=== PATIENT | male | born 1945 | race Caucasian/White ===

== ENCOUNTER 2016-08-14 09:55 | Outpatient (RCR) | payer MEDICAID, MEDICARE ==
[2016-07-25 09:38] LABS: BASOPHILS % (AUTO) 1 % (0-10); EOSINOPHILS # (AUTO) 0.3 10^3/uL (0.0-0.3); EOSINOPHILS % (AUTO) 4 % (0-10); LYMPHOCYTES # (AUTO) 1.8 X 10^3 (1.0-4.0); LYMPHOCYTES % (AUTO) 22 % (12-44); MEAN CORPUSCULAR HEMOGLOBIN 28 PG (25-34); MEAN CORPUSCULAR HGB CONC 32 G/DL (32-36); MEAN CORPUSCULAR VOLUME 88 FL (80-99); MEAN PLATELET VOLUME 9.9 FL (7.4-10.4); MONOCYTES % (AUTO) 13 % (0-12); NEUTROPHILS # (AUTO) 4.8 X 10^3 (1.8-7.8); NEUTROPHILS % (AUTO) 60 % (42-75); PLATELET COUNT 346 10^3/uL (130-400); RED BLOOD COUNT 4.15 10^6/uL (4.35-5.85); RED CELL DISTRIBUTION WIDTH 14.8 % (10.0-14.5)
[2016-07-25 10:13] LABS: ALBUMIN 3.8 G/DL (3.2-4.5); BILIRUBIN,TOTAL 0.3 MG/DL (0.1-1.0); CALCIUM 8.9 MG/DL (8.5-10.1); CREATININE SERUM 1.24 MG/DL (0.60-1.30); POTASSIUM 4.7 MMOL/L (3.6-5.0); TOTAL PROTEIN 6.8 G/DL (6.4-8.2)
[2016-07-25 12:24] LABS: %SAT TOTAL IRON BINDING CAPIC 6 % (15-50); TIBC 389 ug/dL (280-380)
[2016-07-26 07:53] LABS: UIBC 366 ug/dL (55-450)
[2016-07-26 08:02] LABS: FERRITIN 25 ng/mL (25-300)
[~2016-08-14 09:55] MED LIST: AC325T PO; AGM875T PO; ALBU8.5H2 IH; ALDACTONE25 MG PO; AMIO200T PO; AMIO200T2 PO; AMIO200T50 PO; APIX5TAB PO; APIX5TAB2 PO; ASP325T PO; ASP81CT PO; ASP81TEC PO; ASPI-624 PO; ASPI-906 PO; CARV3.122 PO; CEFU500T PO; CEFU500T5 PO; CIPR-225 PO; CLOP75TA PO; DIVA500T PO; DOCU-143 PO; DXCC100C PO; EZET10TA5 PO; FERR-57 PO; FERRIC CARBOXYMALTOSE (CANCER) 750 MG in NS (IVPB) CANCER CENTER 250 ML IV SCH; FLUO20CA42 PO; FLUT1DIS26 IH; FLUT1DIS26 INH; FURO20TA4 PO; FURO40TA4 PO; HYDR-3812 PO; IBUP-30 PO; ISOS10TA8 PO; ISOS30TA3 PO; LEVO500T69 PO; LISI2.5T56 PO; LISI2.5T85 PO; LISI5TAB PO; LOSA25TA15 PO; LOSA25TA21 PO; LOSA25TA5 PO; LSRT50T PO; METO-333 PO; METO25TA2 PO; METO25TA6 PO; METR500T PO; NAPR220T76 PO; NF-VAL40T PO; NITR0.4T PO; NITR0.4T39 SL; OMEP-10 PO; ONDA-42 SL; PANT40TA PO; PENI500T PO; PNT40TEC PO; PRD20T PO; Prednisone PO; RNT150T PO; ROSU20TA14 PO; ROSU40TA PO; RT-ALBUINH IH; SPIR25TA3 PO; SPRN25T PO; SULF1TAB35 PO; SUMA25TA4 PO; TAMS0.4C2 PO; TIOT18CA IH; TIOT18CA2 IH; TMSL.4C PO; TRAM-42 PO; TRIA16.5 NS; UMEC1BLS IH
== END 2016-10-23 | disposition home or self-care (01) ==
LOC: ONC 09:55
PROVIDERS: ATTEND Internal Medicine Hematology & Oncology
DX: D50.9 Iron deficiency anemia, unspecified (principal); I25.10 Atherosclerotic heart disease of native coronary artery without angina pectoris; I50.9 Heart failure, unspecified; E78.5 Hyperlipidemia, unspecified; J44.9 Chronic obstructive pulmonary disease, unspecified; F17.200 Nicotine dependence, unspecified, uncomplicated; Z95.810 Presence of automatic (implantable) cardiac defibrillator
CPT/HCPCS: 36415; 80053; 82728; 83540; 85025; 96365; 99213

== ENCOUNTER 2016-12-18 14:13 | Outpatient (RCR) | payer MEDICARE, MEDICAID ==
[~2016-12-18 14:13] MED LIST changes: -FERRIC CARBOXYMALTOSE (CANCER) 750 MG in NS (IVPB) CANCER CENTER 250 ML IV SCH
[2016-12-18 14:35] LABS: BASOPHILS # (AUTO) 0.1 10^3/uL (0.0-0.1); BASOPHILS % (AUTO) 1 % (0-10); EOSINOPHILS # (AUTO) 0.3 10^3/uL (0.0-0.3); EOSINOPHILS % (AUTO) 4 % (0-10); LYMPHOCYTES # (AUTO) 1.7 X 10^3 (1.0-4.0); LYMPHOCYTES % (AUTO) 26 % (12-44); MEAN CORPUSCULAR HEMOGLOBIN 31 PG (25-34); MEAN CORPUSCULAR HGB CONC 34 G/DL (32-36); MEAN CORPUSCULAR VOLUME 91 FL (80-99); MEAN PLATELET VOLUME 9.9 FL (7.4-10.4); MONOCYTES # (AUTO) 0.8 X 10^3 (0.0-1.0); MONOCYTES % (AUTO) 11 % (0-12); NEUTROPHILS # (AUTO) 3.9 X 10^3 (1.8-7.8); NEUTROPHILS % (AUTO) 58 % (42-75); PLATELET COUNT 267 10^3/uL (130-400); RED BLOOD COUNT 4.74 10^6/uL (4.35-5.85); RED CELL DISTRIBUTION WIDTH 14.9 % (10.0-14.5); WHITE BLOOD COUNT 6.6 10^3/uL (4.3-11.0)
[2016-12-18 15:28] LABS: ALBUMIN 3.6 G/DL (3.2-4.5); BILIRUBIN,TOTAL 0.5 MG/DL (0.1-1.0); CALCIUM 8.7 MG/DL (8.5-10.1); CREATININE SERUM 1.26 MG/DL (0.60-1.30); POTASSIUM 4.1 MMOL/L (3.6-5.0); TOTAL PROTEIN 6.7 G/DL (6.4-8.2)
[2017-02-12] MEDS ORDERED: TRAM-42 PO (22:30)
== END 2017-03-18 | disposition home or self-care (01) ==
LOC: ONC 14:13
PROVIDERS: ATTEND Internal Medicine Hematology & Oncology
DX: D50.9 Iron deficiency anemia, unspecified (principal); I25.10 Atherosclerotic heart disease of native coronary artery without angina pectoris; I50.9 Heart failure, unspecified; E78.5 Hyperlipidemia, unspecified; J44.9 Chronic obstructive pulmonary disease, unspecified; F17.200 Nicotine dependence, unspecified, uncomplicated; Z95.810 Presence of automatic (implantable) cardiac defibrillator
CPT/HCPCS: 36415; 80053; 82728; 83540; 85025; 99213

== ENCOUNTER 2017-02-12 20:47 | Emergency (ER) | payer MEDICARE ==
[~2017-02-12] VITALS: Ht 172.7 cm; Wt 92.4 kg
--- NOTE | 2017-02-12 21:52 | Diagnostic Imaging Report ---
PROCEDURE: CT head and CT cervical spine without contrast. TECHNIQUE: Multiple contiguous axial images were obtained through the brain and cervical spine without the use of intravenous contrast. Sagittal and coronal reformations through the cervical spine were then performed. INDICATION: Fell earlier today, complaining of pain on the right side of the head and neck COMPARISON STUDY: CT of the head from 10/11/15. FINDINGS: Noncontrast CT scanning of the head demonstrates stable mild atrophy. No mass effect, midline shift, hemorrhage or extra-axial fluid collections are identified. Bone windows demonstrate no evidence of a fracture. No fluid is seen in the mastoid air cells or paranasal sinuses. Cervical spine: Noncontrast CT scan of the cervical spine demonstrates no fracture or subluxation. There is some calcification of the carotid arteries. C6-7 level demonstrates disc space narrowing with osteophytic ridging. Moderate central and bilateral foraminal stenosis is present. The lung apices are clear. IMPRESSION: 1. There is mild atrophy with no acute intracranial findings. 2. There is central and bilateral foraminal stenosis at C6/7 without acute findings to the cervical spine. Dictated by: Dictated on workstation # [id number]
--- NOTE | 2017-02-12 21:56 | Diagnostic Imaging Report ---
Indication: Fell earlier today, has pain on the right side. Findings: An AP view of the pelvis demonstrates no fracture, dislocation or diastases. Degenerative changes are present at L4-5 and L5-S1. Impression: There are no acute findings. Dictated by: Dictated on workstation # [id number]
--- NOTE | 2017-02-12 21:57 | Diagnostic Imaging Report ---
INDICATION: Fell earlier today, right-sided chest pain FINDINGS: Frontal view of the chest demonstrates stable cardiomegaly with cardiac pacemaker and coronary artery bypass graft changes. Stable scarring is present in the lingula. The lungs are clear. IMPRESSION: Stable chest. Dictated by: Dictated on workstation # [id number]
--- NOTE | 2017-02-12 21:57 | Diagnostic Imaging Report ---
Indication: Fell today, has right-sided shoulder pain. Findings: Three views of the right shoulder demonstrate no fracture or dislocation. Calcification is seen at the insertion of the rotator cuff consistent with calcific tendinitis. Small osteophytes are seen off of the acromioclavicular joint. Impression: There are no acute findings. Dictated by: Dictated on workstation # [id number]
--- NOTE | 2017-02-12 22:01 | Diagnostic Imaging Report ---
PROCEDURE: CT chest without contrast. TECHNIQUE: Multiple contiguous axial images were obtained through the chest without the use of intravenous contrast. INDICATION: Fell earlier today, complaining of right-sided pain FINDINGS: Mild interstitial lung disease is present. No pleural or pericardial effusion is present. Heart size is enlarged with coronary artery bypass graft changes and cardiac pacemaker. Small gallstone is present without inflammation. There are some mildly enlarged mediastinal lymph nodes. Anterior mediastinal lymph node measures 13 mm. A pretracheal lymph node measures up to 15 mm in short axis dimension. Some subcarinal and small hilar lymph nodes are present. Consider 3-4 month followup to document stability of these. Bone windows demonstrate some degenerative changes of the right shoulder. No fractures are identified. IMPRESSION: 1. There are some mildly enlarged mediastinal lymph nodes; recommend a three-month followup to document stability of these. 2. Cardiomegaly and postoperative changes. 3. No fractures are identified. Dictated by: Dictated on workstation # [id number]
--- NOTE | 2017-02-12 22:03 | ED Fall/Injury ---
General Chief Complaint: Trauma-Non Activation Stated Complaint: FALL, SHOULDER/RIB/BACK PAIN Nursing Triage Note: patient reports falling this morning at 0630, patient reports hitting his head but denies LOC, c/o R shoulder pain and difficulty moving it. c/o R side/rib pain Source: patient History of Present Illness Time seen by provider: 21:07 Initial Comments PT STATES HE FELL THIS MORNING AROUND 0630, LANDING ON RIGHT SIDE--NOT WITNESSED PT STATES HE DID HIT HIS HEAD ON THE GROUND, BUT NO LOSS OF CONSCIOUSNESS-- GROUND WAS SOFT AND MUDDY C/O PAIN TO RIGHT SHOULDER--IS MAIN COMPLAINT ALSO C/O RIGHT ANTERIOR AND POSTERIOR RIB PAIN C/O SLIGHT PAIN TO RIGHT LATERAL NECK NO PARESTHESIAS OR MOTOR DEFICITS NO SHORTNESS OF BREATH NO HIP OR LEG PAIN NO DIZZINESS NO VISION CHANGES NO NAUSEA/VOMITING PT IS ON ELIQUIS FOR CORONARY ARTERY DISEASE PT HAS BEEN HAVING PROBLEMS WITH BALANCE AND STUMBLING FOR THE LAST MONTH, HAS ALSO BEEN HAVING HEADACHES FOR THE LAST MONTH PT HAS ACTUALLY HAD BALANCE PROBLEMS OFF AND ON SINCE HE HAD A STROKE 2 YEARS AGO WAS SEEN BY DR VARELA AT [facility] A WEEK OR TWO AGO FOR THIS AND WAS STARTED ON OXYGEN AT BEDTIME AND GIVEN RX FOR IMITREX--HEADACHES HAVE SIGNIFICANTLY IMPROVED, BUT IS STILL STUMBLING PT STATES NO TESTS WERE DONE, PER PT AND Allergies and Home Medications Allergies Coded Allergies: Penicillins (Unverified Allergy, Unknown, 05/29/16) Home Medications Albuterol Sulfate 8.5 Gm Hfa.aer.ad, 2 PUFF IH QID PRN for SHORTNESS OF BREATH, (Reported) Amiodarone HCl 200 Mg Tablet, 200 MG PO BID, (Reported) Apixaban 5 Mg Tablet, 5 MG PO BID for 30 Days Prescribed by: ANDREW ANGULO on 05/30/16 1230 Aspirin 81 Mg Tab.chew, 81 MG PO DAILY, (Reported) Fluoxetine HCl 20 Mg Capsule, 20 MG PO DAILY, #30 Ref 1 Prescribed by: RHEA FERRO on 05/30/16 1155 Furosemide 40 Mg Tablet, 40 MG PO DAILY, (Reported) Isosorbide Mononitrate 30 Mg Tab.er.24h, 30 MG PO DAILY, (Reported) Losartan Potassium 25 Mg Tablet, 12.5 MG PO DAILY, (Reported) TAKES 1/2 OF A (25 MG) TABLET Metoprolol Tartrate 25 Mg Tablet, 12.5 MG PO BID, (Reported) TAKES 1/2 OF A (25 MG) TABLET Nitroglycerin 0.4 Mg Tab.subl, 0.4 MG PO UD PRN for CHEST PAIN, (Reported) 1 TAB UNDER TONGUE EVERY 5 MIN UP TO 3 DOSES Pantoprazole Sodium 40 Mg Tablet.dr, 40 MG PO DAILY, (Reported) Rosuvastatin Calcium 40 Mg Tablet, 40 MG PO HS, (Reported) Spironolactone 25 Mg Tablet, 25 MG PO DAILY, (Reported) Sumatriptan Succinate 25 Mg Tablet, 25 MG PO UD PRN for MIGRAINE, (Reported) Tamsulosin HCl 0.4 Mg Cap.er.24h, 0.4 MG PO 1730, (Reported) Tramadol HCl 50 Mg Tablet, 50 MG PO Q4H, #20 Prescribed by: SACHIN PHILIPPE on 02/12/17 2230 Umeclidinium Brm/Vilanterol Tr 1 Each Blst.w.dev, 1 PUFF IH DAILY, (Reported) Constitutional: no symptoms reported Eyes: No Symptoms Reported Ears, Nose, Mouth, Throat: no symptoms reported Respiratory: no symptoms reported Cardiovascular: no symptoms reported Gastrointestinal: no symptoms reported Genitourinary: no symptoms reported Musculoskeletal: see HPI Skin: no symptoms reported Psychiatric/Neurological: See HPI, Denies Headache, Denies Numbness, Denies Paresthesia, Denies Seizure, Denies Tingling, Denies Tremors, Denies Weakness Past Unbpgio-Lcpygc-Kvhagb Hx Patient Social History Alcohol Use: Denies Use Recreational Drug Use: No Smoking Status: Former Smoker Type Used: Cigarettes Recent Foreign Travel: No Contact w/Someone Who Travel: No Recent Infectious Disease Expo: No Recent Hopitalizations: No Immunizations Up To Date Tetanus Booster (TDap): More than 5yrs PED Vaccines UTD: No Date of Pneumonia Vaccine: Oct 18, 2013 Date of Influenza Vaccine: Jun 19, 2015 Seasonal Allergies Seasonal Allergies: Yes Surgeries HX Surgeries: Yes (STENTS X 3) Surgeries: Cardiac, CABG, Coronary Stent, Defibrillator Respiratory Hx Respiratory Disorders: Yes (MEDIASTINAL LYMPHADENOPATHY--BEING MONITORED BY PCP AND DR. TAPIA) Respiratory Disorders: Asthma, COPD Cardiovascular Hx Cardiac Disorders: Yes (NV X2; SYNCOPE PRIOR TO DEFIBRILLATOR PLACEMENT; CHF ) Cardiac Disorders: Atrial Fibrillation, Coronary Artery Disease, Heart Attack, High Cholesterol, Hypertension, Syncope Neurological Hx Neurological Disorders: Yes (LEFT SIDE WEAKNESS, BALANCE PROBLEMS/ FALLS) Neurological Disorders: Stroke Reproductive System Hx Reproductive Disorders: No Sexually Transmitted Disease: No HIV/AIDS: No Genitourinary Hx Genitourinary Disorders: Yes (URINARY RETENTION) Genitourinary Disorders: Benign Prostatic Hyperpl Gastrointestinal Hx Gastrointestinal Disorders: Yes (GASTRITIS) Gastrointestinal Disorders: Gastroesophageal Reflux, Diverticulosis, Esophagitis, Hiatal Hernia Musculoskeletal Hx Musculoskeletal Disorders: Yes Musculoskeletal Disorders: Fractures Endocrine Hx Endocrine Disorders: No HEENT HX ENT Disorders: No Loss of Vision: Denies Hearing Impairment: Denies Cancer Hx Cancer: No Psychosocial Hx Psychiatric Problems: No Integumentary HX Skin/Integumentary Disorder: No Blood Transfusions Hx Blood Disorders: Yes (NOT CURRENT BUT HX OF ANEMIA OF UNKNOWN CAUSE) Adverse Reaction to a Blood Tr: No Family Medical History Family Medial History: Fam hx-osteoporosis 03 MOTHER Family history: Hypertension 03 MOTHER, Onset:50's - 60 09 SISTER, Onset:40's - 50 Thyroid disease 03 MOTHER No Family History of: Cancer Chest pain Dementia Family history: Diabetes mellitus Stroke Physical Exam Vital Signs Vital Sign - Last 12Hours 02/12/17 21:02 Temp 98.2 Pulse 46 Resp 18 B/P (MAP) 117/63 Pulse Ox 94 Capillary Refill : Less Than 3 Seconds General Appearance: WD/WN, no apparent distress HEENT: PERRL/EOMI, normal ENT inspection, TMs normal, pharynx normal Neck: non-tender, full range of motion, supple, normal inspection Cardiovascular: normal peripheral pulses, regular rate, rhythm, no edema, no JVD, no murmur Respiratory: normal breath sounds, no respiratory distress, no accessory muscle use, other (TENDERNESS TO RIGHT LOWER CHEST WALL. NO CREPITANCE OR SUB Q AIR) Gastrointestinal: normal bowel sounds, non tender, soft, no organomegaly Back: no vertebral tenderness, other (TENDERNESS TO RIGHT TRAPEZIUS AREA ) Extremities: no pedal edema, no calf tenderness, normal capillary refill, other (TENDERNESS TO RIGHT SHOULDER AND LIMITED ROM OF RIGHT SHOULDER/ARM DUE TO PAIN . NO DEFORMTITY. MOTOR/ SENSORY/ VASCULAR INTACT) Neurologic/Psychiatric: operations director II-XII nml as tested, no motor/sensory deficits, alert, normal mood/affect, oriented x 3 Skin: normal color, warm/dry, other (NO EXTERNAL EVIDENCE OF TRAUMA ANYWHERE) [place] Coma Score Best Eye Response: (4) Open Spontaneously Best Verbal Response: (5) Oriented Best Motor Response: (6) Obeys Commands [place] Total: 15 Splinting and Joint Reduction : Arm Sling: [place] Progress/Results/Core Measures Results/Orders My Orders Orders - SACHIN PHILIPPE DO Ct Chest Wo (02/12/17 21:14) Ct Head/Cervical Spine Wo (02/12/17 21:14) Ct Thoracic/Lumbar Spine Wo (02/12/17 21:14) Chest 1 View, Ap/Pa Only (02/12/17 21:14) Shoulder, Right, 3 Views (02/12/17 21:14) Pelvis (02/12/17 21:14) Sling (02/12/17 22:24) Rx-Tramadol Hcl (Rx-Ultram) (02/12/17 22:24) Vital Signs/I&O Vital Sign - Last 12Hours 02/12/17 02/12/17 21:02 22:36 Temp 98.2 98.2 Pulse 46 46 Resp 18 18 B/P (MAP) 117/63 Pulse Ox 94 94 Blood Pressure Mean: 81 Diagnostic Imaging Comments CXR--NO ACUTE PROCESS XRAYS RIGHT SHOULDER--NO ACUTE PROCESS XRAY PELVIS--NO ACUTE PROCESS ALL PER RADIOLOGIST REPORTS @ 2200 CT HEAD AND CERVICAL SPINE--NO ACUTE PROCESS, DEGENERATIVE CHANGES--PER RADIOLOGIST REPORT @ 2200 CT CHEST--NO ACUTE PROCESS, MILDLY ENLARGED MEDIASTINAL NODES--PER RADIOLOGIST REPORT @ 2207 CT THORACIC AND LUMBAR SPINE--NO ACUTE PROCESS, DEGENERATIVE CHANGES--PER RADIOLOGIST REPORT @ 2215 Reviewed: Reviewed by Me Departure Impression Impression: Primary Impression: Status post fall Additional Impressions: Contusion of right shoulder Minor head injury without loss of consciousness Contusion of right chest wall CHRONIC BALANCE PROBLEMS Disposition: 01 HOME, SELF-CARE Condition: Stable Departure-Patient Inst. Referrals: TANYA DENG DO (PCP) Primary Care Physician JENNIFER VARELA (Family) Primary Care Physician Patient Instructions: Bruised Rib (DC), How to Use a Shoulder Sling, Minor Head Injury (DC), Preventing Falls in the Older Adult, Shoulder Sprain (DC) Add. Discharge Instructions: WEAR SLING NEEDED FOR COMFORT ALTERNATE ICE AND HEAT TO SORE AREAS AT 20 MINUTE INTERVALS ACTIVITY TOLERATED FOLLOW UP WITH YOUR DR IN 1 WEEK SCHEDULED All discharge instructions reviewed with patient and/or family. Voiced understanding. Scripts Tramadol HCl (Ultram) 50 Mg Tablet 50 MG PO Q4H, #20 TAB Prov: SACHIN PHILIPPE DO 02/12/17 SACHIN PHILIPPE DO February 12, 2017 22:03
--- NOTE | 2017-02-12 22:13 | Diagnostic Imaging Report ---
INDICATION: Fell earlier today, right-sided pain TECHNIQUE: Noncontrast CT scanning of the thoracic and lumbar spine was obtained. Thoracic spine: The exam demonstrates degenerative changes of the cervical spine which will be dictated separately. The thoracic spine demonstrates no fracture, subluxation or stenosis. No visible rib fractures are seen. The lumbar spine demonstrates no fracture or subluxation. Degenerative changes are present. Arteriosclerosis is also present. The L2-3 level demonstrates some facet arthropathy and mild disc bulge. Mild central stenosis present. The L4-5 level demonstrates facet arthropathy with mild disc bulge and ligamentum flavum hypertrophy. Moderate central stenosis present. The L4-5 level demonstrates vacuum disc, disc bulge and facet arthropathy. Moderate to severe central stenosis present. The L5-S1 level demonstrates facet arthropathy. No significant stenosis present. IMPRESSION: There are degenerative changes with no acute findings. Dictated by: Dictated on workstation # [id number]
[2017-02-12] MEDS ORDERED: RX-TRAMADOL 50 MG (ULTRAM) TAB PPK#4 PO STA (22:24)
[2017-02-12] MEDS ORDERED: TRAM-42 PO (22:30)
[2017-02-12 22:36] VITALS: BP 117/63
== END 2017-02-12 22:36 | disposition home or self-care (01) ==
LOC: EDUNIT# 20:47 → ER 20:49
DX: S40.011A Contusion of right shoulder, initial encounter (principal); S20.211A Contusion of right front wall of thorax, initial encounter; M47.816 Spondylosis without myelopathy or radiculopathy, lumbar region; M48.02 Spinal stenosis, cervical region; I25.10 Atherosclerotic heart disease of native coronary artery without angina pectoris; Z79.01 Long term (current) use of anticoagulants; Z87.891 Personal history of nicotine dependence; Z79.899 Other long term (current) drug therapy; Z95.810 Presence of automatic (implantable) cardiac defibrillator; Z95.5 Presence of coronary angioplasty implant and graft; Z95.1 Presence of aortocoronary bypass graft; Z86.73 Personal history of transient ischemic attack (TIA), and cerebral infarction without residual deficits; W01.0XXA Fall on same level from slipping, tripping and stumbling without subsequent striking against object, initial encounter; Y92.009 Unspecified place in unspecified non-institutional (private) residence as the place of occurrence of the external cause; Y99.8 Other external cause status
CPT/HCPCS: 70450; 71010; 71250; 72125; 72128; 72131; 72170; 73030; 99285

== ENCOUNTER 2017-03-22 09:33 | Outpatient (RCR) | payer MEDICAID, MEDICARE ==
[2017-03-22 09:46] LABS: BASOPHILS # (AUTO) 0.1 10^3/uL (0.0-0.1); BASOPHILS % (AUTO) 1 % (0-10); EOSINOPHILS # (AUTO) 0.3 10^3/uL (0.0-0.3); EOSINOPHILS % (AUTO) 4 % (0-10); LYMPHOCYTES # (AUTO) 1.4 X 10^3 (1.0-4.0); LYMPHOCYTES % (AUTO) 17 % (12-44); MEAN CORPUSCULAR HEMOGLOBIN 31 PG (25-34); MEAN CORPUSCULAR HGB CONC 33 G/DL (32-36); MEAN CORPUSCULAR VOLUME 94 FL (80-99); MEAN PLATELET VOLUME 9.9 FL (7.4-10.4); MONOCYTES # (AUTO) 0.8 X 10^3 (0.0-1.0); MONOCYTES % (AUTO) 10 % (0-12); NEUTROPHILS # (AUTO) 5.5 X 10^3 (1.8-7.8); NEUTROPHILS % (AUTO) 68 % (42-75); PLATELET COUNT 317 10^3/uL (130-400); RED BLOOD COUNT 4.54 10^6/uL (4.35-5.85); RED CELL DISTRIBUTION WIDTH 15.2 % (10.0-14.5); WHITE BLOOD COUNT 8.1 10^3/uL (4.3-11.0)
[2017-03-22 10:21] LABS: ALBUMIN 3.7 GM/DL (3.2-4.5); BILIRUBIN,TOTAL 0.5 MG/DL (0.1-1.0); CALCIUM 9.5 MG/DL (8.5-10.1); CREATININE SERUM 1.43 MG/DL (0.60-1.30); POTASSIUM 4.4 MMOL/L (3.6-5.0); TOTAL PROTEIN 7.5 GM/DL (6.4-8.2)
[2017-05-04] MEDS ORDERED: CEPH500C PO (13:33)
[2017-05-04] MEDS ORDERED: PHEN-639 PO (13:33)
[2017-05-04] MEDS ORDERED: ONDA8TAB13 PO (13:33)
[2017-05-04] MEDS ORDERED: HYDR-3812 PO (13:33)
[2017-05-10] MEDS ORDERED: APIX5TAB PO (11:30)
[2017-05-10] MEDS ORDERED: SUMA50TA2 PO (11:30)
[2017-05-10] MEDS ORDERED: ASPI-983 PO (11:30)
[2017-05-10] MEDS ORDERED: POLY255P PO (11:33)
[2017-05-11] MEDS ORDERED: FURO40TA4 PO (08:46)
[2017-05-11] MEDS ORDERED: POTA10TA PO (08:46)
== END 2017-06-16 | disposition home or self-care (01) ==
LOC: ONC 09:33
PROVIDERS: ATTEND Internal Medicine Hematology & Oncology
DX: Z95.810 Presence of automatic (implantable) cardiac defibrillator; J44.9 Chronic obstructive pulmonary disease, unspecified; D50.9 Iron deficiency anemia, unspecified; I25.10 Atherosclerotic heart disease of native coronary artery without angina pectoris; E78.5 Hyperlipidemia, unspecified; F17.200 Nicotine dependence, unspecified, uncomplicated; I50.9 Heart failure, unspecified
CPT/HCPCS: 36415; 80053; 82728; 83540; 85025; 99213

== ENCOUNTER 2017-05-04 09:59 | Emergency (ER) | payer MEDICARE, MEDICAID ==
[~2017-05-04] VITALS: Ht 172.7 cm; Wt 90.7 kg
[2017-05-04] MEDS ORDERED: NS IV 1000 ML 1,000 ML IV ONE (12:02)
[2017-05-04] MEDS ORDERED: morphine INJ 10 MG/ML 1ML (SYR OR VIAL) IVP STA (12:02)
--- NOTE | 2017-05-04 12:08 | ED GU-Male ---
General Chief Complaint: Back Problems Stated Complaint: BACK PAIN Nursing Triage Note: ADM TO ED C/O LOW BACK PAIN WITH RADIATION TO FRONT. PAIN HAS BEEN GOING ON FOR 2 WEEKS WAS SEEN AT [facility] ON SUNDAY XRAY DID AT THAT TIME. DID XRAY TOLD HIM THAT HE WAS CONSTIPATION STARTED ON [place] CON'T TO HAVE PAIN, Source: patient, spouse Exam Limitations: no limitations History of Present Illness Time seen by provider: 11:45 Initial Comments 71-year-old male patient presents to the emergency department complaints of right low back pain radiating around the right flank beginning approximately 2 weeks ago. Patient states he was seen Sunday at [facility] with a UA and x-ray obtained. States he x-ray showed constipation and UA showed blood in his urine. Reports being diagnosed with constipation and started on MiraLAX without improvement in symptoms. Does complain of feeling like he has a low- grade fever at nighttime, but has not taken his temperature. Denies any dysuria , frequency, hematuria. Does state when he takes his Lasix the right low back pain does get worse after approximately 1-2 hours. Denies history of kidney stones. Denies bowel or bladder incontinence. Timing/Duration: other (2 weeks onset) Severity/Quality: aching, stabbing (intermittently has stabbing pains in the right low back and right flank) Location: other (right low back) Radiation: right flank Activities at Onset: none Prior Genitourinary Problems: none Modifying Factors: Worsens With Palpation, Worsens With Other (worse with taking Lasix) Allergies and Home Medications Allergies Coded Allergies: Penicillins (Unverified Allergy, Unknown, 05/29/16) Home Medications Albuterol Sulfate 8.5 Gm Hfa.aer.ad, 2 PUFF IH QID PRN for SHORTNESS OF BREATH, (Reported) Amiodarone HCl 200 Mg Tablet, 200 MG PO BID, (Reported) Apixaban 5 Mg Tablet, 5 MG PO BID for 30 Days Prescribed by: ANDREW ANGULO on 05/30/16 1230 Aspirin 81 Mg Tab.chew, 81 MG PO DAILY, (Reported) Cephalexin 500 Mg Capsule, 500 MG PO TID, #9 Ref 0 Prescribed by: RENEE CERVANTES on 05/04/17 1333 Fluoxetine HCl 20 Mg Capsule, 20 MG PO DAILY, #30 Ref 1 Prescribed by: RHEA FERRO on 05/30/16 1155 Furosemide 40 Mg Tablet, 40 MG PO DAILY, (Reported) Hydrocodone/Acetaminophen 1 Each Tablet, 1 EACH PO Q4H PRN for PAIN, #20 Ref 0 Prescribed by: RENEE CERVANTES on 05/04/17 1333 Isosorbide Mononitrate 30 Mg Tab.er.24h, 30 MG PO DAILY, (Reported) Losartan Potassium 25 Mg Tablet, 12.5 MG PO DAILY, (Reported) TAKES 1/2 OF A (25 MG) TABLET Metoprolol Tartrate 25 Mg Tablet, 12.5 MG PO BID, (Reported) TAKES 1/2 OF A (25 MG) TABLET Nitroglycerin 0.4 Mg Tab.subl, 0.4 MG PO UD PRN for CHEST PAIN, (Reported) 1 TAB UNDER TONGUE EVERY 5 MIN UP TO 3 DOSES Ondansetron 8 Mg Tab.rapdis, 8 MG PO Q6H PRN for NAUSEA/VOMITING-1ST LINE, #10 Ref 0 Prescribed by: RENEE CERVANTES on 05/04/17 1333 Pantoprazole Sodium 40 Mg Tablet.dr, 40 MG PO DAILY, (Reported) Phenazopyridine HCl 100 Mg Tablet, 100 MG PO Q8H PRN for pain, #14 Ref 0 Prescribed by: RENEE CERVANTES on 05/04/17 1333 Rosuvastatin Calcium 40 Mg Tablet, 40 MG PO HS, (Reported) Spironolactone 25 Mg Tablet, 25 MG PO DAILY, (Reported) Sumatriptan Succinate 25 Mg Tablet, 25 MG PO UD PRN for MIGRAINE, (Reported) Tamsulosin HCl 0.4 Mg Cap.er.24h, 0.4 MG PO 1730, (Reported) Tramadol HCl 50 Mg Tablet, 50 MG PO Q4H, #20 Prescribed by: SACHIN PHILIPPE on 02/12/17 2230 Umeclidinium Brm/Vilanterol Tr 1 Each Blst.w.dev, 1 PUFF IH DAILY, (Reported) Constitutional: chills, No diaphoresis, No dizziness, fever (reports low-grade fevers at nighttime over the last several days. Denies taking temperature.), malaise Respiratory: No cough, No dyspnea on exertion, No orthopnea, No short of breath Cardiovascular: No chest pain, No palpitations, No syncope Gastrointestinal: see HPI, No abdominal pain, No constipation, No diarrhea, No melena, nausea, No vomiting Genitourinary: see HPI, denies burning, denies discharge, denies dysuria, denies frequency, flank pain (right flank pain), hematuria (was told he had blood in his urine on [place] [facility] Musculoskeletal: see HPI, back pain, No joint pain Skin: no symptoms reported Psychiatric/Neurological: Denies Numbness, Denies Paresthesia, Denies Tingling , Denies Weakness All Other Systemes Reviewed Negative Unless Noted: Yes (Negative excepted noted.) Past Qcmuznl-Nnrddh-Tshqdt Hx Patient Social History Alcohol Use: Denies Use Recreational Drug Use: No Smoking Status: Current Everyday Smoker Type Used: Cigarettes Recent Foreign Travel: No Contact w/Someone Who Travel: No Recent Infectious Disease Expo: No Recent Hopitalizations: No Immunizations Up To Date Tetanus Booster (TDap): More than 5yrs PED Vaccines UTD: No Date of Pneumonia Vaccine: Oct 18, 2013 Date of Influenza Vaccine: Jun 19, 2015 Seasonal Allergies Seasonal Allergies: Yes Surgeries HX Surgeries: Yes (STENTS X 3) Surgeries: Cardiac, CABG, Coronary Stent, Defibrillator Respiratory Hx Respiratory Disorders: Yes (MEDIASTINAL LYMPHADENOPATHY--BEING MONITORED BY PCP AND DR. TAPIA) Respiratory Disorders: Asthma, COPD Cardiovascular Hx Cardiac Disorders: Yes (MA X2; SYNCOPE PRIOR TO DEFIBRILLATOR PLACEMENT; CHF ) Cardiac Disorders: Atrial Fibrillation, Coronary Artery Disease, Heart Attack, High Cholesterol, Hypertension, Syncope Neurological Hx Neurological Disorders: Yes (LEFT SIDE WEAKNESS, BALANCE PROBLEMS/ FALLS) Neurological Disorders: Stroke Reproductive System Hx Reproductive Disorders: No Sexually Transmitted Disease: No HIV/AIDS: No Genitourinary Hx Genitourinary Disorders: Yes (URINARY RETENTION, chronic kidney disease) Genitourinary Disorders: Benign Prostatic Hyperpl Gastrointestinal Hx Gastrointestinal Disorders: Yes (GASTRITIS) Gastrointestinal Disorders: Gastroesophageal Reflux, Diverticulosis, Esophagitis, Hiatal Hernia Musculoskeletal Hx Musculoskeletal Disorders: Yes Musculoskeletal Disorders: Fractures Endocrine Hx Endocrine Disorders: No HEENT HX ENT Disorders: No Loss of Vision: Denies Hearing Impairment: Denies Cancer Hx Cancer: No Psychosocial Hx Psychiatric Problems: No Integumentary HX Skin/Integumentary Disorder: No Blood Transfusions Hx Blood Disorders: Yes (NOT CURRENT BUT HX OF ANEMIA OF UNKNOWN CAUSE) Adverse Reaction to a Blood Tr: No Reviewed Nursing Assessment Reviewed/Agree w Nursing PMH: Yes Family Medical History Significant Family History: No Pertinent Family Hx Family Medial History: Fam hx-osteoporosis 03 MOTHER Family history: Hypertension 03 MOTHER, Onset:50's - 60 09 SISTER, Onset:40's - 50 Thyroid disease 03 MOTHER No Family History of: Cancer Chest pain Dementia Family history: Diabetes mellitus Stroke Physical Exam Vital Signs Vital Sign - Last 12Hours 05/04/17 10:15 Temp 97.2 Pulse 47 Resp 18 B/P (MAP) 129/72 Pulse Ox 95 Capillary Refill : Less Than 3 Seconds General Appearance: WD/WN, no apparent distress Cardiovascular: normal peripheral pulses, regular rate, rhythm, no murmur Respiratory: lungs clear, normal breath sounds, no respiratory distress Gastrointestinal: normal bowel sounds, soft, no organomegaly, No distended, guarding (right flank guarding), No rebound, tenderness (mild suprapubic and right lower quadrant tenderness. Right flank moderate to severe tenderness with palpation.) Back: normal inspection, no vertebral tenderness, CVA tenderness (R), No CVA tenderness (L) Extremities: normal capillary refill, pedal edema Neurologic/Psychiatric: no motor/sensory deficits, alert, normal mood/affect, oriented x 3 Skin: normal color, warm/dry Progress/Results/Core Measures Results/Orders Lab Results Laboratory Tests Test 05/04/17 12:09 05/04/17 12:11 Range/Units White Blood Count 7.8 4.3-11.0 10^3/uL Red Blood Count 4.73 4.35-5.85 10^6/uL Hemoglobin 14.6 13.3-17.7 G/DL Hematocrit 44 40-54 % Mean Corpuscular Volume 93 80-99 FL Mean Corpuscular Hemoglobin 31 25-34 PG Mean Corpuscular Hemoglobin Concent 33 32-36 G/DL Red Cell Distribution Width 14.6 H 10.0-14.5 % Platelet Count 283 130-400 10^3/uL Mean Platelet Volume 10.2 7.4-10.4 FL Neutrophils (%) (Auto) 65 42-75 % Lymphocytes (%) (Auto) 20 12-44 % Monocytes (%) (Auto) 11 0-12 % Eosinophils (%) (Auto) 3 0-10 % Basophils (%) (Auto) 1 0-10 % Neutrophils # (Auto) 5.1 1.8-7.8 X 10^3 Lymphocytes # (Auto) 1.6 1.0-4.0 X 10^3 Monocytes # (Auto) 0.8 0.0-1.0 X 10^3 Eosinophils # (Auto) 0.3 0.0-0.3 10^3/uL Basophils # (Auto) 0.0 0.0-0.1 10^3/uL Sodium Level 141 135-145 MMOL/L Potassium Level 4.5 3.6-5.0 MMOL/L Chloride Level 112 H 98-107 MMOL/L Carbon Dioxide Level 17 L 21-32 MMOL/L Anion Gap 12 5-14 MMOL/L Blood Urea Nitrogen 23 H 7-18 MG/DL Creatinine 1.15 0.60-1.30 MG/DL Estimat Glomerular Filtration Rate > 60 BUN/Creatinine Ratio 20 Glucose Level 98 70-105 MG/DL Calcium Level 9.3 8.5-10.1 MG/DL Total Bilirubin 0.7 0.1-1.0 MG/DL Aspartate Amino Transf (AST/SGOT) 34 5-34 U/L Alanine Aminotransferase (ALT/SGPT) 30 0-55 U/L Alkaline Phosphatase 77 40-136 U/L Total Protein 7.9 6.4-8.2 GM/DL Albumin 3.9 3.2-4.5 GM/DL Urine Color YELLOW Urine Clarity CLEAR Urine pH 5 5-9 Urine Specific [place] 1.020 1.016-1.022 Urine Protein NEGATIVE NEGATIVE Urine Glucose (UA) NEGATIVE NEGATIVE Urine Ketones NEGATIVE NEGATIVE Urine Nitrite NEGATIVE NEGATIVE Urine Bilirubin NEGATIVE NEGATIVE Urine Urobilinogen NORMAL NORMAL MG/DL Urine Leukocyte Esterase 1+ H NEGATIVE Urine RBC (Auto) 1+ H NEGATIVE Urine RBC NONE /HPF Urine WBC 0-2 /HPF Urine Squamous Epithelial Cells RARE /HPF Urine Crystals NONE /LPF Urine Bacteria TRACE /HPF Urine Casts NONE /LPF Urine Mucus SMALL H /LPF Urine Culture Indicated NO My Orders Orders - RENEE CERVANTES Cbc With Automated Diff (05/04/17 12:02) Comprehensive Metabolic Panel (05/04/17 12:02) Ua Culture If Indicated (05/04/17 12:02) Saline Lock/Iv-Start (05/04/17 12:02) Ct Abd/Pelvis Wo(Kidney Stone) (05/04/17 12:02) Morphine Injection (Morphine Injection (05/04/17 12:02) Ondansetron Injection (Zofran Injectio (05/04/17 12:15) Ns Iv 1000 Ml (Sodium Chloride 0.9%) (05/04/17 12:02) Hydrocodone/Apap 7.5/325 Tab (Lortab 7. (05/04/17 13:59) Medications Given in ED Current Medications Medications Dose Ordered Sig/Henry Route Start Time Stop Time Status Last Admin Dose Admin Ondansetron HCl 4 mg ONCE ONCE IVP 05/04/17 12:15 05/04/17 12:16 DC 05/04/17 12:16 4 MG Sodium Chloride 1,000 ml @ 0 mls/hr Q0M ONCE IV 05/04/17 12:02 05/04/17 12:04 DC 05/04/17 12:15 1,000 MLS/HR Vital Signs/I&O Vital Sign - Last 12Hours 05/04/17 05/04/17 10:15 14:09 Temp 97.2 Pulse 47 51 Resp 18 18 B/P (MAP) 129/72 Pulse Ox 95 98 Intake and Output 05/05/17 00:00 Intake Total 1000 ml Balance 1000 ml Blood Pressure Mean: 91 Diagnostic Imaging Diagonstic Imaging: CT Plain Films/CT/US/NM/MRI: abdomen, pelvis Comments FINDINGS: The lung bases are clear. There is cholelithiasis without cholecystitis. The liver, spleen, pancreas, adrenal glands, and kidneys are unremarkable. There is no obstructive or nonobstructive renal calculi. Both ureters have a normal appearance. There is moderate prostate enlargement. The visualized urinary bladder is unremarkable. There is no inflammatory process. The course and caliber of the large and small bowel are grossly normal. IMPRESSION: 1. Cholelithiasis without cholecystitis. 2. Normal kidneys, ureter, and bladder. 3. Moderate prostate enlargement. Dictated on workstation # [id number] Reviewed: Reviewed by Me (radiology report reviewed by me) Departure Communication Progress Notes Laboratory and diagnostic findings discussed with the patient. Patient reports pain improved with the IV medication, but states pain is now starting to come back. Plan for discharge to home with follow-up as an outpatient with [facility] and the general surgeon of his choice. ED visit uneventful. Patient ambulated from the emergency department without difficulty. Impression Impression: Primary Impression: Renal colic on right side Additional Impression: Cholelithiasis Qualified Codes: K80.20 - Calculus of gallbladder without cholecystitis without obstruction Disposition: 01 HOME, SELF-CARE Condition: Improved Departure-Patient Inst. Decision time for Depature: 13:29 Referrals: TANYA DENG DO (PCP) Primary Care Physician JENNIFER VARELA (Family) Primary Care Physician ROSAURA KLEIN BRETT D DO Patient Instructions: Gallstones (DC), Renal Colic (DC) Add. Discharge Instructions: All discharge instructions reviewed with patient and/or family. Voiced understanding. Medications as directed. Drink plenty of fluids. Continue usual home medications. Strict low-fat diet. Follow-up with Dr. Snyder or the general surgeon of your choice for discussion of possible gallbladder removal. Follow-up with her family practitioner for recheck. Return to the emergency department for worsened symptoms or any other concerns. Scripts Cephalexin (Cephalexin) 500 Mg Capsule 500 MG PO TID, #9 CAP 0 Refills Prov: RENEE CERVANTES 05/04/17 Hydrocodone/Acetaminophen (Hydrocodon -Acetaminophen 5-325) 1 Each Tablet 1 EACH PO Q4H Y for PAIN, #20 TAB 0 Refills Prov: RENEE CERVANTES 05/04/17 Ondansetron (Ondansetron Odt) 8 Mg Tab.rapdis 8 MG PO Q6H Y for NAUSEA/VOMITING-1ST LINE, #10 TAB 0 Refills Prov: RENEE CERVANTES 05/04/17 Phenazopyridine HCl (Pyridium) 100 Mg Tablet 100 MG PO Q8H Y for pain, #14 TAB 0 Refills Prov: RENEE CERVANTES 05/04/17 RENEE CERVANTES May 04, 2017 12:08
[2017-05-04] MEDS ORDERED: ONDANSETRON 4 MG/2 ML (SDV) Z0FRAN IVP ONE (12:15)
[2017-05-04 12:21] LABS: BASOPHILS % (AUTO) 1 % (0-10); EOSINOPHILS # (AUTO) 0.3 10^3/uL (0.0-0.3); EOSINOPHILS % (AUTO) 3 % (0-10); LYMPHOCYTES # (AUTO) 1.6 X 10^3 (1.0-4.0); LYMPHOCYTES % (AUTO) 20 % (12-44); MEAN CORPUSCULAR HEMOGLOBIN 31 PG (25-34); MEAN CORPUSCULAR HGB CONC 33 G/DL (32-36); MEAN CORPUSCULAR VOLUME 93 FL (80-99); MEAN PLATELET VOLUME 10.2 FL (7.4-10.4); MONOCYTES # (AUTO) 0.8 X 10^3 (0.0-1.0); MONOCYTES % (AUTO) 11 % (0-12); NEUTROPHILS # (AUTO) 5.1 X 10^3 (1.8-7.8); NEUTROPHILS % (AUTO) 65 % (42-75); PLATELET COUNT 283 10^3/uL (130-400); RED BLOOD COUNT 4.73 10^6/uL (4.35-5.85); RED CELL DISTRIBUTION WIDTH 14.6 % (10.0-14.5); WHITE BLOOD COUNT 7.8 10^3/uL (4.3-11.0)
[2017-05-04 12:42] LABS: ALANINE AMINOTRANSFERASE 30 U/L (0-55); ALBUMIN 3.9 GM/DL (3.2-4.5); ANION GAP 12 MMOL/L (5-14); ASPARTATE AMINO TRANSFERASE 34 U/L (5-34); BILIRUBIN,TOTAL 0.7 MG/DL (0.1-1.0); BLOOD UREA NITROGEN 23 MG/DL (7-18); BUN/CREATININE RATIO 20; CALCIUM 9.3 MG/DL (8.5-10.1); CARBON DIOXIDE 17 MMOL/L (21-32); CHLORIDE 112 MMOL/L (98-107); CREATININE SERUM 1.15 MG/DL (0.60-1.30); GFR ESTIMATED > 60; GLUCOSE 98 MG/DL (70-105); POTASSIUM 4.5 MMOL/L (3.6-5.0); SODIUM 141 MMOL/L (135-145); TOTAL PROTEIN 7.9 GM/DL (6.4-8.2)
[2017-05-04 12:53] LABS: BILIRUBIN,URINE NEGATIVE (NEGATIVE); KETONES,URINE NEGATIVE (NEGATIVE); LEUKOCYTE ESTERASE ,URINE 1+ (NEGATIVE); NITRITE,URINE NEGATIVE (NEGATIVE); PH,URINE 5 (5-9); PROTEIN,URINE NEGATIVE (NEGATIVE); SQUAMOUS EPITHELIAL CELL,UR RARE /HPF; UROBILINOGEN,URINE NORMAL (NORMAL); WBC,URINE 0-2 /HPF
--- NOTE | 2017-05-04 13:24 | Diagnostic Imaging Report ---
PROCEDURE: CT urinary tract, rule out kidney stone. TECHNIQUE: Multiple contiguous axial images were obtained through the abdomen and pelvis without the use of intravenous contrast. INDICATION: Right flank pain, hematuria. COMPARISON: None. FINDINGS: The lung bases are clear. There is cholelithiasis without cholecystitis. The liver, spleen, pancreas, adrenal glands, and kidneys are unremarkable. There is no obstructive or nonobstructive renal calculi. Both ureters have a normal appearance. There is moderate prostate enlargement. The visualized urinary bladder is unremarkable. There is no inflammatory process. The course and caliber of the large and small bowel are grossly normal. IMPRESSION: 1. Cholelithiasis without cholecystitis. 2. Normal kidneys, ureter, and bladder. 3. Moderate prostate enlargement. Dictated by: Dictated on workstation # [id number]
[2017-05-04] MEDS ORDERED: PHEN-639 PO (13:33)
[2017-05-04] MEDS ORDERED: HYDR-3812 PO (13:33)
[2017-05-04] MEDS ORDERED: CEPH500C PO (13:33)
[2017-05-04] MEDS ORDERED: ONDA8TAB13 PO (13:33)
[2017-05-04] MEDS ORDERED: HYDROcodone/APAP 7.5 MG/325 MG (LORTAB, LORCET PLUS) TABLET PO STA (13:59)
[2017-05-04 14:09] VITALS: BP 134/80
== END 2017-05-04 14:08 | disposition home or self-care (01) ==
LOC: EDUNIT# 09:59 → ER 10:01
DX: N23 Unspecified renal colic (principal); K80.20 Calculus of gallbladder without cholecystitis without obstruction; J44.9 Chronic obstructive pulmonary disease, unspecified; I25.2 Old myocardial infarction; I48.91 Unspecified atrial fibrillation; I25.10 Atherosclerotic heart disease of native coronary artery without angina pectoris; E78.00 Pure hypercholesterolemia, unspecified; I12.9 Hypertensive chronic kidney disease with stage 1 through stage 4 chronic kidney disease, or unspecified chronic kidney disease; N18.9 Chronic kidney disease, unspecified; K21.9 Gastro-esophageal reflux disease without esophagitis; F17.210 Nicotine dependence, cigarettes, uncomplicated; Z87.19 Personal history of other diseases of the digestive system; Z87.448 Personal history of other diseases of urinary system; Z86.73 Personal history of transient ischemic attack (TIA), and cerebral infarction without residual deficits; Z95.5 Presence of coronary angioplasty implant and graft; Z95.1 Presence of aortocoronary bypass graft; Z95.810 Presence of automatic (implantable) cardiac defibrillator; Z79.01 Long term (current) use of anticoagulants; Z79.82 Long term (current) use of aspirin
CPT/HCPCS: 36415; 74176; 80053; 81000; 85025; 96361; 96374; 96375

== ENCOUNTER 2017-05-10 06:10 | Observation (INO) | payer MEDICARE ==
[~2017-05-10] VITALS: Ht 172.7 cm; Wt 90.0 kg
[2017-05-10] VITALS (13 sets, daily range): BP systolic 106–126; BP diastolic 53–83
[~2017-05-10 06:10] MED LIST changes: +CEPH500C PO; +ONDA8TAB13 PO; +PHEN-639 PO
[2017-05-10 06:59] LABS: BASOPHILS % (AUTO) 0 % (0-10); EOSINOPHILS # (AUTO) 0.3 10^3/uL (0.0-0.3); EOSINOPHILS % (AUTO) 3 % (0-10); LYMPHOCYTES # (AUTO) 1.6 X 10^3 (1.0-4.0); LYMPHOCYTES % (AUTO) 17 % (12-44); MEAN CORPUSCULAR HEMOGLOBIN 31 PG (25-34); MEAN CORPUSCULAR HGB CONC 33 G/DL (32-36); MEAN CORPUSCULAR VOLUME 94 FL (80-99); MEAN PLATELET VOLUME 10.5 FL (7.4-10.4); MONOCYTES # (AUTO) 1.1 X 10^3 (0.0-1.0); MONOCYTES % (AUTO) 12 % (0-12); NEUTROPHILS # (AUTO) 6.6 X 10^3 (1.8-7.8); NEUTROPHILS % (AUTO) 69 % (42-75); PLATELET COUNT 314 10^3/uL (130-400); RED BLOOD COUNT 4.43 10^6/uL (4.35-5.85); RED CELL DISTRIBUTION WIDTH 14.6 % (10.0-14.5); WHITE BLOOD COUNT 9.6 10^3/uL (4.3-11.0)
[2017-05-10] MEDS ORDERED: RX-NITROGLYCERIN 0.4 MG TAB BTL 25'S SL PRN (07:00)
[2017-05-10] MEDS ORDERED: ASPIRIN 81 MG CHEW (CHILDREN'S ASA) PO ONE (07:00)
[2017-05-10 07:11] LABS: ALANINE AMINOTRANSFERASE 24 U/L (0-55); ALBUMIN 3.8 GM/DL (3.2-4.5); ANION GAP 11 MMOL/L (5-14); ASPARTATE AMINO TRANSFERASE 26 U/L (5-34); BILIRUBIN,TOTAL 0.7 MG/DL (0.1-1.0); BLOOD UREA NITROGEN 18 MG/DL (7-18); BUN/CREATININE RATIO 14; CALCIUM 9.2 MG/DL (8.5-10.1); CARBON DIOXIDE 21 MMOL/L (21-32); CHLORIDE 109 MMOL/L (98-107); CREATININE SERUM 1.27 MG/DL (0.60-1.30); GFR ESTIMATED 56; GLUCOSE 108 MG/DL (70-105); POTASSIUM 3.9 MMOL/L (3.6-5.0); SODIUM 141 MMOL/L (135-145); TOTAL PROTEIN 7.5 GM/DL (6.4-8.2)
[2017-05-10 07:15] LABS: PROTHROMBIN TIME PATIENT 13.7 SEC (12.2-14.7)
[2017-05-10 07:17] LABS: MYOGLOBIN SERUM 45.5 NG/ML (10.0-92.0)
--- NOTE | 2017-05-10 07:22 | Diagnostic Imaging Report ---
INDICATION: Chest pressure. COMPARISON: 02/12/2017. FINDINGS: Stable marked cardiomegaly with pectoral transvenous pacemaker/ICD in place. There is central vascular indistinctness and interstitial opacities which have progressed. No pleural effusion. No pneumothorax. Stable sternotomy changes. IMPRESSION: 1. Since examination of 02/12/2017, there has been progression of interstitial pulmonary edema. No pleural effusions. Dictated by: Dictated on workstation # [id number]
--- NOTE | 2017-05-10 07:28 | ED Cardiac General ---
History of Present Illness General Chief Complaint: Chest Pain Stated Complaint: CHEST PRESSURE Nursing Triage Note: PT TO ED 5 W/ C/O CHEST PRESSURE ET POUNDING HEART RATE, ONSET 0400 THIS AM. PT STATES ALSO HAD AN EPISODE OF FEELING A "VIBRATION" TO HIS DEFIBRILLATOR X2 THIS AM. STATES HIS PREVIOUS PACEMAKER DEFIBRILLATOR DID THE SAME THING 3 YRS AGO BEFORE IT QUIT ET HAD TO BE REPLACED. ALSO REPORTS SOME NAUSEA ET SOB, DENIES BREAKING OUT IN A SWEAT OR VOMITING Source: patient, family Exam Limitations: no limitations History of Present Illness Time seen by provider: 06:45 Initial Comments This 71-year-old white male presents with a vibratory sensation in his chest associated with anterior chest pressure and associated nausea and shortness of breath that awoke him at 4 o'clock this morning approximately 3 hours prior to presentation to the emergency department. In addition to the aforementioned symptoms the patient also had symptoms of rapid palpitations which spontaneously resolved. The patient has a defibrillator that was placed for A. fib with RVR years ago. The patient had a defibrillator failure approximately a year ago and the device was replaced. His failure was signaled by similar symptoms of vibratory episodes in his chest. The patient is currently under the care of his fur glazer, Dr. Wilson. The patient states that his chest pressure is diminished but still present in the emergency room. The patient is s/p bypass surgery for CAD. NTG SL INSTRUCTION LIBRARIAN: No ASA po INSTRUCTION LIBRARIAN: No Allergies and Home Medications Allergies Coded Allergies: Penicillins (Unverified Allergy, Unknown, 05/29/16) Home Medications Albuterol Sulfate 8.5 Gm Hfa.aer.ad, 2 PUFF IH QID PRN for SHORTNESS OF BREATH, (Reported) Amiodarone HCl 200 Mg Tablet, 200 MG PO BID, (Reported) Apixaban 5 Mg Tablet, 5 MG PO BID for 30 Days Prescribed by: ANDREW ANGULO on 05/30/16 1230 Aspirin 81 Mg Tab.chew, 81 MG PO DAILY, (Reported) Cephalexin 500 Mg Capsule, 500 MG PO TID, #9 Ref 0 Prescribed by: RENEE CERVANTES on 05/04/17 1333 Fluoxetine HCl 20 Mg Capsule, 20 MG PO DAILY, #30 Ref 1 Prescribed by: RHEA FERRO on 05/30/16 1155 Furosemide 40 Mg Tablet, 40 MG PO DAILY, (Reported) Hydrocodone/Acetaminophen 1 Each Tablet, 1 EACH PO Q4H PRN for PAIN, #20 Ref 0 Prescribed by: RENEE CERVANTES on 05/04/17 1333 Isosorbide Mononitrate 30 Mg Tab.er.24h, 30 MG PO DAILY, (Reported) Losartan Potassium 25 Mg Tablet, 12.5 MG PO DAILY, (Reported) TAKES 1/2 OF A (25 MG) TABLET Metoprolol Tartrate 25 Mg Tablet, 12.5 MG PO BID, (Reported) TAKES 1/2 OF A (25 MG) TABLET Nitroglycerin 0.4 Mg Tab.subl, 0.4 MG PO UD PRN for CHEST PAIN, (Reported) 1 TAB UNDER TONGUE EVERY 5 MIN UP TO 3 DOSES Ondansetron 8 Mg Tab.rapdis, 8 MG PO Q6H PRN for NAUSEA/VOMITING-1ST LINE, #10 Ref 0 Prescribed by: RENEE CERVANTES on 05/04/17 1333 Pantoprazole Sodium 40 Mg Tablet.dr, 40 MG PO DAILY, (Reported) Phenazopyridine HCl 100 Mg Tablet, 100 MG PO Q8H PRN for pain, #14 Ref 0 Prescribed by: RENEE CERVANTES on 05/04/17 1333 Rosuvastatin Calcium 40 Mg Tablet, 40 MG PO HS, (Reported) Spironolactone 25 Mg Tablet, 25 MG PO DAILY, (Reported) Sumatriptan Succinate 25 Mg Tablet, 25 MG PO UD PRN for MIGRAINE, (Reported) Tamsulosin HCl 0.4 Mg Cap.er.24h, 0.4 MG PO 1730, (Reported) Tramadol HCl 50 Mg Tablet, 50 MG PO Q4H, #20 Prescribed by: SACHIN PHILIPPE on 02/12/170 Umeclidinium Brm/Vilanterol Tr 1 Each Blst.w.dev, 1 PUFF IH DAILY, (Reported) Review of Systems Constitutional: No chills, No fever EENTM: No Blurred Vision Respiratory: Denies Cough, Shortness of Air Cardiovascular: See HPI, Chest Pain, Irregular Heart Rate, Palpitations, Denies Syncope Gastrointestinal: Denies Abdomen Distended, Denies Abdominal Pain, Nausea Genitourinary: No Symptoms Reported Musculoskeletal: No back pain Skin: No rash Psychiatric/Neurological: No Symptoms Reported Endocrine: Denies Excessive Sweating Hematologic/Lymphatic: No Symptoms Reported Past Jsoifdf-Vguydq-Lqdhwp Hx Patient Social History Alcohol Use: Denies Use Recreational Drug Use: No Smoking Status: Current Everyday Smoker Type Used: Cigarettes Recent Foreign Travel: No Contact w/Someone Who Travel: No Recent Infectious Disease Expo: No Recent Hopitalizations: No Physical Abuse: No Sexual Abuse: No Mistreated: No Fear: No Immunizations Up To Date Tetanus Booster (TDap): More than 5yrs PED Vaccines UTD: No Date of Pneumonia Vaccine: Oct 18, 2013 Date of Influenza Vaccine: Jun 19, 2015 Seasonal Allergies Seasonal Allergies: Yes Surgeries History of Surgeries: Yes (STENTS X 3) Surgeries: Cardiac, CABG, Coronary Stent, Defibrillator Respiratory History of Respiratory Disorde: Yes (MEDIASTINAL LYMPHADENOPATHY--BEING MONITORED BY PCP AND DR. TAPIA) Respiratory Disorders: Asthma, COPD Currently Using CPAP: No Currently Using BIPAP: No Cardiovascular History of Cardiac Disorders: Yes (PA X2; SYNCOPE PRIOR TO DEFIBRILLATOR PLACEMENT; CHF) Cardiac Disorders: Atrial Fibrillation, Coronary Artery Disease, Heart Attack, High Cholesterol, Hypertension, Syncope Neurological History of Neurological Disord: Yes (LEFT SIDE WEAKNESS, BALANCE PROBLEMS/ FALLS) Neurological Disorders: Stroke Reproductive System Hx Reproductive Disorders: No Sexually Transmitted Disease: No HIV/AIDS: No Genitourinary Genitourinary Disorders: Benign Prostatic Hyperpl Gastrointestinal History of Gastrointestinal Di: Yes (GASTRITIS) Gastrointestinal Disorders: Gastroesophageal Reflux, Diverticulosis, Esophagitis, Hiatal Hernia Musculoskeletal History of Musculoskeletal Dis: Yes Musculoskeletal Disorders: Fractures Endocrine History of Endocrine Disorders: No HEENT Loss of Vision: Denies Hearing Impairment: Denies Cancer History of Cancer: No Psychosocial History of Psychiatric Problem: No Suicide Risk Score: 0 Integumentary History of Skin or Integumenta: No Blood Transfusions History of Blood Disorders: Yes (NOT CURRENT BUT HX OF ANEMIA OF UNKNOWN CAUSE) Adverse Reaction to a Blood Tr: No Reviewed Nursing Assessment Reviewed/Agree w Nursing PMH: Yes Family Medical History Significant Family History: No Pertinent Family Hx Family Medial History: Fam hx-osteoporosis 03 MOTHER Family history: Hypertension 03 MOTHER, Onset:50's - 60 09 SISTER, Onset:40's - 50 Thyroid disease 03 MOTHER No Family History of: Cancer Chest pain Dementia Family history: Diabetes mellitus Stroke Physical Exam Vital Signs Vital Sign - Last 12Hours 05/10/17 06:15 Temp 98.4 Pulse 49 Resp 16 B/P (MAP) 116/59 O2 Delivery Room Air Capillary Refill : Less Than 3 Seconds General Appearance: No Apparent Distress HEENT: PERRL/EOMI, Normal ENT Inspection Neck: Normal Inspection Respiratory: Decreased Breath Sounds Cardiovascular: Bradycardia Gastrointestinal: Normal Bowel Sounds Extremity: Normal Capillary Refill, Normal Inspection, Normal Range of Motion Neurologic/Psychiatric: Alert, Oriented x3, No Motor/Sensory Deficits, Normal Mood/Affect Skin: Normal Color, Warm/Dry Progress/Results/Core Measures Results/Orders Lab Results Laboratory Tests Test 05/10/17 06:19 Range/Units White Blood Count 9.6 4.3-11.0 10^3/uL Red Blood Count 4.43 4.35-5.85 10^6/uL Hemoglobin 13.5 13.3-17.7 G/DL Hematocrit 42 40-54 % Mean Corpuscular Volume 94 80-99 FL Mean Corpuscular Hemoglobin 31 25-34 PG Mean Corpuscular Hemoglobin Concent 33 32-36 G/DL Red Cell Distribution Width 14.6 H 10.0-14.5 % Platelet Count 314 130-400 10^3/uL Mean Platelet Volume 10.5 H 7.4-10.4 FL Neutrophils (%) (Auto) 69 42-75 % Lymphocytes (%) (Auto) 17 12-44 % Monocytes (%) (Auto) 12 0-12 % Eosinophils (%) (Auto) 3 0-10 % Basophils (%) (Auto) 0 0-10 % Neutrophils # (Auto) 6.6 1.8-7.8 X 10^3 Lymphocytes # (Auto) 1.6 1.0-4.0 X 10^3 Monocytes # (Auto) 1.1 H 0.0-1.0 X 10^3 Eosinophils # (Auto) 0.3 0.0-0.3 10^3/uL Basophils # (Auto) 0.0 0.0-0.1 10^3/uL Prothrombin Time 13.7 12.2-14.7 SEC INR Comment 1.0 0.8-1.4 Activated Partial Thromboplast Time 31 24-35 SEC Sodium Level 141 135-145 MMOL/L Potassium Level 3.9 3.6-5.0 MMOL/L Chloride Level 109 H 98-107 MMOL/L Carbon Dioxide Level 21 21-32 MMOL/L Anion Gap 11 5-14 MMOL/L Blood Urea Nitrogen 18 7-18 MG/DL Creatinine 1.27 0.60-1.30 MG/DL Estimat Glomerular Filtration Rate 56 BUN/Creatinine Ratio 14 Glucose Level 108 H 70-105 MG/DL Calcium Level 9.2 8.5-10.1 MG/DL Magnesium Level 2.0 1.8-2.4 MG/DL Total Bilirubin 0.7 0.1-1.0 MG/DL Aspartate Amino Transf (AST/SGOT) 26 5-34 U/L Alanine Aminotransferase (ALT/SGPT) 24 0-55 U/L Alkaline Phosphatase 66 40-136 U/L Myoglobin 45.5 10.0-92.0 NG/ML Troponin I < 0.30 <0.30 NG/ML Total Protein 7.5 6.4-8.2 GM/DL Albumin 3.8 3.2-4.5 GM/DL My Orders Orders - SRIDEVI, SANDRA Gregory MD Cbc With Automated Diff (05/10/17 06:47) Magnesium (05/10/17 06:47) Chest 1 View, Ap/Pa Only (05/10/17 06:47) Ekg Tracing (05/10/17 06:47) Cardiac Profile 1 (05/10/17 06:47) Comprehensive Metabolic Panel (05/10/17 06:47) Myoglobin Serum (05/10/17 06:47) Protime With Inr (05/10/17 06:47) Partial Thromboplastin Time (05/10/17 06:47) O2 (05/10/17 06:47) Monitor-Rhythm Ecg Trace Only (05/10/17 06:47) Lipid Panel (05/11/17 06:00) Aspirin Chewable Tablet (Baby Aspirin Ch (05/10/17 07:00) Rx-Nitroglycerin Sl Tabs (Rx-Nitrostat S (05/10/17 07:00) Saline Lock/Iv-Start (05/10/17 06:47) Medications Given in ED Current Medications Medications Dose Ordered Sig/Henry Route Start Time Stop Time Status Last Admin Dose Admin Aspirin 324 mg ONCE ONCE PO 05/10/17 07:00 05/10/17 07:01 DC 05/10/17 06:58 324 MG Nitroglycerin 0.4 mg PRN PRN SL 05/10/17 07:00 05/10/17 06:58 0.4 MG Vital Signs/I&O Vital Sign - Last 12Hours 05/10/17 05/10/17 06:15 06:15 Temp 98.4 Pulse 49 Resp 16 B/P (MAP) 116/59 O2 Delivery Room Air Room Air Blood Pressure Mean: 78 Progress Note : Time: 08:34 Progress Note The patient's EKG demonstrated a sinus bradycardia with a rate of 50. No acute current of the injury was noted. The patient's interval chest x-ray demonstrated increased interstitial edema. Patient was given sub-lingual nitroglycerin and aspirin with relief of his pressure type chest pain. The patient's first troponin was normal. Telephone consultation was undertaken with Dr. Gamez who was kind enough to admit the patient for defibrillator interrogation and further evaluation of the patient's chest pain and increasing interstitial edema. Departure Communication Time/Spoke to Admitting Phy: 08:[address] Wilson. Impression Impression: Primary Impression: Chest pain Disposition: ADMITTED INPATIENT Condition: Improved Admissions Decision to Admit Reason: Admit from ER (General) Decision to Admit/Date: May 10, 2017 Time/Decision to Admit Time: 08:40 Departure-Patient Inst. Referrals: TANYA DENG DO (PCP) Primary Care Physician JENNIFER VARELA (Family) Primary Care Physician SANDRA LAUREANO MD May 10, 2017 07:28
--- NOTE | 2017-05-10 09:06 | Cardiology History & Physical ---
HPI-Cardiology Cardiology H&P Date of Admission 05-10-17 Primary Care Physician Ashley Guzman DO Attending Physician Cayla Wilson MD, MA FACP [facility] Consulting Physician JOAO Mr. Pichardo is a 71 year old male who has been admitted to ICU 4 from the ED. He reports he has been feeling well and staying active at home. He reports at approx 3:00 this morning he was woken from sleep because his AICD was vibrating. He reports at the time he felt his heart was racing, he had mild chest pressure with associated dizziness. He reports this persisted for several minutes and then the vibrating stopped and the palpitations stopped. However, the chest pressure persisted. He denies any AICD discharges. He reports then while in the ED his device vibrated again, but at this time he did not have any palpitations. He reports he received a nitro while in the ED and the chest pressure resolved. He is currently pain free. He denies any dyspnea. He denies any LE edema. He does report last week had kidney stones which he was able to pass. No c/o fever or chills. No n/v/d. Review of Systems-Cardiology Review of Systems Constitutional: As described under HPI, No As described under HPI, No chills, No fever, No lightheadedness Eyes: No blindness, No blurred vision, No contact lenses, No drainage, No decreased acuity, No foreign body sensation, No pain, No vision change Ears/Nose/Throat: No chronic hearing loss, No ear discharge, No ear pain, No nasal drainage, No ulcerations Respiratory: As described under HPI Cardiovascular: As described under HPI Gastrointestinal: No abdomen distended, No abdominal pain, No blood streaked bowels, No constipation, No diarrhea, No nausea, No vomiting, No stool coloration changes Genitourinary: No burning, No dysuria, No discharge, No frequency, No flank pain, No hematuria, No urgency Skin: No rash, No skin related problems, No ulcerations Psychiatric/Neurological: No anxiety, No depression, No seizure, No focal weakness, No syncope Hematologic: No bleeding abnormalities FUM-Iefnwt-Fcghjf Hx Patient Social History Alcohol Use: Denies Use Recreational Drug Use: No Smoking Status: Current Everyday Smoker Type Used: Cigarettes Recent Foreign Travel: No Recent Infectious Disease Expo: No Hospitalization with Isolation: Denies Immunizations Up To Date Tetanus Booster (TDap): More than 5yrs Date of Pneumonia Vaccine: Oct 18, 2013 Date of Influenza Vaccine: Jun 19, 2015 Past Medical History PMH As described under Assessment. Family Medical History Family Medical History: He reports his sister had HTN and his mother. Family History: 03 MOTHER Family history: Hypertension, Onset:50's - 60 Fam hx-osteoporosis Thyroid disease 09 SISTER Family history: Hypertension, Onset:40's - 50 Allergies and Home Medications Allergies Coded Allergies: Penicillins (Unverified Allergy, Unknown, 05/29/16) Home Medications Albuterol Sulfate 8.5 Gm Hfa.aer.ad, 2 PUFF IH QID PRN for SHORTNESS OF BREATH, (Reported) Amiodarone HCl 200 Mg Tablet, 200 MG PO BID, (Reported) Apixaban 5 Mg Tablet, 5 MG PO DAILY, (Reported) Aspirin 81 Mg Tablet.dr, 81 MG PO DAILY, (Reported) Furosemide 40 Mg Tablet, 40 MG PO MoWeFr, (Reported) LAST FILLED #30 02-15-17 Isosorbide Mononitrate 30 Mg Tab.er.24h, 30 MG PO DAILY, (Reported) Losartan Potassium 25 Mg Tablet, 12.5 MG PO DAILY, (Reported) TAKES 1/2 OF A (25 MG) TABLET Metoprolol Tartrate 25 Mg Tablet, 12.5 MG PO BID, (Reported) TAKES 1/2 OF A (25 MG) TABLET Nitroglycerin 0.4 Mg Tab.subl, 0.4 MG PO UD PRN for CHEST PAIN, (Reported) 1 TAB UNDER TONGUE EVERY 5 MIN UP TO 3 DOSES Pantoprazole Sodium 40 Mg Tablet.dr, 40 MG PO DAILY, (Reported) Polyethylene Glycol 3350 255 Gm Powder, 17 GM PO DAILY PRN for CONSTIPATION-2ND LINE, (Reported) Rosuvastatin Calcium 40 Mg Tablet, 20 MG PO HS, (Reported) TAKES 1/2 (40MG) TABLET Spironolactone 25 Mg Tablet, 25 MG PO MoWeFr, (Reported) LAST FILLED #60 12-12-16 Sumatriptan Succinate 50 Mg Tablet, 50 MG PO DAILY PRN for MIGRAINE, (Reported) Tamsulosin HCl 0.4 Mg Cap.er.24h, 0.4 MG PO 1730, (Reported) Physical Exam-Cardiology Physical Exam Vital Signs/I&O Vital Sign - Last 12Hours 05/10/17 05/10/17 05/10/17 05/10/17 06:15 06:15 09:11 09:35 Temp 98.4 98.4 Pulse 49 47 49 Resp 16 16 20 B/P (MAP) 116/59 126/72 Pulse Ox 96 97 O2 Delivery Room Air Room Air Room Air Room Air 05/10/17 11:00 Temp 97.7 Pulse 46 Resp 20 B/P (MAP) 124/62 Pulse Ox 95 O2 Delivery Room Air Capillary Refill : Less Than 3 Seconds Constitutional: appears stated age, No apparent distress, well-developed, well- nourished HEENT: PERRL, No discharge, hearing is well preserved, oral hygience is good, No ulceration, No xanthelasmas are seen Neck: No carotid bruit, carotid pulses are 2 + bilaterally Respiratory: No accessory muscle use, No respiratory distress, lungs clear to auscultation Cardiovascular: regular rate-rhythm, No JVD, S1 and S2 Gastrointestinal: No tender, soft, audible bowel sounds, No spleenomegaly Rectal: deferred Extremities: No clubbing, No cyanosis, No significant edema Neurologic/Psychiatric: alert, oriented x 3, power is 5/5 both on sides Skin: No rash, No ulcerations Data Review Labs Laboratory Tests 05/10/17 06:19: White Blood Count 9.6, Red Blood Count 4.43, Hemoglobin 13.5, Hematocrit 42, Mean Corpuscular Volume 94, Mean Corpuscular Hemoglobin 31, Mean Corpuscular Hemoglobin Concent 33, Red Cell Distribution Width 14.6H, Platelet Count 314, Mean Platelet Volume 10.5H, Neutrophils (%) (Auto) 69, Lymphocytes (%) (Auto) 17 , Monocytes (%) (Auto) 12, Eosinophils (%) (Auto) 3, Basophils (%) (Auto) 0, Neutrophils # (Auto) 6.6, Lymphocytes # (Auto) 1.6, Monocytes # (Auto) 1.1H, Eosinophils # (Auto) 0.3, Basophils # (Auto) 0.0, Prothrombin Time 13.7, INR Comment 1.0, Activated Partial Thromboplast Time 31, Sodium Level 141, Potassium Level 3.9, Chloride Level 109H, Carbon Dioxide Level 21, Anion Gap 11 , Blood Urea Nitrogen 18, Creatinine 1.27, Estimat Glomerular Filtration Rate 56 , BUN/Creatinine Ratio 14, Glucose Level 108H, Calcium Level 9.2, Magnesium Level 2.0, Total Bilirubin 0.7, Aspartate Amino Transf (AST/SGOT) 26, Alanine Aminotransferase (ALT/SGPT) 24, Alkaline Phosphatase 66, Myoglobin 45.5, Troponin I < 0.30, Total Protein 7.5, Albumin 3.8 Radiology NAME: RODRIGUE PICHARDO [facility] REC#: [id number] PT STATUS: REG ER : 1945 PHYSICIAN: SANDRA LAUREANO MD ADMIT DATE: 05/10/17/ER Draft Date of Exam:05/10/17 CHEST 1 VIEW, AP/PA ONLY INDICATION: Chest pressure. COMPARISON: 02/12/2017. FINDINGS: Stable marked cardiomegaly with pectoral transvenous pacemaker/ICD in place. There is central vascular indistinctness and interstitial opacities which have progressed. No pleural effusion. No pneumothorax. Stable sternotomy changes. IMPRESSION: 1. Since examination of 02/12/2017, there has been progression of interstitial pulmonary edema. No pleural effusions. Dictated on workstation # [id number] Dict: 05/10/17 0708 Trans: 05/10/17 0722 [id number] Interpreted by: SERGEY OLIVIER MD Electronically signed by: ECG Impression ECG Initial ECG Rhythm: Normal Sinus A/P-Cardiology Assessment/Admission Diagnosis Palpitations of undetermined etiology (he reports he felt his heart rate was in the 60-70 range this am, which is unusual for him because he normally runs in the 40s) Chest discomfort of undetermined etiology, nonspecific, no evidence of ACS so far ICD "vibration" sensation of undetermined etiology Chronic systolic CHF - diuretics Supplemental O2 at hs d/t noc de-sat Pulm CT angio of 05/30/16 did not show any evidence of PE Coronary artery disease with a history of coronary artery bypass surgery. MPI of 10-19-15 showed evidence of apical and inferolateral myocardial infarction with no gideon-infarct ischemia. Inferolateral and apical akinesis and global hypokinesis. marked cardiomegaly. LVEF of 24%. CAD. Per cardiac cath of 05-29-[address] Paz: Severe multivessel disease including total occlusion at the mid LAD with patent MAJOR to the LAD and vein graft to the diagonal artery, moderate disease in the right coronary artery, patent vein graft to the posterolateral branch right ventricular branch. The circumflex artery is large artery with patent stent in the mid to distal portion. The first obtuse marginal branch is occluded with occluded vein graft to the OM, not amenable to intervention. Normal left ventricular end diastolic pressure. L hemiparesis due to R-sided CVA in February 2015, followed by Dr Almeida at [facility] Ischemic cardiomyopathy Echocardiogram of 05-31-16 showed significant cardiomegaly, including the LV and LA, LVEF of approx 25-30%, anteroapical akinesis to dyskinesis, mild aortic, tricuspid and aortic regurg, AoV sclerosis without stenosis, PASP is estimated to be 30mmHg. Hospitalization on 10/17/13 with severe anemia (Hgb 5.3) requiring multiple blood transfusions. Source of anemia unknown. Endoscopy by Dr Snyder on 10/30/13 showed esophagitis, hiatal hernia and diverticulosis Apixaban to reduce the risk of stroke from atrial fibrillation Paroxysmal atrial fibrillation, history of hospitalization 2013 for atrial fibrillation, resulted in adjustment of his ICD. Multiple hospitalization for pneumonia, COPD exacerbation, shortness of breath. History of ICD implantation for primary prevention, generator replaced in January 2016, functioning normally on interrogation of February 2017 Hyperlipidemia, being treated with rosuvastatin Mediastinal lymphadenopathy being followed by primary care and by Dr Tinoco Chronic tobacco use, continuing COPD due chronic tobacco use Intolerance to BENJI inhibitors on account of cough. He is able to take low dose angiotensin receptor blockers CKD stage 2-3 Discussion and Recomendations Palpitations with associated chest pressure and "vibrating" sensation of AICD this morning of undetermined etiology. [facility] device to be interrogated today. No evidence of ACS thus far. Continue to monitor serial cardiac analyzers. Continue tele. Continue home medications including Amiodarone, BB, ARB, statin, ASA, Eliquis, diuretics and long-acting nitrates. Further recommendations will be based on his hospital course. This H&P is being scribed by Wendi Nieves APRN on behalf of Dr. Wilson after discussion regarding plan of care. Clinical Quality Measures AMI/AHF: ASA po Prior to arrival: No Physician Assessment Physician Assessment No cp or palp or shortness of breath at this time Lungs: good bilat air entry Cor: reg Ext: no c/c/e A&R * As documented in our note above that I updated (italics) and as noted below * I spoke with the device rep and have requested device interrogation that I will then review * Admitted for observation for ACS and/or significant arrhythmia * I had a detailed conversation with him and his fam and answered their questions MARGIE NIEVES May 10, 2017 09:06 CAYLA WILSON MD [facility] May 10, 2017 12:07
[2017-05-10] MEDS ORDERED: CATHETER FLUSH 10 ML SYR IV PRN (09:45)
[2017-05-10] MEDS ORDERED: NITROGLYCERIN SUBLINGUAL 0.4 MG TAB (NITROSTAT) SL PRN ×2 (09:45→13:15)
[2017-05-10] MEDS ORDERED: SUMA50TA2 PO (11:30)
[2017-05-10] MEDS ORDERED: APIX5TAB PO (11:30)
[2017-05-10] MEDS ORDERED: ASPI-983 PO (11:30)
[2017-05-10] MEDS ORDERED: POLY255P PO (11:33)
[2017-05-10] MEDS ORDERED: LOSARTAN 25 MG (COZAAR) TAB PO SCH (13:15)
[2017-05-10] MEDS ORDERED: SUMAtriptan 50 MG (IMITREX) TAB PO PRN (13:15)
[2017-05-10] MEDS ORDERED: APIXABAN 5 MG (ELIQUIS) TABLET PO SCH (13:15)
[2017-05-10] MEDS ORDERED: ISOSORBIDE MONONITRATE 30 MG (IMDUR) TAB PO SCH (13:15)
[2017-05-10] MEDS: AMIODARONE 200 MG (CORDARONE) TAB PO SCH ×2 (14:29→20:51)
[2017-05-10] MEDS: PANTOPRAZOLE 40 MG (PROTONIX) TAB PO SCH (14:29)
[2017-05-10] MEDS: CATHETER FLUSH 10 ML SYR IV SCH ×2 (14:30→20:52)
[2017-05-10] MEDS ORDERED: RT-ALBUTEROL SULF 2.5 MG/3 ML PRE-MIX VIAL IH PRN (14:30)
[2017-05-10] MEDS ORDERED: ALFUZOSIN HCL 10 MG TAB (UROXATRAL) PO SCH (18:00)
[2017-05-10] MEDS ORDERED: ROSUVASTATIN 20 MG (CRESTOR) TABLET PO SCH (21:00)
[2017-05-10] MEDS ORDERED: meTOprolol TARTRATE 25 MG (LOPRESSOR) TABLET PO SCH (21:00)
[2017-05-11 00:43] VITALS: BP 92/54
[2017-05-11 04:52] VITALS: BP 109/59
[2017-05-11 04:53] LABS: CHOLESTEROL 147 MG/DL (< 200); DIRECT LDL 106 MG/DL (1-129); TRIGLYCERIDES 89 MG/DL (<150); VLDL CHOLESTEROL 18 MG/DL (5-40)
[2017-05-11] MEDS: PANTOPRAZOLE 40 MG (PROTONIX) TAB PO SCH (06:35)
[2017-05-11] MEDS: CATHETER FLUSH 10 ML SYR IV SCH (06:35)
[2017-05-11] MEDS ORDERED: SPIRONOLACTONE 25 MG (ALDACTONE) TAB PO SCH (07:00)
[2017-05-11] MEDS ORDERED: FUROSEMIDE 40 MG (LASIX) TAB PO SCH (07:00)
[2017-05-11 07:35] VITALS: BP 117/67
[2017-05-11] MEDS ORDERED: FUROSEMIDE 40 MG/4 ML INJ (LASIX) IVP NR (08:15)
[2017-05-11 08:22] LABS: BASOPHILS % (AUTO) 0 % (0-10); EOSINOPHILS # (AUTO) 0.3 10^3/uL (0.0-0.3); EOSINOPHILS % (AUTO) 4 % (0-10); LYMPHOCYTES # (AUTO) 1.4 X 10^3 (1.0-4.0); LYMPHOCYTES % (AUTO) 18 % (12-44); MEAN CORPUSCULAR HEMOGLOBIN 31 PG (25-34); MEAN CORPUSCULAR HGB CONC 33 G/DL (32-36); MEAN CORPUSCULAR VOLUME 94 FL (80-99); MONOCYTES # (AUTO) 0.9 X 10^3 (0.0-1.0); MONOCYTES % (AUTO) 12 % (0-12); NEUTROPHILS # (AUTO) 5.2 X 10^3 (1.8-7.8); NEUTROPHILS % (AUTO) 67 % (42-75); PLATELET COUNT 288 10^3/uL (130-400); RED BLOOD COUNT 4.16 10^6/uL (4.35-5.85); RED CELL DISTRIBUTION WIDTH 14.5 % (10.0-14.5); WHITE BLOOD COUNT 7.8 10^3/uL (4.3-11.0)
[2017-05-11 08:35] LABS: ANION GAP 9 MMOL/L (5-14); BLOOD UREA NITROGEN 17 MG/DL (7-18); BUN/CREATININE RATIO 15; CALCIUM 8.7 MG/DL (8.5-10.1); CARBON DIOXIDE 21 MMOL/L (21-32); CHLORIDE 109 MMOL/L (98-107); CREATININE SERUM 1.12 MG/DL (0.60-1.30); GFR ESTIMATED > 60; GLUCOSE 109 MG/DL (70-105); MAGNESIUM 1.9 MG/DL (1.8-2.4); POTASSIUM 4.1 MMOL/L (3.6-5.0); SODIUM 139 MMOL/L (135-145)
--- NOTE | 2017-05-11 08:40 | Progress Note-Cardiology ---
Cardiology SOAP Progress Note Subjective: No cp or palp or vibratory sensation since admission A little more short of breath this am, but states now back to usual Objective: I&O/Vital Signs Vital Sign - Last 12Hours 05/10/17 05/10/17 05/11/17 05/11/17 20:41 20:44 00:00 00:43 Temp 98.1 98.1 Pulse 50 53 Resp 16 18 B/P (MAP) 106/53 92/54 Pulse Ox 95 95 94 O2 Delivery Room Air Room Air Room Air Room Air 05/11/17 05/11/17 05/11/17 05/11/17 01:00 04:00 04:52 06:22 Temp 98.3 Pulse 51 49 Resp 16 B/P (MAP) 109/59 Pulse Ox 97 O2 Delivery Room Air Room Air Room Air Weight (Pounds): 198 Weight (Ounces): 8.0 Weight (Calculated Kilograms): 90.868976 Constitutional: appears stated age, No apparent distress, well-developed, well- nourished Respiratory: No accessory muscle use, No respiratory distress, lungs clear to auscultation Cardiovascular: regular rate-rhythm, No JVD, S1 and S2 Gastrointestional: No tender, soft, audible bowel sounds, No spleenomegaly Extremities: No clubbing, No cyanosis, No significant edema Neurologic/Psychiatric: alert, oriented x 3, power is 5/5 both on sides Skin: No rash, No ulcerations Results/Procedures: Labs Laboratory Tests 05/10/17 12:28: Troponin I < 0.30 05/11/17 04:08: Triglycerides Level 89, Cholesterol Level 147, LDL Cholesterol Direct 106, VLDL Cholesterol 18, HDL Cholesterol 38L Laboratory Tests 05/10/17 06:19 A/P: Assessment: Palpitations of undetermined etiology (he reports he felt his heart rate was in the 60-70 range on the morning of presentation, which is unusual for him because he normally runs in the 40s) Chest discomfort of undetermined etiology, nonspecific, no evidence of ACS so far ICD "vibration" sensation of undetermined etiology Device interrogation of 05/10/17: functioning normally, lead impedance normal and lead impedance trend unchanged, battery longevity more than 8 yrs, no arrhythmia, cap thresh normal, HV lead impedance normal, an episode of magnet response (pt does state he has an old cell phone that he sometimes hold close to the device; he was cautioned against doing that today) Chronic systolic CHF - diuretics Supplemental O2 at d/t noc de-sat Pul CT angio of 05/30/16 did not show any evidence of PE Coronary artery disease with a history of coronary artery bypass surgery. MPI of 10-19-15 showed evidence of apical and inferolateral myocardial infarction with no gideon-infarct ischemia. Inferolateral and apical akinesis and global hypokinesis. marked cardiomegaly. LVEF of 24%. CAD. Per cardiac cath of 05-29-[address] Paz: Severe multivessel disease including total occlusion at the mid LAD with patent MAJOR to the LAD and vein graft to the diagonal artery, moderate disease in the right coronary artery, patent vein graft to the posterolateral branch right ventricular branch. The circumflex artery is large artery with patent stent in the mid to distal portion. The first obtuse marginal branch is occluded with occluded vein graft to the OM, not amenable to intervention. Normal left ventricular end diastolic pressure. 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 Hospitalization on 10/17/13 with severe anemia (Hgb 5.3) requiring multiple blood transfusions. Source of anemia unknown. Endoscopy by Dr Snyder on 10/30/13 showed esophagitis, hiatal hernia and diverticulosis Apixaban to reduce the risk of stroke from atrial fibrillation Paroxysmal atrial fibrillation, history of hospitalization 2013 for atrial fibrillation, resulted in adjustment of his ICD. Multiple hospitalization for pneumonia, COPD exacerbation, shortness of breath. History of ICD implantation for primary prevention, generator replaced in January 2016, functioning normally on interrogation of February 2017 Hyperlipidemia, being treated with rosuvastatin Mediastinal lymphadenopathy being followed by primary care and by Dr Tinoco Chronic tobacco use, continuing COPD due chronic tobacco use Intolerance to BENJI inhibitors on account of cough. He is able to take low dose angiotensin receptor blockers CKD stage 2-3 Plan: Device interrogated and results summarized above I had a long discussion with him. Cautioned him against hold his old cell phone on top of the device Have advised close outpatient f/u Given some evidence of mild exacerbation of chronic sys CHF, we are increasing diuretics and have advised close outpatient f/u Clinical Quality Measures AMI/AHF: ASA po Prior to arrival: KELTON Perales MD FACP FAC CCDS May 11, 2017 08:40
[2017-05-11] MEDS ORDERED: POTA10TA PO (08:46)
[2017-05-11] MEDS ORDERED: FURO40TA4 PO (08:46)
--- NOTE | 2017-05-11 08:47 | Discharge Inst-Cardiology ---
Discharge Inst-Cardiac Discharge Medications New Medications: Furosemide (Furosemide) 40 Mg Tablet 40 MG PO DAILY for 30 Days, #30 TAB 5 Refills Potassium Chloride (K-Tab ER) 10 Meq Tablet.er 10 MEQ PO DAILY for 30 Days, #30 TAB 5 Refills Continued Medications: Albuterol Sulfate (Proair Hfa) 8.5 Gm Hfa.aer.ad 2 PUFF IH QID PRN for SHORTNESS OF BREATH, INHALER Amiodarone HCl (Amiodarone HCl) 200 Mg Tablet 200 MG PO BID, TAB Apixaban (Eliquis) 5 Mg Tablet 5 MG PO DAILY, TAB Aspirin (Aspirin EC) 81 Mg Tablet.dr 81 MG PO DAILY, TAB Isosorbide Mononitrate (Isosorbide Mononitrate ER) 30 Mg Tab.er.24h 30 MG PO DAILY, TAB Losartan Potassium (Losartan Potassium) 25 Mg Tablet 12.5 MG PO DAILY, TAB TAKES 1/2 OF A (25 MG) TABLET Metoprolol Tartrate (Metoprolol Tartrate) 25 Mg Tablet 12.5 MG PO BID, TAB TAKES 1/2 OF A (25 MG) TABLET Nitroglycerin (Nitrostat) 0.4 Mg Tab.subl 0.4 MG PO UD PRN for CHEST PAIN, TAB 1 TAB UNDER TONGUE EVERY 5 MIN UP TO 3 DOSES Pantoprazole Sodium (Pantoprazole Sodium) 40 Mg Tablet.dr 40 MG PO DAILY, TAB Polyethylene Glycol 3350 (Polyethylene Glycol 3350) 255 Gm Powder 17 GM PO DAILY PRN for CONSTIPATION-2ND LINE, EA Rosuvastatin Calcium (Crestor) 40 Mg Tablet 20 MG PO HS, TAB TAKES 1/2 (40MG) TABLET Spironolactone (Spironolactone) 25 Mg Tablet 25 MG PO MoWeFr, TAB LAST FILLED #60 12-12-16 Sumatriptan Succinate (Sumatriptan Succinate) 50 Mg Tablet 50 MG PO DAILY PRN for MIGRAINE, TAB Tamsulosin HCl (Tamsulosin HCl) 0.4 Mg Cap.er.24h 0.4 MG PO 1730, CAP Discontinued Medications: Furosemide (Furosemide) 40 Mg Tablet 40 MG PO MoWeFr, TAB LAST FILLED #30 02-15-17 Patient Instructions Patient Instructions: F/u with Dr Wilson next week KELTON WILSON MD [facility] CCD May 11, 2017 08:47
--- NOTE | 2017-05-11 08:49 | Cardiology Discharge Summary ---
Diagnosis/Chief Complaint Date of Admission May 10, 2017 at 08:47 Date of Discharge 05/11/17 Final/Discharge Diagnosis Palpitations of undetermined etiology (he reports he felt his heart rate was in the 60-70 range on the morning of presentation, which is unusual for him because he normally runs in the 40s) Chest discomfort of undetermined etiology, nonspecific, no evidence of ACS so far ICD "vibration" sensation of undetermined etiology Device interrogation of 05/10/17: functioning normally, lead impedance normal and lead impedance trend unchanged, battery longevity more than 8 yrs, no arrhythmia, cap thresh normal, HV lead impedance normal, an episode of magnet response (pt does state he has an old cell phone that he sometimes hold close to the device; he was cautioned against doing that today) Chronic systolic CHF - diuretics Supplemental O2 at d/t noc de-sat Pul CT angio of 05/30/16 did not show any evidence of PE Coronary artery disease with a history of coronary artery bypass surgery. MPI of 10-19-15 showed evidence of apical and inferolateral myocardial infarction with no gideon-infarct ischemia. Inferolateral and apical akinesis and global hypokinesis. marked cardiomegaly. LVEF of 24%. CAD. Per cardiac cath of 05-29-[address] Paz: Severe multivessel disease including total occlusion at the mid LAD with patent MAJOR to the LAD and vein graft to the diagonal artery, moderate disease in the right coronary artery, patent vein graft to the posterolateral branch right ventricular branch. The circumflex artery is large artery with patent stent in the mid to distal portion. The first obtuse marginal branch is occluded with occluded vein graft to the OM, not amenable to intervention. Normal left ventricular end diastolic pressure. 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 Hospitalization on 10/17/13 with severe anemia (Hgb 5.3) requiring multiple blood transfusions. Source of anemia unknown. Endoscopy by Dr Snyder on 10/30/13 showed esophagitis, hiatal hernia and diverticulosis Apixaban to reduce the risk of stroke from atrial fibrillation Paroxysmal atrial fibrillation, history of hospitalization 2013 for atrial fibrillation, resulted in adjustment of his ICD. Multiple hospitalization for pneumonia, COPD exacerbation, shortness of breath. History of ICD implantation for primary prevention, generator replaced in January 2016, functioning normally on interrogation of February 2017 Hyperlipidemia, being treated with rosuvastatin Mediastinal lymphadenopathy being followed by primary care and by Dr Tinoco Chronic tobacco use, continuing COPD due chronic tobacco use Intolerance to BENJI inhibitors on account of cough. He is able to take low dose angiotensin receptor blockers CKD stage 2-3 Chief Complaint/HPI Chief Complaint/HPI Mr. Dias is a 71 year old male who has been admitted to ICU 4 from the ED. He reports he has been feeling well and staying active at home. He reports at approx 3:00 this morning he was woken from sleep because his AICD was vibrating. He reports at the time he felt his heart was racing, he had mild chest pressure with associated dizziness. He reports this persisted for several minutes and then the vibrating stopped and the palpitations stopped. However, the chest pressure persisted. He denies any AICD discharges. He reports then while in the ED his device vibrated again, but at this time he did not have any palpitations. He reports he received a nitro while in the ED and the chest pressure resolved. He is currently pain free. He denies any dyspnea. He denies any LE edema. He does report last week had kidney stones which he was able to pass. No c/o fever or chills. No n/v/d. Please see the note of 05/11/17 for hosp course and for measures undertaken I had a detailed discussion with him regarding our findings, plan, risk modification, and close outpatient f/u Discharge Summary Procedures None. Hospital Course Pending Labs Laboratory Tests 05/11/17 04:08: White Blood Count 7.8, Red Blood Count 4.16, Hemoglobin 13.0, Hematocrit 39, Mean Corpuscular Volume 94, Mean Corpuscular Hemoglobin 31, Mean Corpuscular Hemoglobin Concent 33, Red Cell Distribution Width 14.5, Platelet Count 288, Mean Platelet Volume 11.0, Neutrophils (%) (Auto) 67, Lymphocytes (%) (Auto) 18 , Monocytes (%) (Auto) 12, Eosinophils (%) (Auto) 4, Basophils (%) (Auto) 0, Neutrophils # (Auto) 5.2, Lymphocytes # (Auto) 1.4, Monocytes # (Auto) 0.9, Eosinophils # (Auto) 0.3, Basophils # (Auto) 0.0, Sodium Level 139, Potassium Level 4.1, Chloride Level 109, Carbon Dioxide Level 21, Anion Gap 9, Blood Urea Nitrogen 17, Creatinine 1.12, Estimat Glomerular Filtration Rate > 60, BUN/ Creatinine Ratio 15, Glucose Level 109, Calcium Level 8.7, Magnesium Level 1.9, Triglycerides Level 89, Cholesterol Level 147, LDL Cholesterol Direct 106, VLDL Cholesterol 18, HDL Cholesterol 38 Discussion & Recommendations Home Medications Reviewed patient Home Medication Reconciliation Form Discharge Home Medications: Reviewed and agree with Discharge Medication list on patient's Discharge Instruction sheet Clinical Quality Measures AMI/AHF: ASA po Prior to arrival: No DVT/VTE Risk/Contraindication: Risk Factor Score Per Nursin RFS Level Per Nursing on Admit: 4+=Very High KELTON ANDERSON MD FACP FAC CCDS May 11, 2017 08:49
[2017-05-11] MEDS ORDERED: ASPIRIN E.C. 81 MG (ECOTRIN) TAB PO SCH (09:00)
[2017-05-11] MEDS ORDERED: ASPIRIN 325 MG (5 GR) TABLET PO SCH (09:00)
[2017-05-11 09:20] VITALS: BP 117/67
== END 2017-05-11 08:43 | disposition home or self-care (01) ==
LOC: EDUNIT# 06:10 → ER 06:12 → UNDOADMOB 08:47 → ICU 08:47 → UNDODISOB 05-11 09:30
PROVIDERS: ADMIT Internal Medicine Cardiovascular Disease; ATTEND Internal Medicine Cardiovascular Disease
DX: R07.9 Chest pain, unspecified (principal); R00.2 Palpitations; I13.0 Hypertensive heart and chronic kidney disease with heart failure and stage 1 through stage 4 chronic kidney disease, or unspecified chronic kidney disease; N18.3 Chronic kidney disease, stage 3 (moderate); I50.22 Chronic systolic (congestive) heart failure; J44.9 Chronic obstructive pulmonary disease, unspecified; I48.2 Chronic atrial fibrillation; I25.5 Ischemic cardiomyopathy; I25.10 Atherosclerotic heart disease of native coronary artery without angina pectoris; I25.2 Old myocardial infarction; I69.952 Hemiplegia and hemiparesis following unspecified cerebrovascular disease affecting left dominant side; F17.210 Nicotine dependence, cigarettes, uncomplicated; Z79.82 Long term (current) use of aspirin; Z79.899 Other long term (current) drug therapy; Z95.1 Presence of aortocoronary bypass graft; Z95.810 Presence of automatic (implantable) cardiac defibrillator; Z95.5 Presence of coronary angioplasty implant and graft; Z87.442 Personal history of urinary calculi
CPT/HCPCS: 36415; 71010; 80048; 80053; 80061; 83735; 83874; 84484; 85025; 85610; 85730; 93005; 93041; 99211

== ENCOUNTER 2017-06-08 08:28 | Emergency (ER) | payer MEDICARE ==
[~2017-06-08] VITALS: Ht 175.3 cm; Wt 90.7 kg
[~2017-06-08 08:28] MED LIST changes: +ASPI-983 PO; +POLY255P PO; +POTA10TA PO; +SUMA50TA2 PO
[2017-06-08] MEDS ORDERED: fentaNYL INJECTION 100 MCG/2 ML AMP ONE (08:43)
[2017-06-08] MEDS ORDERED: ONDANSETRON 4 MG/2 ML (SDV) Z0FRAN ONE (08:43)
--- NOTE | 2017-06-08 08:53 | ED Neurological Problem ---
General Chief Complaint: Neuro-Stroke Like Symptoms Stated Complaint: FALL Source: patient, family Exam Limitations: no limitations History of Present Illness Time seen by provider: 08:49 Initial Comments This 71-year-old male presents with an episode that occurred acutely this morning after he had gotten out of bed, prepared coffee, and was sitting at his desk. The patient apparently had a fall without injury from his chair and an associated loss of consciousness. The patient who was shortly thereafter visualized by his had no seizure activity. The patient did not have a significant postictal state. The patient had a severe global headache upon awakening with associated nausea and vomiting. The patient noted following the syncopal episode that both of his upper extremities were shaking. On further history taking the patient has had shaking of his right arm for the last several weeks. There has been no associated fever, chill, photophobia, stiff neck, productive cough, chest pain or palpitations, emesis of bright red blood, associated diarrhea or black or tarry stools, dysuria, flank pain, or hematuria. 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 The patient has been taking L Aquinas. The patient is under the care of Dr. Wilson. The patient relates that he has chronic atrial fibrillation. The patient has a implanted defibrillator. Further history taking from the patient and family reveal that he is noted drooling from the left side of his mouth and weakness of his left upper and lower extremity. He has been dragging his left foot for the last several days. Allergies and Home Medications Allergies Coded Allergies: Penicillins (Unverified Allergy, Unknown, 05/29/16) Home Medications Albuterol Sulfate 8.5 Gm Hfa.aer.ad, 2 PUFF IH QID PRN for SHORTNESS OF BREATH, (Reported) Amiodarone HCl 200 Mg Tablet, 200 MG PO BID, (Reported) Apixaban 5 Mg Tablet, 5 MG PO DAILY, (Reported) Aspirin 81 Mg Tablet.dr, 81 MG PO DAILY, (Reported) Furosemide 40 Mg Tablet, 40 MG PO DAILY for 30 Days, #30 Ref 5 Prescribed by: KELTON WILSON on 05/11/17 0846 Isosorbide Mononitrate 30 Mg Tab.er.24h, 30 MG PO DAILY, (Reported) Losartan Potassium 25 Mg Tablet, 12.5 MG PO DAILY, (Reported) TAKES 1/2 OF A (25 MG) TABLET Metoprolol Tartrate 25 Mg Tablet, 12.5 MG PO BID, (Reported) TAKES 1/2 OF A (25 MG) TABLET Nitroglycerin 0.4 Mg Tab.subl, 0.4 MG PO UD PRN for CHEST PAIN, (Reported) 1 TAB UNDER TONGUE EVERY 5 MIN UP TO 3 DOSES Pantoprazole Sodium 40 Mg Tablet.dr, 40 MG PO DAILY, (Reported) Polyethylene Glycol 3350 255 Gm Powder, 17 GM PO DAILY PRN for CONSTIPATION-2ND LINE, (Reported) Potassium Chloride 10 Meq Tablet.er, 10 MEQ PO DAILY for 30 Days, #30 Ref 5 Prescribed by: KELTON WILSON on 05/11/17 0846 Rosuvastatin Calcium 40 Mg Tablet, 20 MG PO HS, (Reported) TAKES 1/2 (40MG) TABLET Spironolactone 25 Mg Tablet, 25 MG PO MoWeFr, (Reported) LAST FILLED #60 12-12-16 Sumatriptan Succinate 50 Mg Tablet, 50 MG PO DAILY PRN for MIGRAINE, (Reported) Tamsulosin HCl 0.4 Mg Cap.er.24h, 0.4 MG PO 1730, (Reported) Constitutional: No chills, No diaphoresis, No fever Eyes: Denies Blindness, Denies Blurred Vision, Denies Photophobia, Denies Vision Changes Ears, Nose, Mouth, Throat: denies ear pain, denies epistaxis Respiratory: No cough Cardiovascular: No chest pain, No palpitations Gastrointestinal: nausea Genitourinary: No decreased output, No dysuria Musculoskeletal: No back pain, No joint swelling Skin: No rash Psychiatric/Neurological: Denies Anxiety, Denies Depressed, Headache, Weakness (of his left arm and leg.) Endocrine: No Symptoms Reported Past Tfzrbgy-Kljepl-Cwvshk Hx Patient Social History Type Used: Cigarettes Recent Foreign Travel: No Contact w/Someone Who Travel: No Recent Hopitalizations: No Immunizations Up To Date Tetanus Booster (TDap): More than 5yrs PED Vaccines UTD: No Date of Pneumonia Vaccine: Nov 03, 2015 Date of Influenza Vaccine: Jun 19, 2015 Seasonal Allergies Seasonal Allergies: Yes Surgeries History of Surgeries: Yes (STENTS X 3) Surgeries: Cardiac, CABG, Coronary Stent, Defibrillator Respiratory History of Respiratory Disorde: Yes (MEDIASTINAL LYMPHADENOPATHY--BEING MONITORED BY PCP & DR. TAPIA, HOME O2 HS) Respiratory Disorders: Asthma, Sleep Apnea, COPD, Emphysema Currently Using CPAP: No Currently Using BIPAP: No Cardiovascular History of Cardiac Disorders: Yes (CT X2; SYNCOPE PRIOR TO DEFIBRILLATOR PLACEMENT; CHF) Cardiac Disorders: Atrial Fibrillation, Coronary Artery Disease, Heart Attack, High Cholesterol, Hypertension, Syncope Neurological History of Neurological Disord: Yes (LEFT SIDE WEAKNESS, BALANCE PROBLEMS/ FALLS) Neurological Disorders: Stroke Reproductive System Hx Reproductive Disorders: No Sexually Transmitted Disease: No HIV/AIDS: No Genitourinary History of Genitourinary Disor: Yes Genitourinary Disorders: Kidney Stones Gastrointestinal History of Gastrointestinal Di: Yes (GASTRITIS) Gastrointestinal Disorders: Gastroesophageal Reflux, Diverticulosis, Esophagitis, Hiatal Hernia Musculoskeletal History of Musculoskeletal Dis: Yes Musculoskeletal Disorders: Fractures Endocrine History of Endocrine Disorders: No HEENT History of HEENT Disorders: No Loss of Vision: Denies Hearing Impairment: Denies Cancer History of Cancer: No Psychosocial History of Psychiatric Problem: No Integumentary History of Skin or Integumenta: No Blood Transfusions History of Blood Disorders: Yes (NOT CURRENT BUT HX OF ANEMIA OF UNKNOWN CAUSE) Adverse Reaction to a Blood Tr: No Reviewed Nursing Assessment Reviewed/Agree w Nursing PMH: Yes Family Medical History Significant Family History: No Pertinent Family Hx Family Medial History: Fam hx-osteoporosis 03 MOTHER Family history: Hypertension 03 MOTHER, Onset:50's - 60 09 SISTER, Onset:40's - 50 Thyroid disease 03 MOTHER No Family History of: Cancer Chest pain Dementia Family history: Diabetes mellitus Stroke Physical Exam Vital Signs Vital Sign - Last 12Hours 06/08/17 06/08/17 08:29 09:45 Temp 97.3 Pulse 49 Resp 20 B/P (MAP) 126/69 Pulse Ox 95 O2 Delivery Room Air O2 Flow Rate 2.00 Capillary Refill : General Appearance: WD/WN, no apparent distress HEENT: PERRL/EOMI, normal ENT inspection Neck: full range of motion, supple Respiratory: normal breath sounds, no respiratory distress Cardiovascular: bradycardia Gastrointestinal: normal bowel sounds, non tender, soft Neurologic/Psychiatric: other (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 There was a slight drift of the patient's left upper extremity. The remainder of the patient's NIHSS exam was unremarkable. The patient score was 8 in the emergency department.) Crainal Nerves: normal hearing, normal speech, PERRL Motor/Sensory: pronator drift (L) Skin: normal color Stroke Stroke Thrombolytic Exclusion Age 18 or Over: Yes History of CVA: Yes Progress/Results/Core Measures Results/Orders Lab Results Laboratory Tests Test 06/08/17 08:38 06/08/17 09:49 Range/Units White Blood Count 9.6 4.3-11.0 10^3/uL Red Blood Count 4.73 4.35-5.85 10^6/uL Hemoglobin 14.2 13.3-17.7 G/DL Hematocrit 43 40-54 % Mean Corpuscular Volume 90 80-99 FL Mean Corpuscular Hemoglobin 30 25-34 PG Mean Corpuscular Hemoglobin Concent 33 32-36 G/DL Red Cell Distribution Width 14.5 10.0-14.5 % Platelet Count 351 130-400 10^3/uL Mean Platelet Volume 9.8 7.4-10.4 FL Neutrophils (%) (Auto) 70 42-75 % Lymphocytes (%) (Auto) 15 12-44 % Monocytes (%) (Auto) 11 0-12 % Eosinophils (%) (Auto) 3 0-10 % Basophils (%) (Auto) 0 0-10 % Neutrophils # (Auto) 6.7 1.8-7.8 X 10^3 Lymphocytes # (Auto) 1.5 1.0-4.0 X 10^3 Monocytes # (Auto) 1.1 H 0.0-1.0 X 10^3 Eosinophils # (Auto) 0.3 0.0-0.3 10^3/uL Basophils # (Auto) 0.0 0.0-0.1 10^3/uL Prothrombin Time 14.0 12.2-14.7 SEC INR Comment 1.1 0.8-1.4 Activated Partial Thromboplast Time 29 24-35 SEC D-Dimer 0.50 H 0.00-0.49 UG/ML Sodium Level 140 135-145 MMOL/L Potassium Level 4.3 3.6-5.0 MMOL/L Chloride Level 109 H 98-107 MMOL/L Carbon Dioxide Level 22 21-32 MMOL/L Anion Gap 9 5-14 MMOL/L Blood Urea Nitrogen 28 H 7-18 MG/DL Creatinine 1.32 H 0.60-1.30 MG/DL Estimat Glomerular Filtration Rate 54 BUN/Creatinine Ratio 21 Glucose Level 114 H 70-105 MG/DL Calcium Level 9.0 8.5-10.1 MG/DL Total Bilirubin 0.5 0.1-1.0 MG/DL Aspartate Amino Transf (AST/SGOT) 33 5-34 U/L Alanine Aminotransferase (ALT/SGPT) 41 0-55 U/L Alkaline Phosphatase 75 40-136 U/L Troponin I < 0.30 <0.30 NG/ML Total Protein 7.9 6.4-8.2 GM/DL Albumin 3.7 3.2-4.5 GM/DL Urine Color YELLOW Urine Clarity CLEAR Urine pH 6 5-9 Urine Specific [place] 1.025 H 1.016-1.022 Urine Protein 1+ H NEGATIVE Urine Glucose (UA) NEGATIVE NEGATIVE Urine Ketones NEGATIVE NEGATIVE Urine Nitrite NEGATIVE NEGATIVE Urine Bilirubin NEGATIVE NEGATIVE Urine Urobilinogen NORMAL NORMAL MG/DL Urine Leukocyte Esterase 1+ H NEGATIVE Urine RBC (Auto) 3+ H NEGATIVE Urine RBC 10-25 H /HPF Urine WBC 2-5 /HPF Urine Crystals NONE /LPF Urine Bacteria TRACE /HPF Urine Casts NONE /LPF Urine Mucus LARGE H /LPF Urine Culture Indicated YES My Orders Orders - SANDRA LAUREANO MD Ekg Tracing (06/08/17 08:36) Ct Head Wo-R/O Stroke (06/08/17 08:45) Cbc With Automated Diff (06/08/17 08:38) Protime With Inr (06/08/17 08:38) Partial Thromboplastin Time (06/08/17 08:38) Comprehensive Metabolic Panel (06/08/17 08:38) Fibrin Degradation Products (06/08/17 08:38) Troponin I (06/08/17 08:38) Ua Culture If Indicated (06/08/17 08:38) Chest 1 View, Ap/Pa Only (06/08/17 08:38) Nothing By Mouth (06/08/17 Lunch) Accucheck Stat ONCE (06/08/17 08:38) Saline Lock/Iv-Start (06/08/17 08:38) Vital Signs - Stroke Q15M (06/08/17 08:38) O2 (06/08/17 08:38) Intake & Output 06,14,22 (06/08/17 08:38) Monitor-Rhythm Ecg Trace Only (06/08/17 08:38) Dysphagia Screening Tool (06/08/17 08:38) Post Thrombolytic Adminstratio (06/08/17 08:38) Fentanyl Injection (Sublimaze Injection (06/08/17 09:00) Ondansetron Injection (Zofran Injectio (06/08/17 09:00) Fentanyl Injection (Sublimaze Injection (06/08/17 08:43) Ondansetron Injection (Zofran Injectio (06/08/17 08:43) Hydromorphone Injection (Dilaudid Inject (06/08/17 09:38) Ct Angio Head/Neck (06/08/17 ) Iohexol Injection (Omnipaque 350 Mg/Ml 1 (06/08/17 10:00) Ns (Ivpb) (Sodium Chloride 0.9% Ivpb Bag (06/08/17 10:00) Urine Culture (06/08/17 09:49) Medications Given in ED Current Medications Medications Dose Ordered Sig/Henry Route Start Time Stop Time Status Last Admin Dose Admin Fentanyl Citrate 50 mcg ONCE ONCE IVP 06/08/17 09:00 06/08/17 09:01 DC 06/08/17 08:54 50 MCG Hydromorphone HCl 2 mg STK-MED ONCE .ROUTE 06/08/17 09:38 06/08/17 09:46 DC 06/08/17 09:45 1 MG Iohexol 80 ml ONCE ONCE IV 06/08/17 10:00 06/08/17 10:01 DC 06/08/17 10:01 80 ML Ondansetron HCl 4 mg ONCE ONCE IVP 06/08/17 09:00 06/08/17 09:01 DC 06/08/17 08:53 4 MG Sodium Chloride 100 ml ONCE ONCE IV 06/08/17 10:00 06/08/17 10:01 DC 06/08/17 10:01 80 ML Vital Signs/I&O Vital Sign - Last 12Hours 06/08/17 06/08/17 08:29 09:45 Temp 97.3 Pulse 49 Resp 20 B/P (MAP) 126/69 Pulse Ox 95 95 O2 Delivery Room Air Nasal Cannula O2 Flow Rate 2.00 Progress Note : Time: 09:30 Progress Note I consulted with the [facility] neurologist Dr. Garcia at 930 a.m. Because the patient is on Eliquis he is not a candidate for TPA. At her request I ordered a CTA of the head and neck with and without contrast as the patient might be a candidate for embolectomy. 11:[address] of head failed to demonstrate evidence of significant arterial occlusion. The patient's symptoms were treated with IV narcotics and ondansetron. After further consultation with neurology it was decided patient would benefit from a transfer for further evaluation to . Arrangements were made and the patient was accepted by Dr. Garcia at . Departure Communication (Admissions) Time/Spoke to Consulting Phy: 11:33 Communication/Consulting Dr. Garcia, neurologist at . Impression Impression: Primary Impression: Stroke-like symptoms Disposition: XF [facility]-TRM HOSP Condition: Improved Transfer Time Spoke to Accepting Phy: 11:34 Transfer Time: 11:35 Transfer Facility: neurology Method of Transfer: EMS Departure-Patient Inst. Referrals: TANYA DENG DO (PCP) Primary Care Physician JENNIFER VARELA (Family) Primary Care Physician SANDRA LAUREANO MD Jun 08, 2017 08:53
[2017-06-08 08:54] LABS: BASOPHILS % (AUTO) 0 % (0-10); EOSINOPHILS # (AUTO) 0.3 10^3/uL (0.0-0.3); EOSINOPHILS % (AUTO) 3 % (0-10); LYMPHOCYTES # (AUTO) 1.5 X 10^3 (1.0-4.0); LYMPHOCYTES % (AUTO) 15 % (12-44); MEAN CORPUSCULAR HEMOGLOBIN 30 PG (25-34); MEAN CORPUSCULAR HGB CONC 33 G/DL (32-36); MEAN CORPUSCULAR VOLUME 90 FL (80-99); MEAN PLATELET VOLUME 9.8 FL (7.4-10.4); MONOCYTES # (AUTO) 1.1 X 10^3 (0.0-1.0); MONOCYTES % (AUTO) 11 % (0-12); NEUTROPHILS # (AUTO) 6.7 X 10^3 (1.8-7.8); NEUTROPHILS % (AUTO) 70 % (42-75); PLATELET COUNT 351 10^3/uL (130-400); RED BLOOD COUNT 4.73 10^6/uL (4.35-5.85); RED CELL DISTRIBUTION WIDTH 14.5 % (10.0-14.5); WHITE BLOOD COUNT 9.6 10^3/uL (4.3-11.0)
[2017-06-08 08:57] LABS: INR 1.1 (0.8-1.4)
--- NOTE | 2017-06-08 08:58 | Diagnostic Imaging Report ---
INDICATION: Severe head pain, history of stroke. Exam compared with previous dated 02/12/2017 FINDINGS: There is no intracranial hemorrhage. Some mild cortical atrophy predominantly in a bifrontal and parasagittal distribution unchanged. There is no hydrocephalus. Basilar cisterns are patent. There were no findings suggestive of the CT evidence for focal or generalized cerebral edema. No evidence for elevation to the intracranial pressures. The basilar cisterns patent. The sulci non-effaced. The calvarium unremarkable. Mastoid air cells and middle ear cavities appeared unremarkable. Paranasal sinuses clear. IMPRESSION: Some mild anterior supratentorial atrophy chronic, no edema, hemorrhage, sinusitis or acute pathology. Dictated by: Dictated on workstation # [id number]
[2017-06-08] MEDS ORDERED: ONDANSETRON 4 MG/2 ML (SDV) Z0FRAN IVP ONE (09:00)
[2017-06-08] MEDS ORDERED: fentaNYL INJECTION 100 MCG/2 ML AMP IVP ONE (09:00)
[2017-06-08 09:06] LABS: ALANINE AMINOTRANSFERASE 41 U/L (0-55); ALBUMIN 3.7 GM/DL (3.2-4.5); ANION GAP 9 MMOL/L (5-14); ASPARTATE AMINO TRANSFERASE 33 U/L (5-34); BILIRUBIN,TOTAL 0.5 MG/DL (0.1-1.0); BLOOD UREA NITROGEN 28 MG/DL (7-18); BUN/CREATININE RATIO 21; CARBON DIOXIDE 22 MMOL/L (21-32); CHLORIDE 109 MMOL/L (98-107); CREATININE SERUM 1.32 MG/DL (0.60-1.30); GFR ESTIMATED 54; GLUCOSE 114 MG/DL (70-105); POTASSIUM 4.3 MMOL/L (3.6-5.0); SODIUM 140 MMOL/L (135-145); TOTAL PROTEIN 7.9 GM/DL (6.4-8.2)
[2017-06-08 09:12] LABS: TROPONIN I < 0.30 NG/ML (<0.30)
[2017-06-08] MEDS: HYDROmorphone (DILAUDID) 2 MG/ML VIAL ONE ×2 (09:45→09:50)
--- NOTE | 2017-06-08 09:51 | Diagnostic Imaging Report ---
Portable upright radiograph of the chest. INDICATION: Syncopal episode. FINDINGS: There is moderate to severe cardiomegaly with pulmonary vascular congestion. There is question of a small left effusion. No pneumothorax. The mediastinum and rafiq appear unremarkable. Postoperative changes and pacemaker with single lead is seen. IMPRESSION: Cardiomegaly with pulmonary vascular congestion. Dictated by: Dictated on workstation # [id number]
[2017-06-08 09:55] LABS: BILIRUBIN,URINE NEGATIVE (NEGATIVE); KETONES,URINE NEGATIVE (NEGATIVE); LEUKOCYTE ESTERASE ,URINE 1+ (NEGATIVE); NITRITE,URINE NEGATIVE (NEGATIVE); PH,URINE 6 (5-9); PROTEIN,URINE 1+ (NEGATIVE); UROBILINOGEN,URINE NORMAL (NORMAL)
[2017-06-08] MEDS ORDERED: IOHEXOL 350 MG/ML 100 ML (OMNIPAQUE 350) VIAL IV ONE (10:00)
[2017-06-08] MEDS ORDERED: NS 100 ML (IVPB) BAG IV ONE (10:00)
--- NOTE | 2017-06-08 11:00 | Diagnostic Imaging Report ---
PROCEDURE: CT angiography of the head and CT angiography of the neck with and without contrast. TECHNIQUE: Contiguous noncontrast images were obtained from the skull base through the vertex. After intravenous contrast administration, helical CT angiography of the neck was performed. Source data was reformatted into multiple MIP projections. Delayed post contrast acquisition was also obtained. INDICATION: Head pain. Exam compared with CT angio head performed 03/04/2015. The delayed postcontrast enhanced head CT revealed no abnormal or suspicious parenchymal or meningeal enhancement. There is enhancement of the major dural venous sinuses. The osseous structures, mastoids, orbits and paranasal sinuses unremarkable. CT angio neck: The cervical vertebral arteries are patent, symmetric and codominant. There is predominantly calcified plaque at the bulb of the right carotid and into the bifurcation with involvement of the proximal right ICA. This results in less than 50% stenosis. More substantial dense thick plaque at the left carotid bulb and bifurcation extends into the proximal left ICA where there is soft and hard plaque resulting in a roughly 70% stenosis. The mid to distal third of the left cervical internal carotid was unremarkable. CT angio head: There is irregular soft plaque at the carotid siphons bilaterally with some minimal eccentric calcified plaque at their cavernous segments. No focal hemodynamically significant intracranial carotid stenosis is found. These findings not convincingly changed from prior CT angiography. 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 The right widely patent and dominant. The paired intracerebral arteries appeared unremarkable. The bilateral middle cerebral arteries and their primary cortical branches unremarkable. The intrathecal vertebrals and the basilar widely patent. The bilateral posterior cerebral arteries and their primary segments widely patent. There was no intracranial large vessel occlusion. No aneurysm, vascular malformation, intraluminal thrombus or hemodynamically significant stenosis. IMPRESSION: Left greater than right carotid bifurcation and proximal ICA plaque. Mixed soft and hard plaque at the proximal left ICA near the lumen by at least 70%. On the right 50% or less stenosis. Codominant cervical vertebrals. Intracranial ICA plaque mixed soft and hard without hemodynamically significant stenosis or occlusion. No evidence for large vessel occlusion, aneurysm, intraluminal thrombus or vascular malformation. Dictated by: Dictated on workstation # [id number]
[2017-06-08 13:00] VITALS: BP 125/79
== END 2017-06-08 13:00 | disposition short-term general hospital (02) ==
LOC: EDUNIT# 08:28 → ER 08:30
DX: R29.818 Other symptoms and signs involving the nervous system (principal); I48.2 Chronic atrial fibrillation; J43.9 Emphysema, unspecified; G47.30 Sleep apnea, unspecified; I25.10 Atherosclerotic heart disease of native coronary artery without angina pectoris; I25.2 Old myocardial infarction; E78.00 Pure hypercholesterolemia, unspecified; I11.0 Hypertensive heart disease with heart failure; I50.9 Heart failure, unspecified; K21.9 Gastro-esophageal reflux disease without esophagitis; Z86.73 Personal history of transient ischemic attack (TIA), and cerebral infarction without residual deficits; Z87.442 Personal history of urinary calculi; Z87.19 Personal history of other diseases of the digestive system; Z95.810 Presence of automatic (implantable) cardiac defibrillator; Z79.82 Long term (current) use of aspirin; Z79.01 Long term (current) use of anticoagulants; Z95.1 Presence of aortocoronary bypass graft; Z95.5 Presence of coronary angioplasty implant and graft
CPT/HCPCS: 36415; 70450; 70496; 70498; 71010; 80053; 81000; 82962; 84484; 85025; 85379; 85610; 85730; 87077; 87088; 87186; 93041; 96374; 96375

== ENCOUNTER 2017-06-13 11:24 | Emergency (ER) | payer MEDICARE ==
[~2017-06-13] VITALS: Ht 175.3 cm; Wt 90.9 kg
--- NOTE | 2017-06-13 12:39 | ED Neurological Problem ---
General Chief Complaint: Neurological Problems Stated Complaint: LT LEG WEAK/LOW BP/NOLAND Nursing Triage Note: PT REPORTS HE WAS SEEN AND TX IN THIS ED ON Sunday06/08/17 AND TRANSFERRED TO [facility]. HE IS REPORTING TODAY L LEG WEAKNESS, NOLAND, BLURRED VISION. HE DENIES N/V, SOA, CP, OR DIAPHORESIS. HE STATES HE TOOK HIS BP AT HOME AND IT READ 74/61. HE STATES HE TRIED TO CALL , BUT WAS UNABLE TO REACH ANYONE. Nursing Sepsis Screen: No Definite Risk Source: patient Exam Limitations: no limitations History of Present Illness Time seen by provider: 12:33 Initial Comments The patient is a 71-year-old white male who presents with a chief complaint of left-sided weakness particularly the left lower extremity. He reports that he was here last week on Sunday. He underwent a workup through the stroke protocol. He was then transferred to [facility] and underwent further evaluation. That episode had been triggered by a severe headache and apparently thought that his symptomatology was related to a migraine headache. He has a past history of migraine headaches. Also states that he had a previous CVA with subsequent left-sided weakness. He reported that while at the headache abated and he thought that his symptoms improved completely. His states that although he was much better they did not improve completely. He had been scheduled for outpatient physical therapy here which was to begin next week. He states that previously he had been taking Imitrex for migraines. apparently thought this was a bad choice and stopped that. He reports that he began to have a headache again yesterday although not so severe as the prior headache. He has noted increase in the dysfunction both on the left arm specifically the left leg. He was able to walk in. Timing/Duration: 1 week Allergies and Home Medications Allergies Coded Allergies: Penicillins (Unverified Allergy, Unknown, 05/29/16) Home Medications Albuterol Sulfate 8.5 Gm Hfa.aer.ad, 2 PUFF IH QID PRN for SHORTNESS OF BREATH, (Reported) Amiodarone HCl 200 Mg Tablet, 200 MG PO BID, (Reported) Apixaban 5 Mg Tablet, 5 MG PO DAILY, (Reported) Aspirin 81 Mg Tablet.dr, 81 MG PO DAILY, (Reported) Furosemide 40 Mg Tablet, 40 MG PO DAILY for 30 Days, #30 Ref 5 Prescribed by: KELTON ANDERSON on 05/11/17 0846 Isosorbide Mononitrate 30 Mg Tab.er.24h, 30 MG PO DAILY, (Reported) Losartan Potassium 25 Mg Tablet, 12.5 MG PO DAILY, (Reported) TAKES 1/2 OF A (25 MG) TABLET Metoprolol Tartrate 25 Mg Tablet, 12.5 MG PO BID, (Reported) TAKES 1/2 OF A (25 MG) TABLET Nitroglycerin 0.4 Mg Tab.subl, 0.4 MG PO UD PRN for CHEST PAIN, (Reported) 1 TAB UNDER TONGUE EVERY 5 MIN UP TO 3 DOSES Pantoprazole Sodium 40 Mg Tablet.dr, 40 MG PO DAILY, (Reported) Polyethylene Glycol 3350 255 Gm Powder, 17 GM PO DAILY PRN for CONSTIPATION-2ND LINE, (Reported) Potassium Chloride 10 Meq Tablet.er, 10 MEQ PO DAILY for 30 Days, #30 Ref 5 Prescribed by: KELTON ANDERSON on 05/11/1746 Rosuvastatin Calcium 40 Mg Tablet, 20 MG PO HS, (Reported) TAKES 1/2 (40MG) TABLET Spironolactone 25 Mg Tablet, 25 MG PO MoWeFr, (Reported) LAST FILLED #60 12-12-16 Sumatriptan Succinate 50 Mg Tablet, 50 MG PO DAILY PRN for MIGRAINE, (Reported) Tamsulosin HCl 0.4 Mg Cap.er.24h, 0.4 MG PO 1730, (Reported) Constitutional: see HPI Eyes: No Symptoms Reported Ears, Nose, Mouth, Throat: no symptoms reported Respiratory: no symptoms reported Cardiovascular: no symptoms reported Genitourinary: no symptoms reported Musculoskeletal: muscle weakness (left-sided) Skin: no symptoms reported Psychiatric/Neurological: Other (weakness left upper and lower extremity.) Endocrine: No Symptoms Reported Hematologic/Lymphatic: No Symptoms Reported Past Btkfylp-Ospjeh-Crmwgc Hx Patient Social History Alcohol Use: Denies Use Recreational Drug Use: No Smoking Status: Current Everyday Smoker Type Used: Cigarettes 2nd Hand Smoke Exposure: Yes Recent Foreign Travel: No Contact w/Someone Who Travel: No Recent Infectious Disease Expo: No Recent Hopitalizations: Yes Physical Abuse: No Sexual Abuse: No Immunizations Up To Date Tetanus Booster (TDap): More than 5yrs PED Vaccines UTD: No Date of Pneumonia Vaccine: Nov 03, 2015 Date of Influenza Vaccine: Jun 19, 2015 Seasonal Allergies Seasonal Allergies: Yes Surgeries History of Surgeries: Yes (STENTS X 3) Surgeries: Cardiac, CABG, Coronary Stent, Defibrillator Respiratory History of Respiratory Disorde: Yes (MEDIASTINAL LYMPHADENOPATHY--BEING MONITORED BY PCP & DR. 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; SYNCOPE PRIOR TO DEFIBRILLATOR PLACEMENT; CHF) Cardiac Disorders: Atrial Fibrillation, Coronary Artery Disease, Heart Attack, High Cholesterol, Hypertension, Syncope Neurological History of Neurological Disord: Yes (LEFT SIDE WEAKNESS, BALANCE PROBLEMS/ FALLS) Neurological Disorders: Stroke Reproductive System Hx Reproductive Disorders: No Sexually Transmitted Disease: No HIV/AIDS: No Genitourinary History of Genitourinary Disor: Yes Genitourinary Disorders: Kidney Stones Gastrointestinal History of Gastrointestinal Di: Yes (GASTRITIS) Gastrointestinal Disorders: Gastroesophageal Reflux, Diverticulosis, Esophagitis, Hiatal Hernia Musculoskeletal History of Musculoskeletal Dis: Yes Musculoskeletal Disorders: Fractures Endocrine History of Endocrine Disorders: No HEENT History of HEENT Disorders: No Loss of Vision: Denies Hearing Impairment: Denies Cancer History of Cancer: No Psychosocial History of Psychiatric Problem: No Suicide Risk Score: 0 Integumentary History of Skin or Integumenta: No Blood Transfusions History of Blood Disorders: Yes (NOT CURRENT BUT HX OF ANEMIA OF UNKNOWN CAUSE) Adverse Reaction to a Blood Tr: No Family Medical History Significant Family History: No Pertinent Family Hx Family Medial History: Fam hx-osteoporosis 03 MOTHER Family history: Hypertension 03 MOTHER, Onset:50's - 60 09 SISTER, Onset:40's - 50 Thyroid disease 03 MOTHER No Family History of: Cancer Chest pain Dementia Family history: Diabetes mellitus Stroke Physical Exam Vital Signs Vital Sign - Last 12Hours 06/13/17 11:38 Temp 97.3 Pulse 47 Resp 16 B/P (MAP) 125/69 Pulse Ox 97 O2 Delivery Room Air Capillary Refill : Less Than 3 Seconds General Appearance: mild distress, other (the patient was observed to walk in to his room independently) HEENT: normal ENT inspection Neck: full range of motion Respiratory: chest non-tender Cardiovascular: normal peripheral pulses, no edema, no gallop, no JVD, no murmur, irregularly irregular Gastrointestinal: normal bowel sounds, non tender, soft, no organomegaly, no pulsatile mass Skin: normal color, warm/dry Comments Speech and cranial nerves II through XII are grossly normal. They were equal bilaterally. Finger to thumb rapid alternating movements were equal bilaterally. [employer] is 2+ on the right and 1+ on the left. Biceps was 2+ on the right and 1+ on the left. Quadriceps were 2+ on the right and 1+ on the left. He was not able to dorsiflex the foot against light resistance on the left. The right appeared normal. Stroke Stroke Thrombolytic Exclusion Age 18 or Over: Yes History of CVA: Yes Progress/Results/Core Measures Results/Orders Lab Results Laboratory Tests Test 06/13/17 12:59 Range/Units White Blood Count 7.2 4.3-11.0 10^3/uL Red Blood Count 4.79 4.35-5.85 10^6/uL Hemoglobin 14.1 13.3-17.7 G/DL Hematocrit 43 40-54 % Mean Corpuscular Volume 90 80-99 FL Mean Corpuscular Hemoglobin 29 25-34 PG Mean Corpuscular Hemoglobin Concent 33 32-36 G/DL Red Cell Distribution Width 14.6 H 10.0-14.5 % Platelet Count 329 130-400 10^3/uL Mean Platelet Volume 10.0 7.4-10.4 FL Neutrophils (%) (Auto) 63 42-75 % Lymphocytes (%) (Auto) 21 12-44 % Monocytes (%) (Auto) 11 0-12 % Eosinophils (%) (Auto) 4 0-10 % Basophils (%) (Auto) 1 0-10 % Neutrophils # (Auto) 4.5 1.8-7.8 X 10^3 Lymphocytes # (Auto) 1.5 1.0-4.0 X 10^3 Monocytes # (Auto) 0.8 0.0-1.0 X 10^3 Eosinophils # (Auto) 0.3 0.0-0.3 10^3/uL Basophils # (Auto) 0.0 0.0-0.1 10^3/uL Sodium Level 139 135-145 MMOL/L Potassium Level 4.2 3.6-5.0 MMOL/L Chloride Level 110 H 98-107 MMOL/L Carbon Dioxide Level 20 L 21-32 MMOL/L Anion Gap 9 5-14 MMOL/L Blood Urea Nitrogen 33 H 7-18 MG/DL Creatinine 1.33 H 0.60-1.30 MG/DL Estimat Glomerular Filtration Rate 53 BUN/Creatinine Ratio 25 Glucose Level 108 H 70-105 MG/DL Calcium Level 8.8 8.5-10.1 MG/DL Total Bilirubin 0.4 0.1-1.0 MG/DL Aspartate Amino Transf (AST/SGOT) 37 H 5-34 U/L Alanine Aminotransferase (ALT/SGPT) 43 0-55 U/L Alkaline Phosphatase 83 40-136 U/L Total Protein 7.7 6.4-8.2 GM/DL Albumin 3.7 3.2-4.5 GM/DL My Orders Orders - PETE SANTAMARIA MD Cbc With Automated Diff (06/13/17 12:42) Comprehensive Metabolic Panel (06/13/17 12:42) Metoprolol Tartrate (Ir) Tab (Lopressor (06/13/17 13:00) Vital Signs/I&O Vital Sign - Last 12Hours 06/13/17 11:38 Temp 97.3 Pulse 47 Resp 16 B/P (MAP) 125/69 Pulse Ox 97 O2 Delivery Room Air Blood Pressure Mean: 87 Departure Communication (Admissions) Progress Notes 1349 the headache is virtually gone. 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 His quadriceps is apparently stronger on the left as well. Accordingly he will be discharged. Impression Impression: Primary Impression: migraine headache with neurologic symptoms Disposition: 01 HOME, SELF-CARE Condition: Improved Departure-Patient Inst. Decision time for Depature: 13:48 Referrals: VILMA BELLO MD (PCP) Primary Care Physician JENNIFER VARELA (Family) Primary Care Physician Patient Instructions: Migraine Headache (DC) Add. Discharge Instructions: All discharge instructions reviewed with patient and/or family. Voiced understanding. See your provider soon. You should discuss possible medications for prophylaxis of migraine headaches. PETE SANTAMARIA MD Jun 13, 2017 12:39
[2017-06-13] MEDS ORDERED: meTOprolol TARTRATE 25 MG (LOPRESSOR) TABLET PO ONE (13:00)
[2017-06-13 13:09] LABS: BASOPHILS % (AUTO) 1 % (0-10); EOSINOPHILS # (AUTO) 0.3 10^3/uL (0.0-0.3); EOSINOPHILS % (AUTO) 4 % (0-10); LYMPHOCYTES # (AUTO) 1.5 X 10^3 (1.0-4.0); LYMPHOCYTES % (AUTO) 21 % (12-44); MEAN CORPUSCULAR HEMOGLOBIN 29 PG (25-34); MEAN CORPUSCULAR HGB CONC 33 G/DL (32-36); MEAN CORPUSCULAR VOLUME 90 FL (80-99); MONOCYTES # (AUTO) 0.8 X 10^3 (0.0-1.0); MONOCYTES % (AUTO) 11 % (0-12); NEUTROPHILS # (AUTO) 4.5 X 10^3 (1.8-7.8); NEUTROPHILS % (AUTO) 63 % (42-75); PLATELET COUNT 329 10^3/uL (130-400); RED BLOOD COUNT 4.79 10^6/uL (4.35-5.85); RED CELL DISTRIBUTION WIDTH 14.6 % (10.0-14.5); WHITE BLOOD COUNT 7.2 10^3/uL (4.3-11.0)
[2017-06-13 13:27] LABS: ALBUMIN 3.7 GM/DL (3.2-4.5); BILIRUBIN,TOTAL 0.4 MG/DL (0.1-1.0); CALCIUM 8.8 MG/DL (8.5-10.1); CREATININE SERUM 1.33 MG/DL (0.60-1.30); POTASSIUM 4.2 MMOL/L (3.6-5.0); TOTAL PROTEIN 7.7 GM/DL (6.4-8.2)
[2017-06-13 13:55] VITALS: BP 124/72
== END 2017-06-13 13:55 | disposition home or self-care (01) ==
LOC: EDUNIT# 11:24 → ER 11:27
DX: G43.801 Other migraine, not intractable, with status migrainosus (principal); J43.9 Emphysema, unspecified; G47.30 Sleep apnea, unspecified; I48.91 Unspecified atrial fibrillation; I25.10 Atherosclerotic heart disease of native coronary artery without angina pectoris; I25.2 Old myocardial infarction; E78.00 Pure hypercholesterolemia, unspecified; I10 Essential (primary) hypertension; K21.9 Gastro-esophageal reflux disease without esophagitis; F17.210 Nicotine dependence, cigarettes, uncomplicated; Z95.1 Presence of aortocoronary bypass graft; Z87.19 Personal history of other diseases of the digestive system; Z95.5 Presence of coronary angioplasty implant and graft; Z95.810 Presence of automatic (implantable) cardiac defibrillator; Z86.73 Personal history of transient ischemic attack (TIA), and cerebral infarction without residual deficits; Z79.82 Long term (current) use of aspirin; Z79.01 Long term (current) use of anticoagulants
CPT/HCPCS: 36415; 80053; 85025; 99283

== ENCOUNTER → 2017-08-30 | Outpatient (CLI) | payer MEDICARE ==
--- NOTE | 2017-08-30 10:42 | Diagnostic Imaging Report ---
PROCEDURE: US abdomen complete. TECHNIQUE: Multiple real-time grayscale images were obtained over the abdomen in various projections. INDICATION: Right upper quadrant pain. FINDINGS: The pancreas is largely obscured. The liver is fairly homogeneous with no focal lesion. Hepatopetal flow in the portal vein is seen. There is a 6-mm hyperechoic lesion without shadowing noted along the anterior wall of the gallbladder near the neck suggestive of a polyp. The CBD is obscured with no intrahepatic biliary dilatation identified. Sonographic Lassiter sign is reportedly negative. No fluid collection in the abdomen is seen. The spleen is 9.5 cm in length. The right kidney is 10.2 cm, and and the left kidney is 11.2 cm in length. No hydronephrosis or focal lesion seen in either kidney. The abdominal aorta and IVC are largely obscured by bowel gas. IMPRESSION: A 6-mm hyperechoic lesion near the neck of the gallbladder is likely related to a polyp. No stones or evidence of cholecystitis. Dictated by: Dictated on workstation # [id number]
== END ==
LOC: RAD 07:36
PROVIDERS: ATTEND Internal Medicine Hematology & Oncology
DX: K82.8 Other specified diseases of gallbladder (principal)
CPT/HCPCS: 76700

== ENCOUNTER 2017-09-26 08:40 | Outpatient (RCR) | payer MEDICARE ==
[2017-08-23 10:08] LABS: BASOPHILS % (AUTO) 1 % (0-10); EOSINOPHILS # (AUTO) 0.3 10^3/uL (0.0-0.3); EOSINOPHILS % (AUTO) 4 % (0-10); HEMATOCRIT 43 % (40-54); HEMOGLOBIN 14.3 G/DL (13.3-17.7); LYMPHOCYTES # (AUTO) 1.5 X 10^3 (1.0-4.0); LYMPHOCYTES % (AUTO) 21 % (12-44); MEAN CORPUSCULAR HEMOGLOBIN 30 PG (25-34); MEAN CORPUSCULAR HGB CONC 33 G/DL (32-36); MEAN CORPUSCULAR VOLUME 90 FL (80-99); MEAN PLATELET VOLUME 9.8 FL (7.4-10.4); MONOCYTES # (AUTO) 0.9 X 10^3 (0.0-1.0); MONOCYTES % (AUTO) 12 % (0-12); NEUTROPHILS # (AUTO) 4.4 X 10^3 (1.8-7.8); NEUTROPHILS % (AUTO) 62 % (42-75); PLATELET COUNT 305 10^3/uL (130-400); RED BLOOD COUNT 4.76 10^6/uL (4.35-5.85); WHITE BLOOD COUNT 7.1 10^3/uL (4.3-11.0)
[2017-08-23 10:26] LABS: ALANINE AMINOTRANSFERASE 35 U/L (0-55); ALBUMIN 3.7 GM/DL (3.2-4.5); ALKALINE PHOSPHATASE 74 U/L (40-136); BILIRUBIN,TOTAL 0.5 MG/DL (0.1-1.0); BUN/CREATININE RATIO 22; CALCIUM 9.1 MG/DL (8.5-10.1); CARBON DIOXIDE 23 MMOL/L (21-32); CHLORIDE 109 MMOL/L (98-107); CREATININE SERUM 1.15 MG/DL (0.60-1.30); GFR ESTIMATED > 60; GLUCOSE 102 MG/DL (70-105); POTASSIUM 4.2 MMOL/L (3.6-5.0); SODIUM 138 MMOL/L (135-145); TOTAL PROTEIN 7.5 GM/DL (6.4-8.2)
[~2017-09-26 08:40] MED LIST changes: +ACHD5005 PO; -HYDR-3812 PO
[2017-09-26 09:21] LABS: ABSOLUTE RETIC # 72 10e9/L (24-90); BASOPHILS % (AUTO) 0 % (0-10); EOSINOPHILS # (AUTO) 0.2 10^3/uL (0.0-0.3); EOSINOPHILS % (AUTO) 3 % (0-10); HEMATOCRIT 41 % (40-54); HEMOGLOBIN 13.6 G/DL (13.3-17.7); LYMPHOCYTES # (AUTO) 1.3 X 10^3 (1.0-4.0); LYMPHOCYTES % (AUTO) 17 % (12-44); MEAN CORPUSCULAR HEMOGLOBIN 30 PG (25-34); MEAN CORPUSCULAR HGB CONC 33 G/DL (32-36); MEAN CORPUSCULAR VOLUME 90 FL (80-99); MEAN PLATELET VOLUME 10.3 FL (7.4-10.4); MONOCYTES # (AUTO) 0.9 X 10^3 (0.0-1.0); MONOCYTES % (AUTO) 12 % (0-12); NEUTROPHILS # (AUTO) 5.2 X 10^3 (1.8-7.8); NEUTROPHILS % (AUTO) 67 % (42-75); PLATELET COUNT 277 10^3/uL (130-400); RED BLOOD COUNT 4.51 10^6/uL (4.35-5.85); RED CELL DISTRIBUTION WIDTH 15.1 % (10.0-14.5); RETICULOCYTE % 1.59 % (0.50-2.40); WHITE BLOOD COUNT 7.7 10^3/uL (4.3-11.0)
[2017-09-26 09:42] LABS: ALBUMIN 3.5 GM/DL (3.2-4.5); BILIRUBIN,TOTAL 0.4 MG/DL (0.1-1.0); CALCIUM 8.8 MG/DL (8.5-10.1); CREATININE SERUM 1.32 MG/DL (0.60-1.30); POTASSIUM 4.5 MMOL/L (3.6-5.0); TOTAL PROTEIN 6.9 GM/DL (6.4-8.2)
[2017-09-26 09:45] LABS: BAND NEUTROPHILS 1 %; EOSINOPHILS % (MANUAL) 1 %; LYMPHOCYTES % (MANUAL) 25 %; MONOCYTES % (MANUAL) 5 %; NEUTROPHILS % (MANUAL) 67 %
[2017-09-26 09:46] LABS: ANISOCYTOSIS SLIGHT; BASOPHILS % (MANUAL) 1 %
== END 2017-11-21 | disposition home or self-care (01) ==
LOC: ONC 08:40
PROVIDERS: ATTEND Internal Medicine Hematology & Oncology
DX: D50.9 Iron deficiency anemia, unspecified (principal); I25.10 Atherosclerotic heart disease of native coronary artery without angina pectoris; I50.9 Heart failure, unspecified; J44.9 Chronic obstructive pulmonary disease, unspecified; E78.5 Hyperlipidemia, unspecified; F17.200 Nicotine dependence, unspecified, uncomplicated; Z95.810 Presence of automatic (implantable) cardiac defibrillator
CPT/HCPCS: 36415; 80053; 82728; 83540; 85007; 85025; 85027; 85045; 99213

== ENCOUNTER → 2018-01-16 | Outpatient (CLI) | payer MEDICARE ==
[~2018-01-16] MED LIST changes: +BENZ-13 PO; +DILT300C57 PO; +DILT300T9 PO; +PANT40TA3 PO; +ROSU40TA21 PO
[2018-01-16 09:17] LABS: BUN/CREATININE RATIO 16; CALCIUM 9.1 MG/DL (8.5-10.1); CARBON DIOXIDE 21 MMOL/L (21-32); CHLORIDE 108 MMOL/L (98-107); CREATININE SERUM 1.18 MG/DL (0.60-1.30); GFR ESTIMATED > 60; GLUCOSE 162 MG/DL (70-105); POTASSIUM 4.3 MMOL/L (3.6-5.0); SODIUM 137 MMOL/L (135-145)
== END ==
LOC: LAB 08:47
PROVIDERS: ATTEND Nurse Practitioner Family
DX: I48.91 Unspecified atrial fibrillation (principal)
CPT/HCPCS: 36415; 80048

== ENCOUNTER 2018-01-29 08:57 | Day surgery (SDC) | payer MEDICARE, OTHER ==
[~2018-01-29] VITALS: Ht 172.7 cm; Wt 95.3 kg
[2018-01-29] VITALS (9 sets, daily range): BP systolic 104–136; BP diastolic 77–92
[~2018-01-29 08:57] MED LIST changes: -BENZ-13 PO; -DILT300T9 PO; -ROSU40TA21 PO
[2018-01-29] MEDS ORDERED: NS IV 1000 ML 3,000 ML ONE (09:14)
[2018-01-29] MEDS ORDERED: NS IV 1000 ML 1,000 ML IV SCH (09:45)
[2018-01-29] MEDS ORDERED: LIDOCAINE 1% INJ 20 ML 20 ML VIAL ONE (09:50)
[2018-01-29] MEDS ORDERED: HEParin 1000 UNIT/ML (10ML VIAL) FOR BOLUS ONE (09:50)
[2018-01-29 10:02] LABS: HEMOGLOBIN 15.1 G/DL (13.3-17.7); RED BLOOD COUNT 5.03 10^6/uL (4.35-5.85); RED CELL DISTRIBUTION WIDTH 15.3 % (10.0-14.5); WHITE BLOOD COUNT 9.2 10^3/uL (4.3-11.0)
[2018-01-29] MEDS ORDERED: DILT300T9 PO (10:03)
[2018-01-29] MEDS ORDERED: FURO40TA4 PO (10:04)
[2018-01-29] MEDS ORDERED: TAMS0.4C2 PO (10:06)
[2018-01-29] MEDS ORDERED: ROSU40TA21 PO (10:07)
[2018-01-29 10:27] LABS: ALBUMIN 4.3 GM/DL (3.2-4.5); BILIRUBIN,TOTAL 0.5 MG/DL (0.1-1.0); CALCIUM 9.6 MG/DL (8.5-10.1); CREATININE SERUM 1.33 MG/DL (0.60-1.30); POTASSIUM 4.6 MMOL/L (3.6-5.0)
[2018-01-29] MEDS ORDERED: diphenhydrAMINE 50 MG/ML INJ (BENADRYL) ONE (10:27)
[2018-01-29] MEDS ORDERED: MIDAZOLAM 5 MG/5 ML (VERSED) VIAL ONE (10:27)
[2018-01-29] MEDS ORDERED: fentaNYL INJECTION 100 MCG/2 ML AMP ONE (10:27)
[2018-01-29 10:51] LABS: INR 1.1 (0.8-1.4); PROTHROMBIN TIME PATIENT 13.9 SEC (12.2-14.7)
--- NOTE | 2018-01-29 11:46 | Cardiac Procedure Note-CS/ASA ---
Pre-Procedure Note Pre-Op Procedure Note H&P Reviewed The H&P was reviewed, patient examined and no changes noted. Date H&P Reviewed: January 29, 2018 Time H&P Reviewed: 11:45 Conscious Sedation Pre-Proced Time Reviewed: 11:46 ASA Class: 3 Airway Mallampati Classification: ([place] appropriate class) I. II. III, IV Lungs Heart ASA score ASA 1: a normal healthy patient ASA 2: a patient with a mild systemic disease (mid diabetes, controlled hypertension, obesity ASA 3: a patient with a severe systemic disease that limits activity (angina , COPD, prior Myocardial infarction) ASA 4: a patient with an incapacitating disease that is a constant threat to life (CHF, renal failure) ASA 5: a moribund patient not expected to survive 24 hrs. (ruptured aneurysm) ASA 6: a declared brain patient whose organs are being harvested. For emergent operations, add the letter E after the classification Grade 3 Sedation Plan: Analgesia, Amnesia, Plan communicated to team members, Discussed options with patient/fam, Discussed risks with patient/fam Note The patient is an appropriate candidate to undergo the planned procedure, sedation, and anesthesia. The patient immediately re-assessed prior to indication. KELTON ANDERSON MD FACP FAC CCDS January 29, 2018 11:46
--- NOTE | 2018-01-29 12:30 | Discharge Inst-Post CATH ---
Discharge Inst-CATH Post Cardiac Cath D/C Inst Follow Up/Plan F/u with Dr Wilson in 2 weeks CARDIAC CATH DISCHARGE INSTRUCTIONS *Hold Metformin for 48 hours post heart cath. ACTIVITY * Go Home directly and rest. * Limit activity of the leg (or wrist if it was used) for 7 days including aerobics, swimming, jogging, bicycling, etc. * Restrict stair-climbing for 7 days if possible, if not, climb up with your non -cath leg, then bring together on the same step. * Avoid lifting, pushing, pulling or excessive movement of the affected extremity for 7 days. * Customary sexual activity may be resumed after 2 days-use caution not to use a position that strains or causes pain to the affected extremity. * No driving for 24 hours. * NO SMOKING. * Avoid straining for bowel movements for 7 days. * Gentle walking on level ground is allowed. * Returning to work will depend on the type of procedure and the results. Your doctor will discuss this with you. CALL YOUR DOCTOR FOR ANY OF THE FOLLOWING: *If bleeding from the puncture site occurs- Apply gentle pressure to site with clean cloth and call your doctor or EMS. * If a knot or lump forms under the skin, increases in size, or causes pain. * If bruising appears to be worsening or moving further down your leg instead of disappearing. * Temperature above 101 F. CARE OF YOUR GROIN INCISION; * Bruising or purple discoloration of the skin near the puncture site is common. * You may shower only, no bathtub bathing for 5 days. Be careful to avoid slipping as your leg may feel stiff. * If a closure device was used on your femoral artery, please see the attached guide regarding care of the device and your leg. * REMOVE the dressing from your groin the next day after your procedure in the shower. CARE OF YOUR WRIST INCISION; * Bruising or purple discoloration of the skin near the puncture site is common. * You may shower. * DO NOT submerge wrist. * Remove dressing in 24 hours. KELTON WILSON MD FACP FAC CCDS January 29, 2018 12:30
--- NOTE | 2018-01-29 12:32 | Discharge Inst-Cardiology ---
Discharge Inst-Cardiac Discharge Medications Continued Medications: Apixaban (Eliquis) 5 Mg Tablet 5 MG PO BID, TAB Aspirin (Aspirin EC) 81 Mg Tablet.dr 81 MG PO DAILY, TAB Diltiazem HCl (Diltiazem ER) 300 Mg Tab.er.24h 300 MG PO DAILY, TAB Furosemide (Furosemide) 40 Mg Tablet 40 MG PO DAILY, TAB Isosorbide Mononitrate (Isosorbide Mononitrate ER) 30 Mg Tab.er.24h 30 MG PO DAILY, TAB Losartan Potassium (Losartan Potassium) 25 Mg Tablet 12.5 MG PO DAILY, TAB TAKES 1/2 OF A (25 MG) TABLET Nitroglycerin (Nitrostat) 0.4 Mg Tab.subl 0.4 MG PO UD PRN for CHEST PAIN, TAB 1 TAB UNDER TONGUE EVERY 5 MIN UP TO 3 DOSES Pantoprazole Sodium (Pantoprazole Sodium) 40 Mg Tablet.dr 40 MG PO DAILY, TAB Rosuvastatin Calcium (Rosuvastatin Calcium) 40 Mg Tablet 40 MG PO DAILY, TAB Spironolactone (Spironolactone) 25 Mg Tablet 25 MG PO BID, TAB Tamsulosin HCl (Tamsulosin HCl) 0.4 Mg Cap.er.24h 0.4 MG PO DAILY, KELTON ABBOTT MD FACP FAC CCDS January 29, 2018 12:32
--- NOTE | 2018-01-29 15:25 | CARDIAC CATHETERIZATION ---
DATE OF SERVICE: 01/29/2018 CARDIAC CATHETERIZATION REPORT The patient is a 72-year-old gentleman with known coronary artery disease and coronary artery bypass surgery and percutaneous coronary interventions. He has been experiencing progressive exertional shortness of breath and generalized marked fatigue and weakness. Cardiac catheterization was carried out today after having obtained an informed consent. PROCEDURE: He was brought to the cardiac catheterization laboratory in a fasting state. Vigorous perioperative hydration was carried out throughout the procedure, starting several hours before the procedure and continuing afterwards. This was to reduce the risk of contrast nephropathy. The right groin was prepared and draped in the usual sterile fashion. A 1% lidocaine was used for local anesthesia. Modified Seldinger technique was used to advance a 6-[place] sheath in the right femoral artery. We used a 5-[place] JL3.5 catheter for left coronary angiography and a 6-[place] JR4 catheter for right coronary angiography and for angiography of the saphenous vein grafts. We used a 6-[place] SCOTTY catheter to carry out angiography of the left internal mammary artery graft to left anterior descending artery. We used a 6-[place] pigtail catheter for left heart catheterization and left ventricular angiography. The catheter was pulled back and removed. Angiography of the right femoral artery was carried through the sheath. Mynx was used to achieve hemostasis. He tolerated the procedure well. HEMODYNAMICS: Left ventricular end-diastolic pressure following coronary angiography was 10 mmHg. There was no significant pressure gradient on pullback across the aortic valve. Ascending aortic pressure was 124/63 with a mean of 87 mmHg. LEFT VENTRICULAR ANGIOGRAPHY: Left ventricular angiography shows global hypokinesia of the left ventricle, more marked in the diaphragmatic wall of the left ventricle. Left ventricular ejection fraction is approximately 15%. There did not appear to be significant mitral regurgitation. CORONARY ANGIOGRAPHY: Left main coronary artery does not exhibit significant obstructive disease. Left anterior descending artery is occluded in its proximal portion. A ramus intermedius artery is a patent and of a small caliber. The left circumflex artery has a widely patent stent in its mid to distal portion. The first obtuse marginal branch of the left circumflex artery is occluded. The right coronary artery has diffuse moderate disease. SAPHENOUS VEIN GRAFT ANGIOGRAPHY: The more cephalic saphenous vein graft is to an obtuse marginal artery and this graft is occluded at its ostium. The more caudal graft is a graft to a diagonal system (patent and free of significant disease), but the diagonal system is occluded distal to the graft, but the graft does supply retrograde flow into the diagonal branch. The most caudal graft is a graft to an acute marginal or a posterolateral branch of the right coronary artery and it is patent without significant disease. LEFT INTERNAL MAMMARY ARTERY GRAFT ANGIOGRAPHY: Left internal mammary artery graft to distal left anterior descending artery is widely patent and free of significant disease. CONCLUSIONS: 1. Coronary artery disease consisting of proximal occlusion of the left anterior descending artery, proximal occlusion of the first obtuse marginal branch and occlusion of a posterolateral/acute marginal branch of the right coronary artery. 2. Patent saphenous vein graft to a diagonal branch of left anterior descending artery, which have supplies the diagonal branch in a retrograde fashion, but the antegrade portion of the diagonal branch was occluded. 3. Patent saphenous vein graft to the posterolateral or acute marginal branch of the right coronary artery. 4. Occluded saphenous vein graft to an obtuse marginal artery. 5. Patent left internal mammary artery graft to the distal left anterior descending artery. 6. Marked impairment of global left ventricular systolic function with global hypokinesis, more marked in the diaphragmatic wall, with left ventricular ejection fraction of approximately 15%. 7. Normal left ventricular end-diastolic pressure. 8. No significant mitral regurgitation seen on this study. DISCUSSION AND RECOMMENDATIONS: Based on results of the study, it appears appropriate to continue a conservative approach, risk factor modification, and medical optimization. These issues were reviewed with him and his family in detail. Job ID: [id number] DocumentID: [id number] Dictated Date: 01/29/2018 12:48:29 [employer] Date: 01/29/2018 15:25:14 Dictated By: KELTON ANDERSON MD, MA, FACP, FACC,
== END 2018-01-29 16:03 | disposition home or self-care (01) ==
LOC: CATH 08:57 → SURG 13:05 → CATH 16:03
PROVIDERS: ATTEND Internal Medicine Cardiovascular Disease
DX: I25.10 Atherosclerotic heart disease of native coronary artery without angina pectoris (principal); T82.857A Stenosis of other cardiac prosthetic devices, implants and grafts, initial encounter; R53.1 Weakness; E78.5 Hyperlipidemia, unspecified; J44.9 Chronic obstructive pulmonary disease, unspecified; I25.5 Ischemic cardiomyopathy; I50.22 Chronic systolic (congestive) heart failure; I48.0 Paroxysmal atrial fibrillation; N18.3 Chronic kidney disease, stage 3 (moderate); I69.354 Hemiplegia and hemiparesis following cerebral infarction affecting left non-dominant side; I25.2 Old myocardial infarction; Z79.01 Long term (current) use of anticoagulants; Z79.82 Long term (current) use of aspirin; Z79.899 Other long term (current) drug therapy; Z95.1 Presence of aortocoronary bypass graft; Z95.810 Presence of automatic (implantable) cardiac defibrillator; Z87.891 Personal history of nicotine dependence
CPT/HCPCS: 36415; 80053; 80061; 85027; 85610; 85730; 87081; 93459

== ENCOUNTER 2018-02-05 07:09 | Emergency (ER) | payer MEDICARE, OTHER ==
[~2018-02-05] VITALS: Ht 172.7 cm; Wt 93.9 kg
[~2018-02-05 07:09] MED LIST changes: +DILT300T9 PO; +ROSU40TA21 PO
[2018-02-05 07:26] LABS: BASOPHILS % (AUTO) 0 % (0-10); EOSINOPHILS # (AUTO) 0.2 10^3/uL (0.0-0.3); EOSINOPHILS % (AUTO) 2 % (0-10); HEMATOCRIT 43 % (40-54); HEMOGLOBIN 14.8 G/DL (13.3-17.7); LYMPHOCYTES # (AUTO) 0.7 X 10^3 (1.0-4.0); LYMPHOCYTES % (AUTO) 9 % (12-44); MEAN CORPUSCULAR HEMOGLOBIN 31 PG (25-34); MEAN CORPUSCULAR HGB CONC 35 G/DL (32-36); MEAN CORPUSCULAR VOLUME 88 FL (80-99); MEAN PLATELET VOLUME 9.6 FL (7.4-10.4); MONOCYTES # (AUTO) 1.1 X 10^3 (0.0-1.0); MONOCYTES % (AUTO) 14 % (0-12); NEUTROPHILS # (AUTO) 6.1 X 10^3 (1.8-7.8); NEUTROPHILS % (AUTO) 74 % (42-75); PLATELET COUNT 287 10^3/uL (130-400); RED BLOOD COUNT 4.86 10^6/uL (4.35-5.85); RED CELL DISTRIBUTION WIDTH 15.5 % (10.0-14.5); WHITE BLOOD COUNT 8.2 10^3/uL (4.3-11.0)
[2018-02-05] MEDS ORDERED: RT-ALBUTEROL/IPRATROPIUM 3 ML (DUONEB) VIAL INH ONE (07:30)
[2018-02-05 07:36] LABS: INR 1.1 (0.8-1.4); PROTHROMBIN TIME PATIENT 14.1 SEC (12.2-14.7)
[2018-02-05 07:42] LABS: ALANINE AMINOTRANSFERASE 15 U/L (0-55); ALBUMIN 4.2 GM/DL (3.2-4.5); ALKALINE PHOSPHATASE 75 U/L (40-136); BILIRUBIN,TOTAL 0.7 MG/DL (0.1-1.0); BUN/CREATININE RATIO 15; CALCIUM 9.1 MG/DL (8.5-10.1); CARBON DIOXIDE 20 MMOL/L (21-32); CHLORIDE 106 MMOL/L (98-107); CREATININE SERUM 1.36 MG/DL (0.60-1.30); GFR ESTIMATED 52; GLUCOSE 110 MG/DL (70-105); MAGNESIUM 2.1 MG/DL (1.8-2.4); POTASSIUM 4.2 MMOL/L (3.6-5.0); SODIUM 137 MMOL/L (135-145); TOTAL PROTEIN 7.8 GM/DL (6.4-8.2)
[2018-02-05 07:50] LABS: MYOGLOBIN SERUM 137.6 NG/ML (10.0-92.0)
--- NOTE | 2018-02-05 08:08 | Diagnostic Imaging Report ---
INDICATION: Shortness of air. COMPARISON: 01/06/2018. FINDINGS: Ill-defined opacities in the right mid and lower lung zones persist. Left basilar linear opacities are unchanged. No pleural effusion or pneumothorax. Stable cardiomediastinal silhouette with changes of CABG and transvenous AICD/pacemaker. IMPRESSION: 1. Subacute to chronic bilateral pulmonary opacities are unchanged and may relate to areas of scar. 2. No new airspace disease. Dictated by: Dictated on workstation # [id number]
[2018-02-05] MEDS ORDERED: FUROSEMIDE 40 MG/4 ML INJ (LASIX) IVP ONE (08:45)
[2018-02-05] MEDS ORDERED: BENZ-13 PO (08:47)
[2018-02-05] MEDS ORDERED: PRD20T PO (08:47)
--- NOTE | 2018-02-05 08:50 | ED General ---
General Chief Complaint: Respiratory Problems Stated Complaint: SOA Nursing Triage Note: PT CO OF SOB AND COUGH, WAS IN HOSP LAST WEEK FOR SAME THING Nursing Sepsis Screen: No Definite Risk Source of Information: Patient, Old Records Exam Limitations: No Limitations History of Present Illness Date Seen by Provider: February 05, 2018 Time Seen by Provider: 07:15 Initial Comments This 72-year-old gentleman presents to the emergency room with complaints of cough, generalized weakness, and shortness of air. He states "I feel like there is fluid on my lungs". Patient wonders if his medications is causing him to cough. Therefore he did not take his diltiazem or Eliquis this morning. He has atrial fibrillation and is noted to be mildly tachycardic. He was instructed to take his diltiazem and Eliquis in the exam room during assessment. Despite patient's heart disease, CHF, and COPD, he continues to smoke. He is not using nebulizer treatments at home presently for his symptoms. He denies any fever. He has no chest pain. He notes that he generally takes his Lasix every other day and increases to daily dosing if he is having trouble with fluid overload. Review of chart notes significant history of congestive heart failure with low ejection fractions on his cardiac studies. Allergies and Home Medications Allergies Coded Allergies: Penicillins (Unverified Allergy, Unknown, 05/29/16) Home Medications Apixaban 5 Mg Tablet, 5 MG PO BID, (Reported) Aspirin 81 Mg Tablet.dr, 81 MG PO DAILY, (Reported) Benzonatate 100 Mg Capsule, 100 MG PO TID PRN for COUGH Prescribed by: JAX JIMENES on 02/05/18 0847 Diltiazem HCl 300 Mg Tab.er.24h, 300 MG PO DAILY, (Reported) Furosemide 40 Mg Tablet, 40 MG PO DAILY, (Reported) Isosorbide Mononitrate 30 Mg Tab.er.24h, 30 MG PO DAILY, (Reported) Losartan Potassium 25 Mg Tablet, 12.5 MG PO DAILY, (Reported) TAKES 1/2 OF A (25 MG) TABLET Nitroglycerin 0.4 Mg Tab.subl, 0.4 MG PO UD PRN for CHEST PAIN, (Reported) 1 TAB UNDER TONGUE EVERY 5 MIN UP TO 3 DOSES Pantoprazole Sodium 40 Mg Tablet.dr, 40 MG PO DAILY, (Reported) Prednisone 20 Mg Tab, 20 MG PO DAILY Prescribed by: JAX JIMENES on 02/05/18 0847 Rosuvastatin Calcium 40 Mg Tablet, 40 MG PO DAILY, (Reported) Spironolactone 25 Mg Tablet, 25 MG PO BID, (Reported) Tamsulosin HCl 0.4 Mg Cap.er.24h, 0.4 MG PO DAILY, (Reported) Patient Home Medication List Home Medication List Reviewed: Yes Review of Systems Constitutional: see HPI, weakness EENTM: no symptoms reported Respiratory: see HPI Cardiovascular: no symptoms reported Gastrointestinal: no symptoms reported Genitourinary: no symptoms reported Musculoskeletal: no symptoms reported Skin: no symptoms reported Psychiatric/Neurological: No Symptoms Reported Hematologic/Lymphatic: No Symptoms Reported Past Fabxpay-Kldrlx-Uwwebp Hx Patient Social History Alcohol Use: Denies Use Recreational Drug Use: No Type Used: Cigarettes 2nd Hand Smoke Exposure: Yes Recent Foreign Travel: No Contact w/Someone Who Travel: No Recent Infectious Disease Expo: No Recent Hopitalizations: Yes Physical Abuse: No Sexual Abuse: No Immunizations Up To Date Tetanus Booster (TDap): More than 5yrs PED Vaccines UTD: No Date of Pneumonia Vaccine: Nov 03, 2015 Date of Influenza Vaccine: Jun 19, 2015 Seasonal Allergies Seasonal Allergies: Yes Past Medical History Surgeries: Yes (STENTS X 3) Cardiac, CABG, Coronary Stent, Defibrillator Respiratory: Yes (MEDIASTINAL LYMPHADENOPATHY--BEING MONITORED BY PCP & DR. TAPIA, HOME O2 HS) Asthma, Sleep Apnea, COPD, Emphysema Currently Using CPAP: No Currently Using BIPAP: No Cardiac: Yes (LA X2; SYNCOPE PRIOR TO DEFIBRILLATOR PLACEMENT; CHF) Atrial Fibrillation, Coronary Artery Disease, Heart Attack, High Cholesterol, Hypertension, Syncope Neurological: Yes (LEFT SIDE WEAKNESS, BALANCE PROBLEMS/ FALLS) Stroke Reproductive Disorders: No Sexually Transmitted Disease: No HIV/AIDS: No Genitourinary: Yes Kidney Stones Gastrointestinal: Yes (GASTRITIS) Gastroesophageal Reflux, Diverticulosis, Esophagitis, Hiatal Hernia Musculoskeletal: Yes Fractures Endocrine: No HEENT: No Loss of Vision: Denies Hearing Impairment: Denies Cancer: No Psychosocial: No Nursing Suicide Risk Score: 0 Integumentary: No Blood Disorders: Yes (NOT CURRENT BUT HX OF ANEMIA OF UNKNOWN CAUSE) Adverse Reaction/Blood Tranf: No Family Medical History Fam hx-osteoporosis 03 MOTHER Family history: Hypertension 03 MOTHER, Onset:50's - 60 09 SISTER, Onset:40's - 50 Thyroid disease 03 MOTHER No Family History of: Cancer Chest pain Dementia Family history: Diabetes mellitus Stroke Heart Disease, Hypertension Physical Exam Vital Signs Vital Signs - First Documented 02/05/18 02/05/18 07:10 07:30 Temp 97.8 Pulse 95 Resp 22 B/P (MAP) 113/85 (94) Pulse Ox 98 O2 Delivery Room Air Capillary Refill : Less Than 3 Seconds General Appearance: No Apparent Distress, WD/WN HEENT: PERRL/EOMI, Normal ENT Inspection Neck: Normal Inspection Respiratory: No Accessory Muscle Use, No Respiratory Distress; No Crackles; Wheezing (With decreased air movement) Cardiovascular: Irregularly Irregular, Tachycardia, Other (Mild lower extremity edema) Gastrointestinal: Non Tender, Soft Extremity: Non Tender, Swelling (Mild) Neurologic/Psychiatric: Alert, Oriented x3, No Motor/Sensory Deficits, Normal Mood/Affect, clinical rehabilitation coordinator II-XII Norm as Tested Skin: Normal Color, Warm/Dry Progress/Results/Core Measures Suspected Sepsis Recent Fever Within 48 Hours: No Infection Criteria Present: None New/Unexplained Altered Menta: No Sepsis Screen: No Definite Risk SIRS Temperature:97.8 Pulse: 95 Respiratory Rate: 22 Laboratory Tests 02/05/18 07:10: White Blood Count 8.2 Blood Pressure 113 /85 Mean: 94 Laboratory Tests 02/05/18 07:10: Creatinine 1.36H, INR Comment 1.1, Platelet Count 287, Total Bilirubin 0.7 Results/Orders Lab Results Laboratory Tests Test 02/05/18 07:10 Range/Units White Blood Count 8.2 4.3-11.0 10^3/uL Red Blood Count 4.86 4.35-5.85 10^6/uL Hemoglobin 14.8 13.3-17.7 G/DL Hematocrit 43 40-54 % Mean Corpuscular Volume 88 80-99 FL Mean Corpuscular Hemoglobin 31 25-34 PG Mean Corpuscular Hemoglobin Concent 35 32-36 G/DL Red Cell Distribution Width 15.5 H 10.0-14.5 % Platelet Count 287 130-400 10^3/uL Mean Platelet Volume 9.6 7.4-10.4 FL Neutrophils (%) (Auto) 74 42-75 % Lymphocytes (%) (Auto) 9 L 12-44 % Monocytes (%) (Auto) 14 H 0-12 % Eosinophils (%) (Auto) 2 0-10 % Basophils (%) (Auto) 0 0-10 % Neutrophils # (Auto) 6.1 1.8-7.8 X 10^3 Lymphocytes # (Auto) 0.7 L 1.0-4.0 X 10^3 Monocytes # (Auto) 1.1 H 0.0-1.0 X 10^3 Eosinophils # (Auto) 0.2 0.0-0.3 10^3/uL Basophils # (Auto) 0.0 0.0-0.1 10^3/uL Prothrombin Time 14.1 12.2-14.7 SEC INR Comment 1.1 0.8-1.4 Activated Partial Thromboplast Time 31 24-35 SEC Sodium Level 137 135-145 MMOL/L Potassium Level 4.2 3.6-5.0 MMOL/L Chloride Level 106 98-107 MMOL/L Carbon Dioxide Level 20 L 21-32 MMOL/L Anion Gap 11 5-14 MMOL/L Blood Urea Nitrogen 20 H 7-18 MG/DL Creatinine 1.36 H 0.60-1.30 MG/DL Estimat Glomerular Filtration Rate 52 BUN/Creatinine Ratio 15 Glucose Level 110 H 70-105 MG/DL Calcium Level 9.1 8.5-10.1 MG/DL Magnesium Level 2.1 1.8-2.4 MG/DL Total Bilirubin 0.7 0.1-1.0 MG/DL Aspartate Amino Transf (AST/SGOT) 17 5-34 U/L Alanine Aminotransferase (ALT/SGPT) 15 0-55 U/L Alkaline Phosphatase 75 40-136 U/L Myoglobin 137.6 H 10.0-92.0 NG/ML Troponin I < 0.30 <0.30 NG/ML C-Reactive Protein High Sensitivity 1.92 H 0.00-0.50 MG/DL B-Type Natriuretic Peptide 689.1 H <100.0 PG/ML Total Protein 7.8 6.4-8.2 GM/DL Albumin 4.2 3.2-4.5 GM/DL My Orders Orders - JAX GRIJALVA MD Cbc With Automated Diff (02/05/18 07:19) Magnesium (02/05/18 07:19) Ekg Tracing (02/05/18 07:19) Cardiac Profile 1 (02/05/18 07:19) Comprehensive Metabolic Panel (02/05/18 07:19) Myoglobin Serum (02/05/18 07:19) Protime With Inr (02/05/18 07:19) Partial Thromboplastin Time (02/05/18 07:19) O2 (02/05/18 07:19) Monitor-Rhythm Ecg Trace Only (02/05/18 07:19) Saline Lock/Iv-Start (02/05/18 07:19) BNP (02/05/18 07:19) Hs C Reactive Protein (02/05/18 07:19) Albuterol/Ipra Inhalation Soln (Duoneb I (02/05/18 07:30) Chest Pa/Lat (2 View) (02/05/18 07:19) Svn Small Volume Nebulizer (02/05/18 07:19) Furosemide Injection (Lasix Injection) (02/05/18 08:45) Medications Given in ED Vital Signs/I&O Capillary Refill : Less Than 3 Seconds Blood Pressure Mean: 94 Progress Note : Progress Note Patient had some improvement in air movement and reduced coughing after a nebulizer treatment. BNP was noted to be elevated above his baseline. Patient was advised to take an extra dose of Lasix today and follow up closely with his care providers. He was also advised to quit smoking and to use his nebulizer treatments when feeling short of air. ECG Initial ECG Impression Date: February 05, 2018 Initial ECG Impression Time: 07:11 Initial ECG Rate: 97 Initial ECG Impression: Atrial Fibrillation Comment Atrial fibrillation with no acute ST elevation or depression. Diagnostic Imaging Diagonstic Imaging: Xray Plain Films/CT/US/NM/MRI: chest Comments Chest x-ray viewed by me and report reviewed. See report below: NAME: RODRIGUE PICHARDO [facility] REC#: [id number] PT STATUS: DEP ER : 1945 PHYSICIAN: JAX GRIJALVA MD ADMIT DATE: 02/05/18/ER Signed Date of Exam: 02/05/18 CHEST PA/LAT (2 VIEW) INDICATION: Shortness of air. COMPARISON: 01/06/2018. FINDINGS: Ill-defined opacities in the right mid and lower lung zones persist. Left basilar linear opacities are unchanged. No pleural effusion or pneumothorax. Stable cardiomediastinal silhouette with changes of CABG and transvenous AICD/pacemaker. IMPRESSION: 1. Subacute to chronic bilateral pulmonary opacities are unchanged and may relate to areas of scar. 2. No new airspace disease. Dictated by: Dictated on workstation # [id number] Dict: 02/05/18 08 Trans: 02/05/18919 Interpreted by: SERGEY OLIVIER MD Electronically signed by: SERGEY OLIVIER MD 02/05/18919 Departure Impression Primary Impression: Acute exacerbation of congestive heart failure Qualified Codes: I50.23 - Acute on chronic systolic (congestive) heart failure Additional Impressions: Cough Acute exacerbation of COPD with asthma Disposition: HOME, SELF-CARE Condition: Improved Departure-Patient Inst. Decision time for Depature: 08:40 Referrals: VILMA BELLO MD (PCP) Primary Care Physician XOCHITL KITCHEN (Family) Primary Care Physician Patient Instructions: CHF, Chronic Obstructive Pulmonary Disease (COPD), Including Emphysema Add. Discharge Instructions: It is critical that you work toward quitting smoking and quit as soon as possible. Seek assistance from your primary care provider if needed. Follow-up with your primary care provider and Dr. Wilson as soon as possible. Please call today to arrange follow-up appointment. Keep the appointment with Xochitl Kitchen tomorrow. Take Lasix (furosemide) 40 mg when you return home. Take an additional dose of 40 mg 4 hours later. You may use the Tessalon Perles as prescribed for cough suppression. Complete the 3 doses of prednisone as prescribed. Return to the emergency room if symptoms are worsening. Also return to emergency room if you develop new symptoms such as chest pain, fever, etc. Use your nebulizer machine every 4 hours as needed when you feel short of breath. Continue all of your other medications as previously prescribed. All discharge instructions reviewed with patient and/or family. Voiced understanding. Scripts Benzonatate (Tessalon Perle) 100 Mg Capsule 100 MG PO TID PRN for COUGH, #20 CAP Prov: JAX GRIJALVA MD 02/05/18 Prednisone (Prednisone) 20 Mg Tab 20 MG PO DAILY, #3 TAB Prov: JAX GRIJALVA MD 02/05/18 Copy Copies To 1: KELTON WILSON MD FACP FAC CCDS Copies To 2: ALLIE INIGUEZ MD, JOSHUA T MD February 05, 2018 08:50
[2018-02-05 09:01] VITALS: BP 113/85
== END 2018-02-05 09:01 | disposition home or self-care (01) ==
LOC: EDUNIT# 07:09 → ER 07:10
DX: I11.0 Hypertensive heart disease with heart failure (principal); I50.9 Heart failure, unspecified; J44.1 Chronic obstructive pulmonary disease with (acute) exacerbation; G47.30 Sleep apnea, unspecified; I25.2 Old myocardial infarction; I48.91 Unspecified atrial fibrillation; I25.10 Atherosclerotic heart disease of native coronary artery without angina pectoris; E78.00 Pure hypercholesterolemia, unspecified; K21.9 Gastro-esophageal reflux disease without esophagitis; Z86.73 Personal history of transient ischemic attack (TIA), and cerebral infarction without residual deficits; Z87.19 Personal history of other diseases of the digestive system; Z87.442 Personal history of urinary calculi; Z79.01 Long term (current) use of anticoagulants; Z79.82 Long term (current) use of aspirin; Z79.52 Long term (current) use of systemic steroids; Z77.22 Contact with and (suspected) exposure to environmental tobacco smoke (acute) (chronic); Z95.5 Presence of coronary angioplasty implant and graft; Z95.1 Presence of aortocoronary bypass graft; Z95.810 Presence of automatic (implantable) cardiac defibrillator
CPT/HCPCS: 36415; 71046; 80053; 83735; 83874; 83880; 84484; 85025; 85610; 85730; 86141; 93005; 93041; 94640

== ENCOUNTER → 2018-02-21 | Outpatient (CLI) | payer MEDICARE, OTHER ==
[~2018-02-21] MED LIST changes: +BENZ-13 PO
[2018-02-21 10:40] LABS: ALBUMIN 3.9 GM/DL (3.2-4.5); BILIRUBIN,TOTAL 0.5 MG/DL (0.1-1.0); CALCIUM 9.2 MG/DL (8.5-10.1); CREATININE SERUM 1.19 MG/DL (0.60-1.30); POTASSIUM 4.5 MMOL/L (3.6-5.0); TOTAL PROTEIN 7.4 GM/DL (6.4-8.2)
[2018-02-21 11:01] LABS: FREE T4 (FREE THYROXINE) 1.37 NG/DL (0.70-1.48)
== END ==
LOC: LAB 09:38
PROVIDERS: ATTEND Nurse Practitioner Family
DX: I25.5 Ischemic cardiomyopathy (principal); I50.23 Acute on chronic systolic (congestive) heart failure
CPT/HCPCS: 36415; 80053; 80061; 84439; 84443

== ENCOUNTER → 2018-02-21 | Outpatient (CLI) | payer MEDICARE, OTHER ==
[2018-02-21 10:13] LABS: BASOPHILS % (AUTO) 0 % (0-10); EOSINOPHILS # (AUTO) 0.3 10^3/uL (0.0-0.3); EOSINOPHILS % (AUTO) 3 % (0-10); HEMATOCRIT 43 % (40-54); HEMOGLOBIN 14.6 G/DL (13.3-17.7); LYMPHOCYTES # (AUTO) 1.9 X 10^3 (1.0-4.0); LYMPHOCYTES % (AUTO) 22 % (12-44); MEAN CORPUSCULAR HEMOGLOBIN 30 PG (25-34); MEAN CORPUSCULAR HGB CONC 34 G/DL (32-36); MEAN CORPUSCULAR VOLUME 89 FL (80-99); MEAN PLATELET VOLUME 9.9 FL (7.4-10.4); MONOCYTES % (AUTO) 12 % (0-12); NEUTROPHILS # (AUTO) 5.3 X 10^3 (1.8-7.8); NEUTROPHILS % (AUTO) 62 % (42-75); PLATELET COUNT 312 10^3/uL (130-400); RED BLOOD COUNT 4.82 10^6/uL (4.35-5.85); RED CELL DISTRIBUTION WIDTH 14.9 % (10.0-14.5); WHITE BLOOD COUNT 8.5 10^3/uL (4.3-11.0)
[2018-02-21 10:52] LABS: CALCIUM 9.2 MG/DL (8.5-10.1); CREATININE SERUM 1.19 MG/DL (0.60-1.30); POTASSIUM 4.5 MMOL/L (3.6-5.0)
[2018-02-21 10:53] LABS: ALBUMIN 3.9 GM/DL (3.2-4.5); BILIRUBIN,TOTAL 0.5 MG/DL (0.1-1.0); TOTAL PROTEIN 7.4 GM/DL (6.4-8.2)
== END ==
LOC: LAB 09:44
PROVIDERS: ATTEND Internal Medicine Cardiovascular Disease
DX: I50.23 Acute on chronic systolic (congestive) heart failure (principal); I25.812 Atherosclerosis of bypass graft of coronary artery of transplanted heart without angina pectoris; I25.5 Ischemic cardiomyopathy; N18.3 Chronic kidney disease, stage 3 (moderate); I48.2 Chronic atrial fibrillation; J43.8 Other emphysema; Z79.01 Long term (current) use of anticoagulants; Z72.0 Tobacco use; Z95.810 Presence of automatic (implantable) cardiac defibrillator
CPT/HCPCS: 80053; 83735; 83880; 85025

== ENCOUNTER → 2018-02-26 | Outpatient (CLI) | payer MEDICARE, OTHER ==
--- NOTE | 2018-02-26 13:38 | Diagnostic Imaging Report ---
INDICATION: Subclinical hyperthyroidism. TECHNIQUE: Grayscale sonographic images of the thyroid gland. CORRELATION STUDY: None. FINDINGS: RIGHT LOBE: Enlarged at 4.5 x 2.3 x 1.6 cm. Two small hypoechoic nodules are present. Both measuring up to 5 mm in maximum size. LEFT LOBE: Normal in size at 3.5 x 1.5 x 1.6 cm. Two adjacent hypoechoic nodules in the inferior pole, largest measuring up to 4 mm. Isthmus appears unremarkable. IMPRESSION: Mild asymmetrically enlarged right lobe. Small likely cystic nodules within both lobes. No concerning solid mass lesion. If assessment of thyroid function is desired, nuclear medicine thyroid scan and uptake recommended. (Normal gland size: 4-5 x 2 x 2 cm) Dictated by: Dictated on workstation # [id number]
== END ==
LOC: RAD 09:16
PROVIDERS: ATTEND Nurse Practitioner Family
DX: E04.2 Nontoxic multinodular goiter (principal); E05.90 Thyrotoxicosis, unspecified without thyrotoxic crisis or storm
CPT/HCPCS: 76536

== ENCOUNTER 2018-03-01 09:55 | Outpatient (CLI) | payer MEDICARE, OTHER | END 2018-03-01 10:13 | disposition home or self-care (01) | LOC: SLEEP 09:55 | PROVIDERS: ATTEND Nurse Practitioner Family | DX: G47.10 Hypersomnia, unspecified (principal); G47.50 Parasomnia, unspecified; R06.09 Other forms of dyspnea ==

== ENCOUNTER → 2018-03-01 | Outpatient (CLI) | payer MEDICARE, OTHER ==
--- NOTE | 2018-03-01 11:08 | Diagnostic Imaging Report ---
PROCEDURE: CT chest without contrast. TECHNIQUE: Multiple contiguous axial images were obtained through the chest without the use of intravenous contrast. INDICATION: Dyspnea on exertion and tobacco user. COMPARISON: Comparison is made with prior CT chest from 02/12/2017. FINDINGS: Changes of median sternotomy are identified. Left chest wall cardiac pacemaker remains in place with leads in the region of the right atrium and right ventricle. Coronary arterial calcifications are again noted. The heart is enlarged. No pericardial or pleural fluid is identified. No axillary lymphadenopathy is detected. Enlarged lymph nodes in the mediastinum are again noted. The lymph node in the prevascular space measures approximately 14 mm compared with 13 mm on prior. The large right paratracheal node demonstrates a short axis measurement of 15 mm, similar to prior exam. Edith are difficult to evaluate without intravenous contrast. Parenchymal evaluation does show the lungs to be clear. No parenchymal mass, nodule or infiltrate is seen. There does appear to be some centrilobular emphysematous changes present. Central airways are patent. Upper abdomen does show a small stone within the gallbladder. IMPRESSION: 1. Stable mediastinal lymphadenopathy when compared with exam from one year earlier. This remains indeterminate. 2. Cholelithiasis. Dictated by: Dictated on workstation # [id number]
== END ==
LOC: RAD 10:23
PROVIDERS: ATTEND Nurse Practitioner Family
DX: R59.0 Localized enlarged lymph nodes (principal); K80.20 Calculus of gallbladder without cholecystitis without obstruction; Z72.0 Tobacco use
CPT/HCPCS: 71250

== ENCOUNTER → 2018-03-27 | Outpatient (CLI) | payer MEDICARE, OTHER ==
[~2018-03-27] MED LIST changes: +ALBU18HF2 INH; +ALBU2.5V4 NEB; -AMIO200T2 PO; +AMIO200T4 PO; +CYCL10TA9 PO; +DILT300C52 PO; -DILT300C57 PO; +DILT300C71 PO; +FLUT1AER INH; +FURO80TA3 PO; +LORA1TAB PO; +NF-XOP-HFA IH; +POTA-51 PO; -ROSU40TA21 PO; +ROSU40TA22 PO; +RT-ALBUTEROL SULF 2.5 MG/3 ML PRE-MIX VIAL INH ONE; +SPIR25TA5 PO; +SPIR50TA4 PO; +UMEC62.5 INH
== END ==
LOC: RT 09:17
PROVIDERS: ATTEND Nurse Practitioner Family
DX: R06.09 Other forms of dyspnea (principal); Z72.0 Tobacco use
CPT/HCPCS: 94060; 94726; 94729

== ENCOUNTER 2018-03-29 09:07 | Outpatient (RCR) | payer MEDICARE, OTHER ==
[2018-01-03 13:44] LABS: BASOPHILS % (AUTO) 0 % (0-10); EOSINOPHILS # (AUTO) 0.2 10^3/uL (0.0-0.3); EOSINOPHILS % (AUTO) 2 % (0-10); HEMATOCRIT 43 % (40-54); HEMOGLOBIN 14.6 G/DL (13.3-17.7); LYMPHOCYTES # (AUTO) 1.8 X 10^3 (1.0-4.0); LYMPHOCYTES % (AUTO) 20 % (12-44); MEAN CORPUSCULAR HEMOGLOBIN 30 PG (25-34); MEAN CORPUSCULAR HGB CONC 34 G/DL (32-36); MEAN CORPUSCULAR VOLUME 89 FL (80-99); MONOCYTES # (AUTO) 1.1 X 10^3 (0.0-1.0); MONOCYTES % (AUTO) 12 % (0-12); NEUTROPHILS # (AUTO) 5.8 X 10^3 (1.8-7.8); NEUTROPHILS % (AUTO) 65 % (42-75); PLATELET COUNT 297 10^3/uL (130-400); RED BLOOD COUNT 4.82 10^6/uL (4.35-5.85); RED CELL DISTRIBUTION WIDTH 15.4 % (10.0-14.5)
[2018-01-03 14:08] LABS: ALBUMIN 4.1 GM/DL (3.2-4.5); BILIRUBIN,TOTAL 0.6 MG/DL (0.1-1.0); CALCIUM 10.5 MG/DL (8.5-10.1); CREATININE SERUM 1.21 MG/DL (0.60-1.30); POTASSIUM 3.9 MMOL/L (3.6-5.0); TOTAL PROTEIN 7.4 GM/DL (6.4-8.2)
[~2018-03-29 09:07] MED LIST changes: -ALBU18HF2 INH; -ALBU2.5V4 NEB; -CYCL10TA9 PO; -DILT300C52 PO; -FLUT1AER INH; -FURO80TA3 PO; -LORA1TAB PO; -NF-XOP-HFA IH; -POTA-51 PO; -RT-ALBUTEROL SULF 2.5 MG/3 ML PRE-MIX VIAL INH ONE; -SPIR50TA4 PO; -UMEC62.5 INH
[2018-03-29 09:23] LABS: BASOPHILS % (AUTO) 0 % (0-10); EOSINOPHILS # (AUTO) 0.3 10^3/uL (0.0-0.3); EOSINOPHILS % (AUTO) 4 % (0-10); HEMATOCRIT 40 % (40-54); HEMOGLOBIN 13.4 G/DL (13.3-17.7); LYMPHOCYTES # (AUTO) 1.3 X 10^3 (1.0-4.0); LYMPHOCYTES % (AUTO) 16 % (12-44); MEAN CORPUSCULAR HEMOGLOBIN 30 PG (25-34); MEAN CORPUSCULAR HGB CONC 33 G/DL (32-36); MEAN CORPUSCULAR VOLUME 89 FL (80-99); MEAN PLATELET VOLUME 9.7 FL (7.4-10.4); MONOCYTES # (AUTO) 0.6 X 10^3 (0.0-1.0); MONOCYTES % (AUTO) 8 % (0-12); NEUTROPHILS # (AUTO) 5.4 X 10^3 (1.8-7.8); NEUTROPHILS % (AUTO) 71 % (42-75); PLATELET COUNT 334 10^3/uL (130-400); RED BLOOD COUNT 4.53 10^6/uL (4.35-5.85); RED CELL DISTRIBUTION WIDTH 14.9 % (10.0-14.5); WHITE BLOOD COUNT 7.7 10^3/uL (4.3-11.0)
[2018-03-29 09:41] LABS: ALBUMIN 3.9 GM/DL (3.2-4.5); BILIRUBIN,TOTAL 0.7 MG/DL (0.1-1.0); CALCIUM 9.3 MG/DL (8.5-10.1); CREATININE SERUM 1.22 MG/DL (0.60-1.30); POTASSIUM 4.4 MMOL/L (3.6-5.0); TOTAL PROTEIN 7.3 GM/DL (6.4-8.2)
[2018-04-03] MEDS ORDERED: SPIR50TA4 PO (09:32)
[2018-04-03] MEDS ORDERED: CYCL10TA9 PO (09:32)
[2018-04-03] MEDS ORDERED: DILT300C52 PO (09:32)
[2018-04-03] MEDS ORDERED: FURO80TA3 PO (09:32)
[2018-04-03] MEDS ORDERED: UMEC62.5 INH (09:33)
[2018-04-03] MEDS ORDERED: ALBU2.5V4 NEB (09:38)
[2018-04-03] MEDS ORDERED: NF-XOP-HFA IH (09:38)
[2018-04-04] MEDS ORDERED: AMIO200T4 PO (12:47)
== END 2018-04-03 | disposition home or self-care (01) ==
LOC: ONC 09:07
PROVIDERS: ATTEND Internal Medicine Hematology & Oncology
DX: D50.9 Iron deficiency anemia, unspecified (principal); I25.10 Atherosclerotic heart disease of native coronary artery without angina pectoris; I50.9 Heart failure, unspecified; J44.9 Chronic obstructive pulmonary disease, unspecified; E78.5 Hyperlipidemia, unspecified; F17.200 Nicotine dependence, unspecified, uncomplicated; Z95.810 Presence of automatic (implantable) cardiac defibrillator
CPT/HCPCS: 36415; 80053; 82607; 82728; 82746; 85025; 99213

== ENCOUNTER 2018-04-02 23:09 | Inpatient (IN) | payer MEDICARE, OTHER ==
[~2018-04-02] VITALS: Ht 172.7 cm; Wt 90.9 kg
[2018-04-02 23:42] LABS: BASOPHILS % (AUTO) 0 % (0-10); EOSINOPHILS # (AUTO) 0.4 10^3/uL (0.0-0.3); EOSINOPHILS % (AUTO) 2 % (0-10); HEMATOCRIT 40 % (40-54); HEMOGLOBIN 13.6 G/DL (13.3-17.7); LYMPHOCYTES # (AUTO) 1.5 X 10^3 (1.0-4.0); LYMPHOCYTES % (AUTO) 9 % (12-44); MEAN CORPUSCULAR HEMOGLOBIN 30 PG (25-34); MEAN CORPUSCULAR HGB CONC 34 G/DL (32-36); MEAN CORPUSCULAR VOLUME 88 FL (80-99); MEAN PLATELET VOLUME 9.8 FL (7.4-10.4); MONOCYTES # (AUTO) 1.3 X 10^3 (0.0-1.0); MONOCYTES % (AUTO) 8 % (0-12); NEUTROPHILS % (AUTO) 80 % (42-75); PLATELET COUNT 365 10^3/uL (130-400); RED BLOOD COUNT 4.48 10^6/uL (4.35-5.85); RED CELL DISTRIBUTION WIDTH 15.2 % (10.0-14.5); WHITE BLOOD COUNT 16.2 10^3/uL (4.3-11.0)
[2018-04-02] MEDS ORDERED: RT-ALBUTEROL/IPRATROPIUM 3 ML (DUONEB) VIAL INH ONE (23:45)
[2018-04-02 23:58] LABS: INR 1.2 (0.8-1.4); PROTHROMBIN TIME PATIENT 15.2 SEC (12.2-14.7)
[2018-04-03] VITALS (63 sets, daily range): BP systolic 82–140; BP diastolic 47–122
[2018-04-03 00:03] LABS: ALANINE AMINOTRANSFERASE 13 U/L (0-55); ALBUMIN 4.2 GM/DL (3.2-4.5); ALKALINE PHOSPHATASE 72 U/L (40-136); BILIRUBIN,TOTAL 0.7 MG/DL (0.1-1.0); BUN/CREATININE RATIO 16; CALCIUM 9.6 MG/DL (8.5-10.1); CARBON DIOXIDE 18 MMOL/L (21-32); CHLORIDE 105 MMOL/L (98-107); CREATININE SERUM 1.54 MG/DL (0.60-1.30); GFR ESTIMATED 45; GLUCOSE 182 MG/DL (70-105); MAGNESIUM 2.1 MG/DL (1.8-2.4); POTASSIUM 4.1 MMOL/L (3.6-5.0); SODIUM 136 MMOL/L (135-145); TOTAL PROTEIN 8.1 GM/DL (6.4-8.2)
[2018-04-03 00:10] LABS: MYOGLOBIN SERUM 44.4 NG/ML (10.0-92.0)
[2018-04-03 00:27] LABS: BAND NEUTROPHILS 3 %; EOSINOPHILS % (MANUAL) 3 %; NEUTROPHILS % (MANUAL) 80 %; RBC MORPH NORMAL; REACTIVE LYMPHOCYTES 1 %
[2018-04-03 00:28] LABS: MONOCYTES % (MANUAL) 5 %
[2018-04-03 00:29] LABS: LYMPHOCYTES % (MANUAL) 8 %
[2018-04-03] MEDS ORDERED: DIGOXIN 0.25 MG/ML (LANOXIN) 2 ML AMP IV ONE ×2 (01:15→01:30)
--- NOTE | 2018-04-03 01:18 | ED Cardiac General ---
History of Present Illness General Chief Complaint: Cardiac/General Problems Stated Complaint: MAYANK WENT OFF Nursing Triage Note: PT REPORTS HAVING HAD HIS DEFIBRILLATOR SHOCK HIM AT 2230 WHILE SITTING IN [place] WATCHING TV. DIZZINESS SX ON ARRIVAL Source: patient, old records Exam Limitations: no limitations History of Present Illness Date Seen by Provider: Apr 02, 2018 Time Seen by Provider: 22:15 Initial Comments This 72-year-old gentleman presents to the emergency room with primary complaint of defibrillator discharge. Patient reports he was at home when he suddenly began feeling lightheaded and had a near syncopal episode. His defibrillator then discharged. He reports having a couple more episodes of lightheadedness in route to the hospital without defibrillator discharge. He reports feeling extremely fatigued especially with exertion over the last week. He also reports dyspnea with exertion. He reports being compliant with his medications. He has a history of coronary artery disease and atrial fibrillation. He reports he is to have his [facility] [facility] defibrillator checked tomorrow. He denies any chest pain, cough, or fever. Allergies and Home Medications Allergies Coded Allergies: Penicillins (Unverified Allergy, Unknown, 05/29/16) Home Medications Apixaban 5 Mg Tablet, 5 MG PO BID, (Reported) Aspirin 81 Mg Tablet.dr, 81 MG PO DAILY, (Reported) Diltiazem HCl 300 Mg Tab.er.24h, 300 MG PO DAILY, (Reported) Furosemide 40 Mg Tablet, 40 MG PO DAILY, (Reported) Isosorbide Mononitrate 30 Mg Tab.er.24h, 30 MG PO DAILY, (Reported) Losartan Potassium 25 Mg Tablet, 12.5 MG PO DAILY, (Reported) TAKES 1/2 OF A (25 MG) TABLET Nitroglycerin 0.4 Mg Tab.subl, 0.4 MG PO UD PRN for CHEST PAIN, (Reported) 1 TAB UNDER TONGUE EVERY 5 MIN UP TO 3 DOSES Pantoprazole Sodium 40 Mg Tablet.dr, 40 MG PO DAILY, (Reported) Rosuvastatin Calcium 40 Mg Tablet, 40 MG PO DAILY, (Reported) Spironolactone 25 Mg Tablet, 25 MG PO BID, (Reported) Tamsulosin HCl 0.4 Mg Cap.er.24h, 0.4 MG PO DAILY, (Reported) Patient Home Medication List Home Medication List Reviewed: Yes Review of Systems Constitutional: see HPI, malaise EENTM: No Symptoms Reported Respiratory: See HPI Cardiovascular: See HPI Gastrointestinal: No Symptoms Reported Genitourinary: No Symptoms Reported Musculoskeletal: no symptoms reported Skin: no symptoms reported Psychiatric/Neurological: No Symptoms Reported Endocrine: No Symptoms Reported Hematologic/Lymphatic: No Symptoms Reported Past Xrseevv-Zwvdhj-Ftmscz Hx Past Med/Social Hx: Reviewed Nursing Past Med/Soc Hx Patient Social History Alcohol Use: Denies Use Recreational Drug Use: No Smoking Status: Current Someday Smoker Type Used: Cigarettes 2nd Hand Smoke Exposure: Yes Recent Foreign Travel: No Contact w/Someone Who Travel: No Recent Infectious Disease Expo: No Recent Hopitalizations: Yes Immunizations Up To Date Tetanus Booster (TDap): More than 5yrs PED Vaccines UTD: No Date of Pneumonia Vaccine: Nov 03, 2015 Date of Influenza Vaccine: Jun 19, 2015 Seasonal Allergies Seasonal Allergies: Yes Past Medical History Surgeries: Yes (STENTS X 3) Cardiac, CABG, Coronary Stent, Defibrillator Respiratory: Yes (MEDIASTINAL LYMPHADENOPATHY--BEING MONITORED BY PCP & DR. TAPIA, HOME O2 HS) Asthma, Sleep Apnea, COPD, Emphysema Currently Using CPAP: No Currently Using BIPAP: No Cardiac: Yes ([place] X2; SYNCOPE PRIOR TO DEFIBRILLATOR PLACEMENT; CHF) Atrial Fibrillation, Coronary Artery Disease, Heart Attack, High Cholesterol, Hypertension, Syncope Neurological: Yes (LEFT SIDE WEAKNESS, BALANCE PROBLEMS/ FALLS) Stroke Reproductive Disorders: No Sexually Transmitted Disease: No HIV/AIDS: No Genitourinary: Yes Kidney Stones Gastrointestinal: Yes (GASTRITIS) Gastroesophageal Reflux, Diverticulosis, Esophagitis, Hiatal Hernia Musculoskeletal: Yes Fractures Endocrine: No HEENT: No Loss of Vision: Denies Hearing Impairment: Denies Cancer: No Psychosocial: No Integumentary: No Blood Disorders: Yes (NOT CURRENT BUT HX OF ANEMIA OF UNKNOWN CAUSE) Adverse Reaction/Blood Tranf: No Family Medical History Fam hx-osteoporosis 03 MOTHER Family history: Hypertension 03 MOTHER, Onset:50's - 60 09 SISTER, Onset:40's - 50 Thyroid disease 03 MOTHER No Family History of: Cancer Chest pain Dementia Family history: Diabetes mellitus Stroke Heart Disease, Hypertension Physical Exam Vital Signs Vital Signs - First Documented 04/02/18 23:20 Temp 97.2 Pulse 96 Resp 22 B/P (MAP) 122/73 (89) Pulse Ox 95 O2 Delivery Room Air Capillary Refill : Less Than 3 Seconds Height, Weight, BMI Height: 5'8.00" Weight: 205lbs. 0.0oz. 92.764750xz; 31.9 BMI Method:Stated General Appearance: No Apparent Distress, WD/WN HEENT: PERRL/EOMI, Normal ENT Inspection Neck: Normal Inspection Respiratory: No Accessory Muscle Use, No Respiratory Distress, Wheezing Cardiovascular: No Edema, No Murmur, Irregularly Irregular Gastrointestinal: Normal Bowel Sounds, Non Tender, Soft Extremity: Normal Capillary Refill, Normal Inspection, No Pedal Edema Neurologic/Psychiatric: Alert, Oriented x3, No Motor/Sensory Deficits, Normal Mood/Affect, pathology collector II-XII Norm as Tested Skin: Normal Color, Warm/Dry Progress/Results/Core Measures Results/Orders Lab Results Laboratory Tests Test 04/02/18 23:35 Range/Units White Blood Count 16.2 H 4.3-11.0 10^3/uL Red Blood Count 4.48 4.35-5.85 10^6/uL Hemoglobin 13.6 13.3-17.7 G/DL Hematocrit 40 40-54 % Mean Corpuscular Volume 88 80-99 FL Mean Corpuscular Hemoglobin 30 25-34 PG Mean Corpuscular Hemoglobin Concent 34 32-36 G/DL Red Cell Distribution Width 15.2 H 10.0-14.5 % Platelet Count 365 130-400 10^3/uL Mean Platelet Volume 9.8 7.4-10.4 FL Neutrophils (%) (Auto) 80 H 42-75 % Lymphocytes (%) (Auto) 9 L 12-44 % Monocytes (%) (Auto) 8 0-12 % Eosinophils (%) (Auto) 2 0-10 % Basophils (%) (Auto) 0 0-10 % Neutrophils # (Auto) 13.0 H 1.8-7.8 X 10^3 Lymphocytes # (Auto) 1.5 1.0-4.0 X 10^3 Monocytes # (Auto) 1.3 H 0.0-1.0 X 10^3 Eosinophils # (Auto) 0.4 H 0.0-0.3 10^3/uL Basophils # (Auto) 0.0 0.0-0.1 10^3/uL Neutrophils % (Manual) 80 % Lymphocytes % (Manual) 8 % Monocytes % (Manual) 5 % Eosinophils % (Manual) 3 % Band Neutrophils 3 % Reactive Lymphocytes 1 % Blood Morphology Comment NORMAL Prothrombin Time 15.2 H 12.2-14.7 SEC INR Comment 1.2 0.8-1.4 Activated Partial Thromboplast Time 31 24-35 SEC Sodium Level 136 135-145 MMOL/L Potassium Level 4.1 3.6-5.0 MMOL/L Chloride Level 105 98-107 MMOL/L Carbon Dioxide Level 18 L 21-32 MMOL/L Anion Gap 13 5-14 MMOL/L Blood Urea Nitrogen 25 H 7-18 MG/DL Creatinine 1.54 H 0.60-1.30 MG/DL Estimat Glomerular Filtration Rate 45 BUN/Creatinine Ratio 16 Glucose Level 182 H 70-105 MG/DL Calcium Level 9.6 8.5-10.1 MG/DL Magnesium Level 2.1 1.8-2.4 MG/DL Total Bilirubin 0.7 0.1-1.0 MG/DL Aspartate Amino Transf (AST/SGOT) 20 5-34 U/L Alanine Aminotransferase (ALT/SGPT) 13 0-55 U/L Alkaline Phosphatase 72 40-136 U/L Myoglobin 44.4 10.0-92.0 NG/ML Troponin I < 0.30 <0.30 NG/ML B-Type Natriuretic Peptide 371.2 H <100.0 PG/ML Total Protein 8.1 6.4-8.2 GM/DL Albumin 4.2 3.2-4.5 GM/DL Digoxin Level < 0.30 L 0.80-2.00 NG/ML My Orders Orders - JAX GRIJALVA MD Cbc With Automated Diff (04/02/18 23:) Magnesium (04/02/18 23:27) Chest 1 View, Ap/Pa Only (04/02/18:27) Ekg Tracing (04/02/18:) Cardiac Profile 1 (04/02/18:) Comprehensive Metabolic Panel (04/02/18:) Myoglobin Serum (04/02/18:) Protime With Inr (04/02/18:) Partial Thromboplastin Time (04/02/18:27) O2 (04/02/18 23:) Monitor-Rhythm Ecg Trace Only (04/02/18 23:) Saline Lock/Iv-Start (04/02/18 23:27) BNP (04/02/18 23:34) Albuterol/Ipra Inhalation Soln (Duoneb I (04/02/18 23:45) Svn Small Volume Nebulizer (04/02/18 23:34) Digoxin (04/02/18 23:35) Manual Differential (04/02/18 23:35) Ua Culture If Indicated (04/03/18 01:02) Digoxin Injection (Lanoxin Injection) (04/03/18 01:15) Apixaban Tablet (Eliquis Tablet) (04/03/18 01:30) Digoxin Injection (Lanoxin Injection) (04/03/18 01:30) Blood Culture (04/03/18 01:34) Lactic Acid Analyzer (04/03/18 01:34) Medications Given in ED Current Medications Medications Dose Ordered Sig/Henry Route Start Time Stop Time Status Last Admin Dose Admin Albuterol/ Ipratropium 3 ml ONCE ONCE INH 04/02/18 23:45 04/02/18 23:46 DC 04/02/18 23:41 3 ML Apixaban 5 mg ONCE ONCE PO 04/03/18 01:30 04/03/18 01:31 DC 04/03/18 01:30 5 MG Digoxin 0.25 mg ONCE ONCE IV 04/03/18 01:30 04/03/18 01:31 DC 04/03/18 01:29 0.25 MG Vital Signs/I&O 04/02/18 04/02/18 23:20 23:42 Temp 97.2 Pulse 96 Resp 22 B/P (MAP) 122/73 (89) Pulse Ox 95 95 O2 Delivery Room Air Room Air Blood Pressure Mean: 89 Progress Progress Note : Progress Note Patient was given a DuoNeb treatment for his wheezing. Troponin was negative. Patient had no further defibrillator discharges while in the ER. Patient later reported that he also had a syncopal episode and possible defibrillator discharge February 17 and was evaluated at the [facility] in [facility]. He had been started on digoxin just prior to that episode and was instructed to stop digoxin afterward. Patient has had no other syncopal episodes until his near syncope today. Patient received a digoxin 0.[address] Wilson's request and his evening dose of Eliquis. Patient was admitted to the ICU on an amiodarone drip. Leukocytosis was noted without any source of infection. UA was pending at the time of admission. Blood cultures and lactic acid was also drawn at Dr. Wilson's request. Initial ECG Impression Date: Apr 03, 2018 Initial ECG Impression Time: 23:28 Initial ECG Rate: 99 Initial ECG Rhythm: A Fib/Flutter Initial ECG Impression: Atrial Fibrillation Comment Atrial fibrillation, rate controlled. Minimal ST depression with no ST elevation. Diagnostic Imaging Diagonstic Imaging: Xray Plain Films/CT/US/NM/MRI: chest Comments Chest x-ray viewed by me and compared with prior. Report not yet available. Cardiomegaly with no acute changes appreciated. Departure Communication (Admissions) Time/Spoke to Admitting Phy: 01:[address] Mahan who is agreeable to admission with orders as requested by Dr. Wilson. Time/Spoke to Consulting Phy: 01:00 Dr. Wilson was consulted. He requested an amiodarone drip per the protocol of 960 mg over 24 hours. He wished to continue Eliquis. He also requested digoxin 0.25 mg IV 1 be administered now. He requested blood cultures and UA be obtained for evaluation of the leukocytosis. Impression Primary Impression: Defibrillator discharge Additional Impressions: Atrial fibrillation Qualified Codes: I48.2 - Chronic atrial fibrillation Leukocytosis Qualified Codes: D72.829 - Elevated white blood cell count, unspecified Disposition: ADMITTED INPATIENT Condition: Improved Admissions Decision to Admit Reason: Admit from ER (General) Decision to Admit/Date: Apr 03, 2018 Time/Decision to Admit Time: 23:28 Departure-Patient Inst. Referrals: JENNIFER VARELA (PCP/Family) Primary Care Physician JAX GRIJALVA MD Apr 03, 2018 01:18
[2018-04-03] MEDS ORDERED: APIXABAN 5 MG (ELIQUIS) TABLET PO ONE (01:30)
[2018-04-03] MEDS: AMIODARONE 450 MG/250 ML D5W EXCEL IV SCH ×4 (03:13→13:49)
[2018-04-03 05:43] LABS: BASOPHILS % (AUTO) 0 % (0-10); EOSINOPHILS # (AUTO) 0.3 10^3/uL (0.0-0.3); EOSINOPHILS % (AUTO) 2 % (0-10); HEMATOCRIT 39 % (40-54); HEMOGLOBIN 13.5 G/DL (13.3-17.7); LYMPHOCYTES # (AUTO) 1.9 X 10^3 (1.0-4.0); LYMPHOCYTES % (AUTO) 14 % (12-44); MEAN CORPUSCULAR HEMOGLOBIN 31 PG (25-34); MEAN CORPUSCULAR HGB CONC 35 G/DL (32-36); MEAN CORPUSCULAR VOLUME 88 FL (80-99); MEAN PLATELET VOLUME 9.6 FL (7.4-10.4); MONOCYTES # (AUTO) 1.3 X 10^3 (0.0-1.0); MONOCYTES % (AUTO) 10 % (0-12); NEUTROPHILS # (AUTO) 9.6 X 10^3 (1.8-7.8); NEUTROPHILS % (AUTO) 74 % (42-75); PLATELET COUNT 307 10^3/uL (130-400); RED BLOOD COUNT 4.41 10^6/uL (4.35-5.85); RED CELL DISTRIBUTION WIDTH 14.9 % (10.0-14.5); WHITE BLOOD COUNT 13.1 10^3/uL (4.3-11.0)
[2018-04-03 05:52] LABS: BILIRUBIN,URINE NEGATIVE (NEGATIVE); CLARITY,URINE CLEAR; COLOR,URINE AMBER; GLUCOSE, URINE (UA) NEGATIVE (NEGATIVE); KETONES,URINE NEGATIVE (NEGATIVE); LEUKOCYTE ESTERASE ,URINE 1+ (NEGATIVE); NITRITE,URINE NEGATIVE (NEGATIVE); PH,URINE 6 (5-9); PROTEIN,URINE 1+ (NEGATIVE); UROBILINOGEN,URINE 1 MG/DL (NORMAL)
[2018-04-03 06:00] LABS: BACTERIA,URINE FEW /HPF; SQUAMOUS EPITHELIAL CELL,UR 0-2 /HPF; WBC,URINE 0-2 /HPF
[2018-04-03 06:01] LABS: HYALINE CASTS, URINE RARE /LPF
[2018-04-03 06:07] LABS: BUN/CREATININE RATIO 21; CALCIUM 9.4 MG/DL (8.5-10.1); CARBON DIOXIDE 18 MMOL/L (21-32); CHLORIDE 107 MMOL/L (98-107); CHOLESTEROL 136 MG/DL (< 200); CREATININE SERUM 1.26 MG/DL (0.60-1.30); GFR ESTIMATED 57; GLUCOSE 109 MG/DL (70-105); HDL CHOLESTEROL 41 MG/DL (40-60); POTASSIUM 3.9 MMOL/L (3.6-5.0); SODIUM 136 MMOL/L (135-145); TRIGLYCERIDES 64 MG/DL (<150); VLDL CHOLESTEROL 13 MG/DL (5-40)
--- NOTE | 2018-04-03 06:38 | Diagnostic Imaging Report ---
INDICATION: Chest pain. Comparison with CT chest from 03/01/2018. FINDINGS: Median sternotomy changes with cardiomegaly again noted. The current portable film is lordotic which does make the cardiac silhouette appears slightly larger. Lungs are well-aerated. There are no consolidated infiltrates. Mild interstitial prominence again noted unchanged. No pneumothorax or pleural effusion. ICD pacer on the left appears unchanged. IMPRESSION: 1. Cardiomegaly with postoperative residue and interstitial infiltrate. The overall appearance has not changed since previous exam. Dictated by: Dictated on workstation # [id number]
--- NOTE | 2018-04-03 08:22 | Consultation-Cardiology ---
HPI-Cardiology Cardiology Consultation: Date of Consultation 04/03/18 Date of Admission Attending Physician Ghada Mahan MD Admitting Physician [facility] Consulting Physician MARGIE MCDANIEL WPM-Bvljib-Abdkxs Hx Patient Social History Alcohol Use: Denies Use Recreational Drug Use: No Smoking Status: Current Someday Smoker Type Used: Cigarettes 2nd Hand Smoke Exposure: Yes Recent Foreign Travel: No Recent Infectious Disease Expo: No Hospitalization with Isolation: Denies Physical Abuse Screen: No Sexual Abuse: No Immunizations Up To Date Tetanus Booster (TDap): More than 5yrs Date of Pneumonia Vaccine: Nov 03, 2015 Date of Influenza Vaccine: Jun 19, 2015 Past Medical History PMH As described under Assessment. Family Medical History Family Medical History: He reports his sister had HTN and his mother. Family History: Fam hx-osteoporosis 03 MOTHER Family history: Hypertension 03 MOTHER, Onset:50's - 60 09 SISTER, Onset:40's - 50 Thyroid disease 03 MOTHER No Family History of: Cancer Chest pain Dementia Family history: Diabetes mellitus Stroke Allergies and Home Medications Allergies Coded Allergies: Penicillins (Unverified Allergy, Unknown, 05/29/16) Home Medications Albuterol Sulfate 2.5 Mg/3 Ml Vial.neb, 2.5 MG NEB Q4H PRN for SHORTNESS OF BREATH, (Reported) Apixaban 5 Mg Tablet, 5 MG PO BID, (Reported) Aspirin 81 Mg Tablet.dr, 81 MG PO DAILY, (Reported) Cyclobenzaprine HCl 10 Mg Tablet, 10 MG PO TID PRN for MUSCLE SPASMS, (Reported) Diltiazem HCl 300 Mg Cap.er.24h, 300 MG PO DAILY, (Reported) Furosemide 40 Mg Tablet, 40 MG PO DAILY, (Reported) Isosorbide Mononitrate 30 Mg Tab.er.24h, 30 MG PO DAILY, (Reported) Levalbuterol Tartrate 15 Gm Hfa.aer.ad, 2 PUFF IH Q6H PRN for SHORTNESS OF BREATH, (Reported) Losartan Potassium 25 Mg Tablet, 12.5 MG PO DAILY, (Reported) TAKES 1/2 OF A (25 MG) TABLET Nitroglycerin 0.4 Mg Tab.subl, 0.4 MG PO UD PRN for CHEST PAIN, (Reported) 1 TAB UNDER TONGUE EVERY 5 MIN UP TO 3 DOSES Pantoprazole Sodium 40 Mg Tablet.dr, 40 MG PO DAILY, (Reported) Rosuvastatin Calcium 40 Mg Tablet, 20 MG PO HS, (Reported) TAKES 1/2 (40MG) TABLET Spironolactone 25 Mg Tablet, 25 MG PO DAILY, (Reported) Tamsulosin HCl 0.4 Mg Cap.er.24h, 0.4 MG PO 1730, (Reported) Umeclidinium [employer] 62.5 Mcg Blst.w.dev, 1 PUFF INH DAILY, (Reported) Physical Exam-Cardiology Physical Exam Vital Signs/I&O 04/03/18 04/03/18 04/03/18 04/03/18 03:00 03:15 03:30 03:45 Pulse 106 86 86 77 Resp 21 20 21 11 B/P (MAP) 119/74 (89) 112/79 (90) 95/69 (78) 94/62 (73) Pulse Ox 98 93 92 94 O2 Delivery Nasal Cannula Nasal Cannula Nasal Cannula Nasal Cannula O2 Flow Rate 2.00 2.00 2.00 2.00 04/03/18 04/03/18 04/03/18 04/03/18 04:00 04:00 04:15 04:30 Pulse 87 80 84 Resp 16 B/P (MAP) 99/55 (70) 109/71 (84) 110/72 (85) Pulse Ox 95 95 95 97 O2 Delivery Nasal Cannula Nasal Cannula Nasal Cannula Nasal Cannula O2 Flow Rate 2.00 2.00 2.00 2.00 04/03/18 04/03/18 04/03/18 04/03/18 04:45 05:00 05:15 05:30 Pulse 82 74 84 92 B/P (MAP) 112/78 (89) 105/86 (92) 100/67 (78) Pulse Ox 92 95 94 95 O2 Delivery Nasal Cannula Nasal Cannula Nasal Cannula Nasal Cannula O2 Flow Rate 2.00 2.00 2.00 2.00 04/03/18 04/03/18 04/03/18 04/03/18 05:45 06:00 06:15 06:30 Pulse 77 82 66 70 Resp 32 17 14 15 B/P (MAP) 99/74 (82) 103/80 (88) 102/65 (77) 94/60 (71) Pulse Ox 96 95 92 91 O2 Delivery Nasal Cannula Nasal Cannula Nasal Cannula Nasal Cannula O2 Flow Rate 2.00 2.00 2.00 2.00 04/03/18 04/03/1818 04/03/18 06:45 07:00 07:00 07:15 Pulse 85 75 75 72 Resp 25 14 17 B/P (MAP) 98/73 (81) 107/69 (82) 106/77 (87) Pulse Ox 94 94 93 O2 Delivery Nasal Cannula Nasal Cannula Nasal Cannula O2 Flow Rate 2.00 2.00 2.00 04/03/18 04/03/18 04/03/18 04/03/18 07:30 07:45 08:00 08:00 Pulse 81 72 80 Resp 33 14 17 B/P (MAP) 86/47 (60) 91/50 (64) 113/78 (90) Pulse Ox 95 97 95 94 O2 Delivery Nasal Cannula Nasal Cannula Nasal Cannula Nasal Cannula O2 Flow Rate 2.00 2.00 2.00 2.00 04/03/18 04/03/18 04/03/18 04/03/18 08:15 08:30 08:45 09:00 Pulse 80 69 85 74 Resp 17 15 27 12 B/P (MAP) 110/71 (84) 102/83 (89) 116/78 (91) 107/78 (88) Pulse Ox 94 95 96 92 O2 Delivery Nasal Cannula Nasal Cannula Nasal Cannula Nasal Cannula O2 Flow Rate 2.00 2.00 2.00 2.00 04/03/18 04/03/18 04/03/18 04/03/18 09:15 09:30 09:45 10:00 Pulse 84 85 87 86 Resp 35 14 24 22 B/P (MAP) 136/122 (127) 123/82 (96) 107/70 (82) 106/72 (83) Pulse Ox 94 93 93 92 O2 Delivery Nasal Cannula Nasal Cannula Nasal Cannula Nasal Cannula O2 Flow Rate 2.00 2.00 2.00 2.00 04/03/18 04/03/18 04/03/18 04/03/18 10:15 10:30 10:45 11:00 Pulse 75 80 77 90 Resp 20 26 22 34 B/P (MAP) 114/76 (89) 82/74 (77) 97/85 (89) 107/79 (88) Pulse Ox 94 95 93 92 O2 Delivery Nasal Cannula Nasal Cannula Nasal Cannula Nasal Cannula O2 Flow Rate 2.00 2.00 2.00 2.00 04/03/18 04/03/18 04/03/18 04/03/18 11:15 11:30 11:45 12:00 Pulse 75 76 77 88 Resp 22 24 15 39 B/P (MAP) 89/59 (69) 100/63 (75) 104/68 (80) 118/90 (99) Pulse Ox 94 93 93 91 O2 Delivery Nasal Cannula Nasal Cannula Nasal Cannula Nasal Cannula O2 Flow Rate 2.00 2.00 2.00 2.00 04/03/18 04/03/18 04/03/18 04/03/18 12:00 12:15 12:30 12:45 Pulse 91 93 105 Resp 23 19 47 B/P (MAP) 117/76 (90) 131/92 (105) 133/72 (92) Pulse Ox 93 94 92 90 O2 Delivery Room Air Nasal Cannula Nasal Cannula Nasal Cannula O2 Flow Rate 2.00 2.00 2.00 04/03/18 04/03/18 04/03/18 04/03/18 13:00 13:00 13:15 13:30 Pulse 92 92 82 85 Resp 10 12 20 B/P (MAP) 116/84 (95) 115/73 (87) 121/74 (90) Pulse Ox 91 94 96 O2 Delivery Nasal Cannula Nasal Cannula Nasal Cannula O2 Flow Rate 2.00 2.00 2.00 04/03/18 04/03/18 04/03/18 13:45 14:00 14:15 Pulse 76 84 79 Resp 19 22 23 B/P (MAP) 122/84 (97) 102/74 (83) Pulse Ox 92 93 O2 Delivery Nasal Cannula Nasal Cannula Nasal Cannula O2 Flow Rate 2.00 2.00 2.00 Capillary Refill : Less Than 3 Seconds Data Review Labs Laboratory Tests 04/02/18 23:35: White Blood Count 16.2H, Red Blood Count 4.48, Hemoglobin 13.6, Hematocrit 40, Mean Corpuscular Volume 88, Mean Corpuscular Hemoglobin 30, Mean Corpuscular Hemoglobin Concent 34, Red Cell Distribution Width 15.2H, Platelet Count 365, Mean Platelet Volume 9.8, Neutrophils (%) (Auto) 80H, Lymphocytes (%) (Auto) 9L , Monocytes (%) (Auto) 8, Eosinophils (%) (Auto) 2, Basophils (%) (Auto) 0, Neutrophils # (Auto) 13.0H, Lymphocytes # (Auto) 1.5, Monocytes # (Auto) 1.3H, Eosinophils # (Auto) 0.4H, Basophils # (Auto) 0.0, Neutrophils % (Manual) 80, Lymphocytes % (Manual) 8, Monocytes % (Manual) 5, Eosinophils % (Manual) 3, Band Neutrophils 3, Reactive Lymphocytes 1, Blood Morphology Comment NORMAL, Prothrombin Time 15.2H, INR Comment 1.2, Activated Partial Thromboplast Time 31 , Sodium Level 136, Potassium Level 4.1, Chloride Level 105, Carbon Dioxide Level 18L, Anion Gap 13, Blood Urea Nitrogen 25H, Creatinine 1.54H, Estimat Glomerular Filtration Rate 45, BUN/Creatinine Ratio 16, Glucose Level 182H, Calcium Level 9.6, Magnesium Level 2.1, Total Bilirubin 0.7, Aspartate Amino Transf (AST/SGOT) 20, Alanine Aminotransferase (ALT/SGPT) 13, Alkaline Phosphatase 72, Myoglobin 44.4, Troponin I < 0.30, B-Type Natriuretic Peptide 371.2H, Total Protein 8.1, Albumin 4.2, Digoxin Level < 0.30L 04/03/18 01:46: Lactic Acid Level 1.40 04/03/18 05:31: White Blood Count 13.1H, Red Blood Count 4.41, Hemoglobin 13.5, Hematocrit 39L, Mean Corpuscular Volume 88, Mean Corpuscular Hemoglobin 31, Mean Corpuscular Hemoglobin Concent 35, Red Cell Distribution Width 14.9H, Platelet Count 307, Mean Platelet Volume 9.6, Neutrophils (%) (Auto) 74, Lymphocytes (%) (Auto) 14, Monocytes (%) (Auto) 10, Eosinophils (%) (Auto) 2, Basophils (%) (Auto) 0, Neutrophils # (Auto) 9.6H, Lymphocytes # (Auto) 1.9, Monocytes # (Auto) 1.3H, Eosinophils # (Auto) 0.3, Basophils # (Auto) 0.0, Sodium Level 136, Potassium Level 3.9, Chloride Level 107, Carbon Dioxide Level 18L, Anion Gap 11, Blood Urea Nitrogen 26H, Creatinine 1.26, Estimat Glomerular Filtration Rate 57, BUN/ Creatinine Ratio 21, Glucose Level 109H, Calcium Level 9.4, Troponin I < 0.30, Triglycerides Level 64, Cholesterol Level 136, LDL Cholesterol Direct 88, VLDL Cholesterol 13, HDL Cholesterol 41 04/03/18 05:45: Urine Color AMBERH, Urine Clarity CLEAR, Urine pH 6, Urine Specific Burton 1.025H, Urine Protein 1+H, Urine Glucose (UA) NEGATIVE, Urine Ketones NEGATIVE, Urine Nitrite NEGATIVE, Urine Bilirubin NEGATIVE, Urine Urobilinogen 1, Urine Leukocyte Esterase 1+H, Urine RBC (Auto) 2+H, Urine RBC 2-5H, Urine WBC 0-2, Urine Squamous Epithelial Cells 0-2, Urine Crystals NONE, Urine Bacteria FEWH, Urine Casts PRESENT, Urine Hyaline Casts RARE, Urine Mucus MODERATEH, Urine Culture Indicated NO Radiology NAME: RODRIGUE PICHARDO [facility] REC#: [id number] PT STATUS: ADM IN : 1945 PHYSICIAN: JAX GRIJALVA MD ADMIT DATE: 04/03/18/ICU Draft Date of Exam:04/02/18 CHEST 1 VIEW, AP/PA ONLY INDICATION: Chest pain. Comparison with CT chest from 03/01/2018. FINDINGS: Median sternotomy changes with cardiomegaly again noted. The current portable film is lordotic which does make the cardiac silhouette appears slightly larger. Lungs are well-aerated. There are no consolidated infiltrates. Mild interstitial prominence again noted unchanged. No pneumothorax or pleural effusion. ICD pacer on the left appears unchanged. IMPRESSION: 1. Cardiomegaly with postoperative residue and interstitial infiltrate. The overall appearance has not changed since previous exam. Dictated on workstation # [id number] Dict: 04/03/18 0620 Trans: 04/03/18 0637 [facility] [id number] Interpreted by: ROSAURA OLIVIER MD Electronically signed by: A/P-Cardiology Assessment/Admission Diagnosis Episodes of near-syncope of undetermined etiology Shortness of breath, multifactorial (see below) Chronic a-fib with a fairly controlled HR per device interrogation of January 23, 2018 Coronary artery disease with a history of coronary artery bypass surgery. CAD. Last card cath on 01/29/18 prox occlusion of the LAD, prox occ of the OM1, occlusion of a posterolat branch of RCA, patent SVG to diagnonal of LAD that suplies the diagonal regrograde but diag is occluded anegrade, patent SVT to PL of RCA, occluded SVG to an OM, patent MAJOR to distal LAD, marked impirement of LVEF (15%), normal LVEDP, no sgnificant MR MPI of January 07, 2018 showed apical and interolaterla myocardial infarction with a minimal amt of gideon-infarct ischemia. Inferolateral and apical akinesis. LVEF 17%. Significant cardiomegaly Syncopal episode in April 2017, occuring at the time of severe headaches - no further episodes Stopped beta-blockers and tamsulosin and amiodarone on 07/23/17 because bradycardia and relative hypotension Severe headache and transient L-sided weakness on 06/08/17 that was diagnosed at a complex migraine at [facility] Chronic systolic CHF, currently clinically compensated Pulm CT angio of 05/30/16 did not show any evidence of PE L hemiparesis due to R-sided CVA in February 2015 Ischemic cardiomyopathy ejection fraction 10-15 percent. Echocardiogram of 05-31-16 showed significant cardiomegaly, including the LV and LA, LVEF of approx 25-30%, anteroapical akinesis to dyskinesis, mild aortic, tricuspid and aortic regurg, AoV sclerosis without stenosis, PASP is estimated to be 30mmHg. Hospitalization on 10/17/13 with severe anemia (Hgb 5.3) requiring multiple blood transfusions. Source of anemia unknown. Endoscopy by Dr Snyder on 10/30/13 showed esophagitis, hiatal hernia and diverticulosis Apixaban to reduce the risk of stroke from atrial fibrillation Multiple hospitalization for pneumonia, COPD exacerbation, shortness of breath. History of ICD implantation for primary prevention, generator replaced in January 2016. Device interrogation of January 23, 2018 showed device is functioning normally. Hyperlipidemia, being treated with rosuvastatin Relative hypotension which prevents treatment with beta-blockers. Mediastinal lymphadenopathy being followed by primary care and by Dr Tinoco Chronic tobacco use, continuing COPD due chronic tobacco use Intolerance to BENJI inhibitors on account of cough. He is able to take low dose angiotensin receptor blockers CKD stage 2-3 Clinical Quality Measures DVT/VTE Risk/Contraindication: Risk Factor Score Per Nursin RFS Level Per Nursing on Admit: 4+=Very High MARGIE AYALA Apr 03, 2018 08:22
[2018-04-03] MEDS: APIXABAN 5 MG (ELIQUIS) TABLET PO SCH ×2 (08:58→21:02)
[2018-04-03] MEDS ORDERED: DILT300C52 PO (09:32)
[2018-04-03] MEDS ORDERED: FURO80TA3 PO (09:32)
[2018-04-03] MEDS ORDERED: CYCL10TA9 PO (09:32)
[2018-04-03] MEDS ORDERED: SPIR50TA4 PO (09:32)
[2018-04-03] MEDS ORDERED: UMEC62.5 INH (09:33)
[2018-04-03] MEDS ORDERED: ALBU2.5V4 NEB (09:38)
[2018-04-03] MEDS ORDERED: NF-XOP-HFA IH (09:38)
--- NOTE | 2018-04-03 13:59 | Electrophysiology Consultation ---
HPI-Cardiology Cardiology Consultation: Date of Consultation 04/03/18 Date of Admission Attending Physician Ghada Mahan MD Admitting Physician [place] Consulting Physician Carlito GREGORY MD HPI: Time Seen by Provider: 12:45 Chief Complaint: Syncope This is a 72-year-old gentleman with history of significant CAD, status post CABG, ischemic cardiomyopathy with ICD placed for primary prevention. He presented with syncope and ICD shock. He has been having near syncopal episodes but had a syncopal episode on February 17 as well. The patient denies any chest pain or shortness of breath episodes. He denies any palpitations. He also has history of atrial fibrillation and is on oral anticoagulation. He previously did not tolerate amiodarone and beta blockers due to bradycardia. He was on digoxin which was discontinued during an ER visit in [place]. Last echocardiogram showed poor LV systolic function. Review of Systems-Cardiology Review of Systems Constitutional: As described under HPI; No As described under HPI, No no symptoms reported, No chills, No fever, No lightheadedness Eyes: No As described under HPI, No no symptoms reported, No blindness, No blurred vision, No contact lenses, No drainage, No decreased acuity, No foreign body sensation, No pain, No vision change Ears/Nose/Throat: No As described under HPI, No no symptoms reported, No chronic hearing loss, No ear discharge, No ear pain, No nasal drainage, No ulcerations Respiratory: No no symptoms reported; As described under HPI; No As described under HPI, No cough, No orthopnea, No shortness of breath, No SOB with excertion Cardiovascular: No no symptoms reported; As described under HPI; No As described under HPI, No chest pain, No edema, No irregular heart rate, No lightheadedness, No palpitations Gastrointestinal: No no symptoms reported, No As described under HPI, No abdomen distended, No abdominal pain, No blood streaked bowels, No constipation , No diarrhea, No nausea, No vomiting, No stool coloration changes Genitourinary: No As described under HPI, No burning, No dysuria, No discharge , No frequency, No flank pain, No hematuria, No urgency Musculoskeletal: No no symptoms reported, No As describe under HPI, No back pain, No gout, No joint pain, No joint swelling, No muscle pain, No muscle stiffness, No neck pain, No other Skin: No no symptoms reported, No As described under HPI, No change in color, No change in hair/nails, No dryness, No lesions, No lumps, No rash, No other, No skin related problems, No ulcerations, No rash on exposed areas, No ulcerations on exposed areas Psychiatric/Neurological: No anxiety, No depression, No seizure, No focal weakness, No syncope Hematologic: No no symptoms reported, No As described under HPI, No anemia, No blood clots, No easy bleeding, No easy bruising, No swollen glands, No other, No bleeding abnormalities [id number] Hx Patient Social History Alcohol Use: Denies Use Recreational Drug Use: No Smoking Status: Current Someday Smoker Type Used: Cigarettes 2nd Hand Smoke Exposure: Yes Recent Foreign Travel: No Recent Infectious Disease Expo: No Hospitalization with Isolation: Denies Physical Abuse Screen: No Sexual Abuse: No Immunizations Up To Date Tetanus Booster (TDap): More than 5yrs Date of Pneumonia Vaccine: Nov 03, 2015 Date of Influenza Vaccine: Jun 19, 2015 Past Medical History PMH As described under Assessment. Family Medical History Family Medical History: He reports his sister had HTN and his mother. Family History: Fam hx-osteoporosis 03 MOTHER Family history: Hypertension 03 MOTHER, Onset:50's - 60 09 SISTER, Onset:40's - 50 Thyroid disease 03 MOTHER No Family History of: Cancer Chest pain Dementia Family history: Diabetes mellitus Stroke Allergies and Home Medications Allergies Coded Allergies: Penicillins (Unverified Allergy, Unknown, 05/29/16) Home Medications Albuterol Sulfate 2.5 Mg/3 Ml Vial.neb, 2.5 MG NEB Q4H PRN for SHORTNESS OF BREATH, (Reported) Apixaban 5 Mg Tablet, 5 MG PO BID, (Reported) Aspirin 81 Mg Tablet.dr, 81 MG PO DAILY, (Reported) Cyclobenzaprine HCl 10 Mg Tablet, 10 MG PO TID PRN for MUSCLE SPASMS, (Reported) Diltiazem HCl 300 Mg Cap.er.24h, 300 MG PO DAILY, (Reported) Furosemide 40 Mg Tablet, 40 MG PO DAILY, (Reported) Isosorbide Mononitrate 30 Mg Tab.er.24h, 30 MG PO DAILY, (Reported) Levalbuterol Tartrate 15 Gm Hfa.aer.ad, 2 PUFF IH Q6H PRN for SHORTNESS OF BREATH, (Reported) Losartan Potassium 25 Mg Tablet, 12.5 MG PO DAILY, (Reported) TAKES 1/2 OF A (25 MG) TABLET Nitroglycerin 0.4 Mg Tab.subl, 0.4 MG PO UD PRN for CHEST PAIN, (Reported) 1 TAB UNDER TONGUE EVERY 5 MIN UP TO 3 DOSES Pantoprazole Sodium 40 Mg Tablet.dr, 40 MG PO DAILY, (Reported) Rosuvastatin Calcium 40 Mg Tablet, 20 MG PO HS, (Reported) TAKES 1/2 (40MG) TABLET Spironolactone 25 Mg Tablet, 25 MG PO DAILY, (Reported) Tamsulosin HCl 0.4 Mg Cap.er.24h, 0.4 MG PO 1730, (Reported) Umeclidinium [place] 62.5 Mcg Blst.w.dev, 1 PUFF INH DAILY, (Reported) Patient Home Medication List Home Medication List Reviewed: Yes Physical Exam-Cardiology Physical Exam Vital Signs/I&O 04/03/18 04/03/18 04/03/18 04/03/18 04:00 04:00 04:15 04:30 Pulse 87 80 84 Resp 16 B/P (MAP) 99/55 (70) 109/71 (84) 110/72 (85) Pulse Ox 95 95 95 97 O2 Delivery Nasal Cannula Nasal Cannula Nasal Cannula Nasal Cannula O2 Flow Rate 2.00 2.00 2.00 2.00 04/03/18 04/03/18 04/03/18 04/03/18 04:45 05:00 05:15 05:30 Pulse 82 74 84 92 B/P (MAP) 112/78 (89) 105/86 (92) 100/67 (78) Pulse Ox 92 95 94 95 O2 Delivery Nasal Cannula Nasal Cannula Nasal Cannula Nasal Cannula O2 Flow Rate 2.00 2.00 2.00 2.00 04/03/18 04/03/18 04/03/18 04/03/18 05:45 06:00 06:15 06:30 Pulse 77 82 66 70 Resp 32 17 14 15 B/P (MAP) 99/74 (82) 103/80 (88) 102/65 (77) 94/60 (71) Pulse Ox 96 95 92 91 O2 Delivery Nasal Cannula Nasal Cannula Nasal Cannula Nasal Cannula O2 Flow Rate 2.00 2.00 2.00 2.00 04/03/18 04/03/18 04/03/18 04/03/18 06:45 07:00 07:00 07:15 Pulse 85 75 75 72 Resp 25 14 17 B/P (MAP) 98/73 (81) 107/69 (82) 106/77 (87) Pulse Ox 94 94 93 O2 Delivery Nasal Cannula Nasal Cannula Nasal Cannula O2 Flow Rate 2.00 2.00 2.00 04/03/18 04/03/18 04/03/18 04/03/18 07:30 07:45 08:00 08:00 Pulse 81 72 80 Resp 33 14 17 B/P (MAP) 86/47 (60) 91/50 (64) 113/78 (90) Pulse Ox 95 97 95 94 O2 Delivery Nasal Cannula Nasal Cannula Nasal Cannula Nasal Cannula O2 Flow Rate 2.00 2.00 2.00 2.00 04/03/18 04/03/18 04/03/18 04/03/18 08:15 08:30 08:45 09:00 Pulse 80 69 85 74 Resp 17 15 27 12 B/P (MAP) 110/71 (84) 102/83 (89) 116/78 (91) 107/78 (88) Pulse Ox 94 95 96 92 O2 Delivery Nasal Cannula Nasal Cannula Nasal Cannula Nasal Cannula O2 Flow Rate 2.00 2.00 2.00 2.00 04/03/18 04/03/18 04/03/18 04/03/18 09:15 09:30 09:45 10:00 Pulse 84 85 87 86 Resp 35 14 24 22 B/P (MAP) 136/122 (127) 123/82 (96) 107/70 (82) 106/72 (83) Pulse Ox 94 93 93 92 O2 Delivery Nasal Cannula Nasal Cannula Nasal Cannula Nasal Cannula O2 Flow Rate 2.00 2.00 2.00 2.00 04/03/18 04/03/18 04/03/18 04/03/18 10:15 10:30 10:45 11:00 Pulse 75 80 77 90 Resp 20 26 22 34 B/P (MAP) 114/76 (89) 82/74 (77) 97/85 (89) 107/79 (88) Pulse Ox 94 95 93 92 O2 Delivery Nasal Cannula Nasal Cannula Nasal Cannula Nasal Cannula O2 Flow Rate 2.00 2.00 2.00 2.00 04/03/18 04/03/18 04/03/18 7/18/18 11:15 11:30 11:45 12:00 Pulse 75 76 77 88 Resp 22 24 15 39 B/P (MAP) 89/59 (69) 100/63 (75) 104/68 (80) 118/90 (99) Pulse Ox 94 93 93 91 O2 Delivery Nasal Cannula Nasal Cannula Nasal Cannula Nasal Cannula O2 Flow Rate 2.00 2.00 2.00 2.00 04/03/18 04/03/18 04/03/18 04/03/18 12:00 12:15 12:30 12:45 Pulse 91 93 105 Resp 23 19 47 B/P (MAP) 117/76 (90) 131/92 (105) 133/72 (92) Pulse Ox 93 94 92 90 O2 Delivery Room Air Nasal Cannula Nasal Cannula Nasal Cannula O2 Flow Rate 2.00 2.00 2.00 04/03/18 04/03/18 04/03/18 04/03/18 13:00 13:00 13:15 13:30 Pulse 92 92 82 85 Resp 10 12 20 B/P (MAP) 116/84 (95) 115/73 (87) 121/74 (90) Pulse Ox 91 94 96 O2 Delivery Nasal Cannula Nasal Cannula Nasal Cannula O2 Flow Rate 2.00 2.00 2.00 04/03/18 04/03/18 04/03/18 04/03/18 13:45 14:00 14:15 14:30 Pulse 76 84 79 84 Resp 19 22 23 23 B/P (MAP) 122/84 (97) 102/74 (83) 86/60 (69) Pulse Ox 92 93 94 O2 Delivery Nasal Cannula Nasal Cannula Nasal Cannula Nasal Cannula O2 Flow Rate 2.00 2.00 2.00 2.00 04/03/18 14:56 O2 Flow Rate 2.00 Capillary Refill : Less Than 3 Seconds Constitutional: appears stated age, AAO x 3; No apparent distress; well- developed, well-nourished HEENT: PERRL; No normal ENT inspection, No TMs normal, No pharynx normal, No scleral icterus (R), No scleral icterus (L), No pale conjunctivae (R), No pale conjunctivae (L), No photophobia, No TM abnormal (R), No TM abnormal (L), No pharyngeal erythema, No tonsillar exudate, No other, No discharge, No EOMI; hearing is well preserved; No hard of hearing; oral hygience is good; No ulceration, No xanthelasmas are seen Neck: No non-tender, No full range of motion, No supple, No normal inspection, No carotid bruit, No limited range of motion, No lymphadenopathy (R), No lymphadenopathy (L), No tender lateral, No tender midline, No thyromegaly, No other; carotid pulses are 2 + bilaterally; No with good upstrokes Respiratory: No accessory muscle use, No respiratory distress, No chest tender , No chest expansion is symmetric; chest is bilaterally symmetric; No lungs clear to percussion; lungs clear to auscultation; No crackles, No rhonchi, No rales, No stridor, No wheezing, No pleural rub, No other Cardiovascular: No regular rate-rhythm; irregularly irregular; No extra beats, No parasternal heave is noted, No JVD, No edema, No bradycardia, No tachycardia , No point of maximal impulse, No cardiac thrills are palpable; S1 and S2; No gallop/S3, No gallop/S4, No diastolic murmur, No systolic murmur, No friction rub, No click, No other Gastrointestinal: No tender, No soft, No round, No distended, No pulsatile mass , No organomegaly, No guarding, No rebound, No tenderness, No hernia, No mass, No audible bowel sounds, No abnormal bowel sounds, No abdominal bruits, No spleenomegaly, No other Rectal: deferred Extremities: No normal range of motion, No non-tender, No normal inspection, No pedal edema, No calf tenderness, No normal capillary refill, No pelvis stable , No calf tenderness, No inflammation, No pedal edema, No slow capillary refill , No swelling, No other, No abrasion, No clubbing, No cyanosis, No ecchymosis, No laceration, No no lower extremity edema bilateral, No significant edema, No tenderness, No wound Neurologic/Psychiatric: no motor/sensory deficits, alert, normal mood/affect, oriented x 3, power is 5/5 both on sides Skin: No normal color, No warm/dry, No cyanosis, No cool, No diaphoresis, No damp, No ecchymosis, No jaundice, No mottled, No pallor, No rash, No tattoos/ piercings, No ulcerations, No rash on exposed areas, No ulcerations on exposed areas, No other Data Review Labs Laboratory Tests 04/02/18 23:35: White Blood Count 16.2H, Red Blood Count 4.48, Hemoglobin 13.6, Hematocrit 40, Mean Corpuscular Volume 88, Mean Corpuscular Hemoglobin 30, Mean Corpuscular Hemoglobin Concent 34, Red Cell Distribution Width 15.2H, Platelet Count 365, Mean Platelet Volume 9.8, Neutrophils (%) (Auto) 80H, Lymphocytes (%) (Auto) 9L , Monocytes (%) (Auto) 8, Eosinophils (%) (Auto) 2, Basophils (%) (Auto) 0, Neutrophils # (Auto) 13.0H, Lymphocytes # (Auto) 1.5, Monocytes # (Auto) 1.3H, Eosinophils # (Auto) 0.4H, Basophils # (Auto) 0.0, Neutrophils % (Manual) 80, Lymphocytes % (Manual) 8, Monocytes % (Manual) 5, Eosinophils % (Manual) 3, Band Neutrophils 3, Reactive Lymphocytes 1, Blood Morphology Comment NORMAL, Prothrombin Time 15.2H, INR Comment 1.2, Activated Partial Thromboplast Time 31 , Sodium Level 136, Potassium Level 4.1, Chloride Level 105, Carbon Dioxide Level 18L, Anion Gap 13, Blood Urea Nitrogen 25H, Creatinine 1.54H, Estimat Glomerular Filtration Rate 45, BUN/Creatinine Ratio 16, Glucose Level 182H, Calcium Level 9.6, Magnesium Level 2.1, Total Bilirubin 0.7, Aspartate Amino Transf (AST/SGOT) 20, Alanine Aminotransferase (ALT/SGPT) 13, Alkaline Phosphatase 72, Myoglobin 44.4, Troponin I < 0.30, B-Type Natriuretic Peptide 371.2H, Total Protein 8.1, Albumin 4.2, Digoxin Level < 0.30L 04/03/18 01:46: Lactic Acid Level 1.40 04/03/18 05:31: White Blood Count 13.1H, Red Blood Count 4.41, Hemoglobin 13.5, Hematocrit 39L, Mean Corpuscular Volume 88, Mean Corpuscular Hemoglobin 31, Mean Corpuscular Hemoglobin Concent 35, Red Cell Distribution Width 14.9H, Platelet Count 307, Mean Platelet Volume 9.6, Neutrophils (%) (Auto) 74, Lymphocytes (%) (Auto) 14, Monocytes (%) (Auto) 10, Eosinophils (%) (Auto) 2, Basophils (%) (Auto) 0, Neutrophils # (Auto) 9.6H, Lymphocytes # (Auto) 1.9, Monocytes # (Auto) 1.3H, Eosinophils # (Auto) 0.3, Basophils # (Auto) 0.0, Sodium Level 136, Potassium Level 3.9, Chloride Level 107, Carbon Dioxide Level 18L, Anion Gap 11, Blood Urea Nitrogen 26H, Creatinine 1.26, Estimat Glomerular Filtration Rate 57, BUN/ Creatinine Ratio 21, Glucose Level 109H, Calcium Level 9.4, Troponin I < 0.30, Triglycerides Level 64, Cholesterol Level 136, LDL Cholesterol Direct 88, VLDL Cholesterol 13, HDL Cholesterol 41 04/03/18 05:45: Urine Color AMBERH, Urine Clarity CLEAR, Urine pH 6, Urine Specific [place] 1.025H, Urine Protein 1+H, Urine Glucose (UA) NEGATIVE, Urine Ketones NEGATIVE, Urine Nitrite NEGATIVE, Urine Bilirubin NEGATIVE, Urine Urobilinogen 1, Urine Leukocyte Esterase 1+H, Urine RBC (Auto) 2+H, Urine RBC 2-5H, Urine WBC 0-2, Urine Squamous Epithelial Cells 0-2, Urine Crystals NONE, Urine Bacteria FEWH, Urine Casts PRESENT, Urine Hyaline Casts RARE, Urine Mucus MODERATEH, Urine Culture Indicated NO ECG Impression ECG Initial ECG Impression: Atrial Fibrillation A/P-Cardiology Assessment/Admission Diagnosis Syncope, ventricular fibrillation, ICD shock, Ischemic cardiomyopathy, Atrial fibrillation Plan This is a 72-year-old gentleman who is a patient of Dr. Wilson. Cardiac electrophysiology consultation is requested for ICD shock, syncope and atrial fibrillation. I have reviewed the device interrogation information at length. The patient's usual rhythm is atrial fibrillation and reasonable control. He went into polymorphic ventricular tachycardia which quickly degenerated to ventricular fibrillation. Antitachycardia pacing did not convert and therefore ICD shocked which was successful. Active coronary ischemia should be considered, however EKG in the ER did not demonstrate acute ST-T wave abnormalities. Troponin serial is negative therefore acute coronary syndrome is ruled out. The patient recently had coronary angiography in January 2018. I will defer to Dr. Wilson. Electrolytes are within normal limits especially potassium is 4.1 and magnesium is 2.1. Baseline EKG shows a QTc interval of 529 ms which is prolonged. I went through his home med list and could not find a medication which is strongly associated with QT prolongation. I will request pharmacy's help in this regard as well. We will continue amiodarone IV load and then switch to 400 mg twice a day. This will continue for the next 2-4 weeks and then we will go down to 200 mg twice a day. The patient is already on maximum dose of Cardizem. I'm aware that he did not tolerate beta blockers in the past, however we should consider restarting low-dose beta blockers. Dr. Wilson has already started digoxin therapy. On examining the device interrogation there are 3 other episodes of nonsustained VT however I have gone over the dates and times with the patient and he denies having any symptoms during those dates. He did have a syncopal episode on February 17 however there is no arrhythmias noted on the device interrogation on February 17. Other etiologies need to be considered for syncope such as orthostatic hypotension. I reviewed an echocardiogram which was done in 2015 which showed a left atrial size of 4.9 cm. Patient also has had atrial fibrillation for the last 3-4 years. It is very unlikely that a rhythm control strategy will work in this patient considering the chronicity of atrial fibrillation and moderate to severe left atrial enlargement. Thank you for your consultation. Please call me if you have any questions. Kyler Gregory MD, FACP, FACC, FSCAI, FHRS, CCDS Interventional Cardiology Cardiac Electrophysiology Vascular Medicine and Endovascular Interventions Clinical Quality Measures DVT/VTE Risk/Contraindication: Risk Factor Score Per Nursin RFS Level Per Nursing on Admit: 4+=Very High Carlito GREGORY MD Apr 03, 2018 1:59 pm
--- NOTE | 2018-04-03 14:17 | Consultation-Cardiology ---
HPI-Cardiology Cardiology Consultation: Date of Consultation 04/03/18 Time Seen by Provider: 09:15 Date of Admission Attending Physician Ghada Mahan MD Admitting Physician [facility] Consulting Physician KELTON ANDERSON MD, MA, FACP, FACC, FSCAI, CCDS HPI: Chief Complaint: CC: Defib discharge 72 yo man who has had intermittent near-syncope for the last several months. Had an episode of syncope that was followed by his defib discharge that restored consciousness, according to him. Denies cp or palp. Has chronic mod exertional shortness of breath. Denies leg swelling Review of Systems-Cardiology Review of Systems Constitutional: malaise, tiredness; No weight loss, No weight gain Eyes: No vision change Ears/Nose/Throat: No ear discharge, No nasal drainage, No recent hearing loss Respiratory: As described under HPI Cardiovascular: As described under HPI Gastrointestinal: No constipation, No diarrhea, No nausea, No vomiting Genitourinary: No dysuria, No hematuria, No urine frequency changes Musculoskeletal: back pain (chronic) Skin: No rash, No ulcerations Psychiatric/Neurological: No seizure, No focal weakness, No syncope Hematologic: No bleeding abnormalities PYD-[id number]-[id number] Hx Patient Social History Alcohol Use: Denies Use Recreational Drug Use: No Smoking Status: Current Someday Smoker Type Used: Cigarettes 2nd Hand Smoke Exposure: Yes Recent Foreign Travel: No Recent Infectious Disease Expo: No Hospitalization with Isolation: Denies Physical Abuse Screen: No Sexual Abuse: No Immunizations Up To Date Tetanus Booster (TDap): More than 5yrs Date of Pneumonia Vaccine: Nov 03, 2015 Date of Influenza Vaccine: Jun 19, 2015 Past Medical History PMH As described under Assessment. Family Medical History Family Medical History: He reports his sister had HTN and his mother. Family History: Fam hx-osteoporosis 03 MOTHER Family history: Hypertension 03 MOTHER, Onset:50's - 60 09 SISTER, Onset:40's - 50 Thyroid disease 03 MOTHER No Family History of: Cancer Chest pain Dementia Family history: Diabetes mellitus Stroke Allergies and Home Medications Allergies Coded Allergies: Penicillins (Unverified Allergy, Unknown, 05/29/16) Home Medications Albuterol Sulfate 2.5 Mg/3 Ml Vial.neb, 2.5 MG NEB Q4H PRN for SHORTNESS OF BREATH, (Reported) Apixaban 5 Mg Tablet, 5 MG PO BID, (Reported) Aspirin 81 Mg Tablet.dr, 81 MG PO DAILY, (Reported) Cyclobenzaprine HCl 10 Mg Tablet, 10 MG PO TID PRN for MUSCLE SPASMS, (Reported) Diltiazem HCl 300 Mg Cap.er.24h, 300 MG PO DAILY, (Reported) Furosemide 40 Mg Tablet, 40 MG PO DAILY, (Reported) Isosorbide Mononitrate 30 Mg Tab.er.24h, 30 MG PO DAILY, (Reported) Levalbuterol Tartrate 15 Gm Hfa.aer.ad, 2 PUFF IH Q6H PRN for SHORTNESS OF BREATH, (Reported) Losartan Potassium 25 Mg Tablet, 12.5 MG PO DAILY, (Reported) TAKES 1/2 OF A (25 MG) TABLET Nitroglycerin 0.4 Mg Tab.subl, 0.4 MG PO UD PRN for CHEST PAIN, (Reported) 1 TAB UNDER TONGUE EVERY 5 MIN UP TO 3 DOSES Pantoprazole Sodium 40 Mg Tablet.dr, 40 MG PO DAILY, (Reported) Rosuvastatin Calcium 40 Mg Tablet, 20 MG PO HS, (Reported) TAKES 1/2 (40MG) TABLET Spironolactone 25 Mg Tablet, 25 MG PO DAILY, (Reported) Tamsulosin HCl 0.4 Mg Cap.er.24h, 0.4 MG PO 1730, (Reported) Umeclidinium Gordon 62.5 Mcg Blst.w.dev, 1 PUFF INH DAILY, (Reported) Patient Home Medication List Home Medication List Reviewed: Yes Physical Exam-Cardiology Physical Exam Vital Signs/I&O 04/03/18 04/03/18 04/03/18 04/03/18 02:15 02:15 02:25 02:32 Temp 97.2 97.2 97.8 Pulse 85 85 96 Resp 20 20 18 B/P (MAP) 108/69 (89) 108/69 120/84 (96) Pulse Ox 98 98 94 96 O2 Delivery Room Air Nasal Cannula Nasal Cannula O2 Flow Rate 2.00 2.00 04/03/18 04/03/18 04/03/18 04/03/18 02:32 02:45 03:00 03:15 Pulse 87 96 106 86 Resp 13 21 20 B/P (MAP) 115/75 (88) 119/74 (89) 112/79 (90) Pulse Ox 98 98 93 O2 Delivery Nasal Cannula Nasal Cannula Nasal Cannula O2 Flow Rate 2.00 2.00 2.00 04/03/18 04/03/18 04/03/18 04/03/18 03:30 03:45 04:00 04:00 Pulse 86 77 87 Resp 21 11 16 B/P (MAP) 95/69 (78) 94/62 (73) 99/55 (70) Pulse Ox 92 94 95 95 O2 Delivery Nasal Cannula Nasal Cannula Nasal Cannula Nasal Cannula O2 Flow Rate 2.00 2.00 2.00 2.00 04/03/18 04/03/18 04/03/18 04/03/18 04:15 04:30 04:45 05:00 Pulse 80 84 82 74 B/P (MAP) 109/71 (84) 110/72 (85) 112/78 (89) 105/86 (92) Pulse Ox 95 97 92 95 O2 Delivery Nasal Cannula Nasal Cannula Nasal Cannula Nasal Cannula O2 Flow Rate 2.00 2.00 2.00 2.00 04/03/18 04/03/18 04/03/18 04/03/18 05:15 05:30 05:45 06:00 Pulse 84 92 77 82 Resp 32 17 B/P (MAP) 100/67 (78) 99/74 (82) 103/80 (88) Pulse Ox 94 95 96 95 O2 Delivery Nasal Cannula Nasal Cannula Nasal Cannula Nasal Cannula O2 Flow Rate 2.00 2.00 2.00 2.00 04/03/18 04/03/18 04/03/18 04/03/18 06:15 06:30 06:45 07:00 Pulse 66 70 85 75 Resp 14 15 25 B/P (MAP) 102/65 (77) 94/60 (71) 98/73 (81) Pulse Ox 92 91 94 O2 Delivery Nasal Cannula Nasal Cannula Nasal Cannula O2 Flow Rate 2.00 2.00 2.00 04/03/18 04/03/18 04/03/18 04/03/18 07:00 07:15 07:30 07:45 Pulse 75 72 81 72 Resp 14 17 33 14 B/P (MAP) 107/69 (82) 106/77 (87) 86/47 (60) 91/50 (64) Pulse Ox 94 93 95 97 O2 Delivery Nasal Cannula Nasal Cannula Nasal Cannula Nasal Cannula O2 Flow Rate 2.00 2.00 2.00 2.00 04/03/18 04/03/18 04/03/18 04/03/18 08:00 08:00 08:15 08:30 Pulse 80 80 69 Resp 17 17 15 B/P (MAP) 113/78 (90) 110/71 (84) 102/83 (89) Pulse Ox 95 94 94 95 O2 Delivery Nasal Cannula Nasal Cannula Nasal Cannula Nasal Cannula O2 Flow Rate 2.00 2.00 2.00 2.00 04/03/18 04/03/18 04/03/18 04/03/18 08:45 09:00 09:15 09:30 Pulse 85 74 84 85 Resp 27 12 35 14 B/P (MAP) 116/78 (91) 107/78 (88) 136/122 (127) 123/82 (96) Pulse Ox 96 92 94 93 O2 Delivery Nasal Cannula Nasal Cannula Nasal Cannula Nasal Cannula O2 Flow Rate 2.00 2.00 2.00 2.00 04/03/18 04/03/18 04/03/18 04/03/18 09:45 10:00 10:15 10:30 Pulse 87 86 75 80 Resp 24 22 20 26 B/P (MAP) 107/70 (82) 106/72 (83) 114/76 (89) 82/74 (77) Pulse Ox 93 92 94 95 O2 Delivery Nasal Cannula Nasal Cannula Nasal Cannula Nasal Cannula O2 Flow Rate 2.00 2.00 2.00 2.00 04/03/18 04/03/18 04/03/18 04/03/18 10:45 11:00 11:15 11:30 Pulse 77 90 75 76 Resp 22 34 22 24 B/P (MAP) 97/85 (89) 107/79 (88) 89/59 (69) 100/63 (75) Pulse Ox 93 92 94 93 O2 Delivery Nasal Cannula Nasal Cannula Nasal Cannula Nasal Cannula O2 Flow Rate 2.00 2.00 2.00 2.00 04/03/18 04/03/18 04/03/18 04/03/18 11:45 12:00 12:00 12:15 Pulse 77 88 91 Resp 15 39 23 B/P (MAP) 104/68 (80) 118/90 (99) 117/76 (90) Pulse Ox 93 91 93 94 O2 Delivery Nasal Cannula Nasal Cannula Room Air Nasal Cannula O2 Flow Rate 2.00 2.00 2.00 7/04/03/18 04/03/18 12:30 12:45 13:00 Pulse 93 105 92 Resp 19 47 B/P (MAP) 131/92 (105) 133/72 (92) Pulse Ox 92 90 O2 Delivery Nasal Cannula Nasal Cannula O2 Flow Rate 2.00 2.00 Capillary Refill : Less Than 3 Seconds Constitutional: AAO x 3, well-developed, well-nourished HEENT: EOMI, hearing is well preserved Neck: carotid pulses are 2 + bilaterally Respiratory: No accessory muscle use; other (good bilat air entry) Cardiovascular: irregularly irregular, S1 and S2, systolic murmur (soft JAMEY at card base) Gastrointestinal: No tender; soft; No guarding, No rebound; audible bowel sounds Extremities: No clubbing, No cyanosis, No significant edema Neurologic/Psychiatric: oriented x 3, grossly intact, power is 5/5 both on sides Skin: No rash on exposed areas, No ulcerations on exposed areas Data Review Labs Laboratory Tests 04/02/18 23:35: White Blood Count 16.2H, Red Blood Count 4.48, Hemoglobin 13.6, Hematocrit 40, Mean Corpuscular Volume 88, Mean Corpuscular Hemoglobin 30, Mean Corpuscular Hemoglobin Concent 34, Red Cell Distribution Width 15.2H, Platelet Count 365, Mean Platelet Volume 9.8, Neutrophils (%) (Auto) 80H, Lymphocytes (%) (Auto) 9L , Monocytes (%) (Auto) 8, Eosinophils (%) (Auto) 2, Basophils (%) (Auto) 0, Neutrophils # (Auto) 13.0H, Lymphocytes # (Auto) 1.5, Monocytes # (Auto) 1.3H, Eosinophils # (Auto) 0.4H, Basophils # (Auto) 0.0, Neutrophils % (Manual) 80, Lymphocytes % (Manual) 8, Monocytes % (Manual) 5, Eosinophils % (Manual) 3, Band Neutrophils 3, Reactive Lymphocytes 1, Blood Morphology Comment NORMAL, Prothrombin Time 15.2H, INR Comment 1.2, Activated Partial Thromboplast Time 31 , Sodium Level 136, Potassium Level 4.1, Chloride Level 105, Carbon Dioxide Level 18L, Anion Gap 13, Blood Urea Nitrogen 25H, Creatinine 1.54H, Estimat Glomerular Filtration Rate 45, BUN/Creatinine Ratio 16, Glucose Level 182H, Calcium Level 9.6, Magnesium Level 2.1, Total Bilirubin 0.7, Aspartate Amino Transf (AST/SGOT) 20, Alanine Aminotransferase (ALT/SGPT) 13, Alkaline Phosphatase 72, Myoglobin 44.4, Troponin I < 0.30, B-Type Natriuretic Peptide 371.2H, Total Protein 8.1, Albumin 4.2, Digoxin Level < 0.30L 04/03/18 01:46: Lactic Acid Level 1.40 04/03/18 05:31: White Blood Count 13.1H, Red Blood Count 4.41, Hemoglobin 13.5, Hematocrit 39L, Mean Corpuscular Volume 88, Mean Corpuscular Hemoglobin 31, Mean Corpuscular Hemoglobin Concent 35, Red Cell Distribution Width 14.9H, Platelet Count 307, Mean Platelet Volume 9.6, Neutrophils (%) (Auto) 74, Lymphocytes (%) (Auto) 14, Monocytes (%) (Auto) 10, Eosinophils (%) (Auto) 2, Basophils (%) (Auto) 0, Neutrophils # (Auto) 9.6H, Lymphocytes # (Auto) 1.9, Monocytes # (Auto) 1.3H, Eosinophils # (Auto) 0.3, Basophils # (Auto) 0.0, Sodium Level 136, Potassium Level 3.9, Chloride Level 107, Carbon Dioxide Level 18L, Anion Gap 11, Blood Urea Nitrogen 26H, Creatinine 1.26, Estimat Glomerular Filtration Rate 57, BUN/ Creatinine Ratio 21, Glucose Level 109H, Calcium Level 9.4, Troponin I < 0.30, Triglycerides Level 64, Cholesterol Level 136, LDL Cholesterol Direct 88, VLDL Cholesterol 13, HDL Cholesterol 41 04/03/18 05:45: Urine Color AMBERH, Urine Clarity CLEAR, Urine pH 6, Urine Specific Bitely 1.025H, Urine Protein 1+H, Urine Glucose (UA) NEGATIVE, Urine Ketones NEGATIVE, Urine Nitrite NEGATIVE, Urine Bilirubin NEGATIVE, Urine Urobilinogen 1, Urine Leukocyte Esterase 1+H, Urine RBC (Auto) 2+H, Urine RBC 2-5H, Urine WBC 0-2, Urine Squamous Epithelial Cells 0-2, Urine Crystals NONE, Urine Bacteria FEWH, Urine Casts PRESENT, Urine Hyaline Casts RARE, Urine Mucus MODERATEH, Urine Culture Indicated NO Laboratory Tests 04/02/18 23:35 04/03/18 05:31 A/P-Cardiology Assessment/Admission Diagnosis Syncope that was treated by a shock from the AICD on 04/02/18 Episodes of near-syncope of undetermined etiology for the last several months Shortness of breath, multifactorial (see below) Chronic a-fib with a fairly controlled HR Coronary artery disease with a history of coronary artery bypass surgery. Last card cath on 01/29/18 prox occlusion of the LAD, prox occ of the OM1, occlusion of a posterolat branch of RCA, patent SVG to diagnonal of LAD that suplies the diagonal regrograde but diag is occluded antegrade, patent SVT to PL of RCA, occluded SVG to an OM, patent MAJOR to distal LAD, marked impirement of LVEF (15% ), normal LVEDP, no sgnificant MR MPI of January 07, 2018 showed apical and interolateral myocardial infarction with a minimal amt of gideon-infarct ischemia. Inferolateral and apical akinesis. LVEF 17%. Significant cardiomegaly Stopped beta-blockers and tamsulosin and amiodarone on 07/23/17 because bradycardia and relative hypotension. 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 Echocardiogram of 05-31 showed significant cardiomegaly, including the LV and LA, LVEF of approx 25 -30%, anteroapical akinesis to dyskinesis, mild aortic, tricuspid and aortic regurg, AoV sclerosis without stenosis, PASP is estimated to be 30mmHg. Hospitalization on 10/17/13 with severe anemia (Hgb 5.3) requiring multiple blood transfusions. Source of anemia unknown. Endoscopy by Dr Snyder on 10/30/13 showed esophagitis, hiatal hernia and diverticulosis Apixaban for stroke prophylaxis History of ICD implantation for primary prevention, generator replaced in January 2016. Device interrogation of January 23, 2018 showed device is functioning normally. Hyperlipidemia, being treated with rosuvastatin Mediastinal lymphadenopathy being followed by primary care and by Oncology Chronic tobacco use, continuing COPD due chronic tobacco use Intolerance to BENJI inhibitors on account of cough. He is able to take low dose angiotensin receptor blockers CKD stage 2-3 Discussion and Recomendations * Complex management * Device interrogation today * Continue therapy with amiodarone that was started last night * Consider resumption of dig that was stopped at a recent visit to an ER in [place], according to the patient * EP consult with Dr Gregory. I spoke with Dr Gregory this am Clinical Quality Measures DVT/VTE Risk/Contraindication: Risk Factor Score Per Nursin RFS Level Per Nursing on Admit: 4+=Very High KELTON ANDERSON MD FACP FACC CCDS Apr 03, 2018 14:16
[2018-04-03] MEDS ORDERED: KCL 20 MEQ TAB (K-DUR) PO NR (16:45)
[2018-04-03] MEDS ORDERED: FUROSEMIDE 40 MG/4 ML INJ (LASIX) IVP NR (16:45)
[2018-04-03] MEDS ORDERED: KCL 20 MEQ TAB (K-DUR) PO ONE (16:45)
[2018-04-03] MEDS ORDERED: CYCLOBENZAPRINE 10 MG (FLEXERIL) TAB PO PRN (19:30)
--- NOTE | 2018-04-03 19:43 | History & Physicial (CHS) ---
HPI History of Present Illness: 72 yo M that states that he has had fatigue and shortness of breath for the last week with near syncope spells. States that his device went off yesterday and that is when he came into the ER. States that his exercise tolerance has been greatly affected and he can now only walk short distances and then has to sit down to catch his breath. When he walks he feels like his heart is beating out of his chest. Denies any chest pain. Denies missing any doses of medications but he was recently taken off some of his medications after visiting an ER in [place]. Denies any pain. No falls. Source: patient, family, RN/MD, old records Exam Limitations: no limitations Date seen by provider: Apr 03, 2018 Time Seen by Provider: 09:35 Attending Physician Ghada Mahan MD PCP Center/[facility] [place],[facility] Consult Date of Admission Apr 03, 2018 at 01:35 Home Medications Home Medications Reviewed patient Home Medication Reconciliation performed by pharmacy medication reconciliations optical engineering technician and/or nursing. Patients Allergies have been reviewed. Allergies Coded Allergies: Penicillins (Unverified Allergy, Unknown, 05/29/16) RDN-[id number]-[id number] Hx Patient Social History Living Status: lives with in home Alcohol Use: Denies Use Recreational Drug Use: No Smoking Status: Current Someday Smoker Type Used: Cigarettes 2nd Hand Smoke Exposure: Yes Recent Foreign Travel: No Contact w/other who traveled: No Recent Hopitalizations: Yes Recent Infectious Disease Expo: No Physical Abuse Screen: No Sexual Abuse: No Immunizations Up To Date Tetanus Booster (TDap): More than 5yrs Date of Pneumonia Vaccine: Nov 03, 2015 Date of Influenza Vaccine: Jun 19, 2015 Past Medical History Past Medical History 1. CHF- ischemic cardiomyopathy EF 10-15% per cath 11/29 increased to 25% per echocardiogram 03/01 2. COPD 3. Tobaccoism 4. Anemia, Iron deficiency with chronic GI blood loss, worked up and gastritis per EGD- Dr. Tinoco follows 5. Mediastinal lymphadenopathy-followed by Dr. Tinoco per CT 01-19-15 6. CAD with HO CABG 7. Hiatal Hernia 8. Diverticulosis 9. History of severe anemia requiring transfusion- EGD demonstrating gastritis, no active bleeding 10. HLP 11. Hypotension 12. Intolerance to BENJI-I 13. Proxismal Atrial Fibrillation with chronic anticoagulation -Dr. Wilson 14. 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 Possible Migraines Past Surgical History 1. CABG 2. Cardiac Cath 3. EGD/Colonoscopy- [facility] 4. Defibrillator implant- 2010 Dr. Wilson 5. Excision of lesion Left ear 01-19-14 Dr. Ahumada Family Medical History Significant Family History: Heart Disease, Hypertension Family History: Fam hx-osteoporosis 03 MOTHER Family history: Hypertension 03 MOTHER, Onset:50's - 60 09 SISTER, Onset:40's - 50 Thyroid disease 03 MOTHER No Family History of: Cancer Chest pain Dementia Family history: Diabetes mellitus Stroke Review of Systems (CHC) Constitutional: No chills, No diaphoresis, No fever; malaise, weakness EENTM: no symptoms reported; No blurred vision, No double vision Respiratory: No cough; dyspnea on exertion; No orthopnea Cardiovascular: No chest pain, No edema; palpitations, syncope Gastrointestinal: no symptoms reported; No abdominal pain, No constipation, No diarrhea, No loss of appetite, No nausea, No vomiting Genitourinary: no symptoms reported; No dysuria, No frequency, No hematuria Musculoskeletal: no symptoms reported; No back pain, No joint pain, No muscle pain Skin: no symptoms reported; No lesions, No rash Psychiatric/Neurological: Denies Headache, Denies Numbness, Denies Paresthesia ; Weakness Reviewed Test Results Reviewed Test Results Lab Laboratory Tests Test 04/02/18 23:35 04/03/18 01:46 04/03/18 05:31 04/03/18 05:45 Range/Units White Blood Count 16.2 H 13.1 H 4.3-11.0 10^3/uL Red Blood Count 4.48 4.41 4.35-5.85 10^6/uL Hemoglobin 13.6 13.5 13.3-17.7 G/DL Hematocrit 40 39 L 40-54 % Mean Corpuscular Volume 88 88 80-99 FL Mean Corpuscular Hemoglobin 30 31 25-34 PG Mean Corpuscular Hemoglobin Concent 34 35 32-36 G/DL Red Cell Distribution Width 15.2 H 14.9 H 10.0-14.5 % Platelet Count 365 307 130-400 10^3/uL Mean Platelet Volume 9.8 9.6 7.4-10.4 FL Neutrophils (%) (Auto) 80 H 74 42-75 % Lymphocytes (%) (Auto) 9 L 14 12-44 % Monocytes (%) (Auto) 8 10 0-12 % Eosinophils (%) (Auto) 2 2 0-10 % Basophils (%) (Auto) 0 0 0-10 % Neutrophils # (Auto) 13.0 H 9.6 H 1.8-7.8 X 10^3 Lymphocytes # (Auto) 1.5 1.9 1.0-4.0 X 10^3 Monocytes # (Auto) 1.3 H 1.3 H 0.0-1.0 X 10^3 Eosinophils # (Auto) 0.4 H 0.3 0.0-0.3 10^3/uL Basophils # (Auto) 0.0 0.0 0.0-0.1 10^3/uL Neutrophils % (Manual) 80 % Lymphocytes % (Manual) 8 % Monocytes % (Manual) 5 % Eosinophils % (Manual) 3 % Band Neutrophils 3 % Reactive Lymphocytes 1 % Blood Morphology Comment NORMAL Prothrombin Time 15.2 H 12.2-14.7 SEC INR Comment 1.2 0.8-1.4 Activated Partial Thromboplast Time 31 24-35 SEC Sodium Level 136 136 135-145 MMOL/L Potassium Level 4.1 3.9 3.6-5.0 MMOL/L Chloride Level 105 107 98-107 MMOL/L Carbon Dioxide Level 18 L 18 L 21-32 MMOL/L Anion Gap 13 11 5-14 MMOL/L Blood Urea Nitrogen 25 H 26 H 7-18 MG/DL Creatinine 1.54 H 1.26 0.60-1.30 MG/DL Estimat Glomerular Filtration Rate 45 57 BUN/Creatinine Ratio 16 21 Glucose Level 182 H 109 H 70-105 MG/DL Calcium Level 9.6 9.4 8.5-10.1 MG/DL Magnesium Level 2.1 1.8-2.4 MG/DL Total Bilirubin 0.7 0.1-1.0 MG/DL Aspartate Amino Transf (AST/SGOT) 20 5-34 U/L Alanine Aminotransferase (ALT/SGPT) 13 0-55 U/L Alkaline Phosphatase 72 40-136 U/L Myoglobin 44.4 10.0-92.0 NG/ML Troponin I < 0.30 < 0.30 <0.30 NG/ML B-Type Natriuretic Peptide 371.2 H <100.0 PG/ML Total Protein 8.1 6.4-8.2 GM/DL Albumin 4.2 3.2-4.5 GM/DL Digoxin Level < 0.30 L 0.80-2.00 NG/ML Lactic Acid Level 1.40 0.50-2.00 MMOL/L Triglycerides Level 64 <150 MG/DL Cholesterol Level 136 < 200 MG/DL LDL Cholesterol Direct 88 1-129 MG/DL VLDL Cholesterol 13 5-40 MG/DL HDL Cholesterol 41 40-60 MG/DL Urine Color KELLY H Urine Clarity CLEAR Urine pH 6 5-9 Urine Specific [place] 1.025 H 1.016-1.022 Urine Protein 1+ H NEGATIVE Urine Glucose (UA) NEGATIVE NEGATIVE Urine Ketones NEGATIVE NEGATIVE Urine Nitrite NEGATIVE NEGATIVE Urine Bilirubin NEGATIVE NEGATIVE Urine Urobilinogen 1 NORMAL MG/DL Urine Leukocyte Esterase 1+ H NEGATIVE Urine RBC (Auto) 2+ H NEGATIVE Urine RBC 2-5 H /HPF Urine WBC 0-2 /HPF Urine Squamous Epithelial Cells 0-2 /HPF Urine Crystals NONE /LPF Urine Bacteria FEW H /HPF Urine Casts PRESENT /LPF Urine Hyaline Casts RARE /LPF Urine Mucus MODERATE H /LPF Urine Culture Indicated NO Radiology NAME: RODRIGUE PICHARDO [facility] REC#: [id number] PT STATUS: ADM IN : 1945 PHYSICIAN: JAX GRIJALVA MD ADMIT DATE: 04/03/18/ICU Draft Date of Exam:04/02/18 CHEST 1 VIEW, AP/PA ONLY INDICATION: Chest pain. Comparison with CT chest from 03/01/2018. FINDINGS: Median sternotomy changes with cardiomegaly again noted. The current portable film is lordotic which does make the cardiac silhouette appears slightly larger. Lungs are well-aerated. There are no consolidated infiltrates. Mild interstitial prominence again noted unchanged. No pneumothorax or pleural effusion. ICD pacer on the left appears unchanged. IMPRESSION: 1. Cardiomegaly with postoperative residue and interstitial infiltrate. The overall appearance has not changed since previous exam. Dictated on workstation # [id number] Dict: 04/03/18 0620 Trans: 04/03/18 0637 JUSTYNA [id number] Interpreted by: ROSAURA OLIVIER MD Electronically signed by: Physical Exam-(CHC) Physical Exam Vital Signs VS - Last 72 Hours, by Label 04/02/18 04/02/18 04/03/18 04/03/18 23:20 23:42 02:15 02:15 Temp 97.2 97.2 97.2 Pulse 96 85 85 Resp 22 20 20 B/P (MAP) 122/73 (89) 108/69 (89) 108/69 Pulse Ox 95 95 98 98 O2 Delivery Room Air Room Air Room Air 04/03/18 04/03/18 04/03/18 04/03/18 02:25 02:32 02:32 02:45 Temp 97.8 Pulse 96 87 96 Resp 18 13 B/P (MAP) 120/84 (96) 115/75 (88) Pulse Ox 94 96 98 O2 Delivery Nasal Cannula Nasal Cannula Nasal Cannula O2 Flow Rate 2.00 2.00 2.00 04/03/18 04/03/18 04/03/18 04/03/18 03:00 03:15 03:30 03:45 Pulse 106 86 86 77 Resp 21 20 21 11 B/P (MAP) 119/74 (89) 112/79 (90) 95/69 (78) 94/62 (73) Pulse Ox 98 93 92 94 O2 Delivery Nasal Cannula Nasal Cannula Nasal Cannula Nasal Cannula O2 Flow Rate 2.00 2.00 2.00 2.00 04/03/18 04/03/18 04/03/18 04/03/18 04:00 04:00 04:15 04:30 Pulse 87 80 84 Resp 16 B/P (MAP) 99/55 (70) 109/71 (84) 110/72 (85) Pulse Ox 95 95 95 97 O2 Delivery Nasal Cannula Nasal Cannula Nasal Cannula Nasal Cannula O2 Flow Rate 2.00 2.00 2.00 2.00 04/03/18 04/03/18 04/03/18 04/03/18 04:45 05:00 05:15 05:30 Pulse 82 74 84 92 B/P (MAP) 112/78 (89) 105/86 (92) 100/67 (78) Pulse Ox 92 95 94 95 O2 Delivery Nasal Cannula Nasal Cannula Nasal Cannula Nasal Cannula O2 Flow Rate 2.00 2.00 2.00 2.00 04/03/18 04/03/18 04/03/18 04/03/18 05:45 06:00 06:15 06:30 Pulse 77 82 66 70 Resp 32 17 14 15 B/P (MAP) 99/74 (82) 103/80 (88) 102/65 (77) 94/60 (71) Pulse Ox 96 95 92 91 O2 Delivery Nasal Cannula Nasal Cannula Nasal Cannula Nasal Cannula O2 Flow Rate 2.00 2.00 2.00 2.00 04/03/18 04/03/1804/03/18 04/03/18 06:45 07:00 07:00 07:15 Pulse 85 75 75 72 Resp 25 14 17 B/P (MAP) 98/73 (81) 107/69 (82) 106/77 (87) Pulse Ox 94 94 93 O2 Delivery Nasal Cannula Nasal Cannula Nasal Cannula O2 Flow Rate 2.00 2.00 2.00 04/03/18 04/03/1804/03/18 04/03/18 07:30 07:45 08:00 08:00 Pulse 81 72 80 Resp 33 14 17 B/P (MAP) 86/47 (60) 91/50 (64) 113/78 (90) Pulse Ox 95 97 95 94 O2 Delivery Nasal Cannula Nasal Cannula Nasal Cannula Nasal Cannula O2 Flow Rate 2.00 2.00 2.00 2.00 04/03/18 04/03/18 04/03/18 04/03/18 08:15 08:30 08:45 09:00 Pulse 80 69 85 74 Resp 17 15 27 12 B/P (MAP) 110/71 (84) 102/83 (89) 116/78 (91) 107/78 (88) Pulse Ox 94 95 96 92 O2 Delivery Nasal Cannula Nasal Cannula Nasal Cannula Nasal Cannula O2 Flow Rate 2.00 2.00 2.00 2.00 04/03/18 04/03/1804/03/04/03/18 09:15 09:30 09:45 10:00 Pulse 84 85 87 86 Resp 35 14 24 22 B/P (MAP) 136/122 (127) 123/82 (96) 107/70 (82) 106/72 (83) Pulse Ox 94 93 93 92 O2 Delivery Nasal Cannula Nasal Cannula Nasal Cannula Nasal Cannula O2 Flow Rate 2.00 2.00 2.00 2.00 04/03/18 04/03/18 04/03/18 04/03/18 10:15 10:30 10:45 11:00 Pulse 75 80 77 90 Resp 20 26 22 34 B/P (MAP) 114/76 (89) 82/74 (77) 97/85 (89) 107/79 (88) Pulse Ox 94 95 93 92 O2 Delivery Nasal Cannula Nasal Cannula Nasal Cannula Nasal Cannula O2 Flow Rate 2.00 2.00 2.00 2.00 18/18 7/18 7//18 718 11:15 11:30 11:45 12:00 Pulse 75 76 77 88 Resp 22 24 15 39 B/P (MAP) 89/59 (69) 100/63 (75) 104/68 (80) 118/90 (99) Pulse Ox 94 93 93 91 O2 Delivery Nasal Cannula Nasal Cannula Nasal Cannula Nasal Cannula O2 Flow Rate 2.00 2.00 2.00 2.00 04/03/1804/03/04/03/18 18 12:00 12:15 12:30 12:45 Pulse 91 93 105 Resp 23 19 47 B/P (MAP) 117/76 (90) 131/92 (105) 133/72 (92) Pulse Ox 93 94 92 90 O2 Delivery Room Air Nasal Cannula Nasal Cannula Nasal Cannula O2 Flow Rate 2.00 2.00 2.00 18 04/03/18 04/03/18 18 13:00 13:00 13:15 13:30 Pulse 92 92 82 85 Resp 10 12 20 B/P (MAP) 116/84 (95) 115/73 (87) 121/74 (90) Pulse Ox 91 94 96 O2 Delivery Nasal Cannula Nasal Cannula Nasal Cannula O2 Flow Rate 2.00 2.00 2.00 04/03/18 04/03/18 7//18 18 13:45 14:00 14:15 14:30 Pulse 76 84 79 84 Resp 19 22 23 23 B/P (MAP) 122/84 (97) 102/74 (83) 86/60 (69) Pulse Ox 92 93 94 O2 Delivery Nasal Cannula Nasal Cannula Nasal Cannula Nasal Cannula O2 Flow Rate 2.00 2.00 2.00 2.00 18/18 718/18 7/18/18 71818 14:56 15:00 15:30 16:00 Pulse 89 77 74 Resp 15 26 14 B/P (MAP) 97/75 (82) 112/80 (91) 108/73 (85) Pulse Ox 96 95 97 O2 Delivery Nasal Cannula Nasal Cannula Nasal Cannula O2 Flow Rate 2.00 2.00 2.00 2.00 04/03/18 04/03/18 04/03/18 04/03/18 16:20 16:30 16:52 17:00 Temp 98.0 Pulse 87 89 Resp 15 23 B/P (MAP) 108/92 (97) 119/111 (114) Pulse Ox 94 96 95 O2 Delivery Nasal Cannula Nasal Cannula Nasal Cannula O2 Flow Rate 2.00 2.00 2.00 04/03/18 04/03/18 04/03/18 17:30 18:00 18:30 Pulse 108 109 101 Resp 21 21 15 B/P (MAP) 108/81 (90) 140/98 (112) 120/81 (94) Pulse Ox 94 94 96 O2 Delivery Nasal Cannula Nasal Cannula Nasal Cannula O2 Flow Rate 2.00 2.00 2.00 Capillary Refill : Less Than 3 Seconds General Appearance: WD/WN, no apparent distress HEENT: PERRL/EOMI Neck: non-tender, full range of motion, supple Respiratory: chest non-tender, lungs clear, normal breath sounds, no respiratory distress, no accessory muscle use Cardiovascular: regular rate, rhythm, no edema, no murmur Gastrointestinal: normal bowel sounds, non tender, soft, no organomegaly Back: no CVA tenderness, no vertebral tenderness Extremities: normal range of motion, non-tender, normal inspection, no pedal edema, no calf tenderness, normal capillary refill Neurologic/Psychiatric: neon tube pumper II-XII nml as tested, no motor/sensory deficits, alert, normal mood/affect, oriented x 3 Skin: normal color, warm/dry Lymphatic: no adenopathy Assessment/Plan Assessment/Plan Admission Status: Inpatient Order (span 2 midnights) Reason for Inpatient Admission: Requiring IV meds for rate control (1) Syncopal episodes Status: Acute Assessment & Plan: - Device interrogation today reveal episodes of Ventricular fibrillation that resolved after discharge of device - Cardiology consulted and following patient Qualifiers: Qualified Codes: R55 - Syncope and collapse (2) Defibrillator discharge Status: Acute (3) Ischemic cardiomyopathy Status: Chronic Assessment & Plan: - No signs of acute failure, will continue to monitor (4) Chronic atrial fibrillation Status: Chronic Assessment & Plan: - Continued rate controller medication, on PO anticoagulation (5) CKD (chronic kidney disease) Status: Chronic Assessment & Plan: - Mild elevation from baseline, will continue with gentle hydration Qualifiers: Qualified Codes: N18.2 - Chronic kidney disease, stage 2 (mild) (6) COPD (chronic obstructive pulmonary disease) Status: Chronic Assessment & Plan: - Continue home meds Qualifiers: Qualified Codes: J44.9 - Chronic obstructive pulmonary disease, unspecified (7) Hyperlipidemia Status: Chronic Assessment & Plan: - Continue statin Qualifiers: Qualified Codes: E78.2 - Mixed hyperlipidemia (8) Atrial fibrillation Status: Chronic Qualifiers: Qualified Codes: I48.2 - Chronic atrial fibrillation (9) Coronary artery disease Status: Chronic Qualifiers: Qualified Codes: I25.10 - Atherosclerotic heart disease of [place] coronary artery without angina pectoris (10) DVT prophylaxis Status: Acute Assessment & Plan: - PO anticoagulation Clinical Quality Measures DVT/VTE Risk/Contraindication: Risk Factor Score Per Nursin RFS Level Per Nursing on Admit: 4+=Very High Copy Copies To 1: BRENNEN ECHEVERRIA MD, HOLLY R MD Apr 03, 2018 19:43
[2018-04-04] VITALS (12 sets, daily range): BP systolic 93–139; BP diastolic 45–98
[2018-04-04] MEDS ORDERED: AMIODARONE 200 MG (CORDARONE) TAB PO SCH (02:00)
[2018-04-04 03:14] LABS: BASOPHILS # (AUTO) 0.1 10^3/uL (0.0-0.1); BASOPHILS % (AUTO) 1 % (0-10); EOSINOPHILS # (AUTO) 0.5 10^3/uL (0.0-0.3); EOSINOPHILS % (AUTO) 3 % (0-10); HEMATOCRIT 44 % (40-54); HEMOGLOBIN 15.1 G/DL (13.3-17.7); LYMPHOCYTES # (AUTO) 2.3 X 10^3 (1.0-4.0); LYMPHOCYTES % (AUTO) 17 % (12-44); MEAN CORPUSCULAR HEMOGLOBIN 30 PG (25-34); MEAN CORPUSCULAR HGB CONC 35 G/DL (32-36); MEAN CORPUSCULAR VOLUME 87 FL (80-99); MEAN PLATELET VOLUME 9.8 FL (7.4-10.4); MONOCYTES # (AUTO) 1.5 X 10^3 (0.0-1.0); MONOCYTES % (AUTO) 11 % (0-12); NEUTROPHILS # (AUTO) 8.8 X 10^3 (1.8-7.8); NEUTROPHILS % (AUTO) 67 % (42-75); PLATELET COUNT 411 10^3/uL (130-400); RED BLOOD COUNT 5.02 10^6/uL (4.35-5.85); RED CELL DISTRIBUTION WIDTH 15.3 % (10.0-14.5); WHITE BLOOD COUNT 13.1 10^3/uL (4.3-11.0)
[2018-04-04 03:28] LABS: CALCIUM 10.1 MG/DL (8.5-10.1); CREATININE SERUM 1.32 MG/DL (0.60-1.30); MAGNESIUM 2.1 MG/DL (1.8-2.4); PHOSPHORUS 3.9 MG/DL (2.3-4.7); POTASSIUM 4.6 MMOL/L (3.6-5.0)
--- NOTE | 2018-04-04 07:45 | Diagnostic Imaging Report ---
Indication: Arrhythmia Portable chest 3:12 AM There are postop changes from CABG surgery. Patient has a dual-chamber pacemaker. Heart size and pulmonary vascularity normal. Lungs are clear. There are no effusions or pneumothoraces. Impression: Postsurgical changes of the chest. No acute abnormality seen. Dictated by: Dictated on workstation # [id number]
[2018-04-04] MEDS: APIXABAN 5 MG (ELIQUIS) TABLET PO SCH (08:49)
[2018-04-04] MEDS ORDERED: ASPIRIN E.C. 81 MG (ECOTRIN) TAB PO SCH (09:00)
[2018-04-04] MEDS ORDERED: FUROSEMIDE 40 MG (LASIX) TAB PO SCH (09:00)
[2018-04-04] MEDS ORDERED: PANTOPRAZOLE 40 MG (PROTONIX) TAB PO SCH (09:00)
[2018-04-04] MEDS ORDERED: LOSARTAN 25 MG (COZAAR) TAB PO SCH (09:00)
[2018-04-04] MEDS ORDERED: TAMSULOSIN 0.4 MG (FLOMAX) CAP PO SCH ×2 (09:00→17:30)
[2018-04-04] MEDS ORDERED: SPIRONOLACTONE 25 MG (ALDACTONE) TAB PO SCH (09:00)
[2018-04-04] MEDS ORDERED: UMECLIDINIUM BROMIDE (INCRUSE ELLIPTA) 7'S IH SCH (09:00)
[2018-04-04] MEDS ORDERED: DILTIAZEM 120 MG (CARDIZEM CD) CAP PO SCH (09:15)
--- NOTE | 2018-04-04 09:21 | Physical Therapy Evaluation ---
PT Evaluation-General Medical Diagnosis Admission Date Apr 03, 2018 at 01:35 Medical Diagnosis: Defibrilation discharge/A-fib Onset Date: Apr 03, 2018 Therapy Diagnosis Therapy Diagnosis: debility Height/Weight Height (Feet): 5 Height (Inches): 8.00 Weight (Pounds): 200 Weight (Ounces): 6.0 Precautions Precautions/Isolations: Fall Prevention, Standard Precautions Weight Bear Status Right Lower Extremity: Right Weight Bearing/Tolerated Left Lower Extremity: Left Weight Bearing/Tolerated Referral Physician: Kalli Reason for Referral: Evaluation/Treatment Medical History Pertinent Medical History: Atrial Fib, CABG, CAD, COPD, Diverticulitis, GERD, Heart Failure, HTN, NH, Smoking Current History Defib went off while sitting in recliner Reviewed History: Yes Social History Home: Single Level Current Living Status: Spouse Prior/Core FIM Prior Level of Function Functional [place] Measure 0=Not Assessed/NA 4=Minimal Assistance 1=Total Assistance 5=Supervision or Setup 2=Maximal Assistance 6=Modified [place] 3=Moderate Assistance 7=Complete [place] Bed Mobility: 7 Transfers (B,C,W/C) (FIM): 7 Gait: 7 Locomotion: 7 PT Evaluation-Current Subjective Patient has no c/o and agrees to PT. Pain Numeric Pain Scale: 0-No Pain Location: No Pain Reported Objective Patient Orientation: Normal For Age Problem Solving: Good ROM/Strength ROM Lower Extremities bilateral LE WNL Strength Lower Extremities 5/5 grossly bilaterally Integumentary/Posture Integumentary refer to nursing notes Bowel Incontinence: No Bladder Incontinence: No Posture WFL Neuromuscular (Tone, Coordination, Reflexes) grossly intact Sensory Vision: Wears Glasses Hearing: Functional Sensation Right Lower Extremit: Intact Sensation Left Lower Extremity: Intact Transfers Functional [place] Measure 0=Not Assessed/NA 4=Minimal Assistance 1=Total Assistance 5=Supervision or Setup 2=Maximal Assistance 6=Modified [place] 3=Moderate Assistance 7=Complete [place] Transfers (B, C, W/C) (FIM): 7 Scootin Rollin Supine to/from Sit: 7 Sit to/from Stand: 7 patient donned shoes independently Gait Mode of Locomotion: Walk Anticipated Mode of Locomotion: Walk Gait (FIM): 7 Distance (FIM): 3=150 ft Distance: 400' Gait Level of Assist: 7 Gait Assistive Device: None Comments/Gait Description safe and functional with all Balance Sitting Static: Normal Sitting Dynamic: Normal Standing Static: Normal Standing Dynamic: Normal Assessment/Needs 72 y.o. male, is currently at independent [facility] with all gross motor skills safely and does not require skilled PT intervention. Thank you for this referral. Rehab Potential: Fair PT Plan Treatment/Plan Treatment Plan: Discontinue PT, goals met Treatment Plan: Other Treatment Duration: Apr 04, 2018 Frequency: 1 time per week Estimated Hrs Per Day: .25 hour per day Patient and/or Family Agrees t: Yes Discharge Recommendations Therapy D/C Recommendations: Home Independently Time/GCodes Time In: 855 Time Out: 910 Total Billed Treatment Time: 15 Total Billed Treatment 1 visit EVModC 15 min G Codes Necessary: No ROSALVA OSORIO PT Apr 04, 2018 09:21
--- NOTE | 2018-04-04 09:31 | Cardiology Progress Note ---
Cardiology SOAP Progress Note Subjective: No cardiac complaints. Objective: I&O/Vital Signs 04/03/18 04/03/18 04/03/18 04/04/18 22:00 23:00 23:00 00:00 Pulse 133 93 Resp 14 18 B/P (MAP) 127/84 (98) 118/103 (108) Pulse Ox 91 95 95 O2 Delivery Nasal Cannula Nasal Cannula Nasal Cannula Nasal Cannula O2 Flow Rate 2.00 2.00 2.00 2.00 04/04/18 04/04/18 04/04/18 04/04/18 00:00 01:00 01:00 02:00 Pulse 89 80 80 91 Resp 9 19 28 B/P (MAP) 98/66 (77) 104/71 (82) 100/58 (72) Pulse Ox 97 95 96 O2 Delivery Nasal Cannula Nasal Cannula Nasal Cannula O2 Flow Rate 2.00 2.00 2.00 04/04/18 04/04/18 04/04/18 04/04/18 03:00 03:16 04:00 04:00 Temp 97.5 Pulse 98 111 Resp 19 27 B/P (MAP) 119/65 (83) 119/98 (105) Pulse Ox 95 95 94 O2 Delivery Nasal Cannula Nasal Cannula Nasal Cannula O2 Flow Rate 2.00 2.00 2.00 04/04/18 04/04/18 04/04/18 04/04/18 05:00 06:00 07:00 07:00 Pulse 102 82 77 81 Resp 29 18 27 B/P (MAP) 115/86 (96) 110/73 (85) 93/66 (75) Pulse Ox 97 94 95 O2 Delivery Nasal Cannula Nasal Cannula Nasal Cannula O2 Flow Rate 2.00 2.00 2.00 04/04/18 04/04/18 04/04/18 04/04/18 08:00 08:12 08:49 08:50 Temp 98.7 Pulse 87 Resp 39 B/P (MAP) 94/64 (74) Pulse Ox 92 95 O2 Delivery Nasal Cannula Nasal Cannula Room Air Room Air O2 Flow Rate 2.00 2.00 04/04/18 00:00 Intake Total 764 ml Output Total 1375 ml Balance -611 ml Weight (Pounds): 200 Weight (Ounces): 6.0 Weight (Calculated Kilograms): [id number] Constitutional: appears stated age, AAO x 3; No apparent distress; well- developed, well-nourished Respiratory: No accessory muscle use, No respiratory distress, No chest tender , No chest expansion is symmetric; chest is bilaterally symmetric; No lungs clear to percussion; lungs clear to auscultation; No crackles, No rhonchi, No rales, No stridor, No wheezing, No pleural rub, No other Cardiovascular: No regular rate-rhythm; irregularly irregular; No extra beats, No parasternal heave is noted, No JVD, No edema, No bradycardia, No tachycardia , No point of maximal impulse, No cardiac thrills are palpable; S1 and S2; No gallop/S3, No gallop/S4, No diastolic murmur, No systolic murmur, No friction rub, No click, No other Gastrointestional: No tender, No soft, No round, No distended, No pulsatile mass, No organomegaly, No guarding, No rebound, No tenderness, No hernia, No mass, No audible bowel sounds, No abnormal bowel sounds, No abdominal bruits, No spleenomegaly, No other Extremities: No normal range of motion, No non-tender, No normal inspection, No pedal edema, No calf tenderness, No normal capillary refill, No pelvis stable , No calf tenderness, No inflammation, No pedal edema, No slow capillary refill , No swelling, No other, No abrasion, No clubbing, No cyanosis, No ecchymosis, No laceration, No no lower extremity edema bilateral, No significant edema, No tenderness, No wound Neurologic/Psychiatric: no motor/sensory deficits, alert, normal mood/affect, oriented x 3, power is 5/5 both on sides Skin: No normal color, No warm/dry, No cyanosis, No cool, No diaphoresis, No damp, No ecchymosis, No jaundice, No mottled, No pallor, No rash, No tattoos/ piercings, No ulcerations, No rash on exposed areas, No ulcerations on exposed areas, No other Results/Procedures: Labs Laboratory Tests 04/04/18 03:00: White Blood Count 13.1H, Red Blood Count 5.02, Hemoglobin 15.1, Hematocrit 44, Mean Corpuscular Volume 87, Mean Corpuscular Hemoglobin 30, Mean Corpuscular Hemoglobin Concent 35, Red Cell Distribution Width 15.3H, Platelet Count 411H, Mean Platelet Volume 9.8, Neutrophils (%) (Auto) 67, Lymphocytes (%) (Auto) 17, Monocytes (%) (Auto) 11, Eosinophils (%) (Auto) 3, Basophils (%) (Auto) 1, Neutrophils # (Auto) 8.8H, Lymphocytes # (Auto) 2.3, Monocytes # (Auto) 1.5H, Eosinophils # (Auto) 0.5H, Basophils # (Auto) 0.1, Sodium Level 137, Potassium Level 4.6, Chloride Level 108H, Carbon Dioxide Level 17L, Anion Gap 12, Blood Urea Nitrogen 29H, Creatinine 1.32H, Estimat Glomerular Filtration Rate 54, BUN/ Creatinine Ratio 22, Glucose Level 127H, Calcium Level 10.1, Phosphorus Level 3.9, Magnesium Level 2.1 A/P: Assessment/Dx: Syncope, ventricular fibrillation, ICD shock, Ischemic cardiomyopathy, Atrial fibrillation Plan: This is a 72-year-old gentleman who is a patient of Dr. Wilson. Cardiac electrophysiology consultation is requested for ICD shock, syncope and atrial fibrillation. ICD shock/ventricular fibrillation: Amiodarone IV infusion completed. Start amiodarone 400 mg twice a day for the next 2 weeks and then switch to 200 mg twice a day. Waiting for pharmacy to see if there is any home medication that could cause acquired prolonged QT. Baseline EKG showed QTc interval of 529 ms. Atrial fibrillation: Digoxin, Cardizem, Eliquis. On examining the device interrogation there are 3 other episodes of nonsustained VT however I have gone over the dates and times with the patient and he denies having any symptoms during those dates. He did have a syncopal episode on February 17 however there is no arrhythmias noted on the device interrogation on February 17. Other etiologies need to be considered for syncope such as orthostatic hypotension. I reviewed an echocardiogram which was done in 2016 which showed a left atrial size of 4.9 cm. Patient also has had atrial fibrillation for the last 3-4 years. It is very unlikely that a rhythm control strategy will work in this patient considering the chronicity of atrial fibrillation and moderate to severe left atrial enlargement. Thank you for your consultation. Please call me if you have any questions. Kyler Gregory MD, FACP, FACC, FSCAI, FHRS, CCDS Interventional Cardiology Cardiac Electrophysiology Vascular Medicine and Endovascular Interventions Carlito GREGORY MD Apr 04, 2018 09:31
--- NOTE | 2018-04-04 12:41 | Discharge Summary ---
Diagnosis/Chief Complaint Date of Admission Apr 03, 2018 at 1:35 am Date of Discharge 04/04/2018 Admission Diagnosis Admission Diagnosis Syncopal Episode Defibrillator Discharge Ischemic Cardiomyopathy Chronic Atrial Fibrillation CKD COPD HLD CAD Discharge Diagnosis See Above Chief Complaint/HPI Chief Complaint/HPI 72 yo M that states that he has had fatigue and shortness of breath for the last week with near syncope spells. States that his device went off yesterday and that is when he came into the ER. States that his exercise tolerance has been greatly affected and he can now only walk short distances and then has to sit down to catch his breath. When he walks he feels like his heart is beating out of his chest. Denies any chest pain. Denies missing any doses of medications but he was recently taken off some of his medications after visiting an ER in [place]. Denies any pain. No falls. Discharge Summary-Simple/Stand Procedures Device Interrogation Consultations Dr Gregory, Cardiology Discharge Physical Examination Allergies: Coded Allergies: Penicillins (Unverified Allergy, Unknown, 05/29/16) Vitals & I&Os Vital Sign - Last 12Hours Date Time Temp Pulse Resp B/P (MAP) Pulse Ox O2 Delivery O2 Flow Rate FiO2 04/04/18 10:00 107 20 139/95 (110) Nasal Cannula 2.00 04/04/18 08:50 98.7 04/04/18 08:49 95 Intake and Output 04/04/18 00:00 Intake Total 764 ml Output Total 1375 ml Balance -611 ml General Appearance: Alert, Oriented X3, Cooperative, No Acute Distress HEENT: Atraumatic, PERRLA Respiratory: Clear to Auscultation, Normal Air Movement Cardiovascular: Regular Rate, No Murmurs Abdominal: Normal Bowel Sounds, Soft, No Tenderness, No Hepatosplenomegaly, No Masses Extremities: No Cyanosis, Normal Pulses, No Tenderness/Swelling Skin: No Rashes, No Breakdown Neuro: Normal Speech, Strength at 5/5 X4 Ext, Cranial Nerves 3-12 NL Psych/Mental Status: Mental Status NL, Mood NL Hospital Course See final discharge diagnosis. Radiology Reviewed NAME: RODRIGUE PICHARDO Zurdo MED REC#: [id number] PT STATUS: ADM IN : 1945 PHYSICIAN: JAX GRIJALVA MD ADMIT DATE: 04/03/18/ICU Draft Date of Exam:04/02/18 CHEST 1 VIEW, AP/PA ONLY INDICATION: Chest pain. Comparison with CT chest from 03/01/2018. FINDINGS: Median sternotomy changes with cardiomegaly again noted. The current portable film is lordotic which does make the cardiac silhouette appears slightly larger. Lungs are well-aerated. There are no consolidated infiltrates. Mild interstitial prominence again noted unchanged. No pneumothorax or pleural effusion. ICD pacer on the left appears unchanged. IMPRESSION: 1. Cardiomegaly with postoperative residue and interstitial infiltrate. The overall appearance has not changed since previous exam. Dictated on workstation # [id number] Dict: 04/03/18619 Trans: 04/03/18 0637 JUSTYNA [id number] Interpreted by: ROSAURA OLIVIER MD Electronically signed by: Discussion & Recommendations 72 yo M that presented to ER after Defibrillator discharge Syncopal Episode: Patient was seen by cardiology and device was interrogated. Device recorded Ventricular fibrillation that resolved with discharge of device. Patient was monitored overnight and did not have any further episodes. Will have close follow up with cardiology. Defibrillator Discharge: See Above Ischemic Cardiomyopathy: No med changes made. Patient has Defibrillator. Chronic Atrial Fibrillation: Continued on oral anticoagulation CKD: At baseline during admission COPD: Continue home meds HLD: Continue home meds CAD: Continue home meds Patient was monitored in ICU during admission and did not have any further arrhythmias and was seen by cardiology and close follow up as outpatient. Discharge Condition at discharge Stable Instructions to patient/family Please see electronic discharge instructions given to patient. Discharge Medications Reviewed and agree with Discharge Medication list on patient's Discharge Instruction sheet Clinical Quality Measures DVT/VTE Risk/Contraindication: Risk Factor Score Per Nursin RFS Level Per Nursing on Admit: 4+=Very High Copy Copies To 1: ANDRES MELENDEZ MD Apr 04, 2018 12:41
[2018-04-04] MEDS ORDERED: DILTIAZEM 120 MG (CARDIZEM CD) CAP PO ONE (12:45)
[2018-04-04] MEDS ORDERED: AMIO200T4 PO (12:47)
--- NOTE | 2018-04-04 12:49 | Discharge Instructions ---
Discharge [facility] Discharge Medications New, Converted or Re-Newed RX: Transmitted to Pharmacy New Medications: Amiodarone HCl (Amiodarone HCl) 200 Mg Tablet 400 MG PO Q12H for 14 Days, #28 TAB Continued Medications: Albuterol Sulfate (Albuterol Sulfate) 2.5 Mg/3 Ml Vial.neb 2.5 MG NEB Q4H PRN for SHORTNESS OF BREATH, EA Apixaban (Eliquis) 5 Mg Tablet 5 MG PO BID, TAB Aspirin (Aspirin EC) 81 Mg Tablet.dr 81 MG PO DAILY, TAB Cyclobenzaprine HCl (Cyclobenzaprine HCl) 10 Mg Tablet 10 MG PO TID PRN for MUSCLE SPASMS, TAB Diltiazem HCl (Diltiazem 24Hr ER) 300 Mg Cap.er.24h 300 MG PO DAILY, CAP Furosemide (Furosemide) 40 Mg Tablet 40 MG PO DAILY, TAB Levalbuterol Tartrate (Xopenex Hfa) 15 Gm Hfa.aer.ad 2 PUFF IH Q6H PRN for SHORTNESS OF BREATH, GM Losartan Potassium (Losartan Potassium) 25 Mg Tablet 12.5 MG PO DAILY, TAB TAKES 1/2 OF A (25 MG) TABLET Nitroglycerin (Nitrostat) 0.4 Mg Tab.subl 0.4 MG PO UD PRN for CHEST PAIN, TAB 1 TAB UNDER TONGUE EVERY 5 MIN UP TO 3 DOSES Pantoprazole Sodium (Pantoprazole Sodium) 40 Mg Tablet.dr 40 MG PO DAILY, TAB Rosuvastatin Calcium (Rosuvastatin Calcium) 40 Mg Tablet 20 MG PO HS, TAB TAKES 1/2 (40MG) TABLET Spironolactone (Spironolactone) 25 Mg Tablet 25 MG PO DAILY, TAB Tamsulosin HCl (Tamsulosin HCl) 0.4 Mg Cap.er.24h 0.4 MG PO 1730, CAP Umeclidinium [place] (Incruse Ellipta) 62.5 Mcg Blst.w.dev 1 PUFF INH DAILY, INHALER Discontinued Medications: Isosorbide Mononitrate (Isosorbide Mononitrate ER) 30 Mg Tab.er.24h 30 MG PO DAILY, TAB Patient Instructions Goal/Follow Up Appt: You have an appt with Xochitl Kitchen on April 11 @ 716 for hospital followup Patient Instructions: - Please review your medication list - Make sure you keep your follow up appt with Dr Gregory Return to [facility] For: - Chest pain - Shortness of breath Activity & Diet Discharge Diet: Cardiac Diet Activity as Tolerated: Yes Copy Copies To 1: PSYCHIATRIC ANDRES Shepherd MD Apr 04, 2018 12:49 pm
== END 2018-04-04 13:45 | disposition home or self-care (01) | DRG 312 ==
LOC: EDUNIT# 23:09 → ER 23:10 → ICU 04-03 01:35
PROVIDERS: ADMIT Family Medicine; ATTEND Family Medicine
DX: R55 Syncope and collapse (principal); I49.01 Ventricular fibrillation; I13.0 Hypertensive heart and chronic kidney disease with heart failure and stage 1 through stage 4 chronic kidney disease, or unspecified chronic kidney disease; I50.22 Chronic systolic (congestive) heart failure; N18.2 Chronic kidney disease, stage 2 (mild); I69.354 Hemiplegia and hemiparesis following cerebral infarction affecting left non-dominant side; I48.2 Chronic atrial fibrillation; I25.10 Atherosclerotic heart disease of native coronary artery without angina pectoris; I25.5 Ischemic cardiomyopathy; E78.5 Hyperlipidemia, unspecified; K21.9 Gastro-esophageal reflux disease without esophagitis; D72.829 Elevated white blood cell count, unspecified; J44.9 Chronic obstructive pulmonary disease, unspecified; R06.2 Wheezing; F17.210 Nicotine dependence, cigarettes, uncomplicated; I25.2 Old myocardial infarction; Z79.01 Long term (current) use of anticoagulants; Z79.82 Long term (current) use of aspirin; Z95.810 Presence of automatic (implantable) cardiac defibrillator; Z95.1 Presence of aortocoronary bypass graft; Z95.5 Presence of coronary angioplasty implant and graft
CPT/HCPCS: 36415; 71045; 80048; 80053; 80061; 80162; 81000; 83605; 83735; 83874; 83880; 84100; 84484; 85007; 85025; 85027; 85610; 85730; 87040; 87081; 93005; 93041; 94640; 94664; 96374

== ENCOUNTER 2018-04-05 09:54 | Outpatient (RCR) | payer MEDICARE ==
[~2018-04-05 09:54] MED LIST changes: +ALBU2.5V4 NEB; -BENZ-13 PO; +BENZ100C18 PO; +CYCL10TA9 PO; +DILT300C52 PO; +FURO80TA3 PO; -LOSA25TA21 PO; +LOSA25TA6 PO; +NF-XOP-HFA IH; +SPIR50TA4 PO; +UMEC62.5 INH
[2018-04-12] MEDS ORDERED: FLUT1AER INH (13:55)
[2018-04-12] MEDS ORDERED: AMIO200T4 PO (13:55)
[2018-04-12] MEDS ORDERED: ALBU18HF2 INH (13:55)
[2018-04-14] MEDS ORDERED: FURO40TA4 PO (11:57)
[2018-04-14] MEDS ORDERED: LORA1TAB PO (11:57)
[2018-04-14] MEDS ORDERED: POTA-51 PO (11:57)
== END 2018-04-16 | disposition home or self-care (01) ==
LOC: ONC 09:54
PROVIDERS: ATTEND Internal Medicine Hematology & Oncology
DX: D50.9 Iron deficiency anemia, unspecified (principal); I25.10 Atherosclerotic heart disease of native coronary artery without angina pectoris; I50.9 Heart failure, unspecified; J44.9 Chronic obstructive pulmonary disease, unspecified; E78.5 Hyperlipidemia, unspecified; I48.91 Unspecified atrial fibrillation; F17.200 Nicotine dependence, unspecified, uncomplicated; Z95.810 Presence of automatic (implantable) cardiac defibrillator; Z79.01 Long term (current) use of anticoagulants; Z79.899 Other long term (current) drug therapy
CPT/HCPCS: 99213

== ENCOUNTER 2018-04-12 10:39 | Observation (INO) | payer MEDICARE ==
[~2018-04-12] VITALS: Ht 172.7 cm; Wt 93.1 kg
[~2018-04-12 10:39] MED LIST changes: +BENZ-13 PO; -BENZ100C18 PO; +LOSA25TA21 PO; -LOSA25TA6 PO
[2018-04-12] MEDS ORDERED: RT-ALBUTEROL/IPRATROPIUM 3 ML (DUONEB) VIAL ONE (10:52)
[2018-04-12 11:19] LABS: BASOPHILS % (AUTO) 0 % (0-10); EOSINOPHILS # (AUTO) 0.4 10^3/uL (0.0-0.3); EOSINOPHILS % (AUTO) 4 % (0-10); HEMATOCRIT 38 % (40-54); LYMPHOCYTES # (AUTO) 1.9 X 10^3 (1.0-4.0); LYMPHOCYTES % (AUTO) 19 % (12-44); MEAN CORPUSCULAR HEMOGLOBIN 30 PG (25-34); MEAN CORPUSCULAR HGB CONC 34 G/DL (32-36); MEAN CORPUSCULAR VOLUME 89 FL (80-99); MEAN PLATELET VOLUME 9.4 FL (7.4-10.4); MONOCYTES # (AUTO) 1.3 X 10^3 (0.0-1.0); MONOCYTES % (AUTO) 13 % (0-12); NEUTROPHILS # (AUTO) 6.6 X 10^3 (1.8-7.8); NEUTROPHILS % (AUTO) 65 % (42-75); PLATELET COUNT 372 10^3/uL (130-400); RED BLOOD COUNT 4.33 10^6/uL (4.35-5.85); RED CELL DISTRIBUTION WIDTH 15.2 % (10.0-14.5); WHITE BLOOD COUNT 10.2 10^3/uL (4.3-11.0)
--- NOTE | 2018-04-12 11:21 | ED Cardiac General ---
History of Present Illness General Chief Complaint: Cardiac/General Problems Stated Complaint: SOB Source: patient Exam Limitations: no limitations History of Present Illness Date Seen by Provider: Apr 12, 2018 Time Seen by Provider: 11:00 Initial Comments to ER with reports of shortness of breath worse than usual for the past few weeks. He was admitted here a few weeks ago following a defibrillator discharge. he's had worsening shortness of breath since then. He sees Dr. Wilson. Last week his Imdur was stopped. He states that when he started the Imdur his constant chronic chest pain improves. Since they stopped the Imdur last week the chest pain is mild but has recurred.he states that at one point this morning his heart rate was 130 and his blood pressure was 70 systolic. Upon arrival to ER he is a heart rate of 87 atrial fibrillation with a blood pressure 118/74. Oxygen is 90-94% on room air. Timing/Duration: getting worse Severity: moderate NTG SL COLD MILL SUPERVISOR: No ASA po COLD MILL SUPERVISOR: No Associated Systoms: Chest Pain; No Headaches, No Loss of Appetite, No Malaise, No Nausea/Vomiting Allergies and Home Medications Allergies Coded Allergies: Penicillins (Unverified Allergy, Unknown, 05/29/16) Home Medications Albuterol Sulfate 2.5 Mg/3 Ml Vial.neb, 2.5 MG NEB Q4H PRN for SHORTNESS OF BREATH, (Reported) Albuterol Sulfate 18 Gm Hfa.aer.ad, 2 PUFF INH QID PRN for SHORTNESS OF BREATH, (Reported) Amiodarone HCl 200 Mg Tablet, 400 MG PO BID, (Reported) TAKES 2 (200MG) TABLETS Apixaban 5 Mg Tablet, 5 MG PO BID, (Reported) Aspirin 81 Mg Tablet.dr, 81 MG PO DAILY, (Reported) Cyclobenzaprine HCl 10 Mg Tablet, 10 MG PO TID PRN for MUSCLE SPASMS, (Reported) Diltiazem HCl 300 Mg Cap.er.24h, 300 MG PO DAILY, (Reported) Fluticasone/Vilanterol 1 Each Blst.w.dev, 1 PUFF INH DAILY, (Reported) Furosemide 40 Mg Tablet, 40 MG PO DAILY, (Reported) Levalbuterol Tartrate 15 Gm Hfa.aer.ad, 2 PUFF IH Q6H PRN for SHORTNESS OF BREATH, (Reported) Losartan Potassium 25 Mg Tablet, 12.5 MG PO DAILY, (Reported) TAKES 1/2 OF A (25 MG) TABLET Nitroglycerin 0.4 Mg Tab.subl, 0.4 MG PO UD PRN for CHEST PAIN, (Reported) 1 TAB UNDER TONGUE EVERY 5 MIN UP TO 3 DOSES Pantoprazole Sodium 40 Mg Tablet.dr, 40 MG PO DAILY, (Reported) Rosuvastatin Calcium 40 Mg Tablet, 20 MG PO HS, (Reported) TAKES 1/2 (40MG) TABLET Spironolactone 25 Mg Tablet, 25 MG PO DAILY, (Reported) Tamsulosin HCl 0.4 Mg Cap.er.24h, 0.4 MG PO 1730, (Reported) Umeclidinium [place] 62.5 Mcg Blst.w.dev, 1 PUFF INH DAILY, (Reported) Patient Home Medication List Home Medication List Reviewed: Yes Review of Systems Constitutional: see HPI; No chills, No diaphoresis EENTM: No Symptoms Reported Respiratory: See HPI; Denies Cough; Shortness of Air, SOA With Exertion, SOA at Rest; Denies Stridor, Denies Wheezing Cardiovascular: See HPI, Chest Pain Gastrointestinal: See HPI Genitourinary: No Symptoms Reported Musculoskeletal: no symptoms reported Skin: no symptoms reported Psychiatric/Neurological: No Symptoms Reported Endocrine: No Symptoms Reported Past Smiytaq-Jsbvuf-Fvccmx Hx Patient Social History Type Used: Cigarettes 2nd Hand Smoke Exposure: Yes Recent Foreign Travel: No Contact w/Someone Who Travel: No Recent Hopitalizations: Yes Immunizations Up To Date Tetanus Booster (TDap): More than 5yrs PED Vaccines UTD: No Date of Pneumonia Vaccine: Nov 03, 2015 Date of Influenza Vaccine: Jun 19, 2015 Seasonal Allergies Seasonal Allergies: No Past Medical History Surgeries: Yes (STENTS X 3) Cardiac, CABG, Coronary Stent, Defibrillator Respiratory: Yes (MEDIASTINAL LYMPHADENOPATHY--BEING MONITORED BY PCP & DR. TAPIA, HOME O2 HS) Asthma, Sleep Apnea, COPD, Emphysema Currently Using CPAP: No Currently Using BIPAP: No Cardiac: Yes (AL X2; SYNCOPE PRIOR TO DEFIBRILLATOR PLACEMENT; CHF) Atrial Fibrillation, Coronary Artery Disease, Heart Attack, High Cholesterol, Hypertension, Syncope Neurological: Yes (LEFT SIDE WEAKNESS, BALANCE PROBLEMS/ FALLS) Stroke Reproductive Disorders: No Sexually Transmitted Disease: No HIV/AIDS: No Genitourinary: Yes Kidney Stones Gastrointestinal: Yes (GASTRITIS) Gastroesophageal Reflux, Diverticulosis, Esophagitis, Hiatal Hernia Musculoskeletal: Yes Arthritis, Chronic Back Pain, Fractures Endocrine: No ("POSSIBLE THYROID PROBLEMS") HEENT: Yes Loss of Vision: Denies Hearing Impairment: Hard of Hearing Cancer: Yes Skin Psychosocial: No Integumentary: No Blood Disorders: Yes (NOT CURRENT BUT HX OF ANEMIA OF UNKNOWN CAUSE) Adverse Reaction/Blood Tranf: No Family Medical History Fam hx-osteoporosis 03 MOTHER Family history: Hypertension 03 MOTHER, Onset:50's - 60 09 SISTER, Onset:40's - 50 Thyroid disease 03 MOTHER No Family History of: Cancer Chest pain Dementia Family history: Diabetes mellitus Stroke Heart Disease, Hypertension Physical Exam Vital Signs Vital Signs - First Documented 04/12/18 10:42 Temp 97.1 Pulse 87 Resp 18 B/P (MAP) 118/76 (90) Pulse Ox 93 O2 Delivery Room Air Capillary Refill : Height, Weight, BMI Height: 5'8.00" Weight: 201lbs. 1.0oz. 91.443783sv; 30.6 BMI Method:Stated General Appearance: No Apparent Distress, WD/WN, Chronically ill HEENT: PERRL/EOMI, TMs Normal Neck: Full Range of Motion, Normal Inspection; No JVD Respiratory: No Accessory Muscle Use, No Respiratory Distress, Decreased Breath Sounds Cardiovascular: Regular Rate, Rhythm, Normal Peripheral Pulses Gastrointestinal: Normal Bowel Sounds, Non Tender, Soft Extremity: Normal Capillary Refill, Normal Inspection, No Pedal Edema Neurologic/Psychiatric: Alert, Oriented x3, No Motor/Sensory Deficits Skin: Normal Color, Warm/Dry Progress/Results/Core Measures Results/Orders Lab Results Laboratory Tests Test 04/12/18 11:10 Range/Units White Blood Count 10.2 4.3-11.0 10^3/uL Red Blood Count 4.33 L 4.35-5.85 10^6/uL Hemoglobin 13.0 L 13.3-17.7 G/DL Hematocrit 38 L 40-54 % Mean Corpuscular Volume 89 80-99 FL Mean Corpuscular Hemoglobin 30 25-34 PG Mean Corpuscular Hemoglobin Concent 34 32-36 G/DL Red Cell Distribution Width 15.2 H 10.0-14.5 % Platelet Count 372 130-400 10^3/uL Mean Platelet Volume 9.4 7.4-10.4 FL Neutrophils (%) (Auto) 65 42-75 % Lymphocytes (%) (Auto) 19 12-44 % Monocytes (%) (Auto) 13 H 0-12 % Eosinophils (%) (Auto) 4 0-10 % Basophils (%) (Auto) 0 0-10 % Neutrophils # (Auto) 6.6 1.8-7.8 X 10^3 Lymphocytes # (Auto) 1.9 1.0-4.0 X 10^3 Monocytes # (Auto) 1.3 H 0.0-1.0 X 10^3 Eosinophils # (Auto) 0.4 H 0.0-0.3 10^3/uL Basophils # (Auto) 0.0 0.0-0.1 10^3/uL Prothrombin Time 17.7 H 12.2-14.7 SEC INR Comment 1.5 H 0.8-1.4 Activated Partial Thromboplast Time 38 H 24-35 SEC Sodium Level 137 135-145 MMOL/L Potassium Level 4.2 3.6-5.0 MMOL/L Chloride Level 104 98-107 MMOL/L Carbon Dioxide Level 23 21-32 MMOL/L Anion Gap 10 5-14 MMOL/L Blood Urea Nitrogen 27 H 7-18 MG/DL Creatinine 1.48 H 0.60-1.30 MG/DL Estimat Glomerular Filtration Rate 47 BUN/Creatinine Ratio 18 Glucose Level 110 H 70-105 MG/DL Calcium Level 9.4 8.5-10.1 MG/DL Magnesium Level 2.2 1.8-2.4 MG/DL Total Bilirubin 0.9 0.1-1.0 MG/DL Aspartate Amino Transf (AST/SGOT) 18 5-34 U/L Alanine Aminotransferase (ALT/SGPT) 15 0-55 U/L Alkaline Phosphatase 80 40-136 U/L Myoglobin 40.5 10.0-92.0 NG/ML Troponin I < 0.30 <0.30 NG/ML B-Type Natriuretic Peptide 637.1 H <100.0 PG/ML Total Protein 7.8 6.4-8.2 GM/DL Albumin 4.1 3.2-4.5 GM/DL My Orders Orders - IRASEMA RASCON [employer]PRESENTATIVE Cbc With Automated Diff (04/12/18 10:52) Magnesium (04/12/18 10:52) Chest 1 View, Ap/Pa Only (04/12/18 10:52) Ekg Tracing (04/12/18 10:52) Cardiac Profile 1 (04/12/18 10:52) Comprehensive Metabolic Panel (04/12/18 10:52) Myoglobin Serum (04/12/18 10:52) Protime With Inr (04/12/18 10:52) Partial Thromboplastin Time (04/12/18 10:52) O2 (04/12/18 10:52) Monitor-Rhythm Ecg Trace Only (04/12/18 10:52) Lipid Panel (04/13/18 06:00) Saline Lock/Iv-Start (04/12/18 10:52) BNP (04/12/18 10:52) Furosemide Injection (Lasix Injection) (04/12/18 12:00) Medications Given in ED Current Medications Medications Dose Ordered Sig/Henry Route Start Time Stop Time Status Last Admin Dose Admin Albuterol/ Ipratropium 3 ml STK-MED ONCE .ROUTE 04/12/18 10:52 04/12/18 10:55 DC 04/12/18 10:55 3 ML Vital Signs/I&O 04/12/18 04/12/18 10:42 10:55 Temp 97.1 Pulse 87 Resp 18 B/P (MAP) 118/76 (90) Pulse Ox 93 92 O2 Delivery Room Air Room Air Diagnostic Imaging Diagonstic Imaging: Xray Comments NAME: RODRIGUE PICHARDO MED REC#: [id number] PT STATUS: REG ER : 1945 PHYSICIAN: IRASEMA RASCON APRN ADMIT DATE: 04/12/18/ER Draft Date of Exam:04/12/18 CHEST 1 VIEW, AP/PA ONLY Portable erect AP chest at 1117 hours. INDICATION: Shortness of breath. FINDINGS: The heart is enlarged and both the heart and the central pulmonary vascularity do seem slightly more prominent than noted on the prior exam of 04/04/2018. Consequently, there may be an element of mild pulmonary congestion present. There is still no confluent pneumonia identified and there is no sign of a significant pleural effusion. The mediastinum is not widened. The osseous structures are intact. The sternal wires, surgical clips and left-sided defibrillator device seen on the prior study are again evident and no different. IMPRESSION: The slight prominence of the heart and the central pulmonary vascularity when compared to the prior exam does suggest that there may now be an element of mild pulmonary congestion present. Clinical followup is recommended. Dictated on workstation # [id number] Dict: 04/12/18 1124 Trans: 04/12/18 1131 [id number] Interpreted by: SUSIE GEORGES MD Electronically signed by: Departure Communication (Admissions) Time/Spoke to Admitting Phy: 12:[address] Guzman who is on-call for [facility]. We will admit, consult cardiology Time/Spoke to Consulting Phy: 12:[address] Gregory as patient's primary charge manager, Dr. Logan, is out of town and Dr. Gregory is covering. We'll admit the patient, here in the emergency room, here he had 40 mg at home this morning. Blood pressure is currently 105/ 72. Impression Primary Impression: Ischemic cardiomyopathy Disposition: ADMITTED INPATIENT Condition: Stable Admissions Decision to Admit Reason: Admit from ER (General) Decision to Admit/Date: Apr 12, 2018 Time/Decision to Admit Time: 12:00 Departure-Patient Inst. Referrals: [facility] (PCP/Family) Primary Care Physician IRASEMA RASCON APRN Apr 12, 2018 11:21
--- NOTE | 2018-04-12 11:31 | Diagnostic Imaging Report ---
Portable erect AP chest at 1117 hours. INDICATION: Shortness of breath. FINDINGS: The heart is enlarged and both the heart and the central pulmonary vascularity do seem slightly more prominent than noted on the prior exam of 04/04/2018. Consequently, there may be an element of mild pulmonary congestion present. There is still no confluent pneumonia identified and there is no sign of a significant pleural effusion. The mediastinum is not widened. The osseous structures are intact. The sternal wires, surgical clips and left-sided defibrillator device seen on the prior study are again evident and no different. IMPRESSION: The slight prominence of the heart and the central pulmonary vascularity when compared to the prior exam does suggest that there may now be an element of mild pulmonary congestion present. Clinical followup is recommended. Dictated by: Dictated on workstation # [id number]
[2018-04-12 11:32] LABS: INR 1.5 (0.8-1.4); PROTHROMBIN TIME PATIENT 17.7 SEC (12.2-14.7)
[2018-04-12 11:43] LABS: ALANINE AMINOTRANSFERASE 15 U/L (0-55); ALBUMIN 4.1 GM/DL (3.2-4.5); ALKALINE PHOSPHATASE 80 U/L (40-136); BILIRUBIN,TOTAL 0.9 MG/DL (0.1-1.0); BUN/CREATININE RATIO 18; CALCIUM 9.4 MG/DL (8.5-10.1); CARBON DIOXIDE 23 MMOL/L (21-32); CHLORIDE 104 MMOL/L (98-107); CREATININE SERUM 1.48 MG/DL (0.60-1.30); GFR ESTIMATED 47; GLUCOSE 110 MG/DL (70-105); MAGNESIUM 2.2 MG/DL (1.8-2.4); POTASSIUM 4.2 MMOL/L (3.6-5.0); SODIUM 137 MMOL/L (135-145); TOTAL PROTEIN 7.8 GM/DL (6.4-8.2)
[2018-04-12 11:49] LABS: MYOGLOBIN SERUM 40.5 NG/ML (10.0-92.0)
[2018-04-12] MEDS ORDERED: FUROSEMIDE 40 MG/4 ML INJ (LASIX) IVP ONE ×2 (12:00→12:30)
[2018-04-12 13:23] VITALS: BP 116/77
[2018-04-12] MEDS ORDERED: CATHETER FLUSH 10 ML SYR IV PRN (13:30)
[2018-04-12] MEDS ORDERED: AMIO200T4 PO (13:55)
[2018-04-12] MEDS ORDERED: FLUT1AER INH (13:55)
[2018-04-12] MEDS ORDERED: ALBU18HF2 INH (13:55)
[2018-04-12] MEDS: CATHETER FLUSH 10 ML SYR IV SCH ×2 (14:33→21:14)
[2018-04-12] MEDS ORDERED: RT-ALBUTEROL/IPRATROPIUM 3 ML (DUONEB) VIAL INH PRN (15:15)
[2018-04-12 16:33] VITALS: BP 109/60
[2018-04-12] MEDS ORDERED: FUROSEMIDE 40 MG/4 ML INJ (LASIX) IVP NR (17:45)
[2018-04-12] MEDS ORDERED: CYCLOBENZAPRINE 10 MG (FLEXERIL) TAB PO PRN (17:45)
--- NOTE | 2018-04-12 18:01 | Consultation-Cardiology ---
HPI-Cardiology Cardiology Consultation: Date of Consultation 04/12/18 Date of Admission Attending Physician Ashley Guzman DO Admitting Physician [place] Consulting Physician Carlito GREGORY MD HPI: Time Seen by Provider: 17:30 Chief Complaint: Shortness of breath This is a 72-year-old gentleman who has history of cardiomyopathy and ICD. He recently was admitted with appropriate ICD shock due to VT/VF. He was started on amiodarone. He presents to the ER with worsening shortness of breath. No significant weight gain. Stable blood pressure. No significant chest pain. Continues to be in atrial fibrillation. Review of Systems-Cardiology Review of Systems Constitutional: As described under HPI; No As described under HPI, No no symptoms reported, No chills, No fever, No lightheadedness Eyes: No As described under HPI, No no symptoms reported, No blindness, No blurred vision, No contact lenses, No drainage, No decreased acuity, No foreign body sensation, No pain, No vision change Ears/Nose/Throat: No As described under HPI, No no symptoms reported, No chronic hearing loss, No ear discharge, No ear pain, No nasal drainage, No ulcerations Respiratory: No no symptoms reported; As described under HPI; No As described under HPI, No cough, No orthopnea; shortness of breath; No SOB with excertion Cardiovascular: No no symptoms reported; As described under HPI; No As described under HPI, No chest pain, No edema, No irregular heart rate, No lightheadedness, No palpitations Gastrointestinal: No no symptoms reported, No As described under HPI, No abdomen distended, No abdominal pain, No blood streaked bowels, No constipation , No diarrhea, No nausea, No vomiting, No stool coloration changes Genitourinary: No As described under HPI, No burning, No dysuria, No discharge , No frequency, No flank pain, No hematuria, No urgency Musculoskeletal: No no symptoms reported, No As describe under HPI, No back pain, No gout, No joint pain, No joint swelling, No muscle pain, No muscle stiffness, No neck pain, No other Skin: No no symptoms reported, No As described under HPI, No change in color, No change in hair/nails, No dryness, No lesions, No lumps, No rash, No other, No skin related problems, No ulcerations, No rash on exposed areas, No ulcerations on exposed areas Psychiatric/Neurological: No anxiety, No depression, No seizure, No focal weakness, No syncope Hematologic: No bleeding abnormalities AEX-Humvwh-Hujjoq Hx Patient Social History Alcohol Use: Denies Use Recreational Drug Use: No Smoking Status: Former Smoker Type Used: Cigarettes 2nd Hand Smoke Exposure: Yes Recent Foreign Travel: No Recent Infectious Disease Expo: No Hospitalization with Isolation: Denies Physical Abuse Screen: No Sexual Abuse: No Immunizations Up To Date Tetanus Booster (TDap): More than 5yrs Date of Pneumonia Vaccine: Nov 03, 2015 Date of Influenza Vaccine: Jun 19, 2015 Past Medical History PMH As described under Assessment. Family Medical History Family Medical History: He reports his sister had HTN and his mother. Family History: Fam hx-osteoporosis 03 MOTHER Family history: Hypertension 03 MOTHER, Onset:50's - 60 09 SISTER, Onset:40's - 50 Thyroid disease 03 MOTHER No Family History of: Cancer Chest pain Dementia Family history: Diabetes mellitus Stroke Allergies and Home Medications Allergies Coded Allergies: Penicillins (Unverified Allergy, Unknown, 05/29/16) Home Medications Albuterol Sulfate 2.5 Mg/3 Ml Vial.neb, 2.5 MG NEB Q4H PRN for SHORTNESS OF BREATH, (Reported) Albuterol Sulfate 18 Gm Hfa.aer.ad, 2 PUFF INH QID PRN for SHORTNESS OF BREATH, (Reported) Amiodarone HCl 200 Mg Tablet, 400 MG PO BID, (Reported) TAKES 2 (200MG) TABLETS Apixaban 5 Mg Tablet, 5 MG PO BID, (Reported) Aspirin 81 Mg Tablet.dr, 81 MG PO DAILY, (Reported) Cyclobenzaprine HCl 10 Mg Tablet, 10 MG PO TID PRN for MUSCLE SPASMS, (Reported) Diltiazem HCl 300 Mg Cap.er.24h, 300 MG PO DAILY, (Reported) Fluticasone/Vilanterol 1 Each Blst.w.dev, 1 PUFF INH DAILY, (Reported) Furosemide 40 Mg Tablet, 40 MG PO DAILY, (Reported) Levalbuterol Tartrate 15 Gm Hfa.aer.ad, 2 PUFF IH Q6H PRN for SHORTNESS OF BREATH, (Reported) Losartan Potassium 25 Mg Tablet, 12.5 MG PO DAILY, (Reported) TAKES 1/2 OF A (25 MG) TABLET Nitroglycerin 0.4 Mg Tab.subl, 0.4 MG PO UD PRN for CHEST PAIN, (Reported) 1 TAB UNDER TONGUE EVERY 5 MIN UP TO 3 DOSES Pantoprazole Sodium 40 Mg Tablet.dr, 40 MG PO DAILY, (Reported) Rosuvastatin Calcium 40 Mg Tablet, 20 MG PO HS, (Reported) TAKES 1/2 (40MG) TABLET Spironolactone 25 Mg Tablet, 25 MG PO DAILY, (Reported) Tamsulosin HCl 0.4 Mg Cap.er.24h, 0.4 MG PO 1730, (Reported) Umeclidinium [place] 62.5 Mcg Blst.w.dev, 1 PUFF INH DAILY, (Reported) Patient Home Medication List Home Medication List Reviewed: Yes Physical Exam-Cardiology Physical Exam Vital Signs/I&O 04/13/18 04/13/18 04/13/18 04/13/18 03:47 06:43 07:00 07:55 Temp 99.0 97.7 Pulse 80 84 94 Resp 18 16 B/P (MAP) 103/70 (81) 128/71 (90) Pulse Ox 96 93 93 O2 Delivery Nasal Cannula Room Air Nasal Cannula O2 Flow Rate 2.00 2.00 04/13/18 04/13/18 04/13/18 04/13/18 08:16 10:22 12:00 13:00 Temp 97.5 Pulse 95 85 Resp 20 B/P (MAP) 110/67 (81) Pulse Ox 93 90 93 O2 Delivery Room Air Room Air Room Air O2 Flow Rate 0.00 04/13/18 14:21 Pulse Ox 94 O2 Delivery Room Air 04/13/18 00:00 Intake Total 780 ml Output Total 1250 ml Balance -470 ml Capillary Refill : Less Than 3 Seconds Constitutional: appears stated age, AAO x 3; No apparent distress; well- developed, well-nourished HEENT: PERRL; No normal ENT inspection, No TMs normal, No pharynx normal, No scleral icterus (R), No scleral icterus (L), No pale conjunctivae (R), No pale conjunctivae (L), No photophobia, No TM abnormal (R), No TM abnormal (L), No pharyngeal erythema, No tonsillar exudate, No other, No discharge, No EOMI; hearing is well preserved; No hard of hearing; oral hygience is good; No ulceration, No xanthelasmas are seen Neck: No non-tender, No full range of motion, No supple, No normal inspection, No carotid bruit, No limited range of motion, No lymphadenopathy (R), No lymphadenopathy (L), No tender lateral, No tender midline, No thyromegaly, No other; carotid pulses are 2 + bilaterally; No with good upstrokes Respiratory: No accessory muscle use, No respiratory distress, No chest tender , No chest expansion is symmetric; chest is bilaterally symmetric; No lungs clear to percussion; lungs clear to auscultation; No crackles, No rhonchi, No rales, No stridor, No wheezing, No pleural rub, No other Cardiovascular: irregularly irregular, S1 and S2 Gastrointestinal: No tender, No soft, No round, No distended, No pulsatile mass , No organomegaly, No guarding, No rebound, No tenderness, No hernia, No mass, No audible bowel sounds, No abnormal bowel sounds, No abdominal bruits, No spleenomegaly, No other Rectal: deferred Extremities: No normal range of motion, No non-tender, No normal inspection, No pedal edema, No calf tenderness, No normal capillary refill, No pelvis stable , No calf tenderness, No inflammation, No pedal edema, No slow capillary refill , No swelling, No other, No abrasion, No clubbing, No cyanosis, No ecchymosis, No laceration, No no lower extremity edema bilateral, No significant edema, No tenderness, No wound Neurologic/Psychiatric: no motor/sensory deficits, alert, normal mood/affect, oriented x 3, power is 5/5 both on sides Skin: No normal color, No warm/dry, No cyanosis, No cool, No diaphoresis, No damp, No ecchymosis, No jaundice, No mottled, No pallor, No rash, No tattoos/ piercings, No ulcerations, No rash on exposed areas, No ulcerations on exposed areas, No other Data Review Labs Laboratory Tests 04/13/18 07:08: Sodium Level 134L, Potassium Level 3.9, Chloride Level 100, Carbon Dioxide Level 20L, Anion Gap 14, Blood Urea Nitrogen 29H, Creatinine 1.56H, Estimat Glomerular Filtration Rate 44, BUN/Creatinine Ratio 19, Glucose Level 129H, Calcium Level 9.7, Triglycerides Level 59, Cholesterol Level 136, LDL Cholesterol Direct 77, VLDL Cholesterol 12, HDL Cholesterol 46 A/P-Cardiology Assessment/Admission Diagnosis Shortness of breath, Acute mild systolic congestive heart failure, Atrial fibrillation, ICD, History of ventricular fibrillation, Chronic kidney disease Plan Shortness of breath, likely due to acute on chronic mild systolic congestive heart failure. Acute mild systolic congestive heart failure, IV Lasix 80 mg. Salt restriction , fluid restriction. Atrial fibrillation, oral anticoagulation. ICD, recent device interrogation was normal parameters. History of ventricular fibrillation, continue amiodarone. Chronic kidney disease, will likely require renal consultation as an outpatient. Thank you for your consultation. Please call me if you have any questions. Kyler Gregory MD, FACP, FACC, FSCAI, FHRS, CCDS Interventional Cardiology Cardiac Electrophysiology Vascular Medicine and Endovascular Interventions Clinical Quality Measures AMI/AHF: ASA po Prior to arrival: No DVT/VTE Risk/Contraindication: Risk Factor Score Per Nursin RFS Level Per Nursing on Admit: 3=High Carlito GREGORY MD Apr 12, 2018 18:01
[2018-04-12] MEDS: RT-ALBUTEROL/IPRATROPIUM 3 ML (DUONEB) VIAL INH SCH ×2 (18:30→21:47)
[2018-04-12 20:59] VITALS: BP 109/60
[2018-04-12] MEDS ORDERED: NON-FORMULARY MEDICATION 1 EA EA (Rosuvastatin Calcium 20 MG) PO SCH (21:00)
[2018-04-12] MEDS: AMIODARONE 200 MG (CORDARONE) TAB PO SCH (21:14)
[2018-04-12] MEDS: APIXABAN 5 MG (ELIQUIS) TABLET PO SCH (21:14)
[2018-04-12] MEDS: ROSUVASTATIN 20 MG (CRESTOR) TABLET PO SCH (21:14)
[2018-04-12 23:42] VITALS: BP 94/62
[2018-04-13] MEDS: RT-ALBUTEROL/IPRATROPIUM 3 ML (DUONEB) VIAL INH SCH ×6 (01:07→21:13)
[2018-04-13 03:47] VITALS: BP 103/70
[2018-04-13] MEDS ORDERED: FUROSEMIDE 40 MG/4 ML INJ (LASIX) IVP NR (06:00)
[2018-04-13] MEDS: UMECLIDINIUM BROMIDE (INCRUSE ELLIPTA) 7'S IH SCH (06:39)
[2018-04-13] MEDS: CATHETER FLUSH 10 ML SYR IV SCH ×3 (06:50→20:39)
[2018-04-13] MEDS: RT-ADVAIR HFA 115/21 MCG PER PUFF IH SCH (06:50)
[2018-04-13] MEDS: PANTOPRAZOLE 40 MG (PROTONIX) TAB PO SCH (06:50)
[2018-04-13 07:55] VITALS: BP 128/71
[2018-04-13 08:03] LABS: CALCIUM 9.7 MG/DL (8.5-10.1); CREATININE SERUM 1.56 MG/DL (0.60-1.30); POTASSIUM 3.9 MMOL/L (3.6-5.0)
[2018-04-13 08:18] LABS: CHOLESTEROL 136 MG/DL (< 200); HDL CHOLESTEROL 46 MG/DL (40-60); TRIGLYCERIDES 59 MG/DL (<150); VLDL CHOLESTEROL 12 MG/DL (5-40)
[2018-04-13] MEDS: DILTIAZEM 300 MG (CARDIZEM CD) CAP PO SCH (08:28)
[2018-04-13] MEDS: ASPIRIN E.C. 81 MG (ECOTRIN) TAB PO SCH (08:28)
[2018-04-13] MEDS: APIXABAN 5 MG (ELIQUIS) TABLET PO SCH ×2 (08:28→20:37)
[2018-04-13] MEDS: LOSARTAN 25 MG (COZAAR) TAB PO SCH (08:28)
[2018-04-13] MEDS: AMIODARONE 200 MG (CORDARONE) TAB PO SCH ×2 (08:28→20:37)
[2018-04-13] MEDS: SPIRONOLACTONE 25 MG (ALDACTONE) TAB PO SCH (08:28)
[2018-04-13] MEDS ORDERED: LOSARTAN POTASSIUM 12.5 MG PO SCH (09:00)
[2018-04-13] MEDS ORDERED: NON-FORMULARY MEDICATION 1 EA EA (Fluticasone/Vilanterol (Breo Ellipta 100-25 Mcg INH) 1 P INH SCH (09:00)
[2018-04-13] MEDS ORDERED: DILTIAZEM HCL 300 MG PO SCH (09:00)
[2018-04-13] MEDS: FUROSEMIDE 40 MG (LASIX) TAB PO SCH (10:04)
--- NOTE | 2018-04-13 10:28 | History & Physicial (CHS) ---
HPI History of Present Illness: Pt presented to ED yesterday afternoon with increased shortness of breath that had been going on for the last few weeks. He was reportedly admitted recently at [facility] following a discharge of his ICD x2 at home. Since that time he has progressively worsening shortness of breath. He follows with Dr. Wilson for Cardiology. He has previously been on Imdur, which was stopped last week; it was originally started for chronic chest pain which improved after the medication was started. Since stopping the Imdur last week, his chest pain is mild, but has started again. On arrival to the ED he was noted to have a HR of 87 in atrial fibrillation, blood pressure 118/74 and oxygen 90-94% on room air; pt reports that earlier this morning he had a HR up to 130 and a systolic blood pressure in the 70's. Review of clinic records show that he had a follow up on 04/11/18 with his PCP, Carlitos MCDANIEL, and reported that he was placed back on amiodarone per cardiology while in the hospital. He also reported that he has not been able to sleep since discharge from the hospital, and that Dr. Jarvis is looking into obtaining home CPAP for him. At his clinic visit his vitals were recorded as HR 82, RR 22, BP 109/70 and O2 Sat 96% on RA. Review of hospital records show that his was discharged on 04/04/2018 after presenting 04/03/2018 with complaint of fatigue and shortness of breath for the last week with near syncopal spells, with discharge of his ICD the previous day. He can now only walk a short distance without sitting down to catch his breath, and walking makes him feel like his heart is pounding. He denied missing any medications, but reports he had been seen in an ER in [place] and had some of his medications stopped - it appears that at least one of these was digoxin. Cardiology notes report that interrogation of his device show discharge of his ICD after Polymorphic VT that rapidly deteriorated into ventricular fibrillation, and that the patient had 3 other episodes of non- sustained VT, although he did not recall any symptoms during those times. He has been in afib for 3-4 years, and per echo he has moderate to severe left atrial enlargement. He had a cardiac cath in January 2018 that showed LVEF 15%. The patient was admitted for further work up with consult to cardiology given the patient's extremely significant and complex cardiac history. Source: patient, family, RN/MD, RN notes reviewed, old records Exam Limitations: no limitations Date seen by provider: Apr 13, 2018 Time Seen by Provider: 14:37 Attending Physician Darby Justin DO PCP Carlitos MCDANIEL Consult Dr. Gregory - Cardiology Date of Admission Apr 12, 2018 at 12:06 Home Medications Home Medications Reviewed patient Home Medication Reconciliation performed by pharmacy medication reconciliations turbine technician and/or nursing. Patients Allergies have been reviewed. Allergies Coded Allergies: Penicillins (Unverified Allergy, Unknown, 05/29/16) EDW-Tecrff-Pshhhb Hx Patient Social History Marrital Status: Living Status: lives with Employed/Student: retired Alcohol Use: Denies Use Recreational Drug Use: No Smoking Status: Former Smoker Former smoker/When Quit: Apr 04, 2018 Type Used: Cigarettes 2nd Hand Smoke Exposure: Yes Recent Foreign Travel: No Contact w/other who traveled: No Recent Hopitalizations: Yes (04/03/18 - 04/04/18) Recent Infectious Disease Expo: No Physical Abuse Screen: No Sexual Abuse: No Immunizations Up To Date Tetanus Booster (TDap): More than 5yrs Date of Pneumonia Vaccine: Nov 03, 2015 Date of Influenza Vaccine: Jun 19, 2015 Past Medical History Past Medical History 1. CHF- ischemic cardiomyopathy EF 15% per cardiac cath January 2018 2. COPD 3. Tobaccoism - quit 04/03/18 4. Anemia, Iron deficiency with chronic GI blood loss, worked up and gastritis per EGD- Dr. Tinoco follows 5. Mediastinal lymphadenopathy-followed by Dr. Tinoco per CT 5--15 6. CAD with HO CABG 7. Hiatal Hernia 8. Diverticulosis 9. History of severe anemia requiring transfusion- EGD demonstrating gastritis, no active bleeding 10. HLP 11. Hypotension 12. Intolerance to BENJI-I 13. Proxismal Atrial Fibrillation with chronic anticoagulation -Dr. Wilson 14. 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 Possible Migraines 16. Basal Cell Carcinoma - Dr. Alvarez 17. Subclinical hyperthyroidism 02/2018 18. Nocturnal Oxygen use Past Surgical History 1. CABG 2005 2. Cardiac Cath, multiple - most recently January 2018 3. EGD/Colonoscopy- 2012, [facility] 4. Defibrillator implant- 2010 Dr. Wilson 5. Excision of lesion Left ear 01-19-14 Dr. Ahumada Family Medical History Significant Family History: Heart Disease, Hypertension Family History: Fam hx-osteoporosis 03 MOTHER Family history: Hypertension 03 MOTHER, Onset:50's - 60 09 SISTER, Onset:40's - 50 Thyroid disease 03 MOTHER No Family History of: Cancer Chest pain Dementia Family history: Diabetes mellitus Stroke Review of Systems (CHC) Constitutional: see HPI Respiratory: see HPI Cardiovascular: see HPI Gastrointestinal: no symptoms reported Genitourinary: no symptoms reported Musculoskeletal: no symptoms reported Skin: no symptoms reported Psychiatric/Neurological: See HPI Reviewed Test Results Reviewed Test Results Lab Laboratory Tests Test 04/12/18 11:10 04/13/18 07:08 Range/Units White Blood Count 10.2 4.3-11.0 10^3/uL Red Blood Count 4.33 L 4.35-5.85 10^6/uL Hemoglobin 13.0 L 13.3-17.7 G/DL Hematocrit 38 L 40-54 % Mean Corpuscular Volume 89 80-99 FL Mean Corpuscular Hemoglobin 30 25-34 PG Mean Corpuscular Hemoglobin Concent 34 32-36 G/DL Red Cell Distribution Width 15.2 H 10.0-14.5 % Platelet Count 372 130-400 10^3/uL Mean Platelet Volume 9.4 7.4-10.4 FL Neutrophils (%) (Auto) 65 42-75 % Lymphocytes (%) (Auto) 19 12-44 % Monocytes (%) (Auto) 13 H 0-12 % Eosinophils (%) (Auto) 4 0-10 % Basophils (%) (Auto) 0 0-10 % Neutrophils # (Auto) 6.6 1.8-7.8 X 10^3 Lymphocytes # (Auto) 1.9 1.0-4.0 X 10^3 Monocytes # (Auto) 1.3 H 0.0-1.0 X 10^3 Eosinophils # (Auto) 0.4 H 0.0-0.3 10^3/uL Basophils # (Auto) 0.0 0.0-0.1 10^3/uL Prothrombin Time 17.7 H 12.2-14.7 SEC INR Comment 1.5 H 0.8-1.4 Activated Partial Thromboplast Time 38 H 24-35 SEC Sodium Level 137 134 L 135-145 MMOL/L Potassium Level 4.2 3.9 3.6-5.0 MMOL/L Chloride Level 104 100 98-107 MMOL/L Carbon Dioxide Level 23 20 L 21-32 MMOL/L Anion Gap 10 14 5-14 MMOL/L Blood Urea Nitrogen 27 H 29 H 7-18 MG/DL Creatinine 1.48 H 1.56 H 0.60-1.30 MG/DL Estimat Glomerular Filtration Rate 47 44 BUN/Creatinine Ratio 18 19 Glucose Level 110 H 129 H 70-105 MG/DL Calcium Level 9.4 9.7 8.5-10.1 MG/DL Magnesium Level 2.2 1.8-2.4 MG/DL Total Bilirubin 0.9 0.1-1.0 MG/DL Aspartate Amino Transf (AST/SGOT) 18 5-34 U/L Alanine Aminotransferase (ALT/SGPT) 15 0-55 U/L Alkaline Phosphatase 80 40-136 U/L Myoglobin 40.5 10.0-92.0 NG/ML Troponin I < 0.30 <0.30 NG/ML B-Type Natriuretic Peptide 637.1 H <100.0 PG/ML Total Protein 7.8 6.4-8.2 GM/DL Albumin 4.1 3.2-4.5 GM/DL Triglycerides Level 59 <150 MG/DL Cholesterol Level 136 < 200 MG/DL LDL Cholesterol Direct 77 1-129 MG/DL VLDL Cholesterol 12 5-40 MG/DL HDL Cholesterol 46 40-60 MG/DL Radiology Date of Exam:04/12/18 CHEST 1 VIEW, AP/PA ONLY Portable erect AP chest at 1117 hours. INDICATION: Shortness of breath. FINDINGS: The heart is enlarged and both the heart and the central pulmonary vascularity do seem slightly more prominent than noted on the prior exam of 04/04/2018. Consequently, there may be an element of mild pulmonary congestion present. There is still no confluent pneumonia identified and there is no sign of a significant pleural effusion. The mediastinum is not widened. The osseous structures are intact. The sternal wires, surgical clips and left-sided defibrillator device seen on the prior study are again evident and no different. IMPRESSION: The slight prominence of the heart and the central pulmonary vascularity when compared to the prior exam does suggest that there may now be an element of mild pulmonary congestion present. Clinical followup is recommended. Physical Exam-(CHC) Physical Exam Vital Signs VS - Last 72 Hours, by Label 04/12/18 04/12/18 04/12/18 04/12/18 10:42 10:55 12:54 13:23 Temp 97.1 98.2 96.9 Pulse 87 86 86 Resp 18 14 20 B/P (MAP) 118/76 (90) 103/77 116/77 (90) Pulse Ox 93 92 92 96 O2 Delivery Room Air Room Air Nasal Cannula Nasal Cannula O2 Flow Rate 2.00 2.00 04/12/18 04/12/18 04/12/18 04/12/18 13:27 13:36 15:00 16:33 Temp 97.3 Pulse 87 89 Resp 20 B/P (MAP) 109/60 (76) Pulse Ox 95 95 93 O2 Delivery Nasal Cannula Nasal Cannula O2 Flow Rate 2.00 2.00 FiO2 28 04/12/18 04/12/18 04/12/18 04/12/18 18:32 19:00 20:59 21:47 Temp 98.3 Pulse 76 71 Resp 16 B/P (MAP) 109/60 (76) Pulse Ox 95 91 96 O2 Delivery Room Air Nasal Cannula Room Air O2 Flow Rate 2.00 04/12/18 04/12/18 04/13/18 04/13/18 22:03 23:42 01:00 01:07 Temp 98.3 Pulse 68 87 Resp 20 B/P (MAP) 94/62 (73) Pulse Ox 93 96 O2 Delivery Nasal Cannula Nasal Cannula Nasal Cannula O2 Flow Rate 2.00 2.00 2.00 04/13/18 04/13/18 04/13/18 04/13/18 03:47 06:43 07:00 07:55 Temp 99.0 97.7 Pulse 80 84 94 Resp 18 16 B/P (MAP) 103/70 (81) 128/71 (90) Pulse Ox 96 93 93 O2 Delivery Nasal Cannula Room Air Nasal Cannula O2 Flow Rate 2.00 2.00 04/13/18 04/13/18 04/13/18 04/13/18 08:16 10:22 12:00 13:00 Temp 97.5 Pulse 95 85 Resp 20 B/P (MAP) 110/67 (81) Pulse Ox 93 90 93 O2 Delivery Room Air Room Air Room Air O2 Flow Rate 0.00 04/13/18 04/13/18 04/13/18 14:00 14:21 16:00 Temp 98.9 Pulse 90 Resp 20 B/P (MAP) 118/84 (95) 109/71 (84) 108/71 (83) Pulse Ox 94 94 O2 Delivery Room Air Nasal Cannula O2 Flow Rate 2.00 Capillary Refill : Less Than 3 Seconds General Appearance: WD/WN, no apparent distress Eyes: Bilateral Eye Normal Inspection, Bilateral Eye EOMI HEENT: normal ENT inspection; No scleral icterus (R), No scleral icterus (L), No photophobia Neck: non-tender, full range of motion, supple, normal inspection Respiratory: chest non-tender, no respiratory distress, no accessory muscle use ; No respiratory distress; decreased breath sounds Cardiovascular: no edema, irregularly irregular Gastrointestinal: normal bowel sounds, non tender, soft, no organomegaly, no pulsatile mass; No distended, No guarding, No rebound Rectal: deferred Extremities: normal range of motion, non-tender, normal inspection, no pedal edema, no calf tenderness, normal capillary refill; No calf tenderness, No swelling Neurologic/Psychiatric: rock wool applicator II-XII nml as tested, no motor/sensory deficits, alert, normal mood/affect, oriented x 3 Skin: normal color, warm/dry Assessment/Plan Assessment/Plan Admission Dx Dyspnea Acute on Chronic Systolic Heart Failure Atrial Fibrillation Acute Kidney Injury ICD with recent discharge Hx of ventricular arrhythmias Nonischemic Cardiomyopathy Insomnia Admission Status: Inpatient Order (span 2 midnights) Reason for Inpatient Admission: treatment and stabilization of admission conditions Assessment & Plan Dyspnea 04/13 -much improved today compared to previous Acute on Chronic Systolic Heart Failure 04/13 -BNP 627 on admission -80 mg Lasix IVP given by Dr. Gregory this AM -Cardiology recommends patient be placed on 80 mg Lasix PO daily with 40 mEq KCl daily at discharge -okay for discharge today per cardiology standpoint Atrial Fibrillation 04/13 -chronic -on chronic anticoagulation -resume home meds for rate control Acute Kidney Injury 04/13 -Cr 1.48 --> 1.56 -Baseline Cr ~1.2 -will continue to monitor ICD with recent discharge 04/13 -admitted 04/03-04/04 Hx of ventricular arrhythmias -see HPI Nonischemic Cardiomyopathy 04/13 -ICD in place, with recent discharge as outlined above -EF 15% per cardiac cath in January 2018 Insomnia 04/13 -pt reports unable to sleep since his ICD discharged and he was in the hospital 04/03 -he discussed this with his PCP at his follow up appt, and tried melatonin, without any improvement -he is highly distressed at his inability to sleep -suspect that patient has some anxiety about his ICD potentially discharging again, as I think it was during nighttime hours that it previously occurred -will give pt ativan 2 mg PO tonight and see if that will help him to rest Overall, patient is much improved from admission, although highly distressed about his inability to sleep. Will keep tonight and monitor tolerance to ativan and see if it will allow pt to rest; hopeful that patient will do well and be ready for discharge tomorrow morning, with the changes in his medications as recommended by cardiology as listed above. Clinical Quality Measures AMI/AHF: ASA po Prior to arrival: No DVT/VTE Risk/Contraindication: Risk Factor Score Per Nursin RFS Level Per Nursing on Admit: 3=High Copy Copies To 1: [facility]/DARBY LEYVA DO Apr 13, 2018 10:27
[2018-04-13 12:00] VITALS: BP 110/67
[2018-04-13] MEDS ORDERED: KCL 20 MEQ TAB (K-DUR) PO NR (12:45)
[2018-04-13 14:00] VITALS: BP_SYST 108; BP_SYST 118; BP_DIAS 71; BP_DIAS 84
--- NOTE | 2018-04-13 14:54 | Cardiology Progress Note ---
Cardiology SOAP Progress Note Subjective: Significant improvement in shortness of breath. Objective: I&O/Vital Signs 04/13/18 04/13/18 04/13/18 04/13/18 03:47 06:43 07:00 07:55 Temp 99.0 97.7 Pulse 80 84 94 Resp 18 16 B/P (MAP) 103/70 (81) 128/71 (90) Pulse Ox 96 93 93 O2 Delivery Nasal Cannula Room Air Nasal Cannula O2 Flow Rate 2.00 2.00 04/13/18 04/13/18 04/13/18 04/13/18 08:16 10:22 12:00 13:00 Temp 97.5 Pulse 95 85 Resp 20 B/P (MAP) 110/67 (81) Pulse Ox 93 90 93 O2 Delivery Room Air Room Air Room Air O2 Flow Rate 0.00 04/13/18 14:21 Pulse Ox 94 O2 Delivery Room Air 04/13/18 00:00 Intake Total 780 ml Output Total 1250 ml Balance -470 ml Weight (Pounds): 205 Weight (Ounces): 3.0 Weight (Calculated Kilograms): [id number] Constitutional: appears stated age, AAO x 3; No apparent distress; well- developed, well-nourished Respiratory: No accessory muscle use, No respiratory distress, No chest tender , No chest expansion is symmetric; chest is bilaterally symmetric; No lungs clear to percussion; lungs clear to auscultation; No crackles, No rhonchi, No rales, No stridor, No wheezing, No pleural rub, No other Cardiovascular: irregularly irregular, S1 and S2 Gastrointestional: No tender, No soft, No round, No distended, No pulsatile mass, No organomegaly, No guarding, No rebound, No tenderness, No hernia, No mass, No audible bowel sounds, No abnormal bowel sounds, No abdominal bruits, No spleenomegaly, No other Extremities: No normal range of motion, No non-tender, No normal inspection, No pedal edema, No calf tenderness, No normal capillary refill, No pelvis stable , No calf tenderness, No inflammation, No pedal edema, No slow capillary refill , No swelling, No other, No abrasion, No clubbing, No cyanosis, No ecchymosis, No laceration, No no lower extremity edema bilateral, No significant edema, No tenderness, No wound Neurologic/Psychiatric: no motor/sensory deficits, alert, normal mood/affect, oriented x 3, power is 5/5 both on sides Skin: No normal color, No warm/dry, No cyanosis, No cool, No diaphoresis, No damp, No ecchymosis, No jaundice, No mottled, No pallor, No rash, No tattoos/ piercings, No ulcerations, No rash on exposed areas, No ulcerations on exposed areas, No other Results/Procedures: Labs Laboratory Tests 04/13/18 07:08: Sodium Level 134L, Potassium Level 3.9, Chloride Level 100, Carbon Dioxide Level 20L, Anion Gap 14, Blood Urea Nitrogen 29H, Creatinine 1.56H, Estimat Glomerular Filtration Rate 44, BUN/Creatinine Ratio 19, Glucose Level 129H, Calcium Level 9.7, Triglycerides Level 59, Cholesterol Level 136, LDL Cholesterol Direct 77, VLDL Cholesterol 12, HDL Cholesterol 46 A/P: Assessment/Dx: Shortness of breath, Acute mild systolic congestive heart failure, Atrial fibrillation, ICD, History of ventricular fibrillation, Chronic kidney disease Plan: Shortness of breath, significant improvement in shortness of breath. Acute mild systolic congestive heart failure, IV Lasix 80 mg. Salt restriction , fluid restriction. Can be discharged on Lasix 80 mg by mouth daily. Potassium supplementation. Follow-up with Dr. Wilson. Atrial fibrillation, oral anticoagulation. ICD, recent device interrogation was normal parameters. History of ventricular fibrillation, continue amiodarone. Chronic kidney disease, will likely require renal consultation as an outpatient. Thank you for your consultation. Please call me if you have any questions. Kyler Gregory MD, FACP, FACC, FSCAI, FHRS, CCDS Interventional Cardiology Cardiac Electrophysiology Vascular Medicine and Endovascular Interventions Clinical Quality Measures AMI/AHF: ASA po Prior to arrival: Carlito Rogel MD Apr 13, 2018 14:54
[2018-04-13 16:00] VITALS: BP 109/71
[2018-04-13] MEDS ORDERED: LORazepam 1 MG (ATIVAN) TAB PO PRN (16:00)
[2018-04-13] MEDS ORDERED: TAMSULOSIN 0.4 MG (FLOMAX) CAP PO SCH (17:30)
[2018-04-13 20:00] VITALS: BP 110/58
[2018-04-13] MEDS: ROSUVASTATIN 20 MG (CRESTOR) TABLET PO SCH (20:37)
[2018-04-13] MEDS ORDERED: LORazepam 1 MG (ATIVAN) TAB PO SCH (21:00)
[2018-04-14] VITALS: BP 76/46
[2018-04-14] MEDS: RT-ALBUTEROL/IPRATROPIUM 3 ML (DUONEB) VIAL INH SCH ×3 (01:35→11:20)
[2018-04-14 04:19] VITALS: BP 175/115
[2018-04-14] MEDS: PANTOPRAZOLE 40 MG (PROTONIX) TAB PO SCH (06:45)
[2018-04-14] MEDS: CATHETER FLUSH 10 ML SYR IV SCH (06:45)
[2018-04-14 06:49] LABS: BASOPHILS % (AUTO) 0 % (0-10); EOSINOPHILS # (AUTO) 0.5 10^3/uL (0.0-0.3); EOSINOPHILS % (AUTO) 4 % (0-10); HEMATOCRIT 38 % (40-54); HEMOGLOBIN 12.8 G/DL (13.3-17.7); LYMPHOCYTES # (AUTO) 1.5 X 10^3 (1.0-4.0); LYMPHOCYTES % (AUTO) 14 % (12-44); MEAN CORPUSCULAR HEMOGLOBIN 30 PG (25-34); MEAN CORPUSCULAR HGB CONC 34 G/DL (32-36); MEAN CORPUSCULAR VOLUME 88 FL (80-99); MEAN PLATELET VOLUME 9.6 FL (7.4-10.4); MONOCYTES # (AUTO) 1.2 X 10^3 (0.0-1.0); MONOCYTES % (AUTO) 12 % (0-12); NEUTROPHILS # (AUTO) 7.3 X 10^3 (1.8-7.8); NEUTROPHILS % (AUTO) 70 % (42-75); PLATELET COUNT 376 10^3/uL (130-400); RED BLOOD COUNT 4.29 10^6/uL (4.35-5.85); RED CELL DISTRIBUTION WIDTH 15.3 % (10.0-14.5); WHITE BLOOD COUNT 10.5 10^3/uL (4.3-11.0)
[2018-04-14] MEDS: UMECLIDINIUM BROMIDE (INCRUSE ELLIPTA) 7'S IH SCH (06:59)
[2018-04-14] MEDS: RT-ADVAIR HFA 115/21 MCG PER PUFF IH SCH (06:59)
[2018-04-14 07:09] LABS: CALCIUM 9.4 MG/DL (8.5-10.1); CREATININE SERUM 1.43 MG/DL (0.60-1.30); MAGNESIUM 2.3 MG/DL (1.8-2.4); POTASSIUM 4.5 MMOL/L (3.6-5.0)
[2018-04-14 08:00] VITALS: BP 120/57
[2018-04-14] MEDS: LOSARTAN 25 MG (COZAAR) TAB PO SCH (09:53)
[2018-04-14] MEDS: DILTIAZEM 300 MG (CARDIZEM CD) CAP PO SCH (09:53)
[2018-04-14] MEDS: APIXABAN 5 MG (ELIQUIS) TABLET PO SCH (09:54)
[2018-04-14] MEDS: FUROSEMIDE 40 MG (LASIX) TAB PO SCH (09:54)
[2018-04-14] MEDS: SPIRONOLACTONE 25 MG (ALDACTONE) TAB PO SCH (09:54)
[2018-04-14] MEDS: AMIODARONE 200 MG (CORDARONE) TAB PO SCH (09:54)
[2018-04-14] MEDS: ASPIRIN E.C. 81 MG (ECOTRIN) TAB PO SCH (09:54)
[2018-04-14 11:33] VITALS: BP 103/71
--- NOTE | 2018-04-14 11:49 | Discharge Summary ---
Diagnosis/Chief Complaint Date of Admission Apr 12, 2018 at 12:06 Date of Discharge 04/14/18 Admission Diagnosis Admission Diagnosis Dyspnea Acute on Chronic Systolic Heart Failure Atrial Fibrillation Acute Kidney Injury ICD with recent discharge Hx of ventricular arrhythmias Nonischemic Cardiomyopathy Insomnia Discharge Diagnosis Dyspnea 04/13 -much improved today compared to previous 04/14 -patient feels well today and ready for discharge, and that his breathing has returned to baseline Acute on Chronic Systolic Heart Failure 04/13 -BNP 627 on admission -80 mg Lasix IVP given by Dr. Gregory this -Cardiology recommends patient be placed on 80 mg Lasix PO daily with 40 mEq KCl daily at discharge -okay for discharge today per cardiology standpoint 04/14 -will discharge on lasix 80 mg and KCl 40 mEq daily per cardiology recommendations -will have pt get labs on Sunday in clinic to check potassium level -follow up this week with Cardiology and Carlitos MCDANIEL Atrial Fibrillation 04/13 -chronic -on chronic anticoagulation -resume home meds for rate control 04/14 -continue home meds at discharge -follow up with cardiology this week Acute Kidney Injury 04/13 -Cr 1.48 --> 1.56 -Baseline Cr ~1.2 -will continue to monitor 04/13 -Cr 1.48 --> 1.56 --> 1.43 -recheck BMP Sunday in clinic ICD with recent discharge 04/13 -admitted 04/03-04/04 Hx of ventricular arrhythmias -see HPI Nonischemic Cardiomyopathy 04/13 -ICD in place, with recent discharge as outlined above -EF 15% per cardiac cath in January 2018 Insomnia 04/13 -pt reports unable to sleep since his ICD discharged and he was in the hospital 04/03 -he discussed this with his PCP at his follow up appt, and tried melatonin, without any improvement -he is highly distressed at his inability to sleep -suspect that patient has some anxiety about his ICD potentially discharging again, as I think it was during nighttime hours that it previously occurred -will give pt ativan 2 mg PO tonight and see if that will help him to rest 04/14 -pt had 1 mg Ativan PO last night and reports this morning that he was able to sleep all night long and even a nap after breakfast and is feeling much better -did discuss with patient that I thought his insomnia did have some anxiety component, as his ICD discharge was at 2230, and patient does acknowledge that this was certainly possible -will discharge patient with small supply of Ativan 1 mg to use PRN sleep, would recommend if pt does need this for sleep that it be continued The patient is feeling well this morning, and has slept well. He has showered and feels ready for discharge. Will discharge to home with rx for ativan, as well as lasix and potassium as requested by cardiology. Chief Complaint/HPI Chief Complaint/HPI Pt presented to ED yesterday afternoon with increased shortness of breath that had been going on for the last few weeks. He was reportedly admitted recently at [facility] following a discharge of his ICD x2 at home. Since that time he has progressively worsening shortness of breath. He follows with Dr. Wilson for Cardiology. He has previously been on Imdur, which was stopped last week; it was originally started for chronic chest pain which improved after the medication was started. Since stopping the Imdur last week, his chest pain is mild, but has started again. On arrival to the ED he was noted to have a HR of 87 in atrial fibrillation, blood pressure 118/74 and oxygen 90-94% on room air; pt reports that earlier this morning he had a HR up to 130 and a systolic blood pressure in the 70's. Review of clinic records show that he had a follow up on 04/11/18 with his PCP, Carlitos MCDANIEL, and reported that he was placed back on amiodarone per cardiology while in the hospital. He also reported that he has not been able to sleep since discharge from the hospital, and that Dr. Jarvis is looking into obtaining home CPAP for him. At his clinic visit his vitals were recorded as HR 82, RR 22, BP 109/70 and O2 Sat 96% on RA. Review of hospital records show that his was discharged on 04/04/2018 after presenting 04/03/2018 with complaint of fatigue and shortness of breath for the last week with near syncopal spells, with discharge of his ICD the previous day. He can now only walk a short distance without sitting down to catch his breath, and walking makes him feel like his heart is pounding. He denied missing any medications, but reports he had been seen in an ER in [place] and had some of his medications stopped - it appears that at least one of these was digoxin. Cardiology notes report that interrogation of his device show discharge of his ICD after Polymorphic VT that rapidly deteriorated into ventricular fibrillation, and that the patient had 3 other episodes of non- sustained VT, although he did not recall any symptoms during those times. He has been in afib for 3-4 years, and per echo he has moderate to severe left atrial enlargement. He had a cardiac cath in January 2018 that showed LVEF 15%. The patient was admitted for further work up with consult to cardiology given the patient's extremely significant and complex cardiac history. Discharge Summary-Simple/Stand Consultations Dr. Gregory - Cardiology Discharge Physical Examination Allergies: Coded Allergies: Penicillins (Unverified Allergy, Unknown, 05/29/16) Vitals & I&Os Vital Sign - Last 12Hours Date Time Temp Pulse Resp B/P (MAP) Pulse Ox O2 Delivery O2 Flow Rate FiO2 04/14/18 11:33 97.2 79 20 103/71 (82) 93 Room Air 04/14/18 08:00 2.00 04/12/18 15:00 28 Intake and Output 04/14/18 00:00 Intake Total 1320 ml Output Total 2150 ml Balance -830 ml General Appearance: Alert, Oriented X3, Cooperative, No Acute Distress HEENT: Atraumatic, EOMI, Mucous Memb Moist/Rinard Respiratory: Clear to Auscultation, Normal Air Movement Cardiovascular: Normal S1, Normal S2, Other (irregularly irregular) Abdominal: Normal Bowel Sounds, Soft, No Tenderness, No Masses Extremities: No Cyanosis, No Tenderness/Swelling Skin: No Rashes, No Significant Lesion Neuro: Normal Gait, Normal Speech, Normal Tone, Sensation Intact, Cranial Nerves 3-12 NL Psych/Mental Status: Mental Status NL, Mood NL Hospital Course See final discharge diagnosis. Labs Laboratory Tests Test 04/12/18 11:10 04/13/18 07:08 04/14/18 06:30 Range/Units White Blood Count 10.2 10.5 4.3-11.0 10^3/uL Red Blood Count 4.33 L 4.29 L 4.35-5.85 10^6/uL Hemoglobin 13.0 L 12.8 L 13.3-17.7 G/DL Hematocrit 38 L 38 L 40-54 % Mean Corpuscular Volume 89 88 80-99 FL Mean Corpuscular Hemoglobin 30 30 25-34 PG Mean Corpuscular Hemoglobin Concent 34 34 32-36 G/DL Red Cell Distribution Width 15.2 H 15.3 H 10.0-14.5 % Platelet Count 372 376 130-400 10^3/uL Mean Platelet Volume 9.4 9.6 7.4-10.4 FL Neutrophils (%) (Auto) 65 70 42-75 % Lymphocytes (%) (Auto) 19 14 12-44 % Monocytes (%) (Auto) 13 H 12 0-12 % Eosinophils (%) (Auto) 4 4 0-10 % Basophils (%) (Auto) 0 0 0-10 % Neutrophils # (Auto) 6.6 7.3 1.8-7.8 X 10^3 Lymphocytes # (Auto) 1.9 1.5 1.0-4.0 X 10^3 Monocytes # (Auto) 1.3 H 1.2 H 0.0-1.0 X 10^3 Eosinophils # (Auto) 0.4 H 0.5 H 0.0-0.3 10^3/uL Basophils # (Auto) 0.0 0.0 0.0-0.1 10^3/uL Prothrombin Time 17.7 H 12.2-14.7 SEC INR Comment 1.5 H 0.8-1.4 Activated Partial Thromboplast Time 38 H 24-35 SEC Sodium Level 137 134 L 134 L 135-145 MMOL/L Potassium Level 4.2 3.9 4.5 3.6-5.0 MMOL/L Chloride Level 104 100 102 98-107 MMOL/L Carbon Dioxide Level 23 20 L 20 L 21-32 MMOL/L Anion Gap 10 14 12 5-14 MMOL/L Blood Urea Nitrogen 27 H 29 H 37 H 7-18 MG/DL Creatinine 1.48 H 1.56 H 1.43 H 0.60-1.30 MG/DL Estimat Glomerular Filtration Rate 47 44 49 BUN/Creatinine Ratio 18 19 26 Glucose Level 110 H 129 H 129 H 70-105 MG/DL Calcium Level 9.4 9.7 9.4 8.5-10.1 MG/DL Magnesium Level 2.2 2.3 1.8-2.4 MG/DL Total Bilirubin 0.9 0.1-1.0 MG/DL Aspartate Amino Transf (AST/SGOT) 18 5-34 U/L Alanine Aminotransferase (ALT/SGPT) 15 0-55 U/L Alkaline Phosphatase 80 40-136 U/L Myoglobin 40.5 10.0-92.0 NG/ML Troponin I < 0.30 <0.30 NG/ML B-Type Natriuretic Peptide 637.1 H <100.0 PG/ML Total Protein 7.8 6.4-8.2 GM/DL Albumin 4.1 3.2-4.5 GM/DL Triglycerides Level 59 <150 MG/DL Cholesterol Level 136 < 200 MG/DL LDL Cholesterol Direct 77 1-129 MG/DL VLDL Cholesterol 12 5-40 MG/DL HDL Cholesterol 46 40-60 MG/DL Radiology Reviewed Date of Exam:04/12/18 CHEST 1 VIEW, AP/PA ONLY Portable erect AP chest at 1117 hours. INDICATION: Shortness of breath. FINDINGS: The heart is enlarged and both the heart and the central pulmonary vascularity do seem slightly more prominent than noted on the prior exam of 04/04/2018. Consequently, there may be an element of mild pulmonary congestion present. There is still no confluent pneumonia identified and there is no sign of a significant pleural effusion. The mediastinum is not widened. The osseous structures are intact. The sternal wires, surgical clips and left-sided defibrillator device seen on the prior study are again evident and no different. IMPRESSION: The slight prominence of the heart and the central pulmonary vascularity when compared to the prior exam does suggest that there may now be an element of mild pulmonary congestion present. Clinical followup is recommended. Discharge Condition at discharge stable Instructions to patient/family Please see electronic discharge instructions given to patient. Discharge Medications Reviewed and agree with Discharge Medication list on patient's Discharge Instruction sheet Clinical Quality Measures AMI/AHF: ASA po Prior to arrival: No DVT/VTE Risk/Contraindication: Risk Factor Score Per Nursin RFS Level Per Nursing on Admit: 3=High Copy Copies To 1: [facility]/MICHAEL LEYVA DO Apr 14, 2018 11:49
[2018-04-14] MEDS ORDERED: POTA-51 PO (11:57)
[2018-04-14] MEDS ORDERED: FURO40TA4 PO (11:57)
[2018-04-14] MEDS ORDERED: LORA1TAB PO (11:57)
--- NOTE | 2018-04-14 12:02 | Discharge Instructions ---
Discharge [facility] Discharge Medications New, Converted or Re-Newed RX: Other (ativan rx on chart, others transmitted to Amy Cardona in [place]) New Medications: Potassium Chloride (Potassium Chloride) 20 Meq Tablet.er 40 MEQ PO DAILY for 10 Days, #20 TAB 0 Refills Furosemide (Furosemide) 40 Mg Tablet 80 MG PO DAILY for 10 Days, #20 TAB Lorazepam (Lorazepam) 1 Mg Tablet 1 MG PO HS PRN for SLEEP for 14 Days, #14 TAB Continued Medications: Albuterol Sulfate (Albuterol Sulfate) 2.5 Mg/3 Ml Vial.neb 2.5 MG NEB Q4H PRN for SHORTNESS OF BREATH, EA Albuterol Sulfate (Ventolin Hfa) 18 Gm Hfa.aer.ad 2 PUFF INH QID PRN for SHORTNESS OF BREATH, INHALER Amiodarone HCl (Amiodarone HCl) 200 Mg Tablet 400 MG PO BID, TAB TAKES 2 (200MG) TABLETS Apixaban (Eliquis) 5 Mg Tablet 5 MG PO BID, TAB Aspirin (Aspirin EC) 81 Mg Tablet.dr 81 MG PO DAILY, TAB Cyclobenzaprine HCl (Cyclobenzaprine HCl) 10 Mg Tablet 10 MG PO TID PRN for MUSCLE SPASMS, TAB Diltiazem HCl (Diltiazem 24Hr ER) 300 Mg Cap.er.24h 300 MG PO DAILY, CAP Fluticasone/Vilanterol (Breo Ellipta 100-25 Mcg INH) 1 Each Blst.w.dev 1 PUFF INH DAILY, INHALER Levalbuterol Tartrate (Xopenex Hfa) 15 Gm Hfa.aer.ad 2 PUFF IH Q6H PRN for SHORTNESS OF BREATH, GM Losartan Potassium (Losartan Potassium) 25 Mg Tablet 12.5 MG PO DAILY, TAB TAKES 1/2 OF A (25 MG) TABLET Nitroglycerin (Nitrostat) 0.4 Mg Tab.subl 0.4 MG PO UD PRN for CHEST PAIN, TAB 1 TAB UNDER TONGUE EVERY 5 MIN UP TO 3 DOSES Pantoprazole Sodium (Pantoprazole Sodium) 40 Mg Tablet.dr 40 MG PO DAILY, TAB Rosuvastatin Calcium (Rosuvastatin Calcium) 40 Mg Tablet 20 MG PO HS, TAB TAKES 1/2 (40MG) TABLET Spironolactone (Spironolactone) 25 Mg Tablet 25 MG PO DAILY, TAB Tamsulosin HCl (Tamsulosin HCl) 0.4 Mg Cap.er.24h 0.4 MG PO 1730, CAP Umeclidinium [place] (Incruse Ellipta) 62.5 Mcg Blst.w.dev 1 PUFF INH DAILY, INHALER Discontinued Medications: Furosemide (Furosemide) 40 Mg Tablet 40 MG PO DAILY, TAB Patient Instructions Patient Instructions -take medications as prescribed -call tomorrow for follow up appt with Xochitl MCDANIEL this week in clinic -call tomorrow for follow up appt with Dr. Wilson this week in clinic Goal/Follow Up Appt: Carlitos MCDANIEL this week - call for appt Dr. Wilson this week - call for appt Return to The Hospital For: chest pain or pressure, shortness of breath out of normal for you that is not relieved by rest and use of your routine medications, fever >101 that does not improve with tylenol or ibuprofen and lasts for more than 3 consecutive days, nausea or vomiting that prevents you from keeping down clear liquids or medications for more than 12-24 hours, severe pain unrelieved by routine measures, if directed by stone mason provider or with any other emergent complaints or concerns Activity & Diet Discharge Diet: Low Sodium Diet Activity as Tolerated: Yes Copy Copies To 1: [facility]/MICHAEL LEYVA DO Apr 14, 2018 12:02
[2018-04-14 13:10] VITALS: BP 103/71
== END 2018-04-14 11:58 | disposition home or self-care (01) ==
LOC: EDUNIT# 10:39 → ER 10:41 → UNDOADMIN 12:06 → 4TH 12:06 → UNDODISIN 04-14 13:10
PROVIDERS: ADMIT Family Medicine; ATTEND Family Medicine
DX: I50.23 Acute on chronic systolic (congestive) heart failure (principal); I48.2 Chronic atrial fibrillation; N17.9 Acute kidney failure, unspecified; I47.2 Ventricular tachycardia; I42.9 Cardiomyopathy, unspecified; I69.354 Hemiplegia and hemiparesis following cerebral infarction affecting left non-dominant side; G47.00 Insomnia, unspecified; N18.9 Chronic kidney disease, unspecified; J44.9 Chronic obstructive pulmonary disease, unspecified; D50.9 Iron deficiency anemia, unspecified; E78.5 Hyperlipidemia, unspecified; I25.10 Atherosclerotic heart disease of native coronary artery without angina pectoris; E05.90 Thyrotoxicosis, unspecified without thyrotoxic crisis or storm; R59.0 Localized enlarged lymph nodes; H91.90 Unspecified hearing loss, unspecified ear; I25.2 Old myocardial infarction; Z95.810 Presence of automatic (implantable) cardiac defibrillator; Z87.891 Personal history of nicotine dependence; Z85.828 Personal history of other malignant neoplasm of skin; Z95.1 Presence of aortocoronary bypass graft; Z79.01 Long term (current) use of anticoagulants
CPT/HCPCS: 36415; 71045; 80048; 80053; 80061; 83735; 83874; 83880; 84484; 85025; 85610; 85730; 93005; 93041; 94640; 94664; 94760; 96374; G0378

== ENCOUNTER 2018-04-23 15:02 | Inpatient (IN) | payer MEDICARE ==
[~2018-04-23] VITALS: Ht 172.7 cm; Wt 108.4 kg
[~2018-04-23 15:02] MED LIST changes: +ALBU18HF2 INH; +FLUT1AER INH; +LORA1TAB PO; +POTA-51 PO; +SUCCINYLCHOLINE INJ 100 MG/5 ML SYR INJ ONE
[2018-04-23] MEDS ORDERED: RT-ALBUTEROL/IPRATROPIUM 3 ML (DUONEB) VIAL ONE (15:14)
[2018-04-23] MEDS ORDERED: ACETAMINOPHEN 500 MG TAB (TYLENOL) PO PRN (15:30)
[2018-04-23 15:31] LABS: BASOPHILS % (AUTO) 0 % (0-10); EOSINOPHILS # (AUTO) 0.1 10^3/uL (0.0-0.3); EOSINOPHILS % (AUTO) 0 % (0-10); HEMATOCRIT 37 % (40-54); HEMOGLOBIN 12.1 G/DL (13.3-17.7); LYMPHOCYTES # (AUTO) 0.9 X 10^3 (1.0-4.0); LYMPHOCYTES % (AUTO) 8 % (12-44); MEAN CORPUSCULAR HEMOGLOBIN 30 PG (25-34); MEAN CORPUSCULAR HGB CONC 33 G/DL (32-36); MEAN CORPUSCULAR VOLUME 89 FL (80-99); MEAN PLATELET VOLUME 9.4 FL (7.4-10.4); MONOCYTES # (AUTO) 1.8 X 10^3 (0.0-1.0); MONOCYTES % (AUTO) 16 % (0-12); NEUTROPHILS # (AUTO) 8.8 X 10^3 (1.8-7.8); NEUTROPHILS % (AUTO) 76 % (42-75); PLATELET COUNT 375 10^3/uL (130-400); RED BLOOD COUNT 4.09 10^6/uL (4.35-5.85); RED CELL DISTRIBUTION WIDTH 15.4 % (10.0-14.5); WHITE BLOOD COUNT 11.5 10^3/uL (4.3-11.0)
[2018-04-23] MEDS ORDERED: RT-IPRATROPIUM (ATROVENT) 0.5MG/2.5ML AMP IH ONE ×2 (15:33→15:45)
[2018-04-23] MEDS ORDERED: RT-ALBUTEROL SULF 2.5 MG/3 ML PRE-MIX VIAL ONE (15:33)
[2018-04-23] MEDS ORDERED: RT-ALBUTEROL SULF 2.5 MG/3 ML PRE-MIX VIAL IH STA (15:36)
[2018-04-23 15:54] LABS: ALANINE AMINOTRANSFERASE 53 U/L (0-55); ALBUMIN 3.6 GM/DL (3.2-4.5); ALKALINE PHOSPHATASE 121 U/L (40-136); BILIRUBIN,TOTAL 0.6 MG/DL (0.1-1.0); BUN/CREATININE RATIO 19; CALCIUM 8.8 MG/DL (8.5-10.1); CARBON DIOXIDE 21 MMOL/L (21-32); CHLORIDE 99 MMOL/L (98-107); CREATININE SERUM 1.84 MG/DL (0.60-1.30); GFR ESTIMATED 37; GLUCOSE 139 MG/DL (70-105); POTASSIUM 4.7 MMOL/L (3.6-5.0); SODIUM 130 MMOL/L (135-145); TOTAL PROTEIN 7.6 GM/DL (6.4-8.2)
[2018-04-23] MEDS ORDERED: NS IV 1000 ML 1,000 ML ONE (16:01)
[2018-04-23] MEDS ORDERED: NS IV 1000 ML 1,000 ML IV ONE (16:02)
--- NOTE | 2018-04-23 16:06 | Diagnostic Imaging Report ---
INDICATION: Respiratory distress and hypoxia. Comparison made with prior examination from 04/12/2018. FINDINGS: There is cardiomegaly and some central pulmonary venous congestion. There is now a right basilar pneumonia. There is no pleural effusion or pneumothorax. Mediastinum is unremarkable. There has been a previous median sternotomy and coronary bypass graft. Pacemaker overlies the left hemithorax. IMPRESSION: Interval development of right basilar pneumonia. Cardiomegaly and some central pulmonary venous congestion. Dictated by: Dictated on workstation # [id number]
[2018-04-23 16:09] LABS: INR 1.3 (0.8-1.4); PROTHROMBIN TIME PATIENT 16.1 SEC (12.2-14.7)
[2018-04-23 16:13] LABS: CLARITY,URINE CLEAR; COLOR,URINE YELLOW; GLUCOSE, URINE (UA) NEGATIVE (NEGATIVE); KETONES,URINE 1+ (NEGATIVE); LEUKOCYTE ESTERASE ,URINE 1+ (NEGATIVE); NITRITE,URINE NEGATIVE (NEGATIVE); PH,URINE 5 (5-9); PROTEIN,URINE 3+ (NEGATIVE); UROBILINOGEN,URINE 8 MG/DL (NORMAL)
[2018-04-23] MEDS ORDERED: MEROPENEM 500 MG in NS (IVPB) 100 ML IV ONE (16:30)
[2018-04-23 16:41] LABS: LYMPHOCYTES % (MANUAL) 5 %; MONOCYTES % (MANUAL) 14 %; NEUTROPHILS % (MANUAL) 81 %
[2018-04-23 16:45] LABS: RBC,URINE 0-2 /HPF
[2018-04-23 16:46] LABS: BACTERIA,URINE LARGE /HPF; SQUAMOUS EPITHELIAL CELL,UR 0-2 /HPF
--- NOTE | 2018-04-23 16:47 | ED General ---
General Chief Complaint: Respiratory Problems Stated Complaint: VOMITING URINARY FREQUENCY Nursing Triage Note: PT AMBULATES TO ROOM 3 PT CO OF BEING SOA, PT O2 SAT 83% ON ROOM AIR, PT STATES ONLY WEARS O2 AT NITE, PT STATES HAS BEEN SICK FOR A WEEK, N/V PT HAS TEMP 101.1 PT SKIN PALE VERY WARM AND DRY. PT ALSO CO OF NECK PAIN 10/10 FROM R SHOULDER TO NECK. Nursing Sepsis Screen: No Definite Risk Source of Information: Patient Exam Limitations: No Limitations History of Present Illness Date Seen by Provider: Apr 23, 2018 Time Seen by Provider: 15:10 Initial Comments Here with report of shortness of air with O2 sat 83 percent on arrival. Also complains of weakness and feeling sick for the last 7 days. Complains of right shoulder pain that is radiating to the right side of the neck. Overall does not feel well. Timing/Duration: 1 Week Severity: Severe Associated Systoms: No Chest Pain; Cough, Fever/Chills; No Nausea/Vomiting; Shortness of Air, Weakness Allergies and Home Medications Allergies Coded Allergies: Penicillins (Unverified Allergy, Unknown, 05/29/16) Home Medications Albuterol Sulfate 2.5 Mg/3 Ml Vial.neb, 2.5 MG NEB Q4H PRN for SHORTNESS OF BREATH, (Reported) Albuterol Sulfate 18 Gm Hfa.aer.ad, 2 PUFF INH QID PRN for SHORTNESS OF BREATH, (Reported) Amiodarone HCl 200 Mg Tablet, 400 MG PO BID, (Reported) TAKES 2 (200MG) TABLETS Apixaban 5 Mg Tablet, 5 MG PO BID, (Reported) Aspirin 81 Mg Tablet.dr, 81 MG PO DAILY, (Reported) Cyclobenzaprine HCl 10 Mg Tablet, 10 MG PO TID PRN for MUSCLE SPASMS, (Reported) Diltiazem HCl 300 Mg Cap.er.24h, 300 MG PO DAILY, (Reported) Fluticasone/Vilanterol 1 Each Blst.w.dev, 1 PUFF INH DAILY, (Reported) Furosemide 40 Mg Tablet, 80 MG PO DAILY Prescribed by: MICHAEL LINARES on 04/14/18 1157 Levalbuterol Tartrate 15 Gm Hfa.aer.ad, 2 PUFF IH Q6H PRN for SHORTNESS OF BREATH, (Reported) Lorazepam 1 Mg Tablet, 1 MG PO HS PRN for SLEEP Prescribed by: MICHAEL LINARES on 04/14/18 115 Losartan Potassium 25 Mg Tablet, 12.5 MG PO DAILY, (Reported) TAKES 1/2 OF A (25 MG) TABLET Nitroglycerin 0.4 Mg Tab.subl, 0.4 MG PO UD PRN for CHEST PAIN, (Reported) 1 TAB UNDER TONGUE EVERY 5 MIN UP TO 3 DOSES Pantoprazole Sodium 40 Mg Tablet.dr, 40 MG PO DAILY, (Reported) Potassium Chloride 20 Meq Tablet.er, 40 MEQ PO DAILY Prescribed by: MICHAEL LINARES on 04/14/18 1157 Rosuvastatin Calcium 40 Mg Tablet, 20 MG PO HS, (Reported) TAKES 1/2 (40MG) TABLET Spironolactone 25 Mg Tablet, 25 MG PO DAILY, (Reported) Tamsulosin HCl 0.4 Mg Cap.er.24h, 0.4 MG PO 1730, (Reported) Umeclidinium [place] 62.5 Mcg Blst.w.dev, 1 PUFF INH DAILY, (Reported) Patient Home Medication List Home Medication List Reviewed: Yes Review of Systems Constitutional: see HPI; No chills; fever EENTM: no symptoms reported Respiratory: see HPI, cough, short of breath, wheezing Cardiovascular: No chest pain, No edema; Hx of Intervention, palpitations Gastrointestinal: No abdominal pain, No nausea, No vomiting Genitourinary: no symptoms reported Musculoskeletal: no symptoms reported Skin: no symptoms reported All Other Systems Reviewed Negative Unless Noted: Yes Past Cfxkzgb-Ockfnz-Gofmiu Hx Past Med/Social Hx: Reviewed Nursing Past Med/Soc Hx Patient Social History Alcohol Use: Denies Use Recreational Drug Use: No Smoking Status: Former Smoker Type Used: Cigarettes Former Smoker, Quit: Feb 15, 2018 2nd Hand Smoke Exposure: Yes Recent Foreign Travel: No Contact w/Someone Who Travel: No Recent Infectious Disease Expo: No Recent Hopitalizations: Yes (04/03/18 - 04/04/18) Physical Abuse: No Sexual Abuse: No Immunizations Up To Date Tetanus Booster (TDap): More than 5yrs PED Vaccines UTD: No Date of Pneumonia Vaccine: Nov 03, 2015 Date of Influenza Vaccine: Jun 19, 2015 Seasonal Allergies Seasonal Allergies: No Past Medical History Surgeries: Yes (STENTS X 3) Cardiac, CABG, Coronary Stent, Defibrillator Respiratory: Yes (MEDIASTINAL LYMPHADENOPATHY--BEING MONITORED BY PCP & DR. TAPIA, HOME O2 HS) Asthma, Sleep Apnea, COPD, Emphysema Currently Using CPAP: No Currently Using BIPAP: No Cardiac: Yes (NE X2; SYNCOPE PRIOR TO DEFIBRILLATOR PLACEMENT; CHF) Atrial Fibrillation, Coronary Artery Disease, Heart Attack, High Cholesterol, Hypertension, Syncope Neurological: Yes (LEFT SIDE WEAKNESS, BALANCE PROBLEMS/ FALLS) Stroke Reproductive Disorders: No Sexually Transmitted Disease: No HIV/AIDS: No Genitourinary: Yes Kidney Stones Gastrointestinal: Yes (GASTRITIS) Gastroesophageal Reflux, Diverticulosis, Esophagitis, Hiatal Hernia Musculoskeletal: Yes Arthritis, Chronic Back Pain, Fractures Endocrine: No ("POSSIBLE THYROID PROBLEMS") HEENT: Yes Loss of Vision: Denies Hearing Impairment: Hard of Hearing Cancer: Yes Skin Psychosocial: No Nursing Suicide Risk Score: 0 Integumentary: No Blood Disorders: Yes (NOT CURRENT BUT HX OF ANEMIA OF UNKNOWN CAUSE) Adverse Reaction/Blood Tranf: No Family Medical History Reviewed Nursing Family Hx Fam hx-osteoporosis 03 MOTHER Family history: Hypertension 03 MOTHER, Onset:50's - 60 09 SISTER, Onset:40's - 50 Thyroid disease 03 MOTHER No Family History of: Cancer Chest pain Dementia Family history: Diabetes mellitus Stroke Heart Disease, Hypertension Physical Exam-Suspected Sepsis Physical Exam Vital Signs Vital Signs - First Documented 04/23/18 04/23/18 15:15 15:42 Temp 101.0 Pulse 110 Resp 42 B/P (MAP) 99/61 (74) Pulse Ox 83 O2 Delivery Nasal Cannula O2 Flow Rate 4.00 FiO2 35 Capillary Refill : Less Than 3 Seconds Blood Pressure Mean: 74 Height, Weight, BMI Height: 5'8.00" Weight: 203lbs. 3.0oz. 92.774121es; 30.9 BMI Method:Stated General Appearance: WD/WN, Mild Distress HEENT: PERRL/EOMI, Pharynx Normal Neck: Non Tender, Supple Respiratory: Lungs Clear, Normal Breath Sounds Cardiovascular: No Murmur, Irregularly Irregular, Tachycardia Gastrointestinal: Non Tender, Soft Back: Normal Inspection, No CVA Tenderness, No Vertebral Tenderness Extremity: Normal Range of Motion, Other (tender to the area of the right shoulder from the shoulder to the base of the neck.) Neurologic/Psychiatric: Alert, Oriented x3 Skin: normal color, warm/dry Focused Exam Lactate Level 04/23/18 15:19: Lactic Acid Level 2.20*H Lactic Acid Level Laboratory Tests Test 04/23/18 15:19 Lactic Acid Level 2.20 MMOL/L (0.50-2.00) *H Progress/Results/Core Measures Suspected Sepsis Recent Fever Within 48 Hours: No Infection Criteria Present: None New/Unexplained Altered Menta: No Sepsis Screen: No Definite Risk SIRS Temperature:101.0 Pulse: 110 Respiratory Rate: 42 Laboratory Tests 04/23/18 15:19: White Blood Count 11.5H Blood Pressure 99 /61 Mean: 74 04/23/18 15:19: Lactic Acid Level 2.20*H Laboratory Tests 04/23/18 15:19: Creatinine 1.84H, INR Comment 1.3, Platelet Count 375, Total Bilirubin 0.6 Results/Orders Lab Results Laboratory Tests Test 04/23/18 15:19 04/23/18 15:50 Range/Units White Blood Count 11.5 H 4.3-11.0 10^3/uL Red Blood Count 4.09 L 4.35-5.85 10^6/uL Hemoglobin 12.1 L 13.3-17.7 G/DL Hematocrit 37 L 40-54 % Mean Corpuscular Volume 89 80-99 FL Mean Corpuscular Hemoglobin 30 25-34 PG Mean Corpuscular Hemoglobin Concent 33 32-36 G/DL Red Cell Distribution Width 15.4 H 10.0-14.5 % Platelet Count 375 130-400 10^3/uL Mean Platelet Volume 9.4 7.4-10.4 FL Neutrophils (%) (Auto) 76 H 42-75 % Lymphocytes (%) (Auto) 8 L 12-44 % Monocytes (%) (Auto) 16 H 0-12 % Eosinophils (%) (Auto) 0 0-10 % Basophils (%) (Auto) 0 0-10 % Neutrophils # (Auto) 8.8 H 1.8-7.8 X 10^3 Lymphocytes # (Auto) 0.9 L 1.0-4.0 X 10^3 Monocytes # (Auto) 1.8 H 0.0-1.0 X 10^3 Eosinophils # (Auto) 0.1 0.0-0.3 10^3/uL Basophils # (Auto) 0.0 0.0-0.1 10^3/uL Neutrophils % (Manual) 81 % Lymphocytes % (Manual) 5 % Monocytes % (Manual) 14 % Prothrombin Time 16.1 H 12.2-14.7 SEC INR Comment 1.3 0.8-1.4 Activated Partial Thromboplast Time 37 H 24-35 SEC Sodium Level 130 L 135-145 MMOL/L Potassium Level 4.7 3.6-5.0 MMOL/L Chloride Level 99 98-107 MMOL/L Carbon Dioxide Level 21 21-32 MMOL/L Anion Gap 10 5-14 MMOL/L Blood Urea Nitrogen 35 H 7-18 MG/DL Creatinine 1.84 H 0.60-1.30 MG/DL Estimat Glomerular Filtration Rate 37 BUN/Creatinine Ratio 19 Glucose Level 139 H 70-105 MG/DL Lactic Acid Level 2.20 *H 0.50-2.00 MMOL/L Calcium Level 8.8 8.5-10.1 MG/DL Magnesium Level 2.0 1.8-2.4 MG/DL Total Bilirubin 0.6 0.1-1.0 MG/DL Aspartate Amino Transf (AST/SGOT) 44 H 5-34 U/L Alanine Aminotransferase (ALT/SGPT) 53 0-55 U/L Alkaline Phosphatase 121 40-136 U/L Troponin I < 0.30 <0.30 NG/ML B-Type Natriuretic Peptide 2024.5 H <100.0 PG/ML Total Protein 7.6 6.4-8.2 GM/DL Albumin 3.6 3.2-4.5 GM/DL Urine Color YELLOW Urine Clarity CLEAR Urine pH 5 5-9 Urine Specific [place] 1.025 H 1.016-1.022 Urine Protein 3+ H NEGATIVE Urine Glucose (UA) NEGATIVE NEGATIVE Urine Ketones 1+ H NEGATIVE Urine Nitrite NEGATIVE NEGATIVE Urine Bilirubin 1+ H NEGATIVE Urine Urobilinogen 8 H NORMAL MG/DL Urine Leukocyte Esterase 1+ H NEGATIVE Urine RBC (Auto) 2+ H NEGATIVE Urine RBC 0-2 /HPF Urine WBC 10-25 H /HPF Urine Squamous Epithelial Cells 0-2 /HPF Urine Crystals NONE /LPF Urine Bacteria LARGE H /HPF Urine Casts PRESENT /LPF Urine Hyaline Casts 2-5 H /LPF Urine Mucus LARGE H /LPF Urine Culture Indicated YES Micro Results Microbiology 04/23/18 Urine Culture - Preliminary, Resulted My Orders Orders - DEVIN SANTIAGO MD Albuterol/Ipra Inhalation Soln (Duoneb I (04/23/18 15:14) Cbc With Automated Diff (04/23/18 15:16) Comprehensive Metabolic Panel (04/23/18 15:16) Blood Culture (04/23/18 15:16) Sputum Culture (04/23/18 15:16) Urinalysis (04/23/18 15:16) Urine Culture (04/23/18 15:16) Protime With Inr (04/23/18 15:16) Partial Thromboplastin Time (04/23/18 15:16) Chest 1 View, Ap/Pa Only (04/23/18 15:16) Acetaminophen Tablet (Tylenol Tablet) (04/23/18 15:30) Saline Lock/Iv-Start (04/23/18 15:16) Saline Lock/Iv-Start (04/23/18 15:16) Ekg Tracing (04/23/18 15:16) Troponin I (04/23/18 15:16) Vital Signs Adult Sepsis Patie Q15M (04/23/18 15:16) O2 (04/23/18 15:16) Remove Rings In Anticipation O (04/23/18 15:16) Lactic Acid Analyzer (04/23/18 15:16) BNP (04/23/18 15:16) Magnesium (04/23/18 15:16) Manual Differential (04/23/18 15:19) Ipratropium 0.02% Neb Solution (Atrovent (04/23/18 15:33) Albuterol Pre-Mix Nebs (Rt) (Proventil (04/23/18 15:33) Albuterol Pre-Mix Nebs (Rt) (Proventil (04/23/18 15:36) Ipratropium 0.02% Neb Solution (Atrovent (04/23/18 15:45) Svn Small Volume Nebulizer (04/23/18 15:36) Saline Lock/Iv-Start (04/23/18 16:02) Ns Iv 1000 Ml (Sodium Chloride 0.9%) (04/23/18 16:02) Ns Iv 1000 Ml (Sodium Chloride 0.9%) (04/23/18 16:01) Meropenem (Merrem 500 Mg) (04/23/18 16:30) Urine Culture (04/23/18 15:50) Medications Given in ED Current Medications Medications Dose Ordered Sig/Henry Route Start Time Stop Time Status Last Admin Dose Admin Acetaminophen 1,000 mg ONCE PRN PO 04/23/18 15:30 04/23/18 15:39 DC 04/23/18 15:30 1,000 MG Albuterol/ Ipratropium 3 ml STK-MED ONCE .ROUTE 04/23/18 15:14 04/23/18 15:17 DC 04/23/18 15:15 3 ML Ipratropium [place] 0.5 mg ONCE ONCE IH 04/23/18 15:45 04/23/18 15:46 DC 04/23/18 15:39 0.5 MG Meropenem 500 mg/ Sodium Chloride 100 ml @ 200 mls/hr ONCE ONCE IV 04/23/18 16:30 04/23/18 16:59 04/23/18 16:34 200 MLS/HR Sodium Chloride 1,000 ml @ 0 mls/hr Q0M ONCE IV 04/23/18 16:02 04/23/18 16:04 DC 04/23/18 16:05 1,000 MLS/HR Vital Signs/I&O 04/23/18 04/23/18 04/23/18 04/23/18 15:15 15:15 15:19 15:42 Temp 101.0 Pulse 110 Resp 42 B/P (MAP) 99/61 (74) Pulse Ox 83 83 93 94 O2 Delivery Nasal Cannula Nasal Cannula Vapotherm O2 Flow Rate 4.00 4.00 40.00 FiO2 35 Capillary Refill : Less Than 3 Seconds Blood Pressure Mean: 74 Progress Note : Progress Note Seen and evaluated. IV 2, labs, chest x-ray, EKG and don't have ordered after initiation of O2 4 L via nasal cannula. Vapotherm initiated. Blood cultures and lactic acid ordered. Monitor patient. Patient noted to have fairly significant right lower lobe infiltrate. I did discuss the case with Dr. Linares at [phone]. She accepts patient for admission to the ICU, inpatient status. Patient initiated on Vapotherm and doing much better currently at 40 L at 35 percent. Meropenem 500 mg IV ordered as patient is allergic to penicillins. We will continue meropenem and vancomycin given recent hospitalizations and significance of infiltrate. Admit, inpatient status. Patient family agree with plan. ECG Initial ECG Impression Date: Apr 23, 2018 Initial ECG Impression Time: 15:19 Initial ECG Rate: 107 Initial ECG Rhythm: A Fib/Flutter Initial ECG Impression: Atrial Fibrillation Comment Atrial fibrillation with left axis deviation. No evidence of ST elevation NE. Similar to previous although rate is slightly increased. Interpreted by me. Diagnostic Imaging Diagonstic Imaging: Xray Plain Films/CT/US/NM/MRI: chest Comments NAME: RODRIGUE PICHARDO [facility] REC#: [id number] PT STATUS: REG ER : 1945 PHYSICIAN: DEVIN SANTIAGO MD ADMIT DATE: 04/23/18/ER Signed Date of Exam: 04/23/18 CHEST 1 VIEW, AP/PA ONLY INDICATION: Respiratory distress and hypoxia. Comparison made with prior examination from 04/12/2018. FINDINGS: There is cardiomegaly and some central pulmonary venous congestion. There is now a right basilar pneumonia. There is no pleural effusion or pneumothorax. Mediastinum is unremarkable. There has been a previous median sternotomy and coronary bypass graft. Pacemaker overlies the left hemithorax. IMPRESSION: Interval development of right basilar pneumonia. Cardiomegaly and some central pulmonary venous congestion. Dictated by: Dictated on workstation # [id number] Dict: 04/23/18 1549 Trans: 04/23/18 1632 Interpreted by: QI RODRIGUEZ MD Electronically signed by: QI RODRIGUEZ MD 04/23/18 1632 Departure Communication (Admissions) Time/Spoke to Admitting Phy: 16:24 Impression Primary Impression: Atrial fibrillation Qualified Codes: I48.2 - Chronic atrial fibrillation Additional Impression: Right lower lobe pneumonia Qualified Codes: J18.1 - Lobar pneumonia, unspecified organism Disposition: ADMITTED INPATIENT Condition: Stable Admissions Decision to Admit Reason: Admit from ER (General) Decision to Admit/Date: Apr 23, 2018 Time/Decision to Admit Time: 16:24 Departure-Patient Inst. Referrals: [facility] [place]) Primary Care Physician DEVIN SANTIAGO MD Apr 23, 2018 16:47
[2018-04-23] MEDS ORDERED: NOREPINEPHRINE 4 MG in NS (IVPB) 250 ML IV SCH (17:34)
[2018-04-23] MEDS ORDERED: NS IV ONE (17:45)
[2018-04-23] MEDS ORDERED: ALBUMIN 25% 25 GM/100 ML 50 ML IV NR (18:30)
[2018-04-23] MEDS ORDERED: FUROSEMIDE 40 MG/4 ML INJ (LASIX) IVP NR (18:30)
[2018-04-23] MEDS: VANCOMYCIN 1500 MG/NS 500 ML IVPB IV SCH ×2 (18:38)
[2018-04-23] MEDS: NS IV 1000 ML 1,000 ML IV SCH ×2 (18:38→23:54)
[2018-04-23] MEDS ORDERED: CYCLOBENZAPRINE 10 MG (FLEXERIL) TAB PO PRN (18:45)
[2018-04-23] MEDS ORDERED: LORazepam 1 MG (ATIVAN) TAB PO PRN (18:45)
--- NOTE | 2018-04-23 18:59 | History & Physicial (CHS) ---
HPI History of Present Illness: 72 year old male with multiple admissions this year, and several in the last 4- 5 weeks, presented to ED this afternoon with complaints of shortness of breath, temp 101.1, radiating neck/shoulder pain, and about 1 week of feeling poorly. Patient noted to have O2 sat of 83% on room air. BP low. CXR shows large right sided infiltrate. Given labs and vitals, pt with severe sepsis and HCAP. He is admitted to the ICU; his blood pressure was fluid responsive, and on arrival in the ED he reports feeling much better than prior to arrival. He reports he was not feeling well for the last 7 days, and that he called his PCP , Jan MCDANIEL this afternoon and reported his not feeling well for 7 days and shortness of breath, increased fatigue and now fever. Patient was instructed to come to the ED immediately, which he did, and he is seen on arrival to the ICU. He is feeling much improved, but given his severity of illness and his significant underlying comorbidities, he is at extremely high risk for decompensation, especially given his need for fluid resuscitation and his dilated cardiomyopathy with known EF of 15%, which is what it has been for many years. This was discussed with the patient and his . Source: patient, family, RN/MD, RN notes reviewed, old records Exam Limitations: no limitations Date seen by provider: Apr 23, 2018 Time Seen by Provider: 18:00 Attending Physician Darby Justin DO PCP Carlitos MCDANIEL - [facility], [place] Consult Date of Admission Apr 23, 2018 at 17:12 Home Medications Home Medications Reviewed patient Home Medication Reconciliation performed by pharmacy medication reconciliations maintenance department technician and/or nursing. Patients Allergies have been reviewed. Allergies Coded Allergies: Penicillins (Unverified Allergy, Unknown, 05/29/16) RIK-Zhsiza-Cxhgfs Hx Patient Social History Marrital Status: Living Status: lives with spouse Employed/Student: retired Alcohol Use: Denies Use Recreational Drug Use: No Smoking Status: Former Smoker Former smoker/When Quit: Apr 04, 2018 Type Used: Cigarettes 2nd Hand Smoke Exposure: Yes Recent Foreign Travel: No Contact w/other who traveled: No Recent Hopitalizations: Yes (04/12/18-04/14/18) Recent Infectious Disease Expo: No Physical Abuse Screen: No Sexual Abuse: No Immunizations Up To Date Tetanus Booster (TDap): More than 5yrs Date of Pneumonia Vaccine: Nov 03, 2015 Date of Influenza Vaccine: Jun 19, 2015 Past Medical History Past Medical History 1. CHF- ischemic cardiomyopathy EF 15% per cardiac cath January 2018 2. COPD 3. Tobaccoism - quit 04/03/18 4. Anemia, Iron deficiency with chronic GI blood loss, worked up and gastritis per EGD- Dr. Tinoco follows 5. Mediastinal lymphadenopathy-followed by Dr. Tinoco per CT 01-19-15 6. CAD with HO CABG 7. Hiatal Hernia 8. Diverticulosis 9. History of severe anemia requiring transfusion- EGD demonstrating gastritis, no active bleeding 10. HLP 11. Hypotension 12. Intolerance to BENJI-I 13. Proxismal Atrial Fibrillation with chronic anticoagulation -Dr. Wilson 14. 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 Possible Migraines 16. Basal Cell Carcinoma - Dr. Alvarez 17. Subclinical hyperthyroidism 02/2018 18. Nocturnal Oxygen use Past Surgical History 1. CABG 2005 2. Cardiac Cath, multiple - most recently January 2018 3. EGD/Colonoscopy- 2012, [facility] 4. Defibrillator implant- 2010 Dr. Wilson 5. Excision of lesion Left ear 01-19-14 Dr. Ahumada Family Medical History Significant Family History: Heart Disease, Hypertension Family History: Fam hx-osteoporosis 03 MOTHER Family history: Hypertension 03 MOTHER, Onset:50's - 60 09 SISTER, Onset:40's - 50 Thyroid disease 03 MOTHER No Family History of: Cancer Chest pain Dementia Family history: Diabetes mellitus Stroke Review of Systems (CHC) Constitutional: see HPI, chills, diaphoresis, fever, malaise, weakness EENTM: no symptoms reported Respiratory: see HPI, cough, dyspnea on exertion, orthopnea, short of breath, wheezing Cardiovascular: see HPI; No chest pain; Hx of Intervention; No syncope Gastrointestinal: abdominal pain, diarrhea Genitourinary: no symptoms reported Musculoskeletal: see HPI, joint pain, neck pain Skin: change in color (pallor) Psychiatric/Neurological: Weakness Reviewed Test Results Reviewed Test Results Lab Laboratory Tests Test 04/23/18 15:19 04/23/18 15:50 Range/Units White Blood Count 11.5 H 4.3-11.0 10^3/uL Red Blood Count 4.09 L 4.35-5.85 10^6/uL Hemoglobin 12.1 L 13.3-17.7 G/DL Hematocrit 37 L 40-54 % Mean Corpuscular Volume 89 80-99 FL Mean Corpuscular Hemoglobin 30 25-34 PG Mean Corpuscular Hemoglobin Concent 33 32-36 G/DL Red Cell Distribution Width 15.4 H 10.0-14.5 % Platelet Count 375 130-400 10^3/uL Mean Platelet Volume 9.4 7.4-10.4 FL Neutrophils (%) (Auto) 76 H 42-75 % Lymphocytes (%) (Auto) 8 L 12-44 % Monocytes (%) (Auto) 16 H 0-12 % Eosinophils (%) (Auto) 0 0-10 % Basophils (%) (Auto) 0 0-10 % Neutrophils # (Auto) 8.8 H 1.8-7.8 X 10^3 Lymphocytes # (Auto) 0.9 L 1.0-4.0 X 10^3 Monocytes # (Auto) 1.8 H 0.0-1.0 X 10^3 Eosinophils # (Auto) 0.1 0.0-0.3 10^3/uL Basophils # (Auto) 0.0 0.0-0.1 10^3/uL Neutrophils % (Manual) 81 % Lymphocytes % (Manual) 5 % Monocytes % (Manual) 14 % Prothrombin Time 16.1 H 12.2-14.7 SEC INR Comment 1.3 0.8-1.4 Activated Partial Thromboplast Time 37 H 24-35 SEC Sodium Level 130 L 135-145 MMOL/L Potassium Level 4.7 3.6-5.0 MMOL/L Chloride Level 99 98-107 MMOL/L Carbon Dioxide Level 21 21-32 MMOL/L Anion Gap 10 5-14 MMOL/L Blood Urea Nitrogen 35 H 7-18 MG/DL Creatinine 1.84 H 0.60-1.30 MG/DL Estimat Glomerular Filtration Rate 37 BUN/Creatinine Ratio 19 Glucose Level 139 H 70-105 MG/DL Lactic Acid Level 2.20 *H 0.50-2.00 MMOL/L Calcium Level 8.8 8.5-10.1 MG/DL Magnesium Level 2.0 1.8-2.4 MG/DL Total Bilirubin 0.6 0.1-1.0 MG/DL Aspartate Amino Transf (AST/SGOT) 44 H 5-34 U/L Alanine Aminotransferase (ALT/SGPT) 53 0-55 U/L Alkaline Phosphatase 121 40-136 U/L Troponin I < 0.30 <0.30 NG/ML B-Type Natriuretic Peptide 2024.5 H <100.0 PG/ML Total Protein 7.6 6.4-8.2 GM/DL Albumin 3.6 3.2-4.5 GM/DL Urine Color YELLOW Urine Clarity CLEAR Urine pH 5 5-9 Urine Specific [place] 1.025 H 1.016-1.022 Urine Protein 3+ H NEGATIVE Urine Glucose (UA) NEGATIVE NEGATIVE Urine Ketones 1+ H NEGATIVE Urine Nitrite NEGATIVE NEGATIVE Urine Bilirubin 1+ H NEGATIVE Urine Urobilinogen 8 H NORMAL MG/DL Urine Leukocyte Esterase 1+ H NEGATIVE Urine RBC (Auto) 2+ H NEGATIVE Urine RBC 0-2 /HPF Urine WBC 10-25 H /HPF Urine Squamous Epithelial Cells 0-2 /HPF Urine Crystals NONE /LPF Urine Bacteria LARGE H /HPF Urine Casts PRESENT /LPF Urine Hyaline Casts 2-5 H /LPF Urine Mucus LARGE H /LPF Urine Culture Indicated YES Micro Results Microbiology 04/23/18 Urine Culture - Preliminary, Resulted Radiology Date of Exam: 04/23/18 CHEST 1 VIEW, AP/PA ONLY INDICATION: Respiratory distress and hypoxia. Comparison made with prior examination from 04/12/2018. FINDINGS: There is cardiomegaly and some central pulmonary venous congestion. There is now a right basilar pneumonia. There is no pleural effusion or pneumothorax. Mediastinum is unremarkable. There has been a previous median sternotomy and coronary bypass graft. Pacemaker overlies the left hemithorax. IMPRESSION: Interval development of right basilar pneumonia. Cardiomegaly and some central pulmonary venous congestion. Dictated by: Dictated on workstation # [id number] Dict: 04/23/18 1549 Trans: 04/23/18 1632 Interpreted by: QI RODRIGUEZ MD Electronically signed by: QI RODRIGUEZ MD 04/23/18 1636 Physical Exam-(CHC) Physical Exam Vital Signs VS - Last 72 Hours, by Label 04/24/18 04/24/18 04/24/18 04/24/18 09:00 10:00 10:49 10:58 Pulse 99 113 106 Resp 22 21 25 B/P (MAP) 99/64 (76) 112/70 (84) 110/80 Pulse Ox 94 95 95 O2 Delivery Mechanical Ventilator Mechanical Ventilator O2 Flow Rate 80.00 80.00 FiO2 80 04/24/18 04/24/18 04/24/18 04/24/18 11:00 12:00 12:02 12:05 Pulse 111 121 128 Resp 27 28 B/P (MAP) 104/73 (83) 119/89 (99) Pulse Ox 95 94 96 O2 Delivery Mechanical Ventilator Mechanical Ventilator Mechanical Ventilator O2 Flow Rate 70.00 60.00 FiO2 70 04/24/18 04/24/18 04/24/18 04/24/18 12:08 13:00 13:00 14:00 Temp 99.8 99.4 Pulse 108 116 120 Resp B/P (MAP) 107/75 (86) 101/56 (71) Pulse Ox 92 90 O2 Delivery Mechanical Ventilator Mechanical Ventilator Mechanical Ventilator O2 Flow Rate 60.00 60.00 60.00 04/24/18 04/24/18 04/24/18 04/24/18 14:29 15:00 16:00 16:15 Temp 99.6 99.8 Pulse 106 123 130 Resp 28 B/P (MAP) 108/89 (95) 112/54 (73) Pulse Ox 95 91 90 O2 Delivery Mechanical Ventilator Mechanical Ventilator Mechanical Ventilator O2 Flow Rate 60.00 60.00 FiO2 80 04/24/18 04/24/18 04/24/18 04/24/18 16:33 17:00 18:00 18:18 Temp 99.6 99.8 Pulse 124 118 114 Resp 25 B/P (MAP) 100/68 (79) 116/74 (88) 132/91 Pulse Ox 90 91 93 O2 Delivery Mechanical Ventilator Mechanical Ventilator O2 Flow Rate 60.00 60.00 FiO2 70 04/24/18 04/24/18 04/24/18 04/24/18 18:31 18:38 19:00 19:00 Temp 97.6 Pulse 113 130 120 Resp 24 B/P (MAP) 91/55 84/50 (61) Pulse Ox 92 89 O2 Delivery Mechanical Ventilator O2 Flow Rate 60.00 FiO2 70 04/24/18 04/24/18 04/24/18 04/24/18 20:00 20:00 20:00 21:00 Temp 101.2 98.6 101.4 Pulse 122 109 Resp 30 38 B/P (MAP) 110/67 (81) 97/71 (80) Pulse Ox 90 90 O2 Delivery Mechanical Ventilator Mechanical Ventilator Mechanical Ventilator Mechanical Ventilator O2 Flow Rate 60.00 70.00 60.00 FiO2 70 04/24/18 04/24/18 04/24/18 04/24/18 22:00 22:19 23:00 23:54 Temp 102.2 101.4 Pulse 116 107 125 117 Resp 28 27 28 27 B/P (MAP) 86/60 (69) 113/49 (70) Pulse Ox 90 90 91 90 O2 Delivery Mechanical Ventilator Mechanical Ventilator O2 Flow Rate 60.00 60.00 FiO2 70 80 04/25/18 04/25/18 04/25/18 04/25/18 00:00 00:00 00:00 00:50 Temp 101.8 Pulse 116 Resp 28 B/P (MAP) 93/59 (70) Pulse Ox 90 O2 Delivery Mechanical Ventilator Mechanical Ventilator Mechanical Ventilator Mechanical Ventilator O2 Flow Rate 80.00 80.00 95.00 FiO2 80 04/25/18 04/25/18 04/25/18 04/25/18 01:00 01:00 02:00 02:00 Pulse 125 125 115 130 Resp 28 40 B/P (MAP) 97/70 (79) 97/69 (78) Pulse Ox 91 92 O2 Delivery Mechanical Ventilator Mechanical Ventilator O2 Flow Rate 95.00 95.00 04/25/18 04/25/18 04/25/18 04/25/18 02:27 03:00 04:00 04:00 Pulse 115 118 124 Resp 29 26 27 B/P (MAP) 95/58 (70) 95/78 (84) Pulse Ox 91 91 90 O2 Delivery Mechanical Ventilator Mechanical Ventilator Mechanical Ventilator O2 Flow Rate 95.00 95.00 FiO2 95 80 04/25/18 04/25/18 04/25/18 04/25/18 04:05 04:20 05:00 06:00 Pulse 120 115 126 121 Resp 29 30 28 B/P (MAP) 100/69 (79) 97/73 (81) Pulse Ox 90 90 90 O2 Delivery Mechanical Ventilator Mechanical Ventilator O2 Flow Rate 95.00 95.00 FiO2 95 04/25/18 04/25/18 04/25/18 04/25/18 06:16 07:00 07:00 08:00 Temp 103.8 Pulse 126 133 131 115 Resp 28 27 36 B/P (MAP) 114/73 (87) 112/79 (90) Pulse Ox 91 92 98 O2 Delivery Mechanical Ventilator Mechanical Ventilator O2 Flow Rate 95.00 85.00 FiO2 95 04/25/18 04/25/18 04/25/18 04/25/18 08:05 08:12 08:12 08:13 Temp 102.5 102.5 B/P (MAP) 112/79 O2 Delivery Mechanical Ventilator Mechanical Ventilator O2 Flow Rate 85.00 FiO2 75 04/25/18 04/25/18 04/25/18 04/25/18 08:23 08:26 09:00 09:05 Pulse 112 110 Resp 30 26 B/P (MAP) 93/64 (74) Pulse Ox 97 97 O2 Delivery Mechanical Ventilator O2 Flow Rate 75.00 75.00 65.00 FiO2 75 04/25/18 04/25/18 04/25/18 04/25/18 09:10 09:26 10:00 10:29 Temp 101.5 Pulse 109 92 Resp 25 29 B/P (MAP) 98/66 (77) Pulse Ox 95 95 O2 Delivery Mechanical Ventilator O2 Flow Rate 55.00 55.00 FiO2 55 04/25/18 04/25/18 04/25/18 04/25/18 11:00 11:40 12:00 12:41 Temp 99.0 Pulse 117 109 Resp 24 34 B/P (MAP) 109/65 (80) 113/61 (78) Pulse Ox 96 96 O2 Delivery Mechanical Ventilator Mechanical Ventilator Mechanical Ventilator Mechanical Ventilator O2 Flow Rate 55.00 55.00 55.00 FiO2 55 04/25/18 04/25/18 04/25/18 04/25/18 13:00 13:00 14:00 14:23 Pulse 111 111 89 84 Resp 29 19 24 B/P (MAP) 129/64 (85) 107/65 (79) Pulse Ox 95 99 100 O2 Delivery Mechanical Ventilator Mechanical Ventilator O2 Flow Rate 55.00 55.00 FiO2 45 04/25/18 04/25/18 04/25/18 04/25/18 14:27 15:00 15:30 15:57 Temp 99.9 Pulse 90 85 Resp 16 B/P (MAP) 107/69 (82) 112/72 Pulse Ox 98 O2 Delivery Mechanical Ventilator Mechanical Ventilator O2 Flow Rate 45.00 45.00 35.00 04/25/18 04/25/18 04/25/18 04/25/18 16:00 16:14 16:40 17:00 Pulse 92 87 93 Resp 17 23 21 B/P (MAP) 117/72 (87) 111/71 (84) Pulse Ox 99 99 95 O2 Delivery Mechanical Ventilator Mechanical Ventilator Mechanical Ventilator O2 Flow Rate 45.00 45.00 FiO2 35 35 04/25/18 04/25/18 04/25/18 04/25/18 18:00 18:34 19:00 19:00 Pulse 70 77 79 79 Resp 17 23 19 B/P (MAP) 101/65 (77) 100/64 (76) Pulse Ox 93 95 95 O2 Delivery Mechanical Ventilator Mechanical Ventilator O2 Flow Rate 45.00 35.00 FiO2 35 04/25/18 04/25/18 04/25/18 04/25/18 20:00 20:00 20:08 21:00 Pulse 69 80 78 Resp 23 22 18 B/P (MAP) 106/66 (79) 97/62 (74) Pulse Ox 96 96 93 O2 Delivery Mechanical Ventilator Mechanical Ventilator Mechanical Ventilator O2 Flow Rate 35.00 35.00 FiO2 35 35 04/25/18 04/25/18 04/25/18 04/25/18 21:57 22:00 22:13 23:00 Pulse 72 66 75 72 Resp 22 31 18 B/P (MAP) 100/58 (72) 99/64 (76) Pulse Ox 92 92 93 O2 Delivery Mechanical Ventilator Mechanical Ventilator O2 Flow Rate 35.00 35.00 FiO2 35 04/26/18 04/26/18 04/26/18 04/26/18 00:00 00:00 00:00 00:12 Temp 96.5 Pulse 76 71 Resp 17 24 B/P (MAP) 96/65 (75) Pulse Ox 96 92 O2 Delivery Mechanical Ventilator Mechanical Ventilator O2 Flow Rate 35.00 FiO2 35 35 04/26/18 04/26/18 04/26/18 04/26/18 01:00 01:00 02:00 02:04 Pulse 71 71 70 70 Resp 20 18 22 B/P (MAP) 102/67 (79) 102/64 (77) Pulse Ox 94 94 94 O2 Delivery Mechanical Ventilator Mechanical Ventilator O2 Flow Rate 35.00 35.00 FiO2 35 04/26/18 04/26/18 04/26/18 04/26/18 03:00 04:00 04:00 04:54 Temp 96.0 Pulse 70 74 Resp 22 23 B/P (MAP) 91/61 (71) Pulse Ox 94 94 O2 Delivery Mechanical Ventilator Mechanical Ventilator O2 Flow Rate 35.00 FiO2 35 35 04/26/18 04/26/18 04/26/18 04/26/18 05:00 06:00 06:14 07:00 Pulse 81 74 76 80 Resp 15 18 19 15 B/P (MAP) 102/64 (77) 103/65 (78) 99/61 (74) Pulse Ox 94 93 95 94 O2 Delivery Mechanical Ventilator Mechanical Ventilator Mechanical Ventilator O2 Flow Rate 35.00 35.00 35.00 FiO2 35 04/26/18 04/26/18 04/26/18 04/26/18 07:00 07:00 07:14 07:33 Pulse 80 85 O2 Flow Rate 40.00 FiO2 40 04/26/18 04/26/18 04/26/18 04/26/18 07:48 07:57 08:00 08:30 Temp 97.6 Pulse 80 Resp 15 B/P (MAP) 85/58 (67) Pulse Ox 96 O2 Delivery Mechanical Ventilator Mechanical Ventilator O2 Flow Rate 35.00 FiO2 40 40 04/26/18 04/26/18 04/26/18 04/26/18 08:32 09:00 09:19 10:00 Temp 96.7 Pulse 74 64 80 72 Resp 18 15 15 14 B/P (MAP) 87/50 (62) 88/58 (68) 84/50 (61) Pulse Ox 97 90 98 100 O2 Delivery Mechanical Ventilator Mechanical Ventilator Mechanical Ventilator O2 Flow Rate 35.00 40.00 40.00 FiO2 40 04/26/18 04/26/18 04/26/18 04/26/18 10:01 10:19 11:00 11:27 Temp 96.7 Pulse 77 77 96 Resp 19 19 14 B/P (MAP) 77/50 110/65 (80) Pulse Ox 96 96 90 O2 Delivery Mechanical Ventilator Mechanical Ventilator Mechanical Ventilator O2 Flow Rate 40.00 40.00 60.00 FiO2 40 04/26/18 04/26/18 04/26/18 04/26/18 11:30 12:00 12:00 12:00 Temp 97.9 Pulse 137 94 Resp 16 28 B/P (MAP) 100/70 (80) Pulse Ox 90 86 O2 Delivery Mechanical Ventilator Mechanical Ventilator O2 Flow Rate 70.00 70.00 FiO2 70 04/26/18 04/26/18 04/26/18 04/26/18 12:25 12:30 13:00 13:00 Pulse 121 121 Resp 14 B/P (MAP) 100/70 (80) Pulse Ox 95 O2 Delivery Mechanical Ventilator Mechanical Ventilator Mechanical Ventilator O2 Flow Rate 100.00 100.00 FiO2 100 04/26/18 04/26/18 04/26/18 04/26/18 13:35 14:00 14:36 15:00 Temp 97.9 Pulse 134 138 134 122 Resp 16 32 16 17 B/P (MAP) 109/71 (84) 106/64 103/73 (83) Pulse Ox 97 95 97 98 O2 Delivery Mechanical Ventilator Mechanical Ventilator Mechanical Ventilator O2 Flow Rate 90.00 90.00 90.00 FiO2 90 04/26/18 04/26/18 04/26/18 04/26/18 15:36 15:37 16:00 16:05 Temp 98.0 Pulse 99 112 Resp 19 15 B/P (MAP) 96/71 (79) Pulse Ox 99 98 O2 Delivery Mechanical Ventilator Mechanical Ventilator O2 Flow Rate 80.00 FiO2 80 80 04/26/18 04/26/18 04/26/18 04/26/18 17:00 17:50 18:00 18:25 Temp 100.2 Pulse 125 116 112 Resp 18 20 22 B/P (MAP) 90/66 (74) 92/65 (74) Pulse Ox 97 97 96 O2 Delivery Mechanical Ventilator Mechanical Ventilator O2 Flow Rate 80.00 80.00 FiO2 80 04/26/18 04/26/18 04/26/18 04/26/18 18:48 19:00 19:01 19:09 Temp 98.9 98.2 Pulse 128 128 Resp 20 B/P (MAP) 85/63 (70) Pulse Ox 95 O2 Delivery Mechanical Ventilator O2 Flow Rate 80.00 04/26/18 04/26/18 04/26/18 04/26/18 19:30 20:00 20:00 20:20 Temp 101.0 Pulse 130 112 131 Resp 20 29 27 B/P (MAP) 87/64 (72) 80/60 (67) Pulse Ox 94 94 94 O2 Delivery Mechanical Ventilator Mechanical Ventilator Mechanical Ventilator O2 Flow Rate 80.00 80.00 FiO2 80 80 04/26/18 04/26/18 04/26/18 04/26/18 20:30 21:00 21:18 21:30 Temp 98.7 Pulse 109 122 106 115 Resp 21 B/P (MAP) 90/65 (73) 86/62 (70) 85/61 91/63 (72) Pulse Ox 94 94 93 O2 Delivery Mechanical Ventilator Mechanical Ventilator Mechanical Ventilator O2 Flow Rate 80.00 80.00 80.00 04/26/18 04/26/18 04/26/18 04/26/18 21:50 21:57 22:00 22:09 Temp 99.1 Pulse 109 110 124 Resp 23 B/P (MAP) 90/65 (73) Pulse Ox 92 92 O2 Delivery Mechanical Ventilator O2 Flow Rate 80.00 FiO2 80 04/26/18 04/26/18 04/26/18 04/27/18 22:30 23:00 23:50 00:00 Pulse 125 115 124 Resp B/P (MAP) 84/63 (70) 84/65 (71) 120/68 (85) Pulse Ox 93 92 91 O2 Delivery Mechanical Ventilator Mechanical Ventilator Mechanical Ventilator O2 Flow Rate 80.00 80.00 FiO2 80 100 04/27/18 04/27/18 04/27/18 04/27/18 00:00 00:30 01:00 01:05 Pulse 112 117 104 109 Resp B/P (MAP) 67/55 (59) 84/69 (74) 59/53 (55) 96/76 (83) 90/72 (78) Pulse Ox 83 93 O2 Delivery Mechanical Ventilator Mechanical Ventilator Mechanical Ventilator O2 Flow Rate 80.00 80.00 100.00 04/27/18 04/27/18 04/27/18 04/27/18 01:22 01:30 02:00 02:30 Pulse 111 106 114 121 Resp 22 21 B/P (MAP) 77/63 (68) 48/46 (47) 83/70 (74) 84/72 (76) 90/59 (69) Pulse Ox 91 90 93 91 O2 Delivery Mechanical Ventilator Mechanical Ventilator Mechanical Ventilator O2 Flow Rate 100.00 100.00 100.00 FiO2 100 8/1104/27/18 04/27/18 04/27/18 03:00 03:30 03:54 04:00 Temp 100.7 Pulse 130 110 122 Resp 19 21 B/P (MAP) 53/44 (47) 85/69 (74) 96/86 (89) Pulse Ox 91 91 91 O2 Delivery Mechanical Ventilator Mechanical Ventilator O2 Flow Rate 100.00 100.00 FiO2 100 04/27/18 04/27/18 04/27/18 04/27/18 04:00 04:00 04:30 05:00 Pulse 125 126 121 Resp 21 21 B/P (MAP) 79/70 (73) 79/68 (72) 75/68 (70) 95/77 (83) 96/57 (70) Pulse Ox 92 92 94 O2 Delivery Mechanical Ventilator Mechanical Ventilator Mechanical Ventilator Mechanical Ventilator O2 Flow Rate 100.00 100.00 100.00 FiO2 100 04/27/18 04/27/18 04/27/18 04/27/18 05:30 05:49 06:00 06:12 Pulse 112 104 114 118 Resp 21 B/P (MAP) 83/67 (72) 96/57 60/47 (51) 68/28 (41) Pulse Ox 94 93 O2 Delivery Mechanical Ventilator Mechanical Ventilator O2 Flow Rate 100.00 100.00 04/27/18 04/27/18 06:30 06:49 Pulse 117 113 Resp 24 21 B/P (MAP) 86/73 (77) Pulse Ox 98 94 O2 Delivery Mechanical Ventilator O2 Flow Rate 100.00 FiO2 100 Capillary Refill : Less Than 3 Seconds General Appearance: moderate distress, thin Eyes: Bilateral Eye Normal Inspection, Bilateral Eye EOMI HEENT: pharynx normal; No scleral icterus (R), No scleral icterus (L); pale conjunctivae (R), pale conjunctivae (L); No photophobia Neck: non-tender, full range of motion, supple, normal inspection Respiratory: chest non-tender, respiratory distress, decreased breath sounds, crackles, wheezing, other (coarse) Cardiovascular: no edema, JVD, irregularly irregular, other (afib, rate controlled, per telemetry) Gastrointestinal: normal bowel sounds, soft, no pulsatile mass; No distended, No guarding, No rebound; tenderness (minimal diffuse tenderness to palpation) Rectal: deferred Back: normal inspection, no vertebral tenderness Extremities: normal range of motion, non-tender, normal inspection, no pedal edema, no calf tenderness, slow capillary refill Neurologic/Psychiatric: skip tracer II-XII nml as tested, alert, normal mood/affect, oriented x 3, motor weakness (generalized weakness) Skin: cool (dry), pallor Assessment/Plan Assessment/Plan Admission Dx Severe Sepsis HCAP - Right Lobar PNA Abdominal Pain Diarrhea Acute on Chronic Respiratory Failure Acute on Chronic Systolic Heart Failure Ischemic Cardiomyopathy, EF 15% and ICD Chronic Afib, rate controlled Admission Status: Inpatient Order (span 2 midnights) Reason for Inpatient Admission: stabilization and treatment of sepsis, HCAP Assessment & Plan Severe Sepsis 04/23 -secondary to HCAP, pt with last hospitalization 04/12-04/14 -elevated lactate, tachycardic, tachypnea, hypoxia, borderline blood pressure, large right side PNA -spivey culture -given patient's other significant comorbidities, he is at incredibly high risk for decompensation -at the time of admission, pt's blood pressure has returned to normal range with fluid bolus, continues to be tachycardic, has weaned from vapotherm to NC and is feeling less short of breath -has two large bore IV for access, given improvement and good established access pt does not need central access at this time -given pt's poor EF, it will be extremely difficult to volume resuscitate him without further compromise of his respiratory status HCAP - Right Lobar PNA 04/23 -Meropenem Day 1, pt with PCN allergy -start Vancomycin, dosing per pharmacy -MAT protocol, steroids -repeat CXR in AM Abdominal Pain 04/23 -mild tenderness to palpation, no specific findings on exam -consider imaging if worsening Acute on Chronic Respiratory Failure 04/23 -pt requiring oxygen, O2 sat on room air on arrival 83% -respiratory support as needed -baseline is 2L while sleeping only Acute on Chronic Systolic Heart Failure 04/23 -pt with a fairly tenuous fluid balance at baseline, and multiple admissions for exacerbation in the last several weeks and increasing diuretic needs -pt received rapid 1L fluid bolus in ED for sepsis, but his overall fluid balance is extremely precarious. As sepsis protocol is being followed, 40 mg lasix IVP now to attempt to avert some pulmonary edema Ischemic Cardiomyopathy, EF 15% and ICD 8/ -needle loom tender ischemic cardiomyopathy, EF has been 15% for many years, last checked January 2018, cardiac cath by Steve -ICD discharge 04/03 for VT that deteriorated to VF; pt has had an ICD for many years and the current device placed in 2010 per records and pt report had never discharged prior to that; he had an ICD prior to this one that discharged once, and it was also in place for many years Chronic Afib, rate controlled 04/23 -tachycardia now, rate ~110 -resume home meds, with hold parameters for blood pressure DVT Ppx 04/23 -resume home eliquis BID -SCDs Patient seriously ill and at extremely high risk for decompensation due to his severity of illness and his multiple serious comorbidities. Given these factors , and considering the number of hospitalizations that he has recently had for worsening exacerbations, and that most recent interrogation of device showed multiple episodes of VT with one that prolonged into VF and ICD discharge, his overall prognosis is fair at best. CODE STATUS: FULL CODE Clinical Quality Measures DVT/VTE Risk/Contraindication: VTE Present on Admission: No Risk Factor Score Per Nursin RFS Level Per Nursing on Admit: 3=High Sepsis: Within 3hrs of presentation: Admin fluids, Admin ABX, Blood cultures prior to ABX's, Lactate level Pneumonia: Pseudomonal Risk: COPD HCAP with risk for mulit-drug: Hospitalized>2d (pst 90d) Urinary Catheter-Non SCIP Pts: Reason for Catheter Continuanc: Accurate I&O Copy Copies To 1: [facility]/DARBY LEYVA DO Apr 23, 2018 18:59
[2018-04-23 19:00] VITALS: BP 93/70
[2018-04-23] MEDS ORDERED: HYDROcodone/APAP 5 MG/325 MG (LORTAB) TAB PO PRN (19:00)
[2018-04-23] MEDS ORDERED: methylPREDNISolone 125 MG (Solu-MEDROL) VIAL IVP NR (19:00)
[2018-04-23 20:00] VITALS: BP 92/75
[2018-04-23 20:26] VITALS: BP 100/76
[2018-04-23] MEDS: ROSUVASTATIN 20 MG (CRESTOR) TABLET PO SCH (20:36)
[2018-04-23 21:00] VITALS: BP 88/72
[2018-04-23] MEDS ORDERED: APIXABAN 5 MG (ELIQUIS) TABLET PO SCH (21:00)
[2018-04-23] MEDS ORDERED: RT-ALBUTEROL/IPRATROPIUM 3 ML (DUONEB) VIAL INH PRN (21:00)
[2018-04-23] MEDS ORDERED: NON-FORMULARY MEDICATION 1 EA EA (Rosuvastatin Calcium 20 MG) PO SCH (21:00)
[2018-04-23] MEDS ORDERED: AMIODARONE 200 MG (CORDARONE) TAB PO SCH ×2 (21:00)
[2018-04-23 22:00] VITALS: BP 108/66
[2018-04-23] MEDS: MEROPENEM 500 MG in NS (IVPB) 100 ML IV SCH (22:01)
[2018-04-23] MEDS: RT-ALBUTEROL/IPRATROPIUM 3 ML (DUONEB) VIAL INH SCH (22:23)
[2018-04-23 23:00] VITALS: BP 86/63
[2018-04-24] VITALS (35 sets, daily range): BP systolic 59–119; BP diastolic 21–101
[2018-04-24 00:22] LABS: ABG BASE EXCESS -10.9 MMOL/L (-2.5-2.5); ABG OXYGEN SATURATION 96 % (94-100); ABG PCO2 25 MMHG (35-45); ABG PH 7.35 (7.37-7.43); ABG PO2 76 MMHG (79-93); ABG TCO2 14.9 MMOL/L (21.0-31.0)
[2018-04-24 00:23] LABS: ALLENS TEST YES-POS; INSPIRED O2 3L; PATIENT TEMP 94.4; VENTILATOR NO
[2018-04-24] MEDS ORDERED: NS IV 1000 ML 1,000 ML IV SCH (01:33)
[2018-04-24] MEDS: AZITHROMYCIN 500 MG/NS 250 ML IVPB IV SCH ×2 (01:48)
[2018-04-24] MEDS: NOREPINEPHRINE 4 MG/NS 250 ML DRIP IV SCH ×8 (02:10→12:05)
[2018-04-24] MEDS ORDERED: PROPOFOL DRIP (ICU) 100 ML IV ONE (02:45)
--- NOTE | 2018-04-24 03:11 | Anesthesia-Procedure Note ---
Procedures/Interventions Procedure Start/Stop/Diagnosis Date of Procedure: Apr 24, 2018 Start Time: 02:50 Preprocedural Diagnosis: acute respiratory distress/ failure Brief History Called to ICU for intubation. Upon arrival, pt found to have increased work of breathing, tachypnic on BiPap settings. RT/RN @ beside. Brief history obtained from Dr. Snyder and RN. Discussed intubation with spouse and she wishes to proceed. Stop Time: 03:00 Intubation RSI: Yes Vital Signs Pre-procedure see nurses notes, pt on vasopressor for hypotension. 100% pre-Ox, [id number]: Yes Intubation Method: orotracheal Huertas (size used 0-4): 2 Videoscope used: No Grade View: 1 Medications: Propofol (80mg), Succinylcholine (100mg) Mask Ventilation: positive Positive End Tide CO2: Yes Breath Sounds after Intubation: bilateral-equal ETT Securred @ (cm): 23 Intubated with ease: Yes Intubation Complications: no complications (8.0 ETT x 1 attempt) Post Intubation Xray-done: Yes (to be done post central line placement ) Progress RN/ Dr. Snyder to perform central line placement immediately following intubation. JUNI YOUNGER CRNA Apr 24, 2018 03:11
[2018-04-24] MEDS: VASOPRESSIN INJECTION 20 UNIT in NS (IVPB) 50 ML IV SCH ×2 (03:14→11:20)
[2018-04-24] MEDS ORDERED: VASOPRESSIN INJECTION 20 UNIT/ML VIAL ONE (03:14)
[2018-04-24] MEDS ORDERED: NS (IVPB) 100 ML ONE (03:14)
[2018-04-24] MEDS: RT-ALBUTEROL/IPRATROPIUM 3 ML (DUONEB) VIAL INH SCH ×6 (03:30→22:19)
[2018-04-24 04:01] LABS: BASOPHILS % (AUTO) 0 % (0-10); EOSINOPHILS % (AUTO) 0 % (0-10); HEMATOCRIT 34 % (40-54); HEMOGLOBIN 11.1 G/DL (13.3-17.7); LYMPHOCYTES # (AUTO) 0.5 X 10^3 (1.0-4.0); LYMPHOCYTES % (AUTO) 7 % (12-44); MEAN CORPUSCULAR HEMOGLOBIN 30 PG (25-34); MEAN CORPUSCULAR HGB CONC 33 G/DL (32-36); MEAN CORPUSCULAR VOLUME 92 FL (80-99); MEAN PLATELET VOLUME 9.8 FL (7.4-10.4); MONOCYTES # (AUTO) 0.2 X 10^3 (0.0-1.0); MONOCYTES % (AUTO) 3 % (0-12); NEUTROPHILS # (AUTO) 6.4 X 10^3 (1.8-7.8); NEUTROPHILS % (AUTO) 90 % (42-75); PLATELET COUNT 341 10^3/uL (130-400); RED BLOOD COUNT 3.69 10^6/uL (4.35-5.85); RED CELL DISTRIBUTION WIDTH 15.6 % (10.0-14.5); WHITE BLOOD COUNT 7.1 10^3/uL (4.3-11.0)
[2018-04-24] MEDS: PROPOFOL DRIP (ICU) 100 ML IV SCH ×3 (04:28→18:18)
[2018-04-24 04:30] LABS: ALBUMIN 2.9 GM/DL (3.2-4.5); BILIRUBIN,TOTAL 0.5 MG/DL (0.1-1.0); CALCIUM 7.2 MG/DL (8.5-10.1); CREATININE SERUM 1.73 MG/DL (0.60-1.30); MAGNESIUM 1.9 MG/DL (1.8-2.4); POTASSIUM 4.9 MMOL/L (3.6-5.0); TOTAL PROTEIN 6.1 GM/DL (6.4-8.2)
[2018-04-24 04:36] LABS: ABG BASE EXCESS -14.3 MMOL/L (-2.5-2.5); ABG OXYGEN SATURATION 89 % (94-100); ABG PCO2 43 MMHG (35-45); ABG PO2 73 MMHG (79-93); ABG TCO2 15.1 MMOL/L (21.0-31.0); ALLENS TEST YES-POS; INSPIRED O2 100%; VENTILATOR YES
[2018-04-24 04:37] LABS: PATIENT TEMP 94.8
[2018-04-24 04:38] LABS: ABG PH 7.12 (7.37-7.43)
[2018-04-24 04:53] LABS: FREE T4 (FREE THYROXINE) 1.35 NG/DL (0.70-1.48)
[2018-04-24] MEDS ORDERED: PHENTOLAMINE 5 MG/2 ML VIAL IJ ONE (05:15)
--- NOTE | 2018-04-24 05:27 | Pulmonary Consultation ---
History of Present Illness History of Present Illness Date of Consultation 04/24/18 05:22 Time Seen by Provider: 05:22 Date of Admission History of Present Illness 72yo with hx of CHF EF 15% presented to ED secondary to worsening respiratory distress, weakness over 1 wk and Sp02 of 83% on RA. Pt usually only uses oxygen only at night. He was also found to have a temp of 101.1, abdominal pain, and diarrhea. PT was admitted to ICU and continued to decline though out the night. PT was intubated by anesthesia and Dr. Snyder placed central line. Allergies and Home Medications Allergies Coded Allergies: Penicillins (Unverified Allergy, Unknown, 05/29/16) Home Medications Albuterol Sulfate 2.5 Mg/3 Ml Vial.neb, 2.5 MG NEB Q4H PRN for SHORTNESS OF BREATH, (Reported) Albuterol Sulfate 18 Gm Hfa.aer.ad, 2 PUFF INH QID PRN for SHORTNESS OF BREATH, (Reported) Amiodarone HCl 200 Mg Tablet, 400 MG PO BID, (Reported) TAKES 2 (200MG) TABLETS Apixaban 5 Mg Tablet, 5 MG PO BID, (Reported) Aspirin 81 Mg Tablet.dr, 81 MG PO DAILY, (Reported) Cyclobenzaprine HCl 10 Mg Tablet, 10 MG PO TID PRN for MUSCLE SPASMS, (Reported) Diltiazem HCl 300 Mg Cap.er.24h, 300 MG PO DAILY, (Reported) Fluticasone/Vilanterol 1 Each Blst.w.dev, 1 PUFF INH DAILY, (Reported) Furosemide 40 Mg Tablet, 80 MG PO DAILY Prescribed by: MICHAEL LINARES on 04/14/18 1157 Levalbuterol Tartrate 15 Gm Hfa.aer.ad, 2 PUFF IH Q6H PRN for SHORTNESS OF BREATH, (Reported) Lorazepam 1 Mg Tablet, 1 MG PO HS PRN for SLEEP Prescribed by: MICHAEL LINARES on 04/14/18 1157 Losartan Potassium 25 Mg Tablet, 12.5 MG PO DAILY, (Reported) TAKES 1/2 OF A (25 MG) TABLET Nitroglycerin 0.4 Mg Tab.subl, 0.4 MG PO UD PRN for CHEST PAIN, (Reported) 1 TAB UNDER TONGUE EVERY 5 MIN UP TO 3 DOSES Pantoprazole Sodium 40 Mg Tablet.dr, 40 MG PO DAILY, (Reported) Potassium Chloride 20 Meq Tablet.er, 40 MEQ PO DAILY Prescribed by: MICHAEL LINARES on 04/14/18 1157 Rosuvastatin Calcium 40 Mg Tablet, 20 MG PO HS, (Reported) TAKES 1/2 (40MG) TABLET Spironolactone 25 Mg Tablet, 25 MG PO DAILY, (Reported) Tamsulosin HCl 0.4 Mg Cap.er.24h, 0.4 MG PO 1730, (Reported) Umeclidinium [place] 62.5 Mcg Blst.w.dev, 1 PUFF INH DAILY, (Reported) Past Jbdiqsy-Caypfx-Xsanwx Hx Past Med/Social Hx: Reviewed Nursing Past Med/Soc Hx Patient Social History Alcohol Use: Denies Use Recreational Drug Use: No Smoking Status: Former Smoker Type Used: Cigarettes Former Smoker, Quit: Feb 15, 2018 2nd Hand Smoke Exposure: Yes Recent Foreign Travel: No Contact w/Someone Who Travel: No Recent Infectious Disease Expo: No Recent Hopitalizations: Yes (04/03/18 - 04/04/18) Physical Abuse: No Sexual Abuse: No Immunizations Up To Date Tetanus Booster (TDap): More than 5yrs PED Vaccines UTD: No Date of Pneumonia Vaccine: Nov 03, 2015 Date of Influenza Vaccine: Jun 19, 2015 Seasonal Allergies Seasonal Allergies: No Past Medical History Surgeries: Yes (STENTS X 3) Cardiac, CABG, Coronary Stent, Defibrillator Respiratory: Yes (MEDIASTINAL LYMPHADENOPATHY--BEING MONITORED BY PCP & DR. TAPIA, HOME O2 HS) Asthma, Sleep Apnea, COPD, Emphysema Currently Using CPAP: No Currently Using BIPAP: No Cardiac: Yes ([place] X2; SYNCOPE PRIOR TO DEFIBRILLATOR PLACEMENT; CHF) Atrial Fibrillation, Coronary Artery Disease, Heart Attack, High Cholesterol, Hypertension, Syncope Neurological: Yes (LEFT SIDE WEAKNESS, BALANCE PROBLEMS/ FALLS) Stroke Reproductive Disorders: No Sexually Transmitted Disease: No HIV/AIDS: No Genitourinary: Yes Kidney Stones Gastrointestinal: Yes (GASTRITIS) Gastroesophageal Reflux, Diverticulosis, Esophagitis, Hiatal Hernia Musculoskeletal: Yes Arthritis, Chronic Back Pain, Fractures Endocrine: No ("POSSIBLE THYROID PROBLEMS") HEENT: Yes Loss of Vision: Denies Hearing Impairment: Hard of Hearing Cancer: Yes Skin Psychosocial: No Nursing Suicide Risk Score: 0 Integumentary: No Blood Disorders: Yes (NOT CURRENT BUT HX OF ANEMIA OF UNKNOWN CAUSE) Adverse Reaction/Blood Tranf: No Family Medical History Reviewed Nursing Family Hx Fam hx-osteoporosis 03 MOTHER Family history: Hypertension 03 MOTHER, Onset:50's - 60 09 SISTER, Onset:40's - 50 Thyroid disease 03 MOTHER No Family History of: Cancer Chest pain Dementia Family history: Diabetes mellitus Stroke Heart Disease, Hypertension Review of Systems Time Seen by Provider: 10:43 Sepsis Event Evaluation Height, Weight, BMI Height: 5'8.00" Weight: 207lbs. 0.0oz. 93.797960fp; 31.5 BMI Method:Stated Exam Exam Vital Signs Date Time Temp Pulse Resp B/P (MAP) Pulse Ox O2 Delivery O2 Flow Rate FiO2 04/24/18 05:00 96.4 100 26 89/77 (81) 92 Mechanical Ventilator 100.00 04/24/18 04:28 108/87 04/24/18 04:00 97 34 94/83 (87) 92 Mechanical Ventilator 100.00 04/24/18 03:26 90/59 (69) 04/24/18 03:15 77/55 (62) 04/24/18 03:00 76 56 59/21 (34) 92 Mechanical Ventilator 100.00 04/24/18 02:00 95 22 78/30 (46) 95 NIV Bilevel 35.00 04/24/18 01:00 90 20 71/57 (62) 94 NIV Bilevel 35.00 04/24/18 01:00 103 04/24/18 00:29 NIV Bilevel 35.00 04/24/18 00:26 96 27 100 35.00 04/24/18 00:00 90 23 81/71 (74) 96 Nasal Cannula 3.00 04/23/18 23:00 94 32 86/63 (71) 96 Nasal Cannula 3.00 04/23/18 22:23 Nasal Cannula 3.00 04/23/18 22:00 97 32 108/66 (80) 94 Nasal Cannula 3.00 04/23/18 21:00 87 17 88/72 (77) 95 Nasal Cannula 3.00 04/23/18 20:26 103 95 32 04/23/18 20:00 92 30 92/75 (81) 92 Nasal Cannula 3.00 04/23/18 19:00 106 04/23/18 19:00 116 27 93/70 (78) 95 Nasal Cannula 3.00 04/23/18 18:09 96 Nasal Cannula 5.00 04/23/18 17:37 99.3 04/23/18 17:00 99.3 110 20 103/68 96 04/23/18 15:42 94 Vapotherm 40.00 35 04/23/18 15:19 93 Nasal Cannula 4.00 04/23/18 15:15 101.0 110 42 99/61 (74) 83 04/23/18 15:15 83 Nasal Cannula 4.00 I & O 04/24/18 07:00 Intake Total 150 ml Output Total 250 ml Balance -100 ml Height & Weight Height: 5'8.00" Weight: 207lbs. 0.0oz. 93.887172nt; 31.5 BMI Method:Stated General Appearance: WD/WN, Mild Distress HEENT: PERRL/EOMI, Pharynx Normal Neck: Non Tender, Supple Respiratory: Lungs Clear, Normal Breath Sounds Cardiovascular: No Murmur, Irregularly Irregular, Tachycardia Capillary Refill: Less Than 3 Seconds Extremity: Normal Range of Motion, Other (tender to the area of the right shoulder from the shoulder to the base of the neck.) Neurologic/Psychiatric: Alert, Oriented x3 Skin: Cool Results Lab Laboratory Tests 04/23/18 15:19 04/24/18 03:37 Assessment/Plan Assessment/Plan Acute respiratory distress with pneumonia and possible ARDS vs pulmonary edema -Continue ventilator support Sever septic shock secondary to pneumonia RLL lobar pneumonia upon admission -Will do bronchoscopy this AM to access possible aspiration and to obtain sputum culture per RN not much has been suctioned from ET tube. -IVF -Rodríguez cultures -Continue abx therapy hx of systolic CHF -EF 15% known to Dr. Wilson -Consult cardiology -Change Levophed to dopamine -Continue vasopressin for now -Start Precedex gtt and decrease propofol secondary to hypotension Metabolic acidosis -Start Bicarb gtt and give 1 amp IVP Hyponatremia -Monitor Critical Care: Critically Ill Patient Time spent with patient (mins): 120 AMOS GARNER DO Apr 24, 2018 05:27
[2018-04-24] MEDS ORDERED: SODIUM BICARB 8.4% 50 MEQ/50 ML (ABBOTT) SYR IV ONE (05:30)
[2018-04-24] MEDS ORDERED: DEXMEDETOMIDINE INJECTION 200 MCG in NS (IVPB) 50 ML IV SCH (05:30)
[2018-04-24] MEDS ORDERED: NS (IVPB) 0 ML ONE ×2 (05:35→09:28)
[2018-04-24] MEDS ORDERED: methylPREDNISolone 40 MG/ML (Solu-MEDROL) VIAL IV SCH (06:00)
[2018-04-24] MEDS ORDERED: HYDROCORTISONE 100 MG/2 ML (Solu-CORTEF) VIAL IV SCH (06:00)
[2018-04-24] MEDS ORDERED: SODIUM BICARB 8.4% 50 MEQ/50 ML (ABBOTT) SYR ONE (06:11)
[2018-04-24] MEDS: MEROPENEM 500 MG in NS (IVPB) 100 ML IV SCH ×3 (06:16→22:18)
[2018-04-24] MEDS: KCL 20 MEQ TAB (K-DUR) PO SCH (06:16)
[2018-04-24] MEDS ORDERED: PANTOPRAZOLE 40 MG (PROTONIX) TAB PO SCH (07:00)
[2018-04-24] MEDS ORDERED: FUROSEMIDE 40 MG/4 ML INJ (LASIX) IVP SCH (07:00)
[2018-04-24] MEDS: DOPamine DRIP 250 ML IV SCH ×2 (07:10→18:38)
[2018-04-24] MEDS ORDERED: UMECLIDINIUM BROMIDE (INCRUSE ELLIPTA) 7'S IH SCH (08:00)
[2018-04-24] MEDS: POTASSIUM CL 10MEQ/50ML IVPB 50 ML IV SCH (08:15)
[2018-04-24] MEDS: MAGNESIUM 1 GM/100 ML IVPB 100 ML IV SCH (08:16)
[2018-04-24] MEDS: SODIUM BICARBONATE 8.4% VIAL 150 MEQ in D5W 1000 ML IV SOLUTION 1,000 ML IV SCH ×3 (08:16→22:50)
[2018-04-24] MEDS: HYDROCORTISONE 100 MG/2 ML (Solu-CORTEF) VIAL IV SCH ×3 (08:17→22:21)
--- NOTE | 2018-04-24 08:28 | Pulmonary Procedures ---
Pulmonary Procedures Date of Procedure Date of Service: Apr 24, 2018 Bronch Bronchoscopy with bronchoalveolar lavage (BAL), transbronchial washes . Preop DX RLL pneumonia r/o aspiration Postop DX: same - no signs of foreign body Complications: none After informed consent obtained and formal time out pt was already sedated on ventilator. Bronchoscope was advanced through the ET tube. An anatomical tour was undertaken down to the segmental bronchi bilaterally. No endobronchial lesions noted. From the RLL a bronchoalveolar lavage (BAL), transbronchial washes were obtained. Pt tolerated procedure well. No complications noted. Stat CXR is pending. AMOS GARNER DO Apr 24, 2018 08:28
--- NOTE | 2018-04-24 08:53 | Diagnostic Imaging Report ---
INDICATION: Tube placement. Time of exam: 3:38 AM Correlation is made with prior study one day earlier. An endotracheal tube has been placed and has a tip in good position above the vladimir. NG tube appears to pass below the diaphragm. There are changes of median sternotomy. Cardiac defibrillator is in place. Right-sided infiltrate persists with consolidation in the right base. There is some increasing infiltrate in the right upper lobe. Left lung is fairly clear. No effusion is seen. IMPRESSION: 1. Satisfactory endotracheal tube and nasogastric tube placement. 2. Increasing right-sided infiltrate since examination one day earlier. Dictated by: Dictated on workstation # [id number]
[2018-04-24] MEDS ORDERED: DILTIAZEM 300 MG (CARDIZEM CD) CAP PO SCH (09:00)
[2018-04-24] MEDS ORDERED: LOSARTAN POTASSIUM 12.5 MG PO SCH (09:00)
[2018-04-24] MEDS ORDERED: SPIRONOLACTONE 25 MG (ALDACTONE) TAB PO SCH (09:00)
[2018-04-24] MEDS ORDERED: ASPIRIN E.C. 81 MG (ECOTRIN) TAB PO SCH (09:00)
[2018-04-24] MEDS ORDERED: DILTIAZEM HCL 300 MG PO SCH (09:00)
--- NOTE | 2018-04-24 09:11 | Consultation ---
History of Present Illness History of Present Illness Patient Consulted On(isaiah/time) 04/24/18 09:03 Date Seen by Provider: Apr 24, 2018 Time Seen by Provider: 02:30 History of Present Illness Also requested for central line placement due to sepsis Patient care from 230-330 critical care evaluation and treatment Patient is a 72-year-old male who is admitted for pneumonia and possible sepsis. Patient with extensive cardiac disease Patient blood pressure systolic is down to the 70s and requiring Levophed. Patient having a hard time breathing and catching his air he is using BiPAP at this time. Patient hungry for air. And his oxygen saturation in the 80 percent range. Patient is unable to really discuss. His is at bedside saying that everything seemed to start about 2 weeks ago when his defibrillator went off. He's continued to decline. He is having worsening breathing issues. They called her primary care provider and was instructed to go to the emergency department for further evaluation. Patient with chest x-ray with right basilar pneumonia. He's been having fever. Allergies and Home Medications Allergies Coded Allergies: Penicillins (Unverified Allergy, Unknown, 05/29/16) Home Medications Albuterol Sulfate 2.5 Mg/3 Ml Vial.neb, 2.5 MG NEB Q4H PRN for SHORTNESS OF BREATH, (Reported) Albuterol Sulfate 18 Gm Hfa.aer.ad, 2 PUFF INH QID PRN for SHORTNESS OF BREATH, (Reported) Amiodarone HCl 200 Mg Tablet, 400 MG PO BID, (Reported) TAKES 2 (200MG) TABLETS Apixaban 5 Mg Tablet, 5 MG PO BID, (Reported) Aspirin 81 Mg Tablet.dr, 81 MG PO DAILY, (Reported) Cyclobenzaprine HCl 10 Mg Tablet, 10 MG PO TID PRN for MUSCLE SPASMS, (Reported) Diltiazem HCl 300 Mg Cap.er.24h, 300 MG PO DAILY, (Reported) Fluticasone/Vilanterol 1 Each Blst.w.dev, 1 PUFF INH DAILY, (Reported) Furosemide 40 Mg Tablet, 80 MG PO DAILY Prescribed by: MICHAEL LINARES on 04/14/18 1157 Levalbuterol Tartrate 15 Gm Hfa.aer.ad, 2 PUFF IH Q6H PRN for SHORTNESS OF BREATH, (Reported) Lorazepam 1 Mg Tablet, 1 MG PO HS PRN for SLEEP Prescribed by: MICHAEL LINARES on 04/14/18 115 Losartan Potassium 25 Mg Tablet, 12.5 MG PO DAILY, (Reported) TAKES 1/2 OF A (25 MG) TABLET Nitroglycerin 0.4 Mg Tab.subl, 0.4 MG PO UD PRN for CHEST PAIN, (Reported) 1 TAB UNDER TONGUE EVERY 5 MIN UP TO 3 DOSES Pantoprazole Sodium 40 Mg Tablet.dr, 40 MG PO DAILY, (Reported) Potassium Chloride 20 Meq Tablet.er, 40 MEQ PO DAILY Prescribed by: MICHAEL LINARES on 04/14/18 1157 Rosuvastatin Calcium 40 Mg Tablet, 20 MG PO HS, (Reported) TAKES 1/2 (40MG) TABLET Spironolactone 25 Mg Tablet, 25 MG PO DAILY, (Reported) Tamsulosin HCl 0.4 Mg Cap.er.24h, 0.4 MG PO 1730, (Reported) Umeclidinium [place] 62.5 Mcg Blst.w.dev, 1 PUFF INH DAILY, (Reported) Patient Home Medication List Home Medication List Reviewed: Yes Past Yvklkih-Jilpto-Ihlxyn Hx Patient Social History Alcohol Use: Denies Use Recreational Drug Use: No Smoking Status: Former Smoker Former Smoker, Quit: Feb 15, 2018 Type Used: Cigarettes 2nd Hand Smoke Exposure: Yes Recent Foreign Travel: No Contact w/Someone Who Travel: No Recent Infectious Disease Expo: No Recent Hopitalizations: Yes (04/03/18 - 04/04/18) Physical Abuse Screen: No Sexual Abuse: No Immunizations Up To Date Tetanus Booster (TDap): More than 5yrs PED Vaccines UTD: No Date of Pneumonia Vaccine: Nov 03, 2015 Date of Influenza Vaccine: Jun 19, 2015 Seasonal Allergies Seasonal Allergies: No Surgeries History of Surgeries: Yes (STENTS X 3) Surgeries: Cardiac, CABG, Coronary Stent, Defibrillator Respiratory History of Respiratory Disorde: Yes (MEDIASTINAL LYMPHADENOPATHY--BEING MONITORED BY PCP & DR. TAPIA, HOME O2 HS) Respiratory Disorders: Asthma, Sleep Apnea, COPD, Emphysema Cardiovascular History of Cardiac Disorders: Yes ([place] X2; SYNCOPE PRIOR TO DEFIBRILLATOR PLACEMENT; CHF) Cardiac Disorders: Atrial Fibrillation, Coronary Artery Disease, Heart Attack, High Cholesterol, Hypertension, Syncope Neurological History of Neurological Disord: Yes (LEFT SIDE WEAKNESS, BALANCE PROBLEMS/ FALLS) Neurological Disorders: Stroke Reproductive System Hx Reproductive Disorders: No Sexually Transmitted Disease: No HIV/AIDS: No Genitourinary History of Genitourinary Disor: Yes Genitourinary Disorders: Kidney Stones Gastrointestinal History of Gastrointestinal Di: Yes (GASTRITIS) Gastrointestinal Disorders: Gastroesophageal Reflux, Diverticulosis, Esophagitis, Hiatal Hernia Musculoskeletal History of Musculoskeletal Dis: Yes Musculoskeletal Disorders: Arthritis, Chronic Back Pain, Fractures Endocrine History of Endocrine Disorders: No ("POSSIBLE THYROID PROBLEMS") HEENT History of HEENT Disorders: Yes Loss of Vision: Denies Hearing Impairment: Hard of Hearing Cancer History of Cancer: Yes Cancer: Skin Psychosocial History of Psychiatric Problem: No Integumentary History of Skin or Integumenta: No Blood Transfusions History of Blood Disorders: Yes (NOT CURRENT BUT HX OF ANEMIA OF UNKNOWN CAUSE) Adverse Reaction to a Blood Tr: No Family Medical History Significant Family History: Heart Disease, Hypertension Family Medial History: Fam hx-osteoporosis 03 MOTHER Family history: Hypertension 03 MOTHER, Onset:50's - 60 09 SISTER, Onset:40's - 50 Thyroid disease 03 MOTHER No Family History of: Cancer Chest pain Dementia Family history: Diabetes mellitus Stroke Review of Systems-General ROS-Unable to Obtain: Unable to obtain due to patient condition at this time Physical Exam-General Problems Physical Exam Vital Signs Vital Signs - First Documented 04/23/18 04/23/18 15:15 15:42 Temp 101.0 Pulse 110 Resp 42 B/P (MAP) 99/61 (74) Pulse Ox 83 O2 Delivery Nasal Cannula O2 Flow Rate 4.00 FiO2 35 Capillary Refill : Less Than 3 Seconds General Appearance: severe distress (Severe respiratory distress) HEENT: PERRL/EOMI (On BiPAP) Neck: supple Respiratory: respiratory distress (Severe, accessory muscle use), accessory muscle use Cardiovascular: tachycardia Gastrointestinal: non tender, soft Rectal: deferred Back: normal inspection Extremities: non-tender Neurologic/Psychiatric: alert (Is able to communicate minimally due to severe respiratory distress) Skin: other (Slightly diaphoretic) Lymphatic: no adenopathy Data Review Labs Laboratory Tests 04/23/18 15:19: White Blood Count 11.5H, Red Blood Count 4.09L, Hemoglobin 12.1L, Hematocrit 37L , Mean Corpuscular Volume 89, Mean Corpuscular Hemoglobin 30, Mean Corpuscular Hemoglobin Concent 33, Red Cell Distribution Width 15.4H, Platelet Count 375, Mean Platelet Volume 9.4, Neutrophils (%) (Auto) 76H, Lymphocytes (%) (Auto) 8L , Monocytes (%) (Auto) 16H, Eosinophils (%) (Auto) 0, Basophils (%) (Auto) 0, Neutrophils # (Auto) 8.8H, Lymphocytes # (Auto) 0.9L, Monocytes # (Auto) 1.8H, Eosinophils # (Auto) 0.1, Basophils # (Auto) 0.0, Neutrophils % (Manual) 81, Lymphocytes % (Manual) 5, Monocytes % (Manual) 14, Prothrombin Time 16.1H, INR Comment 1.3, Activated Partial Thromboplast Time 37H, Sodium Level 130L, Potassium Level 4.7, Chloride Level 99, Carbon Dioxide Level 21, Anion Gap 10, Blood Urea Nitrogen 35H, Creatinine 1.84H, Estimat Glomerular Filtration Rate 37 , BUN/Creatinine Ratio 19, Glucose Level 139H, Lactic Acid Level 2.20*H, Calcium Level 8.8, Magnesium Level 2.0, Total Bilirubin 0.6, Aspartate Amino Transf (AST/SGOT) 44H, Alanine Aminotransferase (ALT/SGPT) 53, Alkaline Phosphatase 121, Troponin I < 0.30, B-Type Natriuretic Peptide 2024.5H, Total Protein 7.6, Albumin 3.6 04/23/18 15:50: Urine Color YELLOW, Urine Clarity CLEAR, Urine pH 5, Urine Specific [place] 1.025H, Urine Protein 3+H, Urine Glucose (UA) NEGATIVE, Urine Ketones 1+H, Urine Nitrite NEGATIVE, Urine Bilirubin 1+H, Urine Urobilinogen 8H, Urine Leukocyte Esterase 1+H, Urine RBC (Auto) 2+H, Urine RBC 0-2, Urine WBC 10-25H, Urine Squamous Epithelial Cells 0-2, Urine Crystals NONE, Urine Bacteria LARGEH , Urine Casts PRESENT, Urine Hyaline Casts 2-5H, Urine Mucus LARGEH, Urine Culture Indicated YES 04/23/18 17:40: Lactic Acid Level 1.50 04/24/18 00:15: Blood Gas Puncture Site L RAD, Blood Gas Patient Temperature 94.4, Arterial Blood pH 7.35L, Arterial Blood Partial Pressure CO2 25L, Arterial Blood Partial Pressure O2 76L, Arterial Blood HCO3 14*L, Arterial Blood Total CO2 14.9L, Arterial Blood Oxygen Saturation 96, Arterial Blood Base Excess -10.9L, Silviano Test YES-POS, Blood Gas Ventilator Setting NO, Blood Gas Inspired Oxygen 3L 04/24/18 00:35: Lactic Acid Level 2.56*H 04/24/18 03:37: Lactic Acid Level 4.54*H, White Blood Count 7.1, Red Blood Count 3.69L, Hemoglobin 11.1L, Hematocrit 34L, Mean Corpuscular Volume 92, Mean Corpuscular Hemoglobin 30, Mean Corpuscular Hemoglobin Concent 33, Red Cell Distribution Width 15.6H, Platelet Count 341, Mean Platelet Volume 9.8, Neutrophils (%) (Auto ) 90H, Lymphocytes (%) (Auto) 7L, Monocytes (%) (Auto) 3, Eosinophils (%) (Auto ) 0, Basophils (%) (Auto) 0, Neutrophils # (Auto) 6.4, Lymphocytes # (Auto) 0.5L , Monocytes # (Auto) 0.2, Eosinophils # (Auto) 0.0, Basophils # (Auto) 0.0, Sodium Level 132L, Potassium Level 4.9, Chloride Level 107, Carbon Dioxide Level 13L, Anion Gap 12, Blood Urea Nitrogen 32H, Creatinine 1.73H, Estimat Glomerular Filtration Rate 39, BUN/Creatinine Ratio 18, Glucose Level 315H, Calcium Level 7.2L, Corrected Calcium 8.1L, Magnesium Level 1.9, Total Bilirubin 0.5, Aspartate Amino Transf (AST/SGOT) 96H, Alanine Aminotransferase ( ALT/SGPT) 80H, Alkaline Phosphatase 158H, C-Reactive Protein High Sensitivity 15.11H, B-Type Natriuretic Peptide 1875.8H, Total Protein 6.1L, Albumin 2.9L, Triglycerides Level 69, Thyroid Stimulating Hormone (TSH) 0.07L, Free Thyroxine 1.35 04/24/18 04:30: Blood Gas Puncture Site R RAD, Blood Gas Patient Temperature 94.8, Arterial Blood pH 7.12*L, Arterial Blood Partial Pressure CO2 43, Arterial Blood Partial Pressure O2 73L, Arterial Blood HCO3 14*L, Arterial Blood Total CO2 15.1L, Arterial Blood Oxygen Saturation 89L, Arterial Blood Base Excess -14.3L, Silviano Test YES-POS, Blood Gas Ventilator Setting YES, Blood Gas Inspired Oxygen 100% 04/24/18 07:45: Troponin I < 0.30 Microbiology 04/23/18 Urine Culture - Preliminary, Resulted Sent To [facility] Assessment/Plan Assessment/Plan Assessment/Plan Right basilar pneumonia Sepsis secondary to pneumonia Severe coronary artery disease Hypotension needing central line placement Respiratory distress severe Patient 72-year-old male in respiratory distress on BiPAP and working extremely hard tried to breathe. Patient to be intubated. Patient also with hypotension needing central line. He is on Eliquis therefore will place a left femoral vein central line by ultrasound. Risk and benefits were discussed with patient' s and patient who agrees with plan. We will sign off after central line placed would recommend having a PICC line placed so femoral line decrease his chance of infection from central line. Please call if needed further Clinical Quality Measures DVT/VTE Risk/Contraindication: Risk Factor Score Per Nursin RFS Level Per Nursing on Admit: 3=High KAREN CHI DO Apr 24, 2018 09:11
[2018-04-24 09:13] LABS: BILIRUBIN,URINE 1+ (NEGATIVE)
[2018-04-24] MEDS ORDERED: DOBUTamine 250 MG/20 ML (DOBUTREX) VIAL IV ONE (09:28)
--- NOTE | 2018-04-24 09:31 | Pulmonary Progress Note ---
Standard Progress Note Progress Notes Time Seen by Provider: 08:51 Assessment & Plan Acute respiratory distress with pneumonia and possible ARDS vs pulmonary edema -Continue ventilator support Sever septic shock secondary to pneumonia RLL lobar pneumonia upon admission -Will do bronchoscopy this AM to access possible aspiration and to obtain sputum culture per RN not much has been suctioned from ET tube. -IVF -Rodríguez cultures -Continue abx therapy hx of systolic CHF -EF 15% known to Dr. Wilson -Consult cardiology -Change Levophed to dopamine -Continue vasopressin for now -Start Precedex gtt and decrease propofol secondary to hypotension Metabolic acidosis -Start Bicarb gtt and give 1 amp IVP Hyponatremia -Monitor D/w Dr. Gregory and family at bedside. Will start dobutamine gtt with UPDATE 1521-- I checked on patient his dopamine is currently at 4mcg RN is titrating it up however he is tachy at 120. he is still on levophed and vasopressin. I have also discussed patient extensively with family, RN, and Dr. Gregory. Total time spent with patient this AM is 120min not including bronchoscopy. Critical Care: Critically Ill Patient Time spent with patient (mins): 120 Focused Exam Lactate Level 04/23/18 17:40: Lactic Acid Level 1.50 04/24/18 00:35: Lactic Acid Level 2.56*H 04/24/18 03:37: Lactic Acid Level 4.54*H AMOS GARNER DO Apr 24, 2018 09:30
[2018-04-24] MEDS: DOBUTamine INJECTION 250 MG in NS (IVPB) 250 ML IV SCH (09:33)
--- NOTE | 2018-04-24 09:40 | Progress Note (SOAP) ---
Subjective Subjective/Events-last exam Patient with acute decompensation overnight, requiring emergent intubation and CVL placement. Patient is now sedated and on levophed, vasopressin, dopamine and dobutamine. reports that he started to get short of breath and tried bipap, then was struggling until intubated. Dr. Snyder also reports patient was in severe distress when he arrived. Dr. Jarvis, Dr. Gregory consulting. Patient sedated and on the ventilator, stimulation avoided due to critical condition. Review of Systems Date Seen by Provider: Apr 24, 2018 Time Seen by Provider: 11:30 Pulmonary: Dyspnea Neurological: Other (sedated and on ventilator) Focused Exam Lactate Level 04/23/18 17:40: Lactic Acid Level 1.50 04/24/18 00:35: Lactic Acid Level 2.56*H 04/24/18 03:37: Lactic Acid Level 4.54*H Objective Exam Last Set of Vital Signs Vital Signs Date Time Temp Pulse Resp B/P (MAP) Pulse Ox O2 Delivery O2 Flow Rate FiO2 04/24/18 08:05 96 25 97 100 04/24/18 07:10 88/71 04/24/18 06:00 96.8 Mechanical Ventilator 100.00 Capillary Refill : Less Than 3 Seconds I&O Intake and Output 04/24/18 00:00 Intake Total 1557.5 ml Output Total 250 ml Balance 1307.5 ml Intake Oral 150 ml IV Total 1407.5 ml Output Urine Total 250 ml Daily Weight Change No General: No Acute Distress, Other (sedated) HEENT: Atraumatic, Mucous Memb Moist/[place] Neck: Supple, No Thyromegaly Lungs: Other (diminished, crackles, coarse) Heart: Other (irregularly irregularly) Abdomen: Normal Bowel Sounds, Soft, No Masses Extremities: No Cyanosis, Other (slow capillary refill) Skin: No Rashes, No Significant Lesion Neuro: Other (sedated and on ventilator) Results/Procedures Lab Laboratory Tests 04/23/18 15:19: White Blood Count 11.5H, Red Blood Count 4.09L, Hemoglobin 12.1L, Hematocrit 37L , Mean Corpuscular Volume 89, Mean Corpuscular Hemoglobin 30, Mean Corpuscular Hemoglobin Concent 33, Red Cell Distribution Width 15.4H, Platelet Count 375, Mean Platelet Volume 9.4, Neutrophils (%) (Auto) 76H, Lymphocytes (%) (Auto) 8L , Monocytes (%) (Auto) 16H, Eosinophils (%) (Auto) 0, Basophils (%) (Auto) 0, Neutrophils # (Auto) 8.8H, Lymphocytes # (Auto) 0.9L, Monocytes # (Auto) 1.8H, Eosinophils # (Auto) 0.1, Basophils # (Auto) 0.0, Neutrophils % (Manual) 81, Lymphocytes % (Manual) 5, Monocytes % (Manual) 14, Prothrombin Time 16.1H, INR Comment 1.3, Activated Partial Thromboplast Time 37H, Sodium Level 130L, Potassium Level 4.7, Chloride Level 99, Carbon Dioxide Level 21, Anion Gap 10, Blood Urea Nitrogen 35H, Creatinine 1.84H, Estimat Glomerular Filtration Rate 37 , BUN/Creatinine Ratio 19, Glucose Level 139H, Lactic Acid Level 2.20*H, Calcium Level 8.8, Magnesium Level 2.0, Total Bilirubin 0.6, Aspartate Amino Transf (AST/SGOT) 44H, Alanine Aminotransferase (ALT/SGPT) 53, Alkaline Phosphatase 121, Troponin I < 0.30, B-Type Natriuretic Peptide 2024.5H, Total Protein 7.6, Albumin 3.6 04/23/18 15:50: Urine Color YELLOW, Urine Clarity CLEAR, Urine pH 5, Urine Specific [place] 1.025H, Urine Protein 3+H, Urine Glucose (UA) NEGATIVE, Urine Ketones 1+H, Urine Nitrite NEGATIVE, Urine Bilirubin 1+H, Urine Urobilinogen 8H, Urine Leukocyte Esterase 1+H, Urine RBC (Auto) 2+H, Urine RBC 0-2, Urine WBC 10-25H, Urine Squamous Epithelial Cells 0-2, Urine Crystals NONE, Urine Bacteria LARGEH , Urine Casts PRESENT, Urine Hyaline Casts 2-5H, Urine Mucus LARGEH, Urine Culture Indicated YES 04/23/18 17:40: Lactic Acid Level 1.50 04/24/18 00:15: Blood Gas Puncture Site L RAD, Blood Gas Patient Temperature 94.4, Arterial Blood pH 7.35L, Arterial Blood Partial Pressure CO2 25L, Arterial Blood Partial Pressure O2 76L, Arterial Blood HCO3 14*L, Arterial Blood Total CO2 14.9L, Arterial Blood Oxygen Saturation 96, Arterial Blood Base Excess -10.9L, Silviano Test YES-POS, Blood Gas Ventilator Setting NO, Blood Gas Inspired Oxygen 3L 04/24/18 00:35: Lactic Acid Level 2.56*H 04/24/18 03:37: Lactic Acid Level 4.54*H, White Blood Count 7.1, Red Blood Count 3.69L, Hemoglobin 11.1L, Hematocrit 34L, Mean Corpuscular Volume 92, Mean Corpuscular Hemoglobin 30, Mean Corpuscular Hemoglobin Concent 33, Red Cell Distribution Width 15.6H, Platelet Count 341, Mean Platelet Volume 9.8, Neutrophils (%) (Auto ) 90H, Lymphocytes (%) (Auto) 7L, Monocytes (%) (Auto) 3, Eosinophils (%) (Auto ) 0, Basophils (%) (Auto) 0, Neutrophils # (Auto) 6.4, Lymphocytes # (Auto) 0.5L , Monocytes # (Auto) 0.2, Eosinophils # (Auto) 0.0, Basophils # (Auto) 0.0, Sodium Level 132L, Potassium Level 4.9, Chloride Level 107, Carbon Dioxide Level 13L, Anion Gap 12, Blood Urea Nitrogen 32H, Creatinine 1.73H, Estimat Glomerular Filtration Rate 39, BUN/Creatinine Ratio 18, Glucose Level 315H, Calcium Level 7.2L, Corrected Calcium 8.1L, Magnesium Level 1.9, Total Bilirubin 0.5, Aspartate Amino Transf (AST/SGOT) 96H, Alanine Aminotransferase ( ALT/SGPT) 80H, Alkaline Phosphatase 158H, C-Reactive Protein High Sensitivity 15.11H, B-Type Natriuretic Peptide 1875.8H, Total Protein 6.1L, Albumin 2.9L, Triglycerides Level 69, Thyroid Stimulating Hormone (TSH) 0.07L, Free Thyroxine 1.35 04/24/18 04:30: Blood Gas Puncture Site R RAD, Blood Gas Patient Temperature 94.8, Arterial Blood pH 7.12*L, Arterial Blood Partial Pressure CO2 43, Arterial Blood Partial Pressure O2 73L, Arterial Blood HCO3 14*L, Arterial Blood Total CO2 15.1L, Arterial Blood Oxygen Saturation 89L, Arterial Blood Base Excess -14.3L, Silviano Test YES-POS, Blood Gas Ventilator Setting YES, Blood Gas Inspired Oxygen 100% 04/24/18 07:45: Troponin I < 0.30 Microbiology 04/23/18 Urine Culture - Preliminary, Resulted Sent To [facility] Assessment/Plan Assessment/Plan Assessment & Plan Severe Sepsis 04/23 -secondary to HCAP, pt with last hospitalization 04/12-04/14 -elevated lactate, tachycardic, tachypnea, hypoxia, borderline blood pressure, large right side PNA -spivey culture -given patient's other significant comorbidities, he is at incredibly high risk for decompensation -at the time of admission, pt's blood pressure has returned to normal range with fluid bolus, continues to be tachycardic, has weaned from vapotherm to NC and is feeling less short of breath -has two large bore IV for access, given improvement and good established access pt does not need central access at this time -given pt's poor EF, it will be extremely difficult to volume resuscitate him without further compromise of his respiratory status 04/24 --> SEPTIC SHOCK -acute decompensation overnight with severe respiratory distress and worsening hypotension -intubated, CVL overnight -currently on levophed vasopressin, dopamine and dobutamine, as well as bicarb gtts -consult to Dr. Jarvis and Dr. Gregory for co-management -discussed with and reinforced with family that pt is extremely critical and prognosis is very poor -hypotensive, hypothermic HCAP - Right Lobar PNA 04/23 -Meropenem Day 1, pt with PCN allergy -start Vancomycin, dosing per pharmacy -MAT protocol, steroids -repeat CXR in AM 04/24 -intubated, bronch done this am, cx pending -CXR - worsening right infiltrate -WBC 11.5 --> 7.1 -CRP 15.11 -Meropenem and Vancomycin Day 2 -Azithromycin Day 1 Acidosis 04/24 -ABG pH 7.12, pCO2 43, pO2 73, HCO3 13, BE -14.3 -lactate 2.56 --> 4.54 Hypotension 04/24 -BP 80's/50's this AM -levophed, vasopressin, dobutamine, dopamine -slowly improving, titrate down levophed first SVITLANA vs Acute on Chronic Kidney Disease 04/24 -Cr 1.73 -BUN 32 Hyponatremia 04/24 -Na 132 Elevated LFTs 04/24 -AST 96 -ALT 80 -Alk Phos 158 Abdominal Pain 04/23 -mild tenderness to palpation, no specific findings on exam -consider imaging if worsening Acute on Chronic Respiratory Failure 04/23 -pt requiring oxygen, O2 sat on room air on arrival 83% -respiratory support as needed -baseline is 2L while sleeping only 04/24 -acute decompensation overnight requiring intubation -FiO2 100% at the time of exam -Dr. Jarvis consulted, defer pulmonary management to his expert opinion Acute on Chronic Systolic Heart Failure 04/23 -pt with a fairly tenuous fluid balance at baseline, and multiple admissions for exacerbation in the last several weeks and increasing diuretic needs -pt received rapid 1L fluid bolus in ED for sepsis, but his overall fluid balance is extremely precarious. As sepsis protocol is being followed, 40 mg lasix IVP now to attempt to avert some pulmonary edema 04/24 -pt continues to have precarious fluid status, needs significant volume resuscitation but his heart failure is limiting aggressive volume -consult to cardiology -BNP 5.8 Ischemic Cardiomyopathy, EF 15% and ICD 04/23 -oysterman ischemic cardiomyopathy, EF has been 15% for many years, last checked January 2018, cardiac cath by Steve -ICD discharge 04/03 for VT that deteriorated to VF; pt has had an ICD for many years and the current device placed in 2010 per records and pt report had never discharged prior to that; he had an ICD prior to this one that discharged once, and it was also in place for many years 04/24 -consult to cardiology Chronic Afib, rate controlled 04/23 -tachycardia now, rate ~110 -resume home meds, with hold parameters for blood pressure 04/24 -consult to cardiology Sick Euthyroid Syndrome 04/24 -TSH 0.07 --> low -Free T4 1.35 --> normal -Free T3 <1 --> low -Total T3 0.42 --> low -due to acute illness and not likely thyroid or pituitary issue, as Free T4 is normal, and Free T3 and Total T3 are low DVT Ppx 04/23 -resume home eliquis BID -SCDs Patient extremely critically ill and prognosis is very poor. requests pt be no chest compressions. CODE STATUS: NO CHEST COMPRESSIONS Clinical Quality Measures DVT/VTE Risk/Contraindication: Risk Factor Score Per Nursin RFS Level Per Nursing on Admit: 3=High Copy Copies To 1: [facility]/MICHAEL LEYVA DO Apr 24, 2018 09:40
[2018-04-24] MEDS: LOSARTAN 25 MG (COZAAR) TAB PO SCH (10:07)
--- NOTE | 2018-04-24 10:13 | Diagnostic Imaging Report ---
CLINICAL INDICATION: Patient with sepsis and UTI. Comparison: None Procedure: Real-time bilateral lower extremity venous Doppler duplex evaluation is performed from the inguinal region through the popliteal fossa. The calf venous structures are also evaluated. Findings: The deep venous system is well visualized and is easily compressible. There is no evidence of deep venous thrombosis, valvular incompetence, or significant collateral circulation. Impression: There is no ultrasound Doppler evidence of deep venous thrombosis in the bilateral lower extremities. Dictated by: Dictated on workstation # [id number]
[2018-04-24] MEDS ORDERED: PANTOPRAZOLE 40 MG/10 ML (PROTONIX) VIAL IV NR (10:15)
--- NOTE | 2018-04-24 11:08 | Diagnostic Imaging Report ---
INDICATION: PICC line placement. TIME OF EXAM: 10:34 a.m. Correlation is made with prior study from earlier the same day. 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 Cardiac defibrillator remains in place. ET tube and NG tube are in place. Right upper extremity PICC line has been placed and appears to have the tip overlying the SVC right atrial junction. No pneumothorax is seen. Right base consolidation persists. Congestive changes in both lungs are noted. IMPRESSION: Satisfactory PICC line placement. Dictated by: Dictated on workstation # [id number]
[2018-04-24] MEDS: DEXMEDETOMIDINE INJECTION 1,000 MCG in NS (IVPB) 240 ML IV SCH ×3 (11:16→22:22)
--- NOTE | 2018-04-24 13:25 | Consultation-Cardiology ---
HPI-Cardiology Cardiology Consultation: Date of Consultation 04/24/18 Date of Admission Attending Physician Darby Linares DO Admitting Physician [place] Consulting Physician Carlito GREGORY MD HPI: Time Seen by Provider: 09:00 Chief Complaint: Shock This is a 72-year-old gentleman who sees Dr. Wilson for cardiology and I follow him for electrophysiology. 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 He has an ICD with an appropriate shock of ICD due to VT/VF recently. He was started on amiodarone 400 mg twice a day and then reduced to 400 mg once a day. He was also recently admitted for worsening shortness of breath and was given more Lasix. The patient increased subsequently and was discharged. I saw him as an outpatient recently. He was doing well with no evidence of significant congestive heart failure. The patient is intubated therefore the history was taken from the at the bedside. According to her the patient was not feeling very well yesterday, developed significantly worse shortness of breath and fever. Temperature was 101 Fahrenheit recorded. Leukocytosis. Pneumonia on chest x- ray. Patient was in septic shock and was treated with sepsis protocol. Review of Systems-Cardiology Review of Systems Constitutional: fever, lightheadedness Eyes: No As described under HPI, No no symptoms reported, No blindness, No blurred vision, No contact lenses, No drainage, No decreased acuity, No foreign body sensation, No glasses, No inflammation, No pain, No photophobia, No previous injury, No shadows, No tunnel vision, No other, No vision change Ears/Nose/Throat: No As described under HPI, No no symptoms reported, No chronic hearing loss, No epistaxis, No ear discharge, No ear pain, No loose teeth, No mouth pain, No mouth swelling, No nasal drainage, No nose pain, No recent hearing loss, No throat pain, No throat swelling, No ulcerations, No other Respiratory: orthopnea, shortness of breath Gastrointestinal: No no symptoms reported, No As described under HPI, No abdomen distended, No abdominal pain, No blood streaked bowels, No constipation , No diarrhea, No difficulty swallowing, No nausea, No poor appetite, No poor fluid intake, No rectal bleeding, No vomiting, No other, No nausea/vomiting/ diarrhea, No stool coloration changes Genitourinary: No no symptoms reported, No As described under HPI, No burning, No dysuria, No discharge, No frequency, No flank pain, No hematuria, No incontinence, No pain, No urgency, No other, No urine frequency changes, No urine coloration changes Musculoskeletal: No no symptoms reported, No As describe under HPI, No back pain, No gout, No joint pain, No joint swelling, No muscle pain, No muscle stiffness, No neck pain, No other Skin: No no symptoms reported, No As described under HPI, No change in color, No change in hair/nails, No dryness, No lesions, No lumps, No rash, No other, No skin related problems, No ulcerations, No rash on exposed areas, No ulcerations on exposed areas Psychiatric/Neurological: No no symptoms reported, No As described under HPI, No anxiety, No depression, No emotional problems, No headache, No numbness, No pre-existing deficit, No seizure, No tingling, No tremors, No weakness, No other , No focal weakness, No syncope All Other Systems Reviewed Negative Unless Noted: Yes BPY-Phhryb-Qhasua Hx Patient Social History Alcohol Use: Denies Use Recreational Drug Use: No Smoking Status: Former Smoker Former smoker/When Quit: Apr 04, 2018 Type Used: Cigarettes 2nd Hand Smoke Exposure: Yes Recent Foreign Travel: No Recent Infectious Disease Expo: No Hospitalization with Isolation: Denies Physical Abuse Screen: No Sexual Abuse: No Immunizations Up To Date Tetanus Booster (TDap): More than 5yrs Date of Pneumonia Vaccine: Nov 03, 2015 Date of Influenza Vaccine: Jun 19, 2015 Past Medical History PMH As described under Assessment. Family Medical History Family Medical History: He reports his sister had HTN and his mother. Family History: Fam hx-osteoporosis 03 MOTHER Family history: Hypertension 03 MOTHER, Onset:50's - 60 09 SISTER, Onset:40's - 50 Thyroid disease 03 MOTHER No Family History of: Cancer Chest pain Dementia Family history: Diabetes mellitus Stroke Allergies and Home Medications Allergies Coded Allergies: Penicillins (Unverified Allergy, Unknown, 05/29/16) Home Medications Albuterol Sulfate 2.5 Mg/3 Ml Vial.neb, 2.5 MG NEB Q4H PRN for SHORTNESS OF BREATH, (Reported) Albuterol Sulfate 18 Gm Hfa.aer.ad, 2 PUFF INH QID PRN for SHORTNESS OF BREATH, (Reported) Amiodarone HCl 200 Mg Tablet, 400 MG PO BID, (Reported) TAKES 2 (200MG) TABLETS Apixaban 5 Mg Tablet, 5 MG PO BID, (Reported) Aspirin 81 Mg Tablet.dr, 81 MG PO DAILY, (Reported) Cyclobenzaprine HCl 10 Mg Tablet, 10 MG PO TID PRN for MUSCLE SPASMS, (Reported) Diltiazem HCl 300 Mg Cap.er.24h, 300 MG PO DAILY, (Reported) Fluticasone/Vilanterol 1 Each Blst.w.dev, 1 PUFF INH DAILY, (Reported) Furosemide 40 Mg Tablet, 80 MG PO DAILY Prescribed by: DARBY LINARES on 04/14/181156 Levalbuterol Tartrate 15 Gm Hfa.aer.ad, 2 PUFF IH Q6H PRN for SHORTNESS OF BREATH, (Reported) Lorazepam 1 Mg Tablet, 1 MG PO HS PRN for SLEEP Prescribed by: DARBY LINARES on 04/14/181156 Losartan Potassium 25 Mg Tablet, 12.5 MG PO DAILY, (Reported) TAKES 1/2 OF A (25 MG) TABLET Nitroglycerin 0.4 Mg Tab.subl, 0.4 MG PO UD PRN for CHEST PAIN, (Reported) 1 TAB UNDER TONGUE EVERY 5 MIN UP TO 3 DOSES Pantoprazole Sodium 40 Mg Tablet.dr, 40 MG PO DAILY, (Reported) Potassium Chloride 20 Meq Tablet.er, 40 MEQ PO DAILY Prescribed by: DARBY LINARES on 04/14/181156 Rosuvastatin Calcium 40 Mg Tablet, 20 MG PO HS, (Reported) TAKES 1/2 (40MG) TABLET Spironolactone 25 Mg Tablet, 25 MG PO DAILY, (Reported) Tamsulosin HCl 0.4 Mg Cap.er.24h, 0.4 MG PO 1730, (Reported) Umeclidinium [place] 62.5 Mcg Blst.w.dev, 1 PUFF INH DAILY, (Reported) Patient Home Medication List Home Medication List Reviewed: Yes Physical Exam-Cardiology Physical Exam Vital Signs/I&O 04/24/18 04/24/18 04/24/18 04/24/18 02:00 03:00 03:15 03:26 Pulse 95 76 Resp 22 56 B/P (MAP) 78/30 (46) 59/21 (34) 77/55 (62) 90/59 (69) Pulse Ox 95 92 O2 Delivery NIV Bilevel Mechanical Ventilator O2 Flow Rate 35.00 100.00 04/24/18 04/24/18 04/24/18 04/24/18 04:00 04:00 04:00 04:28 Temp 94.8 Pulse 97 Resp 34 B/P (MAP) 94/83 (87) 108/87 Pulse Ox 92 O2 Delivery Mechanical Ventilator Mechanical Ventilator O2 Flow Rate 100.00 FiO2 100 04/24/18 04/24/18 04/24/18 04/24/18 04:30 05:00 06:00 07:00 Temp 94.2 96.4 96.8 Pulse 100 93 89 Resp 26 24 B/P (MAP) 89/77 (81) 84/67 (73) Pulse Ox 92 92 O2 Delivery Mechanical Ventilator Mechanical Ventilator O2 Flow Rate 100.00 100.00 04/24/18 04/24/18 04/24/18 04/24/18 07:00 07:10 08:00 08:05 Pulse 89 97 96 Resp 24 25 B/P (MAP) 85/61 (69) 88/71 97/45 (62) Pulse Ox 96 95 97 O2 Delivery Mechanical Ventilator Mechanical Ventilator O2 Flow Rate 100.00 100.00 FiO2 100 04/24/18 04/24/18 04/24/18 04/24/18 08:17 09:00 10:00 10:49 Pulse 99 113 106 Resp 25 B/P (MAP) 99/64 (76) 112/70 (84) Pulse Ox 94 95 95 O2 Delivery Mechanical Ventilator Mechanical Ventilator Mechanical Ventilator O2 Flow Rate 80.00 80.00 FiO2 80 80 04/24/18 04/24/18 04/24/18 04/24/18 10:58 11:00 12:00 12:02 Pulse 111 121 128 Resp 28 B/P (MAP) 110/80 104/73 (83) 119/89 (99) Pulse Ox 95 94 96 O2 Delivery Mechanical Ventilator Mechanical Ventilator O2 Flow Rate 70.00 60.00 FiO2 70 04/24/18 12:08 B/P (MAP) O2 Delivery Mechanical Ventilator O2 Flow Rate 60.00 04/24/18 00:00 Intake Total 1557.5 ml Output Total 250 ml Balance 1307.5 ml Capillary Refill : Less Than 3 Seconds Constitutional: other (intubated and ventilated.) HEENT: No PERRL, No normal ENT inspection, No TMs normal, No pharynx normal, No scleral icterus (R), No scleral icterus (L), No pale conjunctivae (R), No pale conjunctivae (L), No photophobia, No TM abnormal (R), No TM abnormal (L), No pharyngeal erythema, No tonsillar exudate, No other, No discharge, No EOMI, No hearing is well preserved, No hard of hearing, No oral hygience is good, No ulceration, No xanthelasmas are seen Neck: No non-tender, No full range of motion, No supple, No normal inspection, No carotid bruit, No limited range of motion, No lymphadenopathy (R), No lymphadenopathy (L), No tender lateral, No tender midline, No thyromegaly, No other, No carotid pulses are 2 + bilaterally, No with good upstrokes Respiratory: respiratory distress, chest is bilaterally symmetric, lungs clear to auscultation Cardiovascular: irregularly irregular, tachycardia, S1 and S2 Gastrointestinal: No tender, No soft, No round, No distended, No pulsatile mass , No organomegaly, No guarding, No rebound, No tenderness, No hernia, No mass, No audible bowel sounds, No abnormal bowel sounds, No abdominal bruits, No spleenomegaly, No other Rectal: deferred Extremities: No normal range of motion, No non-tender, No normal inspection, No pedal edema, No calf tenderness, No normal capillary refill, No pelvis stable , No calf tenderness, No inflammation, No pedal edema, No slow capillary refill , No swelling, No other, No abrasion, No clubbing, No cyanosis, No ecchymosis, No laceration, No no lower extremity edema bilateral, No significant edema, No tenderness, No wound Neurologic/Psychiatric: no motor/sensory deficits, other (intubated and ventilated.) Skin: normal color, cool Lymphatic: no adenopathy Data Review Labs Laboratory Tests 04/23/18 15:19: White Blood Count 11.5H, Red Blood Count 4.09L, Hemoglobin 12.1L, Hematocrit 37L , Mean Corpuscular Volume 89, Mean Corpuscular Hemoglobin 30, Mean Corpuscular Hemoglobin Concent 33, Red Cell Distribution Width 15.4H, Platelet Count 375, Mean Platelet Volume 9.4, Neutrophils (%) (Auto) 76H, Lymphocytes (%) (Auto) 8L , Monocytes (%) (Auto) 16H, Eosinophils (%) (Auto) 0, Basophils (%) (Auto) 0, Neutrophils # (Auto) 8.8H, Lymphocytes # (Auto) 0.9L, Monocytes # (Auto) 1.8H, Eosinophils # (Auto) 0.1, Basophils # (Auto) 0.0, Neutrophils % (Manual) 81, Lymphocytes % (Manual) 5, Monocytes % (Manual) 14, Prothrombin Time 16.1H, INR Comment 1.3, Activated Partial Thromboplast Time 37H, Sodium Level 130L, Potassium Level 4.7, Chloride Level 99, Carbon Dioxide Level 21, Anion Gap 10, Blood Urea Nitrogen 35H, Creatinine 1.84H, Estimat Glomerular Filtration Rate 37 , BUN/Creatinine Ratio 19, Glucose Level 139H, Lactic Acid Level 2.20*H, Calcium Level 8.8, Magnesium Level 2.0, Total Bilirubin 0.6, Aspartate Amino Transf (AST/SGOT) 44H, Alanine Aminotransferase (ALT/SGPT) 53, Alkaline Phosphatase 121, Troponin I < 0.30, B-Type Natriuretic Peptide 2024.5H, Total Protein 7.6, Albumin 3.6 04/23/18 15:50: Urine Color YELLOW, Urine Clarity CLEAR, Urine pH 5, Urine Specific [place] 1.025H, Urine Protein 3+H, Urine Glucose (UA) NEGATIVE, Urine Ketones 1+H, Urine Nitrite NEGATIVE, Urine Bilirubin 1+H, Urine Urobilinogen 8H, Urine Leukocyte Esterase 1+H, Urine RBC (Auto) 2+H, Urine RBC 0-2, Urine WBC 10-25H, Urine Squamous Epithelial Cells 0-2, Urine Crystals NONE, Urine Bacteria LARGEH , Urine Casts PRESENT, Urine Hyaline Casts 2-5H, Urine Mucus LARGEH, Urine Culture Indicated YES 04/23/18 17:40: Lactic Acid Level 1.50 04/24/18 00:15: Blood Gas Puncture Site L RAD, Blood Gas Patient Temperature 94.4, Arterial Blood pH 7.35L, Arterial Blood Partial Pressure CO2 25L, Arterial Blood Partial Pressure O2 76L, Arterial Blood HCO3 14*L, Arterial Blood Total CO2 14.9L, Arterial Blood Oxygen Saturation 96, Arterial Blood Base Excess -10.9L, Silviano Test YES-POS, Blood Gas Ventilator Setting NO, Blood Gas Inspired Oxygen 3L 04/24/18 00:35: Lactic Acid Level 2.56*H 04/24/18 03:37: Lactic Acid Level 4.54*H, White Blood Count 7.1, Red Blood Count 3.69L, Hemoglobin 11.1L, Hematocrit 34L, Mean Corpuscular Volume 92, Mean Corpuscular Hemoglobin 30, Mean Corpuscular Hemoglobin Concent 33, Red Cell Distribution Width 15.6H, Platelet Count 341, Mean Platelet Volume 9.8, Neutrophils (%) (Auto ) 90H, Lymphocytes (%) (Auto) 7L, Monocytes (%) (Auto) 3, Eosinophils (%) (Auto ) 0, Basophils (%) (Auto) 0, Neutrophils # (Auto) 6.4, Lymphocytes # (Auto) 0.5L , Monocytes # (Auto) 0.2, Eosinophils # (Auto) 0.0, Basophils # (Auto) 0.0, Sodium Level 132L, Potassium Level 4.9, Chloride Level 107, Carbon Dioxide Level 13L, Anion Gap 12, Blood Urea Nitrogen 32H, Creatinine 1.73H, Estimat Glomerular Filtration Rate 39, BUN/Creatinine Ratio 18, Glucose Level 315H, Calcium Level 7.2L, Corrected Calcium 8.1L, Magnesium Level 1.9, Total Bilirubin 0.5, Aspartate Amino Transf (AST/SGOT) 96H, Alanine Aminotransferase ( ALT/SGPT) 80H, Alkaline Phosphatase 158H, C-Reactive Protein High Sensitivity 15.11H, B-Type Natriuretic Peptide 1875.8H, Total Protein 6.1L, Albumin 2.9L, Triglycerides Level 69, Thyroid Stimulating Hormone (TSH) 0.07L, Free Thyroxine 1.35 04/24/18 04:30: Blood Gas Puncture Site R RAD, Blood Gas Patient Temperature 94.8, Arterial Blood pH 7.12*L, Arterial Blood Partial Pressure CO2 43, Arterial Blood Partial Pressure O2 73L, Arterial Blood HCO3 14*L, Arterial Blood Total CO2 15.1L, Arterial Blood Oxygen Saturation 89L, Arterial Blood Base Excess -14.3L, Silviano Test YES-POS, Blood Gas Ventilator Setting YES, Blood Gas Inspired Oxygen 100% 04/24/18 07:45: Troponin I < 0.30 04/24/18 11:36: Glucometer 254H 04/24/18 12:25: Lactic Acid Level 2.26*H, Troponin I < 0.30 Microbiology 04/24/18 Gram Stain, Resulted Pending 04/24/18 Sputum Culture - Preliminary, Resulted Sent To [facility], 1928[facility]1983 04/23/18 Urine Culture - Preliminary, Resulted Sent To [facility] ECG Impression ECG Initial ECG Impression: Atrial Fibrillation w/RVR A/P-Cardiology Assessment/Admission Diagnosis Septic shock/cardiogenic shock. Severe cardiomyopathy with acute on chronic systolic congestive heart failure, Atrial fibrillation with rapid ventricular rate, Pneumonia, severe hypoxia Acute kidney injury, Shock liver, Plan Septic shock/cardiogenic shock. On 3 inotropes. When I was examining the patient the still hypotensive therefore we decided to start dobutamine infusion. Continue levophed, dopamine and vasopressin. CVP pending. Was already given fluids for sepsis protocol. Keep map over 65 mmHg. Repeat echocardiogram. Severe cardiomyopathy with acute on chronic systolic congestive heart failure, Lasix held because of severe hypotension. Will hold other medications for cardiomyopathy for now. IABP cannot be done due to severe sepsis. Atrial fibrillation with rapid ventricular rate, continue amiodarone. Likely contribution from dopamine as well. Pneumonia, severe hypoxia, broad-spectrum antibiotics. Acute kidney injury, likely due to SIRS. Shock liver, due to severe sepsis. Critical patient with likely poor prognosis. I discussed at length with the family. 35 minutes of critical care time was spent taking care of the patient and in evaluation. Thank you for your consultation. Please call me if you have any questions. Kyler Gregory MD, FACP, FACC, FSCAI, FHRS, CCDS Interventional Cardiology Cardiac Electrophysiology Vascular Medicine and Endovascular Interventions Clinical Quality Measures DVT/VTE Risk/Contraindication: Risk Factor Score Per Nursin RFS Level Per Nursing on Admit: 3=High Carlito GREGORY MD Apr 24, 2018 1:25 pm
[2018-04-24] MEDS: inSUlin ASPART (NovoLOG) 1 UNIT/0.01 ML (CHARGE PER UNIT) SC SCH ×2 (13:30→18:39)
[2018-04-24] MEDS: ASPIRIN 81 MG CHEW (CHILDREN'S ASA) PO SCH (13:30)
[2018-04-24] MEDS: APIXABAN 5 MG (ELIQUIS) TABLET NG SCH ×2 (13:30→20:36)
[2018-04-24] MEDS: AMIODARONE 200 MG (CORDARONE) TAB NG SCH ×2 (13:30→20:36)
[2018-04-24] MEDS: fentaNYL INJECTION 100 MCG/2 ML AMP IVP PRN ×2 (13:43→14:31)
--- NOTE | 2018-04-24 17:17 | OPERATIVE REPORT ---
DATE OF SERVICE: 04/24/2018 PREPROCEDURE DIAGNOSIS: Sepsis, hypotension. POSTOPERATIVE DIAGNOSIS: Sepsis, hypotension. PROCEDURE: Left femoral vein ultrasound-guided central line placement. SURGEON: Karen Snyder DO. ANESTHESIA: The patient intubated and on sedation. ESTIMATED BLOOD LOSS: Minimal. COMPLICATIONS: None. INDICATIONS: The patient is a 72-year-old male who admitted for pneumonia and septic with hypotension. He is requiring Levophed to maintain blood pressure. He is on Eliquis, so the safest place for central line to be placed would be a femoral vein. Family and patient were explained risks and benefits of procedure prior to the patient and he understands and wishes to proceed along with family. PROCEDURE IN DETAIL: The area was prepped and draped in sterile fashion. Ultrasound was used to locate the left femoral vein. The left femoral vein was then accessed, dark nonpulsatile blood was withdrawn. The wire was inserted and the needle was removed. A #11 blade scalpel was used to make a stab incision and a dilator was then advanced over the guidewire and removed. The triple lumen catheter was then advanced over the guidewire and the wire was removed. The triple lumen catheter was then secured with 3-0 silk suture. All ports were accessed and flushed without difficulty. The area was then washed and dried and sterile bandage was applied. The patient tolerated procedure well without any complications. Job ID: [id number] DocumentID: [id number] Dictated Date: 04/24/2018 10:38:10 Weight Reducing Technician Date: 04/24/2018 17:17:27 Dictated By: KAREN SNYDER DO
[2018-04-24] MEDS ORDERED: TAMSULOSIN 0.4 MG (FLOMAX) CAP PO SCH (17:30)
[2018-04-24] MEDS: VANCOMYCIN 1500 MG/NS 500 ML IVPB IV SCH ×2 (18:17)
[2018-04-24] MEDS: ROSUVASTATIN 20 MG (CRESTOR) TABLET PO SCH (20:36)
[2018-04-24] MEDS ORDERED: AMIODARONE 200 MG (CORDARONE) TAB NG SCH (21:00)
[2018-04-24] MEDS ORDERED: APIXABAN 5 MG (ELIQUIS) TABLET NG SCH (21:00)
[2018-04-25] VITALS (34 sets, daily range): BP systolic 93–129; BP diastolic 58–79
[2018-04-25] MEDS: inSUlin ASPART (NovoLOG) 1 UNIT/0.01 ML (CHARGE PER UNIT) SC SCH ×4 (01:47→17:24)
[2018-04-25] MEDS: AZITHROMYCIN 500 MG/NS 250 ML IVPB IV SCH ×2 (01:48)
[2018-04-25] MEDS: PROPOFOL DRIP (ICU) 100 ML IV SCH ×4 (02:00→22:13)
[2018-04-25] MEDS: RT-ALBUTEROL/IPRATROPIUM 3 ML (DUONEB) VIAL INH SCH ×6 (02:27→21:57)
[2018-04-25] MEDS: DEXMEDETOMIDINE INJECTION 1,000 MCG in NS (IVPB) 240 ML IV SCH ×3 (02:49→12:41)
[2018-04-25] MEDS: DOBUTamine INJECTION 250 MG in NS (IVPB) 250 ML IV SCH ×3 (02:50→14:06)
[2018-04-25 03:57] LABS: BASOPHILS % (AUTO) 0 % (0-10); EOSINOPHILS % (AUTO) 0 % (0-10); HEMATOCRIT 33 % (40-54); HEMOGLOBIN 11.1 G/DL (13.3-17.7); LYMPHOCYTES # (AUTO) 0.7 X 10^3 (1.0-4.0); LYMPHOCYTES % (AUTO) 4 % (12-44); MEAN CORPUSCULAR HEMOGLOBIN 30 PG (25-34); MEAN CORPUSCULAR HGB CONC 34 G/DL (32-36); MEAN CORPUSCULAR VOLUME 90 FL (80-99); MEAN PLATELET VOLUME 9.6 FL (7.4-10.4); MONOCYTES # (AUTO) 1.3 X 10^3 (0.0-1.0); MONOCYTES % (AUTO) 8 % (0-12); NEUTROPHILS % (AUTO) 88 % (42-75); PLATELET COUNT 350 10^3/uL (130-400); RED BLOOD COUNT 3.69 10^6/uL (4.35-5.85); RED CELL DISTRIBUTION WIDTH 15.6 % (10.0-14.5)
[2018-04-25 04:17] LABS: BILIRUBIN,TOTAL 0.5 MG/DL (0.1-1.0); CALCIUM 7.5 MG/DL (8.5-10.1); CREATININE SERUM 1.7 MG/DL (0.60-1.30); MAGNESIUM 2.3 MG/DL (1.8-2.4); POTASSIUM 4.7 MMOL/L (3.6-5.0)
[2018-04-25] MEDS: DOPamine DRIP 250 ML IV SCH (04:20)
[2018-04-25 04:34] LABS: LYMPHOCYTES % (MANUAL) 4 %; MONOCYTES % (MANUAL) 6 %; NEUTROPHILS % (MANUAL) 90 %
[2018-04-25 05:58] LABS: ABG BASE EXCESS -3.7 MMOL/L (-2.5-2.5); ABG OXYGEN SATURATION 89 % (94-100); ABG PCO2 35 MMHG (35-45); ABG PH 7.39 (7.37-7.43); ABG PO2 57 MMHG (79-93); ABG TCO2 21.7 MMOL/L (21.0-31.0)
[2018-04-25 06:01] LABS: ALLENS TEST POSITIVE; INSPIRED O2 95; PATIENT TEMP 97.5; VENTILATOR YES
[2018-04-25] MEDS: MEROPENEM 500 MG in NS (IVPB) 100 ML IV SCH ×3 (06:07→22:04)
[2018-04-25] MEDS: HYDROCORTISONE 100 MG/2 ML (Solu-CORTEF) VIAL IV SCH ×3 (06:08→22:04)
--- NOTE | 2018-04-25 06:22 | Pulmonary Progress Note ---
Subjective Time Seen by Provider: 06:23 Subjective/Events-last exam Pt is now off levophed and vasopressin. Currently on dopamine and dobutamine. Pt still very critical. Family at bedside and all questions answered. Sepsis Event Evaluation Height, Weight, BMI Height: 5'8.00" Weight: 224lbs. 8.0oz. [id number]; 31.5 BMI Method:Stated Focused Exam Lactate Level 04/24/18 03:37: Lactic Acid Level 4.54*H 04/24/18 12:25: Lactic Acid Level 2.26*H 04/24/18 14:42: Lactic Acid Level 2.24*H Exam Exam Vital Signs Date Time Temp Pulse Resp B/P (MAP) Pulse Ox O2 Delivery O2 Flow Rate FiO2 04/25/18 05:00 126 30 100/69 (79) 90 Mechanical Ventilator 95.00 04/25/18 04:20 115 04/25/18 04:05 120 29 90 95 04/25/18 04:00 124 27 95/78 (84) 90 Mechanical Ventilator 95.00 04/25/18 04:00 Mechanical Ventilator 80 04/25/18 03:00 118 26 95/58 (70) 91 Mechanical Ventilator 95.00 04/25/18 02:27 115 29 91 95 04/25/18 02:00 130 40 97/69 (78) 92 Mechanical Ventilator 95.00 04/25/18 02:00 115 04/25/18 01:00 125 04/25/18 01:00 125 28 97/70 (79) 91 Mechanical Ventilator 95.00 04/25/18 00:50 Mechanical Ventilator 95.00 04/25/18 00:00 101.8 116 28 93/59 (70) 90 Mechanical Ventilator 80.00 04/25/18 00:00 Mechanical Ventilator 80 04/25/18 00:00 Mechanical Ventilator 80.00 04/24/18 23:54 117 27 90 80 04/24/18 23:00 101.4 125 28 113/49 (70) 91 Mechanical Ventilator 60.00 04/24/18 22:19 107 27 90 70 04/24/18 22:00 102.2 116 28 86/60 (69) 90 Mechanical Ventilator 60.00 04/24/18 21:00 101.4 109 38 97/71 (80) 90 Mechanical Ventilator 60.00 04/24/18 20:00 98.6 Mechanical Ventilator 70.00 04/24/18 20:00 101.2 122 30 110/67 (81) 90 Mechanical Ventilator 60.00 04/24/18 20:00 Mechanical Ventilator 70 04/24/18 19:00 120 04/24/18 19:00 97.6 130 24 84/50 (61) 89 Mechanical Ventilator 60.00 04/24/18 18:38 91/55 04/24/18 18:31 113 25 92 70 04/24/18 18:18 132/91 04/24/18 18:00 99.8 114 25 116/74 (88) 93 Mechanical Ventilator 60.00 04/24/18 17:00 99.6 118 25 100/68 (79) 91 Mechanical Ventilator 60.00 04/24/18 16:33 124 25 90 70 04/24/18 16:15 Mechanical Ventilator 04/24/18 16:00 99.8 130 28 112/54 (73) 90 Mechanical Ventilator 60.00 04/24/18 15:00 99.6 123 23 108/89 (95) 91 Mechanical Ventilator 60.00 04/24/18 14:29 106 25 95 80 04/24/18 14:00 99.4 120 26 101/56 (71) 90 Mechanical Ventilator 60.00 04/24/18 13:00 99.8 116 19 107/75 (86) 92 Mechanical Ventilator 60.00 04/24/18 13:00 108 04/24/18 12:08 Mechanical Ventilator 60.00 04/24/18 12:05 Mechanical Ventilator 04/24/18 12:02 128 28 96 70 04/24/18 12:00 121 22 119/89 (99) 94 Mechanical Ventilator 60.00 04/24/18 11:00 111 27 104/73 (83) 95 Mechanical Ventilator 70.00 04/24/18 10:58 110/80 04/24/18 10:49 106 25 95 80 04/24/18 10:00 113 21 112/70 (84) 95 Mechanical Ventilator 80.00 04/24/18 09:00 99 22 99/64 (76) 94 Mechanical Ventilator 80.00 04/24/18 08:17 Mechanical Ventilator 80 04/24/18 08:05 96 25 97 100 04/24/18 08:00 97 22 97/45 (62) 95 Mechanical Ventilator 100.00 04/24/18 07:10 88/71 04/24/18 07:00 89 24 85/61 (69) 96 Mechanical Ventilator 100.00 04/24/18 07:00 89 I & O 04/25/18 07:00 Intake Total 1165 ml Output Total 1115 ml Balance 50 ml Height & Weight Height: 5'8.00" Weight: 224lbs. 8.0oz. 101.278638rz; 31.5 BMI Method:Stated General Appearance: WD/WN, Chronically ill, Mild Distress HEENT: PERRL/EOMI, Pharynx Normal Neck: Non Tender, Supple Respiratory: Normal Breath Sounds, Decreased Breath Sounds Cardiovascular: No Murmur, Irregularly Irregular, Tachycardia Capillary Refill: Less Than 3 Seconds Gastrointestinal: non tender, soft Extremity: Normal Range of Motion, Other (tender to the area of the right shoulder from the shoulder to the base of the neck.) Neurologic/Psychiatric: Other (sedated on vent ) Skin: Cool Results Lab Laboratory Tests 04/23/18 15:19 04/24/18 03:37 04/25/18 03:50 Assessment/Plan Assessment/Plan Acute respiratory distress with pneumonia and possible ARDS vs pulmonary edema -Continue ventilator support -Currently on Diprivan, and Precedex -PRecedex is going to limit Diprivan Pulmonary edema -KVO IVF and give lasix 40mg IV x 1 Sever septic shock secondary to pneumonia RLL lobar pneumonia upon admission -s/p bronchoscopy - await C&S -IVF -Rodríguez cultures -Continue abx therapy Sinus tach -monitor Multiorgan failure -- respiratory, renal, hepatic and cardiac Hepatic shock -Monitor hx of systolic CHF -EF 15% known to Dr. Wilson -Consult cardiology -Change Levophed to dopamine -Continue vasopressin for now -Start Precedex gtt and decrease propofol secondary to hypotension Metabolic acidosis -Start Bicarb gtt and give 1 amp IVP Hyponatremia -Monitor Pt has very poor prognosis given current medical condition. Will continue supportive treatment. Family at bedside and they understand he may not make it thorough this. Critical Care: Critically Ill Patient AMOS GARNER DO Apr 25, 2018 06:22
[2018-04-25] MEDS: POTASSIUM CL 10MEQ/50ML IVPB 50 ML IV SCH (06:24)
[2018-04-25] MEDS: KCL 20 MEQ TAB (K-DUR) PO SCH (06:25)
[2018-04-25] MEDS: MAGNESIUM 1 GM/100 ML IVPB 100 ML IV SCH (06:25)
[2018-04-25] MEDS ORDERED: FUROSEMIDE 40 MG/4 ML INJ (LASIX) ONE (06:29)
[2018-04-25] MEDS ORDERED: FUROSEMIDE 40 MG/4 ML INJ (LASIX) IVP ONE (06:30)
[2018-04-25] MEDS ORDERED: CALCIUM GLUCONATE 10% INJ 4.65 MEQ in NS (IVPB) 50 ML IV ONE (06:30)
[2018-04-25] MEDS ORDERED: NS (IVPB) 50 ML ONE (06:35)
[2018-04-25] MEDS ORDERED: CALCIUM GLUC. 10% 4.65 MEQ/10 ML VIAL ONE (06:35)
[2018-04-25] MEDS: LOSARTAN 25 MG (COZAAR) TAB PO SCH (08:04)
[2018-04-25] MEDS: ASPIRIN 81 MG CHEW (CHILDREN'S ASA) PO SCH (08:12)
[2018-04-25] MEDS: APIXABAN 5 MG (ELIQUIS) TABLET NG SCH ×2 (08:13→21:02)
[2018-04-25] MEDS: AMIODARONE 200 MG (CORDARONE) TAB NG SCH ×2 (08:13→21:03)
[2018-04-25] MEDS ORDERED: FUROSEMIDE 40 MG/4 ML INJ (LASIX) IVP NR (08:15)
[2018-04-25] MEDS ORDERED: APAP 325 MG/10.15 ML LIQ (TYLENOL) UDC NG PRN (08:15)
--- NOTE | 2018-04-25 09:23 | Progress Note (SOAP) ---
Subjective Subjective/Events-last exam Pt became febrile overnight, Tmax 102.5 this AM. Tachy in the 110's with soft BP. Dopamine on, dobutamine on, vasopressin off, levophed off. FiO2 down to 85 % at 0800, at the time of exam, pt has weaned further to 55%, responds to commands and appropriately answers yes or no questions. When asked if he is in pain, he responds no, but continues to try to communicate. Pt expresses that he feels like something is stuck in his throat. Patient appears significantly improved from yesterday, but he remains critically ill. Review of Systems Date Seen by Provider: Apr 25, 2018 Time Seen by Provider: 12:22 General: Chills, Night Sweats HEENT: Other (foreign body sensation in throat (ETT)) Cardiovascular: No: Chest Pain Gastrointestinal: No: Vomiting Neurological: No: Seizures Focused Exam Lactate Level 04/24/18 03:37: Lactic Acid Level 4.54*H 04/24/18 12:25: Lactic Acid Level 2.26*H 04/24/18 14:42: Lactic Acid Level 2.24*H Objective Exam Last Set of Vital Signs Vital Signs Date Time Temp Pulse Resp B/P (MAP) Pulse Ox O2 Delivery O2 Flow Rate FiO2 04/25/18 08:23 112 30 97 75 04/25/18 08:12 102.5 04/25/18 08:12 112/79 04/25/18 08:05 Mechanical Ventilator 85.00 Capillary Refill : Less Than 3 Seconds I&O Intake and Output 04/25/18 00:00 Intake Total 5481.37 ml Output Total 1120 ml Balance 4361.37 ml Intake Oral 130 ml IV Total 5211.37 ml Other 140 ml Output Urine Total 1120 ml General: Alert, Cooperative, No Acute Distress HEENT: Atraumatic, EOMI Neck: Supple, No Thyromegaly Lungs: Other (diminished, coarse, crackles) Heart: Other (irregularly irregular) Abdomen: Soft, No Masses Extremities: No Cyanosis, Other (sluggish capillary refill) Skin: No Rashes, No Significant Lesion Neuro: Other (sedation, follows commands, responds to questions appropriately) Results/Procedures Lab Laboratory Tests 04/24/18 11:36: Glucometer 254H 04/24/18 12:25: Lactic Acid Level 2.26*H, Troponin I < 0.30 04/24/18 14:42: Lactic Acid Level 2.24*H 04/24/18 18:23: Glucometer 258H, Troponin I < 0.30 04/24/18 23:49: Glucometer 179H 04/25/18 03:50: White Blood Count 16.0H, Red Blood Count 3.69L, Hemoglobin 11.1L, Hematocrit 33L , Mean Corpuscular Volume 90, Mean Corpuscular Hemoglobin 30, Mean Corpuscular Hemoglobin Concent 34, Red Cell Distribution Width 15.6H, Platelet Count 350, Mean Platelet Volume 9.6, Neutrophils (%) (Auto) 88H, Lymphocytes (%) (Auto) 4L , Monocytes (%) (Auto) 8, Eosinophils (%) (Auto) 0, Basophils (%) (Auto) 0, Neutrophils # (Auto) 14.0H, Lymphocytes # (Auto) 0.7L, Monocytes # (Auto) 1.3H, Eosinophils # (Auto) 0.0, Basophils # (Auto) 0.0, Neutrophils % (Manual) 90, Lymphocytes % (Manual) 4, Monocytes % (Manual) 6, Sodium Level 136, Potassium Level 4.7, Chloride Level 107, Carbon Dioxide Level 18L, Anion Gap 11, Blood Urea Nitrogen 34H, Creatinine 1.70H, Estimat Glomerular Filtration Rate 40, BUN/ Creatinine Ratio 20, Glucose Level 202H, Calcium Level 7.5L, Corrected Calcium 8.3L, Magnesium Level 2.3, Total Bilirubin 0.5, Aspartate Amino Transf (AST/SGOT ) 136H, Alanine Aminotransferase (ALT/SGPT) 164H, Alkaline Phosphatase 137H, C- Reactive Protein High Sensitivity 12.91H, B-Type Natriuretic Peptide 1652.3H, Total Protein 6.0L, Albumin 3.0L 04/25/18 05:25: Blood Gas Puncture Site R RADIAL, Blood Gas Patient Temperature 97.5, Arterial Blood pH 7.39, Arterial Blood Partial Pressure CO2 35, Arterial Blood Partial Pressure O2 57L, Arterial Blood HCO3 21L, Arterial Blood Total CO2 21.7, Arterial Blood Oxygen Saturation 89L, Arterial Blood Base Excess -3.7L, Silviano Test POSITIVE, Blood Gas Ventilator Setting YES, Blood Gas Inspired Oxygen 95 Microbiology 04/23/18 Blood Culture - Preliminary, Resulted No growth 04/24/18 Gram Stain - Final, Resulted 04/24/18 Bronchial Culture - Preliminary, Resulted Sent To [facility] 04/24/18 Fungal Culture, Resulted Pending 04/23/18 Urine Culture - Final, Complete See Comments Sent To [facility] Radiology Date of Exam: 04/25/18 CHEST 1 VIEW, AP/PA ONLY INDICATION: Mechanical ventilation, infiltrate. TECHNIQUE: Single view chest 3:22 AM. CORRELATION STUDY: 04/24/2018 FINDINGS: Endotracheal tube, gastric tube and right-sided central line remain in place. Patient is post sternotomy. Cardiac enlargement stable with presence of pulmonary vascular congestion and perihilar edema. Increasing opacities throughout both lung contreras, most noticeable over the right mid and lower lung field appears to be more densely consolidated. Left-sided pacemaker remains in place. IMPRESSION: 1. Stable appearance about support lines and tubes. 2. Increasing consolidated density about the right mid and lower lung field. Also appears be increasing severity of pulmonary vascular congestion and edema. Assessment/Plan Assessment/Plan Assessment & Plan Severe Sepsis 04/23 -secondary to HCAP, pt with last hospitalization 04/12-04/14 -elevated lactate, tachycardic, tachypnea, hypoxia, borderline blood pressure, large right side PNA -spivey culture -given patient's other significant comorbidities, he is at incredibly high risk for decompensation -at the time of admission, pt's blood pressure has returned to normal range with fluid bolus, continues to be tachycardic, has weaned from vapotherm to NC and is feeling less short of breath -has two large bore IV for access, given improvement and good established access pt does not need central access at this time -given pt's poor EF, it will be extremely difficult to volume resuscitate him without further compromise of his respiratory status 04/24 --> SEPTIC SHOCK -acute decompensation overnight with severe respiratory distress and worsening hypotension -intubated, CVL overnight -currently on levophed vasopressin, dopamine and dobutamine, as well as bicarb gtts -consult to Dr. Jarvis and Dr. Gregory for co-management -discussed with and reinforced with family that pt is extremely critical and prognosis is very poor -hypotensive, hypothermic 04/25 -now febrile, Tmax 102.5 -tachy, soft BP -dobutamine ON, dopamine ON, vasopressin OFF, levophed OFF -weaning down on ventilator support -blood cultures no growth to date HCAP - Right Lobar PNA 04/23 -Meropenem Day 1, pt with PCN allergy -start Vancomycin, dosing per pharmacy -MAT protocol, steroids -repeat CXR in AM 04/24 -intubated, bronch done this am, cx pending -CXR - worsening right infiltrate -WBC 11.5 --> 7.1 -CRP 15.11 -Meropenem and Vancomycin Day 2 -Azithromycin Day 1 04/25 -CXR - continuing to worsen right lower and middle lobe infiltrates, worsening pulmonary edema -WBC 11.5 --> 7.1 --> 16 -CRP 15.11 --> 12.91 -Meropenem and Vancomycin Day 3 -Azithromycin Day 2 Acidosis 04/24 -ABG pH 7.12, pCO2 43, pO2 73, HCO3 13, BE -14.3 -lactate 2.56 --> 4.54 04/25 -ABG pH 7.39, pCO2 35, pO2 57, HCO3 21, BE -3.7 -lactate 2.56 --> 4.54 --> 2.26 --> 2.24 Hypotension 04/24 -BP 80's/50's this AM -levophed, vasopressin, dobutamine, dopamine -slowly improving, titrate down levophed first 04/25 -improved, BP soft but pt has come down on his pressor requirements significantly -levophed OFF, vasopressin OFF, dobutamine ON, dopamine ON SVITLANA vs Acute on Chronic Kidney Disease 04/24 -Cr 1.73 -BUN 32 04/25 -Cr 1.73 --> 1.7 -BUN 32 --> 34 -renal function stable Hyponatremia 04/24 -Na 132 04/25 -132 --> 136 -resolved Elevated LFTs 04/24 -AST 96 -ALT 80 -Alk Phos 158 04/25 -continue to trend up, suspect as a sign of poor perfusion and concerning for impending shock liver and overwhelming multisystem organ failure -AST 96 --> 136 -ALT 80 --> 164 -Alk Phos 158 --> 137 Abdominal Pain 04/23 -mild tenderness to palpation, no specific findings on exam -consider imaging if worsening Acute on Chronic Respiratory Failure 04/23 -pt requiring oxygen, O2 sat on room air on arrival 83% -respiratory support as needed -baseline is 2L while sleeping only 04/24 -acute decompensation overnight requiring intubation -FiO2 100% at the time of exam -Dr. Jarvis consulted, defer pulmonary management to his expert opinion 04/25 -improved from yesterday, but still requiring significant respiratory support -FiO2 55% at the time of exam -continue to defer management to Dr. Jarvis Acute on Chronic Systolic Heart Failure 04/23 -pt with a fairly tenuous fluid balance at baseline, and multiple admissions for exacerbation in the last several weeks and increasing diuretic needs -pt received rapid 1L fluid bolus in ED for sepsis, but his overall fluid balance is extremely precarious. 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, EF has been 15% for many years, last checked January 2018, cardiac cath by Steve -ICD discharge 04/03 for VT that deteriorated to VF; pt has had an ICD for many years and the current device placed in 2010 per records and pt report had never discharged prior to that; he had an ICD prior to this one that discharged once, and it was also in place for many years 04/24 -consult to cardiology Chronic Afib, rate controlled 04/23 -tachycardia now, rate ~110 -resume home meds, with hold parameters for blood pressure 04/24 -consult to cardiology Sick Euthyroid Syndrome 04/24 -TSH 0.07 --> low -Free T4 1.35 --> normal -Free T3 <1 --> low -Total T3 0.42 --> low -due to acute illness and not likely thyroid or pituitary issue, as Free T4 is normal, and Free T3 and Total T3 are low DVT Ppx 04/23 -resume home eliquis BID -SCDs Patient extremely critically ill and prognosis is very poor. Pt is improved from yesterday, but still requiring significant support and labs show signs of impending multisystem organ failure. CODE STATUS: NO CHEST COMPRESSIONS Clinical Quality Measures DVT/VTE Risk/Contraindication: Risk Factor Score Per Nursin RFS Level Per Nursing on Admit: 3=High Copy Copies To 1: [facility]/MICHAEL LEYVA DO Apr 25, 2018 09:23
--- NOTE | 2018-04-25 09:28 | Diagnostic Imaging Report ---
INDICATION: Mechanical ventilation, infiltrate. TECHNIQUE: Single view chest 3:22 AM. CORRELATION STUDY: 04/24/2018 FINDINGS: Endotracheal tube, gastric tube and right-sided central line remain in place. Patient is post sternotomy. Cardiac enlargement stable with presence of pulmonary vascular congestion and perihilar edema. Increasing opacities throughout both lung contreras, most noticeable over the right mid and lower lung field appears to be more densely consolidated. Left-sided pacemaker remains in place. IMPRESSION: 1. Stable appearance about support lines and tubes. 2. Increasing consolidated density about the right mid and lower lung field. Also appears be increasing severity of pulmonary vascular congestion and edema. Dictated by: Dictated on workstation # [id number]
[2018-04-25] MEDS ORDERED: NS IV 1000 ML 1,000 ML ONE (09:59)
[2018-04-25] MEDS ORDERED: SODIUM PHOSPHATE INJ 30 MM in NS (IVPB) 250 ML IV NR (11:45)
[2018-04-25] MEDS: fentaNYL INJECTION 100 MCG/2 ML AMP IVP PRN (12:40)
[2018-04-25] MEDS ORDERED: fentaNYL INJECTION 100 MCG/2 ML AMP IVP NR (12:45)
--- NOTE | 2018-04-25 13:02 | Cardiology Progress Note ---
Cardiology SOAP Progress Note Subjective: Still intubated and ventilated. Slight improvement in hemodynamic status. Objective: I&O/Vital Signs 04/25/18 04/25/18 04/25/18 04/25/18 10:29 11:00 11:40 12:00 Temp 99.0 Pulse 92 117 109 Resp 29 24 34 B/P (MAP) 109/65 (80) 113/61 (78) Pulse Ox 95 96 96 O2 Delivery Mechanical Ventilator Mechanical Ventilator Mechanical Ventilator O2 Flow Rate 55.00 55.00 55.00 FiO2 55 04/25/18 04/25/18 04/25/18 04/25/18 12:41 13:00 13:00 14:00 Pulse 111 111 89 Resp 29 19 B/P (MAP) 129/64 (85) 107/65 (79) Pulse Ox 95 99 O2 Delivery Mechanical Ventilator Mechanical Ventilator Mechanical Ventilator O2 Flow Rate 55.00 55.00 FiO2 55 04/25/18 04/25/18 04/25/18 04/25/18 14:23 14:27 15:00 15:30 Temp 99.9 Pulse 84 90 Resp 24 16 B/P (MAP) 107/69 (82) Pulse Ox 100 98 O2 Delivery Mechanical Ventilator Mechanical Ventilator O2 Flow Rate 45.00 45.00 35.00 FiO2 45 04/25/18 04/25/18 04/25/18 04/25/18 15:57 16:00 16:14 16:40 Pulse 85 92 87 Resp 17 23 B/P (MAP) 112/72 117/72 (87) Pulse Ox 99 99 O2 Delivery Mechanical Ventilator Mechanical Ventilator O2 Flow Rate 45.00 FiO2 35 35 04/25/18 04/25/18 04/25/18 04/25/18 17:00 18:00 18:34 20:00 Pulse 93 70 77 Resp 21 17 23 B/P (MAP) 111/71 (84) 101/65 (77) Pulse Ox 95 93 95 O2 Delivery Mechanical Ventilator Mechanical Ventilator Mechanical Ventilator O2 Flow Rate 45.00 45.00 FiO2 35 35 04/25/18 04/25/18 04/25/18 20:08 21:57 22:13 Pulse 80 72 75 Resp 22 22 Pulse Ox 96 92 FiO2 35 35 04/25/18 00:00 Intake Total 814 ml Output Total 450 ml Balance 364 ml Weight (Pounds): 232 Weight (Ounces): 8.0 Weight (Calculated Kilograms): 105.156944 Constitutional: other (intubated and ventilated.) Respiratory: respiratory distress, chest is bilaterally symmetric, lungs clear to auscultation Cardiovascular: irregularly irregular, tachycardia, S1 and S2 Gastrointestional: No tender, No soft, No round, No distended, No pulsatile mass, No organomegaly, No guarding, No rebound, No tenderness, No hernia, No mass, No audible bowel sounds, No abnormal bowel sounds, No abdominal bruits, No spleenomegaly, No other Extremities: No normal range of motion, No non-tender, No normal inspection, No pedal edema, No calf tenderness, No normal capillary refill, No pelvis stable , No calf tenderness, No inflammation, No pedal edema, No slow capillary refill , No swelling, No other, No abrasion, No clubbing, No cyanosis, No ecchymosis, No laceration, No no lower extremity edema bilateral, No significant edema, No tenderness, No wound Neurologic/Psychiatric: no motor/sensory deficits, other (intubated and ventilated.) Skin: normal color, cool Results/Procedures: Labs Laboratory Tests 04/24/18 23:49: Glucometer 179H 04/25/18 03:50: White Blood Count 16.0H, Red Blood Count 3.69L, Hemoglobin 11.1L, Hematocrit 33L , Mean Corpuscular Volume 90, Mean Corpuscular Hemoglobin 30, Mean Corpuscular Hemoglobin Concent 34, Red Cell Distribution Width 15.6H, Platelet Count 350, Mean Platelet Volume 9.6, Neutrophils (%) (Auto) 88H, Lymphocytes (%) (Auto) 4L , Monocytes (%) (Auto) 8, Eosinophils (%) (Auto) 0, Basophils (%) (Auto) 0, Neutrophils # (Auto) 14.0H, Lymphocytes # (Auto) 0.7L, Monocytes # (Auto) 1.3H, Eosinophils # (Auto) 0.0, Basophils # (Auto) 0.0, Neutrophils % (Manual) 90, Lymphocytes % (Manual) 4, Monocytes % (Manual) 6, Sodium Level 136, Potassium Level 4.7, Chloride Level 107, Carbon Dioxide Level 18L, Anion Gap 11, Blood Urea Nitrogen 34H, Creatinine 1.70H, Estimat Glomerular Filtration Rate 40, BUN/ Creatinine Ratio 20, Glucose Level 202H, Calcium Level 7.5L, Corrected Calcium 8.3L, Magnesium Level 2.3, Total Bilirubin 0.5, Aspartate Amino Transf (AST/SGOT ) 136H, Alanine Aminotransferase (ALT/SGPT) 164H, Alkaline Phosphatase 137H, C- Reactive Protein High Sensitivity 12.91H, B-Type Natriuretic Peptide 1652.3H, Total Protein 6.0L, Albumin 3.0L 04/25/18 05:25: Blood Gas Puncture Site R RADIAL, Blood Gas Patient Temperature 97.5, Arterial Blood pH 7.39, Arterial Blood Partial Pressure CO2 35, Arterial Blood Partial Pressure O2 57L, Arterial Blood HCO3 21L, Arterial Blood Total CO2 21.7, Arterial Blood Oxygen Saturation 89L, Arterial Blood Base Excess -3.7L, Silviano Test POSITIVE, Blood Gas Ventilator Setting YES, Blood Gas Inspired Oxygen 95 04/25/18 10:56: Glucometer 174H, Phosphorus Level 3.1 04/25/18 17:18: Vancomycin Level Trough 10.7 04/25/18 17:20: Glucometer 187H Microbiology 04/23/18 Blood Culture - Preliminary, Resulted No growth 04/24/18 Gram Stain - Final, Resulted 04/24/18 Bronchial Culture - Preliminary, Resulted Sent To [facility] 04/24/18 Fungal Culture, Resulted Pending 04/23/18 Urine Culture - Final, Complete See Comments Sent To [facility] A/P: Assessment/Dx: Septic shock/cardiogenic shock. Severe cardiomyopathy with acute on chronic systolic congestive heart failure, Atrial fibrillation with rapid ventricular rate, Pneumonia, severe hypoxia Acute kidney injury, Shock liver, Plan: Septic shock/cardiogenic shock. Levophed was discontinued. Patient was on dopamine 8 g per KG per minute and dobutamine 2.5 g per KG per minute. MVP 85 mmHg on a blood pressure cuff. Rapid atrial fibrillation. Therefore we decided to reduce the dose of dopamine and increase the dose of dobutamine if required to keep MVP over 65 mmHg. Frequent PVCs also likely due to dopamine. My plan is to been off dopamine completely. Hopefully we'll be able to take off dobutamine as well. Severe cardiomyopathy with acute on chronic systolic congestive heart failure, Lasix started once patient improved hemodynamically. Reasonable urine output. We will continue Lasix to get him to later negative. Atrial fibrillation with rapid ventricular rate, continue amiodarone. Hopefully atrial fibrillation ventricular rate will improve after discontinuing inotropes. Not considering rate controlling agents at this point in time since the patient has decompensated heart failure. Pneumonia, severe hypoxia, broad-spectrum antibiotics. Acute kidney injury, likely due to SIRS. Shock liver, due to severe sepsis. Critical patient with guarded prognosis. Discussed with the family. 35 minutes was spent taking care of this critical patient. Thank you for your consultation. Please call me if you have any questions. Kyler Gregory MD, FACP, FACC, FSCAI, FHRS, CCDS Interventional Cardiology Cardiac Electrophysiology Vascular Medicine and Endovascular Interventions Focused Exam Lactate Level 04/24/18 03:37: Lactic Acid Level 4.54*H 04/24/18 12:25: Lactic Acid Level 2.26*H 04/24/18 14:42: Lactic Acid Level 2.24*H Carlito GREGORY MD Apr 25, 2018 1:02 pm
[2018-04-25] MEDS ORDERED: TROUGH ORDER-PHARMACY XX NR (17:00)
[2018-04-25] MEDS: VANCOMYCIN 1500 MG/NS 500 ML IVPB IV SCH ×2 (18:38)
[2018-04-25] MEDS: SODIUM BICARBONATE 8.4% VIAL 150 MEQ in D5W 1000 ML IV SOLUTION 1,000 ML IV SCH (21:06)
[2018-04-25] MEDS: ROSUVASTATIN 20 MG (CRESTOR) TABLET PO SCH (22:26)
[2018-04-26] VITALS (40 sets, daily range): BP systolic 77–129; BP diastolic 50–103
[2018-04-26] MEDS: inSUlin ASPART (NovoLOG) 1 UNIT/0.01 ML (CHARGE PER UNIT) SC SCH ×4 (00:09→18:21)
[2018-04-26] MEDS: AZITHROMYCIN 500 MG/NS 250 ML IVPB IV SCH ×2 (01:50)
[2018-04-26] MEDS: DEXMEDETOMIDINE INJECTION 1,000 MCG in NS (IVPB) 240 ML IV SCH ×6 (01:52→20:13)
[2018-04-26] MEDS: RT-ALBUTEROL/IPRATROPIUM 3 ML (DUONEB) VIAL INH SCH ×6 (02:04→21:50)
[2018-04-26 03:44] LABS: BASOPHILS % (AUTO) 0 % (0-10); EOSINOPHILS % (AUTO) 0 % (0-10); HEMATOCRIT 31 % (40-54); HEMOGLOBIN 10.5 G/DL (13.3-17.7); LYMPHOCYTES # (AUTO) 0.8 X 10^3 (1.0-4.0); LYMPHOCYTES % (AUTO) 9 % (12-44); MEAN CORPUSCULAR HEMOGLOBIN 30 PG (25-34); MEAN CORPUSCULAR HGB CONC 34 G/DL (32-36); MEAN CORPUSCULAR VOLUME 89 FL (80-99); MEAN PLATELET VOLUME 9.9 FL (7.4-10.4); MONOCYTES # (AUTO) 0.7 X 10^3 (0.0-1.0); MONOCYTES % (AUTO) 8 % (0-12); NEUTROPHILS # (AUTO) 7.2 X 10^3 (1.8-7.8); NEUTROPHILS % (AUTO) 83 % (42-75); PLATELET COUNT 291 10^3/uL (130-400); RED BLOOD COUNT 3.48 10^6/uL (4.35-5.85); RED CELL DISTRIBUTION WIDTH 15.2 % (10.0-14.5); WHITE BLOOD COUNT 8.7 10^3/uL (4.3-11.0)
[2018-04-26 03:45] LABS: ABG BASE EXCESS 0.2 MMOL/L (-2.5-2.5); ABG OXYGEN SATURATION 93 % (94-100); ABG PCO2 32 MMHG (35-45); ABG PH 7.48 (7.37-7.43); ABG PO2 60 MMHG (79-93); ABG TCO2 24.7 MMOL/L (21.0-31.0)
[2018-04-26 03:46] LABS: ALLENS TEST ART LINE; INSPIRED O2 35%; PATIENT TEMP 95.8; VENTILATOR YES
[2018-04-26 04:04] LABS: ALBUMIN 2.8 GM/DL (3.2-4.5); BILIRUBIN,TOTAL 0.6 MG/DL (0.1-1.0); CALCIUM 7.8 MG/DL (8.5-10.1); CREATININE SERUM 1.35 MG/DL (0.60-1.30); MAGNESIUM 2.1 MG/DL (1.8-2.4); POTASSIUM 3.4 MMOL/L (3.6-5.0); TOTAL PROTEIN 5.8 GM/DL (6.4-8.2)
[2018-04-26] MEDS ORDERED: FUROSEMIDE 40 MG/4 ML INJ (LASIX) IVP ONE (05:15)
[2018-04-26] MEDS: POTASSIUM CL 10MEQ/50ML IVPB 50 ML IV SCH ×6 (05:23→09:30)
[2018-04-26] MEDS: DOPamine DRIP 250 ML IV SCH ×3 (05:31→21:18)
--- NOTE | 2018-04-26 05:41 | Pulmonary Progress Note ---
Subjective Time Seen by Provider: 05:41 Subjective/Events-last exam Pt is looking better. Sepsis Event Evaluation Height, Weight, BMI Height: 5'8.00" Weight: 232lbs. 8.0oz. 105.110834ce; 31.5 BMI Method:Stated Focused Exam Lactate Level 04/24/18 03:37: Lactic Acid Level 4.54*H 04/24/18 12:25: Lactic Acid Level 2.26*H 04/24/18 14:42: Lactic Acid Level 2.24*H Exam Exam Vital Signs Date Time Temp Pulse Resp B/P (MAP) Pulse Ox O2 Delivery O2 Flow Rate FiO2 04/26/18 04:00 96.0 04/26/18 04:00 Mechanical Ventilator 35 04/26/18 03:00 70 22 91/61 (71) 94 Mechanical Ventilator 35.00 04/26/18 02:04 70 22 94 35 04/26/18 02:00 70 18 102/64 (77) 94 Mechanical Ventilator 35.00 04/26/18 01:00 71 04/26/18 01:00 71 20 102/67 (79) 94 Mechanical Ventilator 35.00 04/26/18 00:12 71 24 92 35 04/26/18 00:00 76 17 96/65 (75) 96 Mechanical Ventilator 35.00 04/26/18 00:00 96.5 04/26/18 00:00 Mechanical Ventilator 35 04/25/18 23:00 72 18 99/64 (76) 93 Mechanical Ventilator 35.00 04/25/18 22:13 75 04/25/18 22:00 66 31 100/58 (72) 92 Mechanical Ventilator 35.00 04/25/18 21:57 72 22 92 35 04/25/18 21:00 78 18 97/62 (74) 93 Mechanical Ventilator 35.00 04/25/18 20:08 80 22 96 35 04/25/18 20:00 69 23 106/66 (79) 96 Mechanical Ventilator 35.00 04/25/18 20:00 Mechanical Ventilator 35 04/25/18 19:00 79 19 100/64 (76) 95 Mechanical Ventilator 35.00 04/25/18 19:00 79 04/25/18 18:34 77 23 95 35 04/25/18 18:00 70 17 101/65 (77) 93 Mechanical Ventilator 45.00 04/25/18 17:00 93 21 111/71 (84) 95 Mechanical Ventilator 45.00 04/25/18 16:40 Mechanical Ventilator 35 818 16:14 87 23 99 35 818 16:00 92 17 117/72 (87) 99 Mechanical Ventilator 45.00 818 15:57 85 112/72 18 15:30 99.9 35.00 04/25/18 15:00 90 16 107/69 (82) 98 Mechanical Ventilator 45.00 04/25/18 14:27 Mechanical Ventilator 45.00 818 14:23 84 24 100 45 04/25/18 14:00 89 19 107/65 (79) 99 Mechanical Ventilator 55.00 04/25/18 13:00 111 04/25/18 13:00 111 29 129/64 (85) 95 Mechanical Ventilator 55.00 04/25/18 12:41 Mechanical Ventilator 55 04/25/18 12:00 109 34 113/61 (78) 96 Mechanical Ventilator 55.00 04/25/18 11:40 99.0 Mechanical Ventilator 55.00 04/25/18 11:00 117 24 109/65 (80) 96 Mechanical Ventilator 55.00 04/25/18 10:29 92 29 95 55 04/25/18 10:00 109 25 98/66 (77) 95 Mechanical Ventilator 55.00 04/25/18 09:26 55.00 04/25/18 09:10 101.5 04/25/18 09:05 65.00 04/25/18 09:00 110 26 93/64 (74) 97 Mechanical Ventilator 75.00 04/25/18 08:26 75.00 04/25/18 08:23 112 30 97 75 04/25/18 08:13 Mechanical Ventilator 75 04/25/18 08:12 102.5 04/25/18 08:12 112/79 04/25/18 08:05 102.5 Mechanical Ventilator 85.00 04/25/18 08:00 115 36 112/79 (90) 98 Mechanical Ventilator 85.00 04/25/18 07:00 131 04/25/18 07:00 103.8 133 27 114/73 (87) 92 Mechanical Ventilator 95.00 04/25/18 06:16 126 28 91 95 04/25/18 06:00 121 28 97/73 (81) 90 Mechanical Ventilator 95.00 I & O 04/26/18 07:00 Intake Total 720 ml Output Total 4155 ml Balance -3435 ml Height & Weight Height: 5'8.00" Weight: 232lbs. 8.0oz. 105.828036aj; 31.5 BMI Method:Stated General Appearance: WD/WN, Mild Distress HEENT: PERRL/EOMI, Pharynx Normal Neck: Non Tender, Supple Respiratory: Lungs Clear, Normal Breath Sounds Cardiovascular: No Murmur, Irregularly Irregular, Tachycardia Capillary Refill: Less Than 3 Seconds Gastrointestinal: non tender, soft Extremity: Normal Range of Motion, Other (tender to the area of the right shoulder from the shoulder to the base of the neck.) Neurologic/Psychiatric: Alert, Oriented x3 Skin: Cool Results Lab Laboratory Tests 04/25/18 03:50 04/26/18 03:30 Assessment/Plan Assessment/Plan Acute respiratory distress with pneumonia and possible ARDS vs pulmonary edema -Continue ventilator support -D/C Diprivan, and Continue Precedex -Change Vent to SIMV/PS and repeat ABG in 1hr -Will start TF today Pulmonary edema -KVO IVF- Change IVF to D51/2 NS with 20meq of KCL repeat lasix 40mg IV x 1 Sever septic shock secondary to pneumonia RLL lobar pneumonia upon admission -s/p bronchoscopy - await C&S -IVF -Rodríguez cultures -Continue abx therapy Hypokalemia -replace PVCs with short runs of nonsustained Vtach -Start Lopressor 12.5 PO BID -Pt is already getting Amiodarone `-Monitor close Multiorgan failure -- respiratory, renal, hepatic and cardiac Hepatic shock -Monitor hx of systolic CHF -EF 15% known to Dr. Wilson -Consult cardiology -OFF all pressors Metabolic acidosis -improving -D/C Bicarb gtt Hyponatremia -Monitor Labs and radiology reviewed. at bedside. All questions answered in detail. PT is looking much better today. Will start TF. Change vent to SIMV/PS and continue to improve. UPDATE: PT started having frequent PVCs and runs of vtach after decreasing sedation. He is now doing worse and is back on dopamine, and levophed. I changed vent back to AC and restarted diprivan. I talked to family once again and updated them on clinical status. Pt is also now requiring 100% fi02 and 12 of PEEP. Will reevaluate in AM and see how patient is doing. Cardiology has also been updated. Critical Care: Critically Ill Patient Time spent with patient (mins): 60 AMOS GARNER DO Apr 26, 2018 05:40
[2018-04-26] MEDS ORDERED: D5 1/2 NS W/KCL 20 MEQ/L 1,000 ML IV ONE (05:48)
[2018-04-26] MEDS ORDERED: FUROSEMIDE 40 MG/4 ML INJ (LASIX) ONE (05:48)
[2018-04-26] MEDS: MAGNESIUM 1 GM/100 ML IVPB 100 ML IV SCH (05:56)
[2018-04-26] MEDS: D5 1/2 NS W/KCL 20 MEQ/L 1,000 ML IV SCH (05:56)
[2018-04-26] MEDS: KCL 20 MEQ TAB (K-DUR) PO SCH (05:56)
[2018-04-26] MEDS: HYDROCORTISONE 100 MG/2 ML (Solu-CORTEF) VIAL IV SCH ×3 (06:09→21:50)
[2018-04-26] MEDS: MEROPENEM 500 MG in NS (IVPB) 100 ML IV SCH ×3 (06:09→18:22)
[2018-04-26 06:52] LABS: ABG BASE EXCESS -0.4 MMOL/L (-2.5-2.5); ABG OXYGEN SATURATION 92 % (94-100); ABG PCO2 29 MMHG (35-45); ABG PH 7.51 (7.37-7.43); ABG PO2 59 MMHG (79-93); ABG TCO2 23.6 MMOL/L (21.0-31.0)
[2018-04-26 06:55] LABS: ALLENS TEST ART LINE; INSPIRED O2 35%; PATIENT TEMP 95.9; VENTILATOR YES
[2018-04-26] MEDS: PROPOFOL DRIP (ICU) 100 ML IV SCH ×4 (07:33→22:09)
--- NOTE | 2018-04-26 08:46 | Diagnostic Imaging Report ---
INDICATION: Pneumonia, mechanical ventilation. TECHNIQUE: Single view chest 3:12 AM. CORRELATION STUDY: 04/25/2018 FINDINGS: Poststernotomy and coronary bypass changes. Endotracheal tube, gastric tube and right-sided central line remains in place. Left-sided pacemaker remains in place. Heart size enlarged and there is presence of pulmonary vascular congestion. This may be perhaps minimally improved. Scattered areas of infiltrate or edema throughout both lung contreras persisting also, perhaps minimally improved. IMPRESSION: 1. Stable support lines and tubes. 2. Continued features of fluid overload or failure along with scattered areas of consolidated density persisting but overall appearing slightly improved. Dictated by: Dictated on workstation # [id number]
--- NOTE | 2018-04-26 08:47 | Progress Note (SOAP) ---
Subjective Subjective/Events-last exam Patient continued to improve overnight, all pressors off. FiO2 35%. Pt became hypotensive mid-morning, not responsive to albumin. Dopamine restarted. Family reports Dr. Jarvis is planning extubation tomorrow if things stay as they were at the time he was rounding earlier this morning. Discussed with family that pt was now requiring medication for blood pressure support again, and that more arrhythmias have been noted on telemetry as I have been on the unit this morning. Pt has mainly been in afib and tachy, but with increasing number and length of VT, with occasional observation of VT to VF for brief periods. Urged family to discuss and decide what they would like us to do if/ when his ETT comes out, would it be reintubate if needed or DNI? While at bedside with family, pt became extremely agitated, hyperventilating, worsening tachycardia and more frequent VT. Pt upset and clearly communicates that he wants the tube out. Explained that we can do that, but he would likely not be able to breath well enough on his own, but we could give him medicine so he didn 't feel like he was struggling to get air. Pt clearly expressed that he wanted to keep the tube in, and he wanted it put back in if/when needed. Pt medicated for agitation and relaxed. VT became more frequent and longer episodes, with ICD discharge at 1139 for prolonged VT and pt returned to afib, tachy. Family urged to be prepared for end of life, as over the course of ~1 hour the patient has sharply declined, and I feel it is highly likely in the next 24-48 hours. Review of Systems Date Seen by Provider: Apr 26, 2018 Time Seen by Provider: 10:41 Cardiovascular: Edema Neurological: Other (agitation) Focused Exam Lactate Level 04/24/18 03:37: Lactic Acid Level 4.54*H 04/24/18 12:25: Lactic Acid Level 2.26*H 04/24/18 14:42: Lactic Acid Level 2.24*H Objective Exam Last Set of Vital Signs Vital Signs Date Time Temp Pulse Resp B/P (MAP) Pulse Ox O2 Delivery O2 Flow Rate FiO2 04/26/18 08:32 74 18 97 40 04/26/18 07:57 97.6 04/26/18 06:00 103/65 (78) Mechanical Ventilator 35.00 Capillary Refill : Less Than 3 Seconds I&O Intake and Output 04/26/18 00:00 Intake Total 720 ml Output Total 4525 ml Balance -3805 ml Intake Oral 0 ml IV Total 620 ml Other 100 ml Output Urine Total 4325 ml Gastric Drainage Total 200 ml General: Moderate Distress, Other (agitated, alert) HEENT: Atraumatic, EOMI, Mucous Memb Moist/[place] Neck: Supple, No Thyromegaly Lungs: Other (extremely diminished, crackles, coarse, poor air exchange) Heart: Other (irregularly irregular; afib with runs of VT) Abdomen: Soft, Other (mild distension, hepatomegaly) Extremities: No Cyanosis, Other (edematous, poor cap refill) Skin: No Rashes, No Significant Lesion Neuro: Other (follows commands, agitated) Results/Procedures Lab Laboratory Tests 04/25/18 10:56: Glucometer 174H, Phosphorus Level 3.1 04/25/18 17:18: Vancomycin Level Trough 10.7 04/25/18 17:20: Glucometer 187H 04/26/18 00:05: Glucometer 181H 04/26/18 03:30: White Blood Count 8.7, Red Blood Count 3.48L, Hemoglobin 10.5L, Hematocrit 31L, Mean Corpuscular Volume 89, Mean Corpuscular Hemoglobin 30, Mean Corpuscular Hemoglobin Concent 34, Red Cell Distribution Width 15.2H, Platelet Count 291, Mean Platelet Volume 9.9, Neutrophils (%) (Auto) 83H, Lymphocytes (%) (Auto) 9L , Monocytes (%) (Auto) 8, Eosinophils (%) (Auto) 0, Basophils (%) (Auto) 0, Neutrophils # (Auto) 7.2, Lymphocytes # (Auto) 0.8L, Monocytes # (Auto) 0.7, Eosinophils # (Auto) 0.0, Basophils # (Auto) 0.0, Blood Gas Puncture Site ART LINE, Blood Gas Patient Temperature 95.8, Arterial Blood pH 7.48H, Arterial Blood Partial Pressure CO2 32L, Arterial Blood Partial Pressure O2 60L, Arterial Blood HCO3 24, Arterial Blood Total CO2 24.7, Arterial Blood Oxygen Saturation 93L, Arterial Blood Base Excess 0.2, Silviano Test ART LINE, Blood Gas Ventilator Setting YES, Blood Gas Inspired Oxygen 35%, Sodium Level 141, Potassium Level 3.4L, Chloride Level 107, Carbon Dioxide Level 23, Anion Gap 11 , Blood Urea Nitrogen 30H, Creatinine 1.35H, Estimat Glomerular Filtration Rate 52, BUN/Creatinine Ratio 22, Glucose Level 205H, Calcium Level 7.8L, Corrected Calcium 8.8, Phosphorus Level 4.2, Magnesium Level 2.1, Total Bilirubin 0.6, Aspartate Amino Transf (AST/SGOT) 101H, Alanine Aminotransferase (ALT/SGPT) 170H , Alkaline Phosphatase 116, C-Reactive Protein High Sensitivity 8.09H, B-Type Natriuretic Peptide 2501.6H, Total Protein 5.8L, Albumin 2.8L, Triglycerides Level 154H 04/26/18 06:45: Blood Gas Puncture Site ART LINE, Blood Gas Patient Temperature 95.9, Arterial Blood pH 7.51H, Arterial Blood Partial Pressure CO2 29L, Arterial Blood Partial Pressure O2 59L, Arterial Blood HCO3 23, Arterial Blood Total CO2 23.6, Arterial Blood Oxygen Saturation 92L, Arterial Blood Base Excess -0.4, Silviano Test ART LINE, Blood Gas Ventilator Setting YES, Blood Gas Inspired Oxygen 35% Microbiology 04/23/18 Blood Culture - Preliminary, Resulted No growth 04/24/18 Gram Stain - Final, Resulted 04/24/18 Bronchial Culture - Preliminary, Resulted [facility] 04/24/18 Fungal Culture, Resulted Pending 04/23/18 Urine Culture - Final, Complete See Comments Sent To [facility] Assessment/Plan Assessment/Plan Assessment & Plan Severe Sepsis 04/23 -secondary to HCAP, pt with last hospitalization 04/12-04/14 -elevated lactate, tachycardic, tachypnea, hypoxia, borderline blood pressure, large right side PNA -spivey culture -given patient's other significant comorbidities, he is at incredibly high risk for decompensation -at the time of admission, pt's blood pressure has returned to normal range with fluid bolus, continues to be tachycardic, has weaned from vapotherm to NC and is feeling less short of breath -has two large bore IV for access, given improvement and good established access pt does not need central access at this time -given pt's poor EF, it will be extremely difficult to volume resuscitate him without further compromise of his respiratory status 04/24 --> SEPTIC SHOCK -acute decompensation overnight with severe respiratory distress and worsening hypotension -intubated, CVL overnight -currently on levophed vasopressin, dopamine and dobutamine, as well as bicarb gtts -consult to Dr. Jarvis and Dr. Gregory for co-management -discussed with and reinforced with family that pt is extremely critical and prognosis is very poor -hypotensive, hypothermic 04/25 -now febrile, Tmax 102.5 -tachy, soft BP -dobutamine ON, dopamine ON, vasopressin OFF, levophed OFF -weaning down on ventilator support -blood cultures no growth to date 04/26 -afebrile today -now requiring pressors for hypotension -dopamine ON -ventilator support rapidly increased with very difficult time getting sats to rise out of mid 80's, back up to 100% FiO2 -cx with no growth to date -increasing arrhythmias - VT - with visualized ICD discharge while in room due to prolonged VT -discussed with family that I feel the patient is highly likely to in the next 24-48 hours and they should prepare themselves for end of life care HCAP - Right Lobar PNA 04/23 -Meropenem Day 1, pt with PCN allergy -start Vancomycin, dosing per pharmacy -MAT protocol, steroids -repeat CXR in AM 04/24 -intubated, bronch done this am, cx pending -CXR - worsening right infiltrate -WBC 11.5 --> 7.1 -CRP 15.11 -Meropenem and Vancomycin Day 2 -Azithromycin Day 1 04/25 -CXR - continuing to worsen right lower and middle lobe infiltrates, worsening pulmonary edema -WBC 11.5 --> 7.1 --> 16 -CRP 15.11 --> 12.91 -Meropenem and Vancomycin Day 3 -Azithromycin Day 2 04/26 -CXR - continuing to worsen right lower and middle lobe infiltrates, worsening pulmonary edema -WBC 11.5 --> 7.1 --> 16 --> 8.7 -CRP 15.11 --> 12.91 --> 8.09 -Meropenem and Vancomycin Day 4 -Azithromycin Day 3 Acidosis 04/24 -ABG pH 7.12, pCO2 43, pO2 73, HCO3 13, BE -14.3 -lactate 2.56 --> 4.54 04/25 -ABG pH 7.39, pCO2 35, pO2 57, HCO3 21, BE -3.7 -lactate 2.56 --> 4.54 --> 2.26 --> 2.24 04/26 -ABG pH 7.51, pCO2 29, pO2 59, HCO3 23, BE -0.4 Hypotension 04/24 -BP 80's/50's this AM -levophed, vasopressin, dobutamine, dopamine -slowly improving, titrate down levophed first 04/25 -improved, BP soft but pt has come down on his pressor requirements significantly -levophed OFF, vasopressin OFF, dobutamine ON, dopamine ON 04/26 -pt able to wean off all pressors overnight, but hypotension mid-morning unresponsive to fluid/albumin -dopamine restarted mid-morning SVITLANA vs Acute on Chronic Kidney Disease 04/24 -Cr 1.73 -BUN 32 04/25 -Cr 1.73 --> 1.7 -BUN 32 --> 34 -renal function stable 04/26 -Cr 1.73 --> 1.7 --> 1.35 -BUN 32 --> 34 --> 30 Hyponatremia 04/24 -Na 132 04/25 -132 --> 136 -resolved Elevated LFTs 04/24 -AST 96 -ALT 80 -Alk Phos 158 04/25 -continue to trend up, suspect as a sign of poor perfusion and concerning for impending shock liver and overwhelming multisystem organ failure -AST 96 --> 136 -ALT 80 --> 164 -Alk Phos 158 --> 137 04/26 -AST 96 --> 136 --> 101 -ALT 80 --> 164 --> 170 -Alk Phos 158 --> 137 --> 116 -continue to have concern for impending shock liver and overwhelming multisystem organ failure Abdominal Pain 04/23 -mild tenderness to palpation, no specific findings on exam -consider imaging if worsening Acute on Chronic Respiratory Failure 04/23 -pt requiring oxygen, O2 sat on room air on arrival 83% -respiratory support as needed -baseline is 2L while sleeping only 04/24 -acute decompensation overnight requiring intubation -FiO2 100% at the time of exam -Dr. Jarvis consulted, defer pulmonary management to his expert opinion 04/25 -improved from yesterday, but still requiring significant respiratory support -FiO2 55% at the time of exam -continue to defer management to Dr. Jarvis 04/26 -pt weaned down to FiO2 35% but required increase to 100% over the course of the morning Acute on Chronic Systolic Heart Failure 04/23 -pt with a fairly tenuous fluid balance at baseline, and multiple admissions for exacerbation in the last several weeks and increasing diuretic needs -pt received rapid 1L fluid bolus in ED for sepsis, but his overall fluid balance is extremely precarious. 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, last checked January 2018, cardiac cath by Steve -ICD discharge 04/03 for VT that deteriorated to VF; pt has had an ICD for many years and the current device placed in 2010 per records and pt report had never discharged prior to that; he had an ICD prior to this one that discharged once, and it was also in place for many years 04/24 -consult to cardiology 04/26 -ICD discharge observed at 1139 for prolonged VT -cardiology notified by nursing staff -defer management to cardiology V Tach 04/26 -ICD discharge observed after increasingly prolonged and frequent runs of VT -cardiology notified by nursing staff Chronic Afib, rate controlled 04/23 -tachycardia now, rate ~110 -resume home meds, with hold parameters for blood pressure 04/24 -consult to cardiology 04/26 -tachy, with frequent VT Sick Euthyroid Syndrome 04/24 -TSH 0.07 --> low -Free T4 1.35 --> normal -Free T3 <1 --> low -Total T3 0.42 --> low -due to acute illness and not likely thyroid or pituitary issue, as Free T4 is normal, and Free T3 and Total T3 are low DVT Ppx 04/23 -resume home eliquis BID -SCDs Patient extremely critically ill and prognosis is very poor. Pt acutely decompensated and requiring full ventilatory support and pressors are being added back because his hypotension is not responsive to fluid/albumin. Discussed with family that I feel they should prepare themselves for end of life in the next 24-48 hours, and urged them to consider goals of care and if they would like to limit code status further than no chest compressions, as I did not forsee any reasonable clinical course that would lead to the patient being able to discharge to home or return to his previous functional status, and they express that he would not be satisfied with any other outcome. Prognosis grim and almost certainly terminal. CODE STATUS: NO CHEST COMPRESSIONS Clinical Quality Measures DVT/VTE Risk/Contraindication: Risk Factor Score Per Nursin RFS Level Per Nursing on Admit: 3=High Copy Copies To 1: [facility]/MICHAEL LEYVA DO Apr 26, 2018 08:47
[2018-04-26] MEDS ORDERED: ALBUMIN 25% 25 GM/100 ML 100 ML IV ONE (09:14)
[2018-04-26] MEDS ORDERED: ALBUMIN 25% 25 GM/100 ML 100 ML IV NR (09:14)
[2018-04-26] MEDS: meTOprolol TARTRATE 25 MG (LOPRESSOR) TABLET PO SCH ×2 (09:23→21:21)
[2018-04-26] MEDS: LOSARTAN 25 MG (COZAAR) TAB PO SCH (09:24)
[2018-04-26] MEDS: APIXABAN 5 MG (ELIQUIS) TABLET NG SCH ×2 (09:29→20:56)
[2018-04-26] MEDS: AMIODARONE 200 MG (CORDARONE) TAB NG SCH (09:29)
[2018-04-26] MEDS: MULTIVITAMINS LIQUID 15 ML UDC PO SCH (09:30)
[2018-04-26] MEDS: ASPIRIN 81 MG CHEW (CHILDREN'S ASA) PO SCH (09:30)
[2018-04-26] MEDS ORDERED: LORazepam INJ 2 MG/ML (ATIVAN) VIAL ONE (11:19)
[2018-04-26] MEDS: LORazepam INJ 2 MG/ML (ATIVAN) VIAL IVP PRN (11:24)
[2018-04-26] MEDS ORDERED: AMIODARONE FOR BOLUS 150 MG in D5W 100 ML IVPB 100 ML IV ONE (12:00)
[2018-04-26] MEDS ORDERED: AMIODARONE 450 MG/9 ML (CORDARONE) VIAL IV ONE (12:03)
[2018-04-26] MEDS ORDERED: D5W IV SOLUTION (EXCEL) 250 ML IV ONE (12:03)
[2018-04-26] MEDS ORDERED: D5W 100 ML IVPB 100 ML IV ONE (12:09)
[2018-04-26] MEDS ORDERED: AMIODARONE 150 MG/3 ML (CORDARONE) AMP IV ONE (12:09)
[2018-04-26] MEDS: AMIODARONE INJECTION 450 MG in D5W IV SOLUTION (EXCEL) 250 ML IV SCH ×2 (12:35→20:39)
--- NOTE | 2018-04-26 12:47 | Cardiology Progress Note ---
Cardiology SOAP Progress Note Subjective: Events of overnight reviewed. Patient had an episode of wide complex tachycardia which degenerated into ventricular fibrillation requiring ICD shock. Hypotension. Objective: I&O/Vital Signs 04/26/18 04/27/18 04/27/18 04/27/18 23:50 00:00 00:00 00:30 Pulse 124 112 117 Resp B/P (MAP) 67/55 (59) 84/69 (74) 96/76 (83) Pulse Ox 91 83 O2 Delivery Mechanical Ventilator Mechanical Ventilator Mechanical Ventilator O2 Flow Rate 80.00 80.00 FiO2 80 100 04/27/18 04/27/18 04/27/18 04/27/18 01:00 01:05 01:22 01:30 Pulse 104 109 111 106 Resp B/P (MAP) 59/53 (55) 77/63 (68) 90/72 (78) 84/72 (76) Pulse Ox 93 91 90 O2 Delivery Mechanical Ventilator Mechanical Ventilator O2 Flow Rate 100.00 100.00 FiO2 100 04/27/18 04/27/18 04/27/18 04/27/18 02:00 02:30 03:00 03:30 Pulse 114 121 130 110 Resp B/P (MAP) 48/46 (47) 83/70 (74) 53/44 (47) 85/69 (74) 90/59 (69) 96/86 (89) Pulse Ox 93 91 91 91 O2 Delivery Mechanical Ventilator Mechanical Ventilator Mechanical Ventilator Mechanical Ventilator O2 Flow Rate 100.00 100.00 100.00 100.00 04/27/18 04/27/18 04/27/18 04/27/18 03:54 04:00 04:00 04:00 Temp 100.7 Pulse 122 125 Resp B/P (MAP) 79/70 (73) 95/77 (83) Pulse Ox 91 92 O2 Delivery Mechanical Ventilator Mechanical Ventilator O2 Flow Rate 100.00 FiO2 100 100 04/27/18 04/27/18 04/27/18 04/27/18 04:30 05:00 05:30 05:49 Pulse 126 121 112 104 Resp B/P (MAP) 79/68 (72) 75/68 (70) 83/67 (72) 96/57 96/57 (70) Pulse Ox 92 94 94 O2 Delivery Mechanical Ventilator Mechanical Ventilator Mechanical Ventilator O2 Flow Rate 100.00 100.00 100.00 04/27/18 04/27/18 04/27/18 04/27/18 06:00 06:12 06:30 06:49 Pulse 114 118 117 113 Resp 21 24 21 B/P (MAP) 60/47 (51) 86/73 (77) 68/28 (41) Pulse Ox 93 98 94 O2 Delivery Mechanical Ventilator Mechanical Ventilator O2 Flow Rate 100.00 100.00 FiO2 100 04/27/18 04/27/18 04/27/18 04/27/18 07:00 07:00 07:30 08:00 Pulse 131 131 116 124 Resp 19 20 19 B/P (MAP) 82/73 (76) 77/66 (70) 76/67 (70) 124/40 (68) 114/64 (81) Pulse Ox 97 96 96 O2 Delivery Mechanical Ventilator Mechanical Ventilator Mechanical Ventilator O2 Flow Rate 100.00 100.00 100.00 04/27/18 04/27/18 04/27/18 04/27/18 08:30 08:38 08:55 09:00 Temp 98.6 Pulse 128 122 111 Resp 19 21 25 B/P (MAP) 73/63 (66) 69/60 (63) 86/74 (78) 82/57 (65) Pulse Ox 97 91 94 O2 Delivery Mechanical Ventilator Mechanical Ventilator O2 Flow Rate 100.00 100.00 FiO2 100 04/27/18 04/27/18 09:15 10:48 Temp 98.6 Pulse 111 113 Resp 25 22 B/P (MAP) 82/57 Pulse Ox 94 91 O2 Delivery Mechanical Ventilator O2 Flow Rate 100.00 FiO2 100 04/27/18 00:00 Intake Total 971 ml Output Total 525 ml Balance 446 ml Weight (Pounds): 227 Weight (Ounces): 6.0 Weight (Calculated Kilograms): 103.069718 Constitutional: other (intubated and ventilated.) Respiratory: respiratory distress, chest is bilaterally symmetric, lungs clear to auscultation Cardiovascular: irregularly irregular, tachycardia, S1 and S2 Gastrointestional: No tender, No soft, No round, No distended, No pulsatile mass, No organomegaly, No guarding, No rebound, No tenderness, No hernia, No mass, No audible bowel sounds, No abnormal bowel sounds, No abdominal bruits, No spleenomegaly, No other Extremities: No normal range of motion, No non-tender, No normal inspection, No pedal edema, No calf tenderness, No normal capillary refill, No pelvis stable , No calf tenderness, No inflammation, No pedal edema, No slow capillary refill , No swelling, No other, No abrasion, No clubbing, No cyanosis, No ecchymosis, No laceration, No no lower extremity edema bilateral, No significant edema, No tenderness, No wound Neurologic/Psychiatric: no motor/sensory deficits, other (intubated and ventilated.) Skin: normal color, cool Results/Procedures: Labs Laboratory Tests 04/26/18 12:03: Glucometer 230H 04/26/18 12:46: Glucometer 211H 04/26/18 18:04: Glucometer 190H 04/27/18 01:25: Hemoglobin 12.3L, Blood Gas Puncture Site ART LINE, Blood Gas Patient Temperature 100.7, Arterial Blood pH 7.28*L, Arterial Blood Partial Pressure CO2 49H, Arterial Blood Partial Pressure O2 97H, Arterial Blood HCO3 22L, Arterial Blood Total CO2 23.3, Arterial Blood Oxygen Saturation 94, Arterial Blood Base Excess -3.6L, Silviano Test ART LINE, Blood Gas Ventilator Setting YES, Blood Gas Inspired Oxygen 100%, Lactic Acid Level 2.67*H, Troponin I 0.30 04/27/18 03:25: White Blood Count 29.1H, Red Blood Count 4.06L, Hemoglobin 12.0L, Hematocrit 37L , Mean Corpuscular Volume 90, Mean Corpuscular Hemoglobin 30, Mean Corpuscular Hemoglobin Concent 33, Red Cell Distribution Width 15.9H, Platelet Count 474H, Mean Platelet Volume 10.2, Neutrophils (%) (Auto) 78H, Lymphocytes (%) (Auto) 7L , Monocytes (%) (Auto) 15H, Eosinophils (%) (Auto) 0, Basophils (%) (Auto) 0, Neutrophils # (Auto) 24.0H, Lymphocytes # (Auto) 2.3, Monocytes # (Auto) 4.5H, Eosinophils # (Auto) 0.0, Basophils # (Auto) 0.1, Neutrophils % (Manual) 75, Lymphocytes % (Manual) 7, Monocytes % (Manual) 11, Band Neutrophils 7, Nucleated Red Blood Cells 6, Polychromasia MARKED, Blood Gas Puncture Site ART LINE, Blood Gas Patient Temperature 100.7, Arterial Blood pH 7.31*L, Arterial Blood Partial Pressure CO2 49H, Arterial Blood Partial Pressure O2 88, Arterial Blood HCO3 23, Arterial Blood Total CO2 24.8, Arterial Blood Oxygen Saturation 95, Arterial Blood Base Excess -1.8, Silviano Test ART LINE, Blood Gas Ventilator Setting YES, Blood Gas Inspired Oxygen 100%, Sodium Level 138, Potassium Level 5.1H, Chloride Level 104, Carbon Dioxide Level 19L, Anion Gap 15H, Blood Urea Nitrogen 45H, Creatinine 2.16H, Estimat Glomerular Filtration Rate 30, BUN/ Creatinine Ratio 21, Glucose Level 238H, Lactic Acid Level 3.16*H, Calcium Level 7.8L, Corrected Calcium 8.2L, Phosphorus Level 6.2H, Magnesium Level 2.6H , Total Bilirubin 1.3H, Aspartate Amino Transf (AST/SGOT) 1430#H, Alanine Aminotransferase (ALT/SGPT) 1190#H, Alkaline Phosphatase 179H, C-Reactive Protein High Sensitivity 5.59H, B-Type Natriuretic Peptide 1611.1H, Total Protein 6.4, Albumin 3.5 04/27/18 08:55: Microbiology 04/23/18 Blood Culture - Preliminary, Resulted No growth 04/24/18 Mycobacterial Culture - Preliminary, Resulted 04/23/18 Urine Culture - Final, Complete See Comments Sent To Rml A/P: Assessment/Dx: Septic shock/cardiogenic shock. Severe cardiomyopathy with acute on chronic systolic congestive heart failure, Atrial fibrillation with rapid ventricular rate, Pneumonia, severe hypoxia Acute kidney injury, Shock liver, Plan: Septic shock/cardiogenic shock. Restarted on inotropes. Sustained ventricular tachycardia/ventricular fibrillation requiring ICD shock. Restart amiodarone infusion. Hold by mouth amiodarone. Severe cardiomyopathy with acute on chronic systolic congestive heart failure, Atrial fibrillation with rapid ventricular rate, continue amiodarone. Hopefully atrial fibrillation ventricular rate will improve after discontinuing inotropes. Not considering rate controlling agents at this point in time since the patient has decompensated heart failure. Pneumonia, severe hypoxia, broad-spectrum antibiotics. Acute kidney injury, likely due to SIRS. Shock liver, due to severe sepsis. Critical patient with guarded prognosis. Discussed with the family. 31 minutes was spent taking care of this critical patient. Thank you for your consultation. Please call me if you have any questions. Kyler Gregory MD, FACP, FACC, FSCAI, FHRS, CCDS Interventional Cardiology Cardiac Electrophysiology Vascular Medicine and Endovascular Interventions Focused Exam Lactate Level 04/24/18 14:42: Lactic Acid Level 2.24*H 04/27/18 01:25: Lactic Acid Level 2.67*H 04/27/18 03:25: Lactic Acid Level 3.16*H Carlito GREGORY MD Apr 26, 2018 12:47 pm
--- NOTE | 2018-04-26 13:02 | Diagnostic Imaging Report ---
Indication: Hypoxia Comparison: Earlier same day Findings: Single frontal radiographic view of the chest was obtained and demonstrates indwelling endotracheal tube at the clavicular heads. Gastric tube extends inferiorly beyond the [id number]. Sternotomy wires and left-sided AICD are noted. Cardiac silhouette remains moderately enlarged. Pulmonary vasculature congestion and diffuse interstitial opacities are improved compared to earlier same day. There are persistent consolidative opacities within the right lower lung field. There is no large effusion or pneumothorax. Bony structures show no gross acute abnormalities. Impression: 1. Persistent cardiomegaly, with probable improving pulmonary vascular congestion and interstitial edema. 2. Moderate sized area of probable superimposed pneumonia in the right lower lung field. Continued followup is recommended. 3. Lines and tubes as above. Dictated by: Dictated on workstation # [id number]
[2018-04-26] MEDS: VANCOMYCIN 1500 MG/NS 500 ML IVPB IV SCH ×2 (18:21)
[2018-04-26] MEDS: ROSUVASTATIN 20 MG (CRESTOR) TABLET PO SCH (21:21)
[2018-04-27] VITALS (24 sets, daily range): BP systolic 48–124; BP diastolic 28–86
[2018-04-27] MEDS: MEROPENEM 500 MG in NS (IVPB) 100 ML IV SCH ×2 (00:20→05:50)
[2018-04-27] MEDS ORDERED: FUROSEMIDE 40 MG/4 ML INJ (LASIX) ONE (00:51)
[2018-04-27] MEDS ORDERED: FUROSEMIDE 40 MG/4 ML INJ (LASIX) IVP ONE (01:00)
[2018-04-27] MEDS ORDERED: NS (IVPB) 250 ML ONE (01:13)
[2018-04-27] MEDS ORDERED: NOREPINEPHRINE 4 MG/4 ML (LEVOPHED) AMP IV ONE (01:13)
[2018-04-27] MEDS: RT-ALBUTEROL/IPRATROPIUM 3 ML (DUONEB) VIAL INH SCH ×3 (01:22→10:48)
[2018-04-27] MEDS: inSUlin ASPART (NovoLOG) 1 UNIT/0.01 ML (CHARGE PER UNIT) SC SCH ×2 (01:30→06:02)
[2018-04-27 01:32] LABS: ABG BASE EXCESS -3.6 MMOL/L (-2.5-2.5); ABG OXYGEN SATURATION 94 % (94-100); ABG PCO2 49 MMHG (35-45); ABG PO2 97 MMHG (79-93); ABG TCO2 23.3 MMOL/L (21.0-31.0)
[2018-04-27 01:34] LABS: ABG PH 7.28 (7.37-7.43)
[2018-04-27 01:35] LABS: ALLENS TEST ART LINE; INSPIRED O2 100%; PATIENT TEMP 100.7; VENTILATOR YES
[2018-04-27] MEDS: NOREPINEPHRINE 4 MG/NS 250 ML DRIP IV SCH ×4 (01:54→10:35)
[2018-04-27] MEDS: AZITHROMYCIN 500 MG/NS 250 ML IVPB IV SCH ×2 (01:55)
[2018-04-27] MEDS ORDERED: SODIUM BICARB 8.4% 50 MEQ/50 ML (ABBOTT) SYR ONE (01:57)
[2018-04-27] MEDS ORDERED: FUROSEMIDE 40 MG/4 ML INJ (LASIX) IV ONE (02:00)
[2018-04-27] MEDS ORDERED: NOREPINEPHRINE 4 MG/NS 250 ML DRIP IV SCH ×2 (02:00)
[2018-04-27] MEDS ORDERED: ALBUMIN 25% 25 GM/100 ML 100 ML IV SCH (02:00)
[2018-04-27] MEDS ORDERED: SODIUM BICARB 8.4% 50 MEQ/50 ML (ABBOTT) SYR IV ONE (02:15)
[2018-04-27] MEDS: DEXMEDETOMIDINE INJECTION 1,000 MCG in NS (IVPB) 240 ML IV SCH ×2 (02:39→06:22)
[2018-04-27] MEDS: PROPOFOL DRIP (ICU) 100 ML IV SCH ×2 (02:40→06:12)
[2018-04-27 03:36] LABS: BASOPHILS # (AUTO) 0.1 10^3/uL (0.0-0.1); BASOPHILS % (AUTO) 0 % (0-10); EOSINOPHILS % (AUTO) 0 % (0-10); HEMATOCRIT 37 % (40-54); LYMPHOCYTES # (AUTO) 2.3 X 10^3 (1.0-4.0); LYMPHOCYTES % (AUTO) 7 % (12-44); MEAN CORPUSCULAR HEMOGLOBIN 30 PG (25-34); MEAN CORPUSCULAR HGB CONC 33 G/DL (32-36); MEAN CORPUSCULAR VOLUME 90 FL (80-99); MEAN PLATELET VOLUME 10.2 FL (7.4-10.4); MONOCYTES # (AUTO) 4.5 X 10^3 (0.0-1.0); MONOCYTES % (AUTO) 15 % (0-12); NEUTROPHILS % (AUTO) 78 % (42-75); PLATELET COUNT 474 10^3/uL (130-400); RED BLOOD COUNT 4.06 10^6/uL (4.35-5.85); RED CELL DISTRIBUTION WIDTH 15.9 % (10.0-14.5)
[2018-04-27 03:37] LABS: ABG BASE EXCESS -1.8 MMOL/L (-2.5-2.5); ABG OXYGEN SATURATION 95 % (94-100); ABG PCO2 49 MMHG (35-45); ABG PO2 88 MMHG (79-93); ABG TCO2 24.8 MMOL/L (21.0-31.0)
[2018-04-27 03:42] LABS: ABG PH 7.31 (7.37-7.43); ALLENS TEST ART LINE
[2018-04-27 03:43] LABS: INSPIRED O2 100%; PATIENT TEMP 100.7; VENTILATOR YES
[2018-04-27 03:57] LABS: ALBUMIN 3.5 GM/DL (3.2-4.5); BILIRUBIN,TOTAL 1.3 MG/DL (0.1-1.0); CALCIUM 7.8 MG/DL (8.5-10.1); CREATININE SERUM 2.16 MG/DL (0.60-1.30); MAGNESIUM 2.6 MG/DL (1.8-2.4); POTASSIUM 5.1 MMOL/L (3.6-5.0); TOTAL PROTEIN 6.4 GM/DL (6.4-8.2)
[2018-04-27 04:06] LABS: BAND NEUTROPHILS 7 %; LYMPHOCYTES % (MANUAL) 7 %; MONOCYTES % (MANUAL) 11 %; NEUTROPHILS % (MANUAL) 75 %
[2018-04-27 04:07] LABS: NUCLEATED RED BLOOD CELLS 6; POLYCHROMASIA MARKED
[2018-04-27 04:08] LABS: WHITE BLOOD COUNT 29.1 10^3/uL (4.3-11.0)
[2018-04-27] MEDS: POTASSIUM CL 10MEQ/50ML IVPB 50 ML IV SCH (04:15)
[2018-04-27] MEDS: MAGNESIUM 1 GM/100 ML IVPB 100 ML IV SCH (04:15)
[2018-04-27] MEDS: KCL 20 MEQ TAB (K-DUR) PO SCH (04:16)
--- NOTE | 2018-04-27 04:44 | Pulmonary Progress Note ---
Subjective Time Seen by Provider: 05:17 Subjective/Events-last exam Pt is doing much worse now. family at bedside. Sepsis Event Evaluation Height, Weight, BMI Height: 5'8.00" Weight: 227lbs. 6.0oz. 103.240283tp; 31.5 BMI Method:Stated Focused Exam Lactate Level 04/24/18 14:42: Lactic Acid Level 2.24*H 04/27/18 01:25: Lactic Acid Level 2.67*H 04/27/18 03:25: Lactic Acid Level 3.16*H Lactic Acid Level Laboratory Tests Test 04/27/18 01:25 04/27/18 03:25 Lactic Acid Level 2.67 MMOL/L (0.50-2.00) *H 3.16 MMOL/L (0.50-2.00) *H Exam Exam Vital Signs Date Time Temp Pulse Resp B/P (MAP) Pulse Ox O2 Delivery O2 Flow Rate FiO2 04/27/18 04:00 Mechanical Ventilator 100 04/27/18 04:00 125 21 79/70 (73) 92 Mechanical Ventilator 100.00 95/77 (83) 04/27/18 04:00 100.7 04/27/18 03:54 122 21 91 100 04/27/18 03:30 110 22 85/69 (74) 91 Mechanical Ventilator 100.00 04/27/18 03:00 130 19 53/44 (47) 91 Mechanical Ventilator 100.00 96/86 (89) 04/27/18 02:30 121 21 83/70 (74) 91 Mechanical Ventilator 100.00 04/27/18 02:00 114 21 48/46 (47) 93 Mechanical Ventilator 100.00 90/59 (69) 04/27/18 01:30 106 23 77/63 (68) 90 Mechanical Ventilator 100.00 84/72 (76) 04/27/18 01:22 111 22 91 100 04/27/18 01:05 109 04/27/18 01:00 104 21 59/53 (55) 93 Mechanical Ventilator 100.00 90/72 (78) 04/27/18 00:30 117 23 84/69 (74) Mechanical Ventilator 80.00 04/27/18 00:00 112 23 67/55 (59) 83 Mechanical Ventilator 80.00 96/76 (83) 04/27/18 00:00 Mechanical Ventilator 100 04/26/18 23:50 124 23 91 80 04/26/18 23:00 115 22 84/65 (71) 92 Mechanical Ventilator 80.00 120/68 (85) 04/26/18 22:30 125 22 84/63 (70) 93 Mechanical Ventilator 80.00 04/26/18 22:09 124 04/26/18 22:00 110 23 90/65 (73) 92 Mechanical Ventilator 80.00 04/26/18 21:57 99.1 04/26/18 21:50 109 25 92 80 04/26/18 21:30 115 21 91/63 (72) 93 Mechanical Ventilator 80.00 04/26/18 21:18 106 85/61 04/26/18 21:00 122 20 86/62 (70) 94 Mechanical Ventilator 80.00 04/26/18 20:30 98.7 109 21 90/65 (73) 94 Mechanical Ventilator 80.00 04/26/18 20:20 131 27 94 80 04/26/18 20:00 Mechanical Ventilator 80 04/26/18 20:00 112 29 80/60 (67) 94 Mechanical Ventilator 80.00 04/26/18 19:30 101.0 130 20 87/64 (72) 94 Mechanical Ventilator 80.00 04/26/18 19:09 128 04/26/18 19:01 98.2 04/26/18 19:00 128 20 85/63 (70) 95 Mechanical Ventilator 80.00 04/26/18 18:48 98.9 04/26/18 18:25 112 22 96 80 04/26/18 18:00 116 20 92/65 (74) 97 Mechanical Ventilator 80.00 04/26/18 17:50 100.2 04/26/18 17:00 125 18 90/66 (74) 97 Mechanical Ventilator 80.00 04/26/18 16:05 Mechanical Ventilator 80 04/26/18 16:00 112 15 96/71 (79) 98 Mechanical Ventilator 80.00 04/26/18 15:37 99 19 99 80 04/26/18 15:36 98.0 04/26/18 15:00 122 17 103/73 (83) 98 Mechanical Ventilator 90.00 04/26/18 14:36 97.9 134 16 106/64 97 Mechanical Ventilator 90.00 04/26/18 14:00 138 32 109/71 (84) 95 Mechanical Ventilator 90.00 04/26/18 13:35 134 16 97 90 04/26/18 13:00 121 04/26/18 13:00 121 14 100/70 (80) 95 Mechanical Ventilator 100.00 04/26/18 12:30 Mechanical Ventilator 100 04/26/18 12:25 Mechanical Ventilator 100.00 04/26/18 12:00 94 28 86 70 04/26/18 12:00 137 16 100/70 (80) 90 Mechanical Ventilator 70.00 04/26/18 12:00 97.9 04/26/18 11:30 Mechanical Ventilator 70.00 04/26/18 11:27 Mechanical Ventilator 60.00 04/26/18 11:00 96 14 110/65 (80) 90 Mechanical Ventilator 40.00 04/26/18 10:19 96.7 77 19 77/50 96 Mechanical Ventilator 40.00 04/26/18 10:01 77 19 96 40 04/26/18 10:00 72 14 84/50 (61) 100 Mechanical Ventilator 40.00 04/26/18 09:19 96.7 80 15 88/58 (68) 98 Mechanical Ventilator 40.00 04/26/18 09:00 64 15 87/50 (62) 90 Mechanical Ventilator 35.00 04/26/18 08:32 74 18 97 40 04/26/18 08:30 Mechanical Ventilator 40 04/26/18 08:00 80 15 85/58 (67) 96 Mechanical Ventilator 35.00 04/26/18 07:57 97.6 04/26/18 07:48 40 04/26/18 07:33 85 04/26/18 07:14 40 04/26/18 07:00 40.00 04/26/18 07:00 80 04/26/18 07:00 80 15 99/61 (74) 94 Mechanical Ventilator 35.00 04/26/18 06:14 76 19 95 35 04/26/18 06:00 74 18 103/65 (78) 93 Mechanical Ventilator 35.00 04/26/18 05:00 81 15 102/64 (77) 94 Mechanical Ventilator 35.00 04/26/18 04:54 74 23 94 35 I & O 04/27/18 07:00 Intake Total 1151 ml Output Total 1575 ml Balance -424 ml Height & Weight Height: 5'8.00" Weight: 227lbs. 6.0oz. 103.434598xg; 31.5 BMI Method:Stated General Appearance: WD/WN, Mild Distress HEENT: PERRL/EOMI, Pharynx Normal Neck: Non Tender, Supple Respiratory: Lungs Clear, Normal Breath Sounds Cardiovascular: No Murmur, Irregularly Irregular, Tachycardia Capillary Refill: Less Than 3 Seconds Gastrointestinal: non tender, soft Extremity: Normal Range of Motion, Other (tender to the area of the right shoulder from the shoulder to the base of the neck.) Neurologic/Psychiatric: Alert, Oriented x3 Skin: Cool Results Lab Laboratory Tests 04/26/18 03:30 04/27/18 01:25 04/27/18 03:25 Assessment/Plan Assessment/Plan Acute respiratory distress with pneumonia, ARDS and pulmonary edema -Continue ventilator support Pulmonary edema -KVO IVF- Change IVF to D51/2 NS with 20meq of KCL Sever septic shock secondary to pneumonia RLL lobar pneumonia upon admission -s/p bronchoscopy - await C&S -IVF -Rodríguez cultures -Continue abx therapy -PT is back on Levophed and dopamine PVCs with short runs of nonsustained Vtach -Start Lopressor 12.5 PO BID -Pt is already getting Amiodarone `-Monitor close Multiorgan failure -- respiratory, renal, hepatic and cardiac Hepatic shock -Monitor hx of systolic CHF -EF 15% known to Dr. Wilson -Consult cardiology -OFF all pressors Metabolic acidosis -improving -D/C Bicarb gtt Hyponatremia -Monitor Labs and radiology reviewed. at bedside. All questions answered in detail. PT is now doing much worse. He is back on dopamine, and levophed. He is requiring 100% oxygen and 12 of PEEP. His AICD fired multiple times yesterday secondary to Vtach. He is also on Amio gtt. I talked to family in depth and answered all questions. They are going to discuss with other family members and most likely they will make him comfort care only. They are also agreeable to have AICD shut off. Total time spent with patient, medical staff, and family is 60min. AMOS GARNER DO Apr 27, 2018 04:44
[2018-04-27] MEDS: DOPamine DRIP 250 ML IV SCH ×2 (05:49→09:15)
[2018-04-27] MEDS: D5 1/2 NS W/KCL 20 MEQ/L 1,000 ML IV SCH (05:59)
[2018-04-27] MEDS: HYDROCORTISONE 100 MG/2 ML (Solu-CORTEF) VIAL IV SCH (06:02)
[2018-04-27] MEDS: MULTIVITAMINS LIQUID 15 ML UDC PO SCH (07:19)
[2018-04-27] MEDS: DOBUTamine INJECTION 250 MG in NS (IVPB) 250 ML IV SCH (07:19)
[2018-04-27] MEDS: ASPIRIN 81 MG CHEW (CHILDREN'S ASA) PO SCH (07:20)
[2018-04-27] MEDS: APIXABAN 5 MG (ELIQUIS) TABLET NG SCH (07:20)
[2018-04-27] MEDS: LOSARTAN 25 MG (COZAAR) TAB PO SCH (07:25)
[2018-04-27] MEDS: meTOprolol TARTRATE 25 MG (LOPRESSOR) TABLET PO SCH (07:25)
--- NOTE | 2018-04-27 07:34 | Diagnostic Imaging Report ---
INDICATION: Hypoxia COMPARISON: 04/26/18 FINDINGS: Single view of the chest demonstrates well-positioned support lines. Bilateral pulmonary infiltrates and consolidation in the right base stable. Small effusions are present. There is no pneumothorax. Pacemaker stable. Sternal wires are midline. IMPRESSION: 1. Stable support lines without pneumothorax. 2. Unchanged aeration of both lungs. Dictated by: Dictated on workstation # [id number]
[2018-04-27] MEDS ORDERED: NS (IVPB) 100 ML ONE (11:08)
[2018-04-27] MEDS ORDERED: VASOPRESSIN INJECTION 20 UNIT/ML VIAL ONE (11:08)
[2018-04-27] MEDS: VASOPRESSIN INJECTION 20 UNIT in NS (IVPB) 50 ML IV SCH (11:17)
[2018-04-27] MEDS ORDERED: morphine INJ 4 MG/ML 1 ML (VIAL/SYRINGE) ONE (11:51)
[2018-04-27] MEDS ORDERED: GLYCOPYRROLATE 0.2 MG/ML (ROBINUL) 2 ML VIAL ONE (12:01)
[2018-04-27] MEDS: LORazepam INJ 2 MG/ML (ATIVAN) VIAL IVP PRN (12:04)
--- NOTE | 2018-04-27 21:10 | Discharge Summary ---
Diagnosis/Chief Complaint Date of Admission Apr 23, 2018 at 17:12 Date of Discharge Apr 27, 2018 at 16:00 Admission Diagnosis Admission Diagnosis Acute Respiratory Failure ARDS Pulmonary Edema Severe Septic Shock RLL PNA Multi organ failure Hepatic Shock Acute on Chronic Systolic CHF Metabolic Acidosis Discharge Diagnosis Acute Respiratory Failure ARDS Pulmonary Edema Severe Septic Shock RLL PNA Multi organ failure Hepatic Shock Acute on Chronic Systolic CHF Metabolic Acidosis Chief Complaint/HPI Chief Complaint/HPI 72 year old male with multiple admissions this year, and several in the last 4- 5 weeks, presented to ED this afternoon with complaints of shortness of breath, temp 101.1, radiating neck/shoulder pain, and about 1 week of feeling poorly. Patient noted to have O2 sat of 83% on room air. BP low. CXR shows large right sided infiltrate. Given labs and vitals, pt with severe sepsis and HCAP. He is admitted to the ICU; his blood pressure was fluid responsive, and on arrival in the ED he reports feeling much better than prior to arrival. He reports he was not feeling well for the last 7 days, and that he called his PCP , Jan MCDANIEL this afternoon and reported his not feeling well for 7 days and shortness of breath, increased fatigue and now fever. Patient was instructed to come to the ED immediately, which he did, and he is seen on arrival to the ICU. He is feeling much improved, but given his severity of illness and his significant underlying comorbidities, he is at extremely high risk for decompensation, especially given his need for fluid resuscitation and his dilated cardiomyopathy with known EF of 15%, which is what it has been for many years. This was discussed with the patient and his . Discharge Summary-Simple/Stand Consultations Dr Jarvis, Pulmonary Critical Care Dr Gregory, Cardiology Discharge Physical Examination Allergies: Coded Allergies: Penicillins (Unverified Allergy, Unknown, 05/29/16) Vitals & I&Os Vital Sign - Last 12Hours Date Time Temp Pulse Resp B/P (MAP) Pulse Ox O2 Delivery O2 Flow Rate FiO2 04/27/18 16:00 113 22 82/57 91 Mechanical Ventilator 100.00 04/27/18 10:48 100 04/27/18 09:15 98.6 Intake and Output 04/27/18 00:00 Intake Total 971 ml Output Total 525 ml Balance 446 ml General Appearance: Other (Patient ) Hospital Course See final discharge diagnosis. Radiology Reviewed Date of Exam: 04/25/18 CHEST 1 VIEW, AP/PA ONLY INDICATION: Mechanical ventilation, infiltrate. TECHNIQUE: Single view chest 3:22 AM. CORRELATION STUDY: 04/24/2018 FINDINGS: Endotracheal tube, gastric tube and right-sided central line remain in place. Patient is post sternotomy. Cardiac enlargement stable with presence of pulmonary vascular congestion and perihilar edema. Increasing opacities throughout both lung contreras, most noticeable over the right mid and lower lung field appears to be more densely consolidated. Left-sided pacemaker remains in place. IMPRESSION: 1. Stable appearance about support lines and tubes. 2. Increasing consolidated density about the right mid and lower lung field. Also appears be increasing severity of pulmonary vascular congestion and edema. Discussion & Recommendations 72 yo M that presented with Severe Septic Shock and proceed to multi organ failure. Patient required intubation with full life support. Patient continued to get progressively worse with maximal treatment of septic shock for RLL PNA. Family then made patient comfort care that ended with terminal extubation and patient . Discharge Condition at discharge Instructions to patient/family Please see electronic discharge instructions given to patient. Discharge Medications Reviewed and agree with Discharge Medication list on patient's Discharge Instruction sheet Clinical Quality Measures DVT/VTE Risk/Contraindication: VTE Present on Admission: No Risk Factor Score Per Nursin RFS Level Per Nursing on Admit: 3=High Pneumonia: Pseudomonal Risk: COPD HCAP with risk for mulit-drug: Hospitalized>2d (pst 90d) Urinary Catheter-Non SCIP Pts: Reason for Catheter Continuanc: Accurate I&O Comfort Measures/ Type of Care: Comfort Measures Cardiopulmonary Arrest: Cardiorespiratory Arrest Date of : Apr 27, 2018 Time of : 12:06 Patient was terminally extubated and was surrounded by family as he passed Copy Copies To 1: BRENNEN ECHEVERRIA MD, HOLLY R MD Apr 27, 2018 21:10
== END 2018-04-27 16:00 | disposition expired | DRG 853 ==
LOC: EDUNIT# 15:02 → ER 15:06 → ICU 17:12
PROVIDERS: ADMIT Family Medicine; ATTEND Family Medicine
PROC: 0B9F8ZX Drainage of Right Lower Lung Lobe, Via Natural or Artificial Opening Endoscopic, Diagnostic (ICD-10-PCS; principal; 2018-04-24)
PROC: 0BDF8ZX Extraction of Right Lower Lung Lobe, Via Natural or Artificial Opening Endoscopic, Diagnostic (ICD-10-PCS; 2018-04-24)
PROC: 5A1945Z Respiratory Ventilation, 24-96 Consecutive Hours (ICD-10-PCS; 2018-04-24)
DX: A41.9 Sepsis, unspecified organism (principal); R65.21 Severe sepsis with septic shock; J18.9 Pneumonia, unspecified organism; R57.0 Cardiogenic shock; I11.0 Hypertensive heart disease with heart failure; I50.23 Acute on chronic systolic (congestive) heart failure; K72.00 Acute and subacute hepatic failure without coma; E87.2 Acidosis; N17.9 Acute kidney failure, unspecified; J80 Acute respiratory distress syndrome; E87.1 Hypo-osmolality and hyponatremia; I47.2 Ventricular tachycardia; I49.3 Ventricular premature depolarization; I69.354 Hemiplegia and hemiparesis following cerebral infarction affecting left non-dominant side; I48.0 Paroxysmal atrial fibrillation; J43.9 Emphysema, unspecified; I25.5 Ischemic cardiomyopathy; G47.30 Sleep apnea, unspecified; I25.10 Atherosclerotic heart disease of native coronary artery without angina pectoris; E78.00 Pure hypercholesterolemia, unspecified; D50.0 Iron deficiency anemia secondary to blood loss (chronic); K21.9 Gastro-esophageal reflux disease without esophagitis; E07.81 Sick-euthyroid syndrome; Z95.1 Presence of aortocoronary bypass graft; Z95.5 Presence of coronary angioplasty implant and graft; Z87.891 Personal history of nicotine dependence; Z99.81 Dependence on supplemental oxygen; Z95.810 Presence of automatic (implantable) cardiac defibrillator
CPT/HCPCS: 36415; 36569; 71045; 76937; 80053; 80202; 81000; 82330; 82805; 82962; 83036; 83605; 83735; 83880; 84100; 84439; 84443; 84478; 84480; 84481; 84484; 85007; 85018; 85025; 85027; 85610; 85730; 86141; 86788; 86789; 87040; 87070; 87081; 87088; 87101; 87116; 87205; 93005; 93306; 93970; 94003; 94640; 94644; 94660; 94799; 96361; 96365